=== PATIENT | female | born 1970 | race Caucasian/White ===

== ENCOUNTER 2016-08-01 03:56 | Emergency (ER) | payer MEDICAID ==
[2016-08-01] MEDS ORDERED: HYDROmorphone 2 MG/ML Syringe IM ONE (04:11)
[2016-08-01] MEDS ORDERED: Cyclobenzaprine 10 MG Tab ONE (04:15)
[2016-08-01] MEDS ORDERED: Acetaminophen/Codeine 300-30 MG Tab ONE (04:15)
[2016-08-01] MEDS ORDERED: HYDROmorphone 2 MG/ML Syringe ONE (04:19)
--- NOTE | 2016-08-01 04:24 | EDM.PDOC ---
ED HPI GENERAL MEDICAL PROBLEM - General Chief Complaint: Back Pain or Injury Stated Complaint: back pain Time Seen by Provider: 08/01/16 04:00 Source of Information: Reports: Patient History Limitations: Reports: No Limitations - History of Present Illness INITIAL COMMENTS - FREE TEXT/NARRATIVE: According to patient she does have history for recurrent back spasm and uses flexeril and tylenol # 3 as needed,She has been to Neurologist in [facility] for work up in the past. She claims her back has been spasming since last night and has been getting worse. No radiation of pain. no tingling or numbness in the lower extremities. No other complaints. Onset Date: 07/31/16 Location: Reports: Back Quality: Reports: Ache Severity: Severe Improves with: Reports: None Worsens with: Reports: None Associated Symptoms: Denies: Confusion, Fever/Chills, Headaches, Nausea/Vomiting , Rash, Seizure, Shortness of Breath - Related Data Allergies Allergy/AdvReac Type Severity Reaction Status Date / Time Penicillins Allergy Anaphylactic Verified 09/29/15 12:23 Shock Home Meds: Home Meds Cyclobenzaprine HCl [Cyclobenzaprine HCl] 10 mg PO BEDTIME PRN 09/25/15 [History ] Furosemide [Furosemide] 20 mg PO BID 09/25/15 [History] Metoprolol Tartrate [Metoprolol Tartrate] 50 mg PO BID 09/25/15 [History] Potassium Chloride [Potassium Chloride] 20 meq PO DAILY 09/25/15 [History] Warfarin Sodium [Jantoven] 7.5 mg PO ASDIRECTED 09/25/15 [History] Acetaminophen with Codeine [Tylenol with Codeine #3 Tablet] 1 each PO TID PRN [History] Aspirin [Halfprin] 81 mg PO DAILY 07/07/16 [History] Sildenafil Citrate [Sildenafil] 20 mg PO TID 07/07/16 [History] Past Medical History Cardiovascular History: Reports: Afib, Heart Failure, Heart Murmur, SOB on Exertion, Other (See Below) Other Cardiovascular History: CFH Respiratory History: Reports: SOB, Other (See Below) Other Respiratory History: Fluid in one lung 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: Musculoskeletal History: Reports: Back Pain, Chronic, Other (See Below) Other Musculoskeletal History: Back spasms Psychiatric History: Reports: Anxiety, Depression Other Psychiatric History: depression with son's Social & Family History - Family History Cardiac: Reports: [place], Stent - Tobacco Use Smoking Status *Q: Current Every Day Smoker Years of Tobacco use: 24 Packs/Tins Daily: 1 Used Tobacco, but Quit: No Second Hand Smoke Exposure: Yes - Alcohol Use Days Per Week of Alcohol Use: 2 Number of Drinks Per Day: 6 Total Drinks Per Week: 12 - Recreational Drug Use Recreational Drug Use: No ED ROS GENERAL - Review of Systems Review Of Systems: See Below Constitutional: Denies: Fever, Chills HEENT: Denies: Rhinitis, Sinus Problem, Throat Pain Respiratory: Denies: Cough, Sputum Cardiovascular: Denies: Chest Pain, Lightheadedness Endocrine: Denies: Fatigue GI/Abdominal: Denies: Abdominal Pain, Nausea, Vomiting : Denies: Dysuria, Flank Pain Musculoskeletal: Reports: Back Pain. Denies: Joint Pain, Joint Swelling Skin: Denies: Pruritis, Rash Neurological: Denies: Confusion, Numbness, Seizure, Syncope, Tremors ED EXAM, GENERAL - Physical Exam Exam: See Below Exam Limited By: No Limitations General Appearance: Alert, WD/WN, Moderate Distress Eye Exam: Bilateral Eye: EOMI, PERRL Ears: Normal External Exam, Normal Canal, Hearing Grossly Normal, Normal TMs Ear Exam: Bilateral Ear: Auricle Normal, Canal Normal, TM normal Nose: Normal Inspection, Normal Mucosa, No Blood Throat/Mouth: Normal Inspection, Normal Lips, Normal Teeth, Normal Gums, Normal Oropharynx, Normal Voice, No Airway Compromise Head: Atraumatic, Normocephalic Neck: Normal Inspection, Supple, Non-Tender, Full Range of Motion Respiratory/Chest: No Respiratory Distress, Lungs Clear, Normal Breath Sounds, No Accessory Muscle Use, Chest Non-Tender Cardiovascular: Normal Peripheral Pulses, Regular Rate, Rhythm, No Edema, No Gallop, No JVD, No Rub GI/Abdominal: Normal Bowel Sounds, Soft, Non-Tender, No Organomegaly, No Distention, No Abnormal Bruit, No Mass Back Exam: Normal Inspection, Muscle Spasm (lumbar), Paraspinal Tenderness, Vertebral Tenderness (lumbar) Neurological: Alert, Oriented, Normal Reflexes Course - Vital Signs Text/Narrative:: Pt has had chronic lumbar back spasms. Apparently has run out of her meds. She did receive dilaudid 1mg Im. She was discharged with Flexeril 10mg and tylenol # 3. Pt discharged advised intermittent heat to the back. Avoid excessive massage - Orders/Labs/Meds Orders: Active Orders 24 hr Category Date Time Status HYDROmorphone [Dilaudid] Med 08/01/16 04:11 Once 1 mg IM ONETIME ONE Medication Orders Hydromorphone HCl (Dilaudid) 1 mg IM ONETIME ONE Stop: 08/01/16 04:12 Meds: Medications Generic Name Dose Route Start Last Admin Trade Name Ryan PRN Reason Stop Dose Admin Hydromorphone HCl 1 mg 08/01/16 04:11 Dilaudid IM 08/01/16 04:12 ONETIME ONE Departure - Departure Time of Disposition: 04:40 Disposition: Home, Self-Care 01 Condition: good Clinical Impression: Back muscle spasm - Discharge Information Forms: ED Department Discharge Additional Instructions: She did receive dilaudid 1mg Im. She was discharged with Flexeril 10mg and tylenol #3. Pt discharged advised intermittent heat to the back. Avoid excessive massage - Problem List & Annotations (1) Back muscle spasm SNOMED Code(s): 182592535 Code(s): M62.830 - MUSCLE SPASM OF BACK Status: Acute Current Visit: Yes - Problem List Review Problem List Initiated/Reviewed/Updated: Yes - My Orders Last 24 Hours: My Active Orders 08/01/16 04:11 HYDROmorphone [Dilaudid] 1 mg IM ONETIME ONE - Assessment/Plan Last 24 Hours: My Active Orders 08/01/16 04:11 HYDROmorphone [Dilaudid] 1 mg IM ONETIME ONE Assessment:: Chronic back muscle spasm Plan: She did receive dilaudid 1mg Im. She was discharged with Flexeril 10mg and tylenol #3. Pt discharged advised intermittent heat to the back. Avoid excessive massage
[2016-08-01 08:07] VITALS: BP 141/98
== END 2016-08-01 05:00 | disposition home or self-care (01) ==
LOC: LB.ED 03:56
DX: M62.830 Muscle spasm of back (principal); M54.9 Dorsalgia, unspecified; G89.29 Other chronic pain; Z79.899 Other long term (current) drug therapy; Z79.01 Long term (current) use of anticoagulants; Z79.82 Long term (current) use of aspirin; I48.91 Unspecified atrial fibrillation; R06.02 Shortness of breath; F41.9 Anxiety disorder, unspecified; F32.9 Major depressive disorder, single episode, unspecified; I50.9 Heart failure, unspecified; F17.210 Nicotine dependence, cigarettes, uncomplicated; Z88.0 Allergy status to penicillin
CPT/HCPCS: 96372; 99283; A9270; J1170

== ENCOUNTER 2016-10-22 08:01 | Emergency (ER) | payer MEDICAID ==
[2016-10-22] MEDS ORDERED: Albuterol/Ipratropium 3.0-0.5 MG/3 ML Neb Soln NEB SCH (08:05)
[2016-10-22] MEDS ORDERED: Sodium Chloride 0.9% 10 ML Syringe FLUSH PRN (08:16)
[2016-10-22] MEDS: HYDROmorphone 2 MG/ML Syringe IVPUSH PRN ×2 (08:31→10:13)
[2016-10-22] MEDS ORDERED: HYDROmorphone 2 MG/ML Syringe ONE (08:31)
[2016-10-22] MEDS ORDERED: Furosemide 40 MG/4 ML VIAL ONE (08:47)
[2016-10-22] MEDS ORDERED: Iopamidol 755 Mg/ML 100 ML Bottle IV PRN (09:20)
[2016-10-22] MEDS ORDERED: Sodium Chloride 0.9% 50 ML SDV FLUSH ONE (09:20)
--- NOTE | 2016-10-22 09:48 | CR ---
DATE OF SERVICE: 10/22/16 CLINICAL DATA: resp distress AP PORTABLE CHEST: Comparison is made to a prior exam dated 09/29/15. The patient is status post median sternotomy and heart valve replacement. The heart size is stable. There is a poorly defined infiltrate in the right upper lobe just above the minor fissure that was not present on the prior exam consistent with pneumonia. There is slight blunting of the right costophrenic angle suggesting a small right pleural effusion. The lungs are otherwise clear. No pneumothorax. The pulmonary vasculature appears slightly more prominent than on the prior exam. The exam is otherwise unchanged. [id number] [facility]
[2016-10-22] MEDS ORDERED: HYDROmorphone 2 MG/ML Syringe IVPUSH PRN (09:58)
--- NOTE | 2016-10-22 10:08 | EDM.PDOC ---
ED HPI GENERAL MEDICAL PROBLEM - General Chief Complaint: Respiratory Problem Stated Complaint: respiratory distress Time Seen by Provider: 10/22/16 08:15 - History of Present Illness INITIAL COMMENTS - FREE TEXT/NARRATIVE: woke up suddenly this am with sob; she also has pain between her shoulder blades but this isnt new. Hx of mitral valve replacement; on coumadin Smoker, has COPD likely; has done a neb last night and one [employer]; given one here. Onset: Today, Sudden Onset Time: 04:00 Duration: Hour(s): Location: Reports: Chest, Back Quality: Reports: Sharp Severity: Severe Improves with: Reports: None Worsens with: Reports: None Associated Symptoms: Reports: Cough, Shortness of Breath, Weakness Back Pain Score (Numeric/FACES): 0 - Related Data Allergies Allergy/AdvReac Type Severity Reaction Status Date / Time gabapentin Allergy Hives Verified 08/01/16 04:32 Penicillins Allergy Anaphylactic Verified 09/29/15 12:23 Shock Home Meds: Home Meds Cyclobenzaprine HCl [Cyclobenzaprine HCl] 10 mg PO BEDTIME PRN 09/25/15 [History ] Furosemide [Furosemide] 30 mg PO BID 09/25/15 [History] Metoprolol Tartrate [Metoprolol Tartrate] 50 mg PO BID 09/25/15 [History] Potassium Chloride [Potassium Chloride] 20 meq PO DAILY 09/25/15 [History] Warfarin Sodium [Jantoven] 7.5 mg PO ASDIRECTED 09/25/15 [History] Acetaminophen with Codeine [Tylenol with Codeine #3 Tablet] 1 each PO TID PRN [History] Aspirin [Halfprin] 81 mg PO DAILY 07/07/16 [History] Sildenafil Citrate [Sildenafil] 20 mg PO TID 07/07/16 [History] Past Medical History Cardiovascular History: Reports: Afib, Heart Failure, Heart Murmur, SOB on Exertion, Other (See Below) Other Cardiovascular History: chf Respiratory History: Reports: COPD, SOB, Other (See Below) Other Respiratory History: Fluid in one lung Gastrointestinal History: Reports: Other (See Below) Other Gastrointestinal History: hx C diff several times 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/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 History: Musculoskeletal History: Reports: Back Pain, Chronic, Other (See Below) Other Musculoskeletal History: Back spasms Neurological History: Reports: Other (See Below) Other Neuro History: muscular - AMN Psychiatric History: Reports: Anxiety, Depression Other Psychiatric History: depression with son's - Infectious Disease History Infectious Disease History: Reports: C-Difficile Other Infectious Disease History: hx rheumatic fever Social & Family History - Family History Cardiac: Reports: [place], Stent Respiratory: Reports: COPD Other Respiratory Family Hisory: COPD not actually diagnosed but feels has, long hx of smoking Musculoskeletal: Reports: Other (See Below) Other Musculoskeletal Family History: AMN, ALD, ADDISONS Psychiatric: Reports: None - Tobacco Use Smoking Status *Q: Current Every Day Smoker Years of Tobacco use: 20 Packs/Tins Daily: 1 Used Tobacco, but Quit: No Second Hand Smoke Exposure: No - Caffeine Use Caffeine Use: Reports: Coffee - Alcohol Use Days Per Week of Alcohol Use: 2 Number of Drinks Per Day: 6 Total Drinks Per Week: 12 - Recreational Drug Use Recreational Drug Use: No ED ROS GENERAL - Review of Systems Review Of Systems: See Below Constitutional: Reports: No Symptoms HEENT: Reports: No Symptoms Respiratory: Reports: Shortness of Breath, Cough. Denies: No Symptoms Cardiovascular: Reports: No Symptoms Musculoskeletal: Reports: Back Pain Skin: Reports: No Symptoms Neurological: Reports: Weakness Psychiatric: Reports: No Symptoms Hematologic/Lymphatic: Reports: Easy Bleeding, Easy Bruising ED EXAM, GENERAL - Physical Exam Exam: See Below Exam Limited By: No Limitations General Appearance: Alert, WD/WN, Anxious, Moderate Distress Eye Exam: Bilateral Eye: EOMI, PERRL Nose: Normal Inspection, Normal Mucosa Throat/Mouth: Normal Inspection, Normal Lips, Normal Oropharynx Head: Atraumatic, Normocephalic Neck: Normal Inspection, Supple, Non-Tender Respiratory/Chest: Decreased Breath Sounds, Rales (upper right) Cardiovascular: Normal Peripheral Pulses, No Edema, Tachycardia, Systolic Murmur. No: Regular Rate, Rhythm GI/Abdominal: Normal Bowel Sounds, Soft, Non-Tender Back Exam: Full Range of Motion Extremities: Normal Range of Motion Neurological: Alert, Oriented, CN II-XII Intact, Normal Cognition, Normal Gait Psychiatric: Normal Affect, Normal Mood Skin Exam: Warm, Dry, Intact, Normal Color EKG INTERPRETATION EKG Date: 10/22/16 Rhythm: Other (sinus tachy) ST-T: Normal Comparison: NA - No Prior EKG Course - Vital Signs Last Recorded V/S: Last Vital Signs Temp 98.6 F 10/22/16 08:10 Pulse 111 H 10/22/16 09:19 Resp 18 10/22/16 10:14 BP 96/66 10/22/16 10:15 Pulse Ox 97 10/22/16 10:15 - Orders/Labs/Meds Orders: Active Orders 24 hr Category Date Time Status Cardiac Monitoring [RC] .As Directed Care 10/22/16 08:05 Active EKG Documentation Completion [RC] ASDIRECTED Care 10/22/16 08:18 Active EKG Documentation Completion [RC] ASDIRECTED Care 10/22/16 08:27 Active RT Aerosol Therapy [RC] ASDIRECTED Care 10/22/16 13:41 Active Chest w Cont [CT] Stat Exams 10/22/16 09:17 Taken Albuterol/Ipratropium [DuoNeb 3.0-0.5 MG/3 ML] Med 10/22/16 08:05 Active 3 ml NEB STAT Peripheral IV Insertion Adult [OM.PC] Stat Oth 10/22/16 08:17 Ordered Medication Orders Albuterol/Ipratropium (Duoneb 3.0-0.5 Mg/3 Ml) 3 ml NEB STAT YARELI Last Admin: 10/22/16 08:10 Dose: 3 ml Labs: Laboratory Tests 10/22/16 10/22/16 10/22/16 Range/Units 08:16 08:30 08:30 WBC 12.9 H (4.0-11.0) K/uL RBC 3.80 (3.80-5.80) M/uL Hgb 10.0 L (11.5-16.5) g/dL Hct 33.1 L (37.0-47.0) % MCV 87 (76-96) fL MCH 26.3 L (27.0-32.0) pg MCHC 30.2 L (31.0-35.0) g/dL RDW 16.7 H (11.0-16.0) % Plt Count 575 H D (150-500) K/uL MPV 10.3 H (6.0-10.0) fL Neut % (Auto) 77.6 H (45.0-70.0) % Lymph % (Auto) 15.8 L (20.0-40.0) % Monroe % (Auto) 5.3 (3.0-10.0) % Eos % (Auto) 0.6 L (1.0-5.0) % Baso % (Auto) 0.7 H (0.0-0.5) % Neut # (Auto) 10.00 H (2.00-7.50) K/uL Lymph # (Auto) 2.04 (1.50-4.00) K/uL Monroe # (Auto) 0.68 (0.20-0.80) K/uL Eos # (Auto) 0.08 (0.04-0.40) K/uL Baso # (Auto) 0.09 (0.02-0.10) K/uL PT 17.9 H D (9.0-11.5) sec INR 1.9 D (1.0-3.5) D-Dimer, Quantitative 868 H (0-400) ng/mL Sodium (136-145) mmol/L Potassium (3.5-5.1) mmol/L Chloride (98-107) mmol/L Carbon Dioxide (21.0-32.0) mmol/L Anion Gap (5.0-15.0) mmol/L BUN (8-26) mg/dL Creatinine (0.55-1.02) mg/dL Est Cr Clr Drug Dosing Estimated GFR (MDRD) (>60) MLS/MIN BUN/Creatinine Ratio (6-25) Glucose (74-100) mg/dL Calcium (8.5-10.1) mg/dL Total Bilirubin (0.0-1.0) mg/dL AST (15-37) U/L ALT (12-78) U/L Alkaline Phosphatase (46-116) U/L Troponin I (0.000-0.060) ng/mL B-Natriuretic Peptide (0-125) pg/mL Total Protein (6.4-8.2) g/dL Albumin (3.4-5.0) g/dL Globulin (2.2-4.2) g/dL Albumin/Globulin Ratio (0.8-2.0) 10/22/ Range/Units 08:30 WBC (4.0-11.0) K/uL RBC (3.80-5.80) M/uL Hgb (11.5-16.5) g/dL Hct (37.0-47.0) % MCV (76-96) fL MCH (27.0-32.0) pg MCHC (31.0-35.0) g/dL RDW (11.0-16.0) % Plt Count (150-500) K/uL MPV (6.0-10.0) fL Neut % (Auto) (45.0-70.0) % Lymph % (Auto) (20.0-40.0) % Monroe % (Auto) (3.0-10.0) % Eos % (Auto) (1.0-5.0) % Baso % (Auto) (0.0-0.5) % Neut # (Auto) (2.00-7.50) K/uL Lymph # (Auto) (1.50-4.00) K/uL Monroe # (Auto) (0.20-0.80) K/uL Eos # (Auto) (0.04-0.40) K/uL Baso # (Auto) (0.02-0.10) K/uL PT (9.0-11.5) sec INR (1.0-3.5) D-Dimer, Quantitative (0-400) ng/mL Sodium 136 (136-145) mmol/L Potassium 3.5 (3.5-5.1) mmol/L Chloride 98 (98-107) mmol/L Carbon Dioxide 28.8 (21.0-32.0) mmol/L Anion Gap 12.7 (5.0-15.0) mmol/L BUN 11 D (8-26) mg/dL Creatinine 0.93 D (0.55-1.02) mg/dL Est Cr Clr Drug Dosing TNP Estimated GFR (MDRD) > 60 (>60) MLS/MIN BUN/Creatinine Ratio 11.8 (6-25) Glucose 184 H D (74-100) mg/dL Calcium 8.8 (8.5-10.1) mg/dL Total Bilirubin 1.0 D (0.0-1.0) mg/dL AST 18 (15-37) U/L ALT 24 (12-78) U/L Alkaline Phosphatase 159 H (46-116) U/L Troponin I 0.090 H* D (0.000-0.060) ng/mL B-Natriuretic Peptide 4836 H D (0-125) pg/mL Total Protein 7.4 (6.4-8.2) g/dL Albumin 3.2 L (3.4-5.0) g/dL Globulin 4.2 (2.2-4.2) g/dL Albumin/Globulin Ratio 0.8 (0.8-2.0) Meds: Medications Generic Name Dose Route Start Last Admin Trade Name Ryan PRN Reason Stop Dose Admin Albuterol/Ipratropium 3 ml 10/22/16 08:05 10/22/16 08:10 Duoneb 3.0-0.5 Mg/3 Ml NEB 3 ml STAT YARELI Administration Discontinued Medications Generic Name Dose Route Start Last Admin Trade Name Ryan PRN Reason Stop Dose Admin Furosemide 20 mg 10/23/16 08:50 10/22/16 08:51 Lasix IVPUSH 10/23/16 08:51 20 mg ONETIME ONE Administration Furosemide Confirm 10/22/16 08:47 Lasix Administered 10/22/16 08:48 Dose 40 mg .ROUTE .STK-MED ONE Hydromorphone HCl 1 mg 10/22/16 08:26 10/22/16 10:13 Dilaudid IVPUSH 1 mg Q4H PRN Administration Pain Hydromorphone HCl 1 mg 10/22/16 09:58 Dilaudid IVPUSH Q2H PRN Pain Hydromorphone HCl Confirm 10/22/16 08:31 Dilaudid Administered 10/22/16 08:32 Dose 2 mg .ROUTE .STK-MED ONE Iopamidol 100 ml 10/22/16 09:20 10/22/16 09:42 Isovue-370 (76%) IV 10/23/16 09:21 100 ml . DIRECTED PRN Administration RADIOLOGY EXAM Sodium Chloride 10 ml 10/22/16 08:16 10/22/16 08:33 Saline Flush FLUSH 10 ml ASDIRECTED PRN Administration Keep Vein Open Sodium Chloride 50 ml 10/22/16 09:20 10/22/16 09:42 Normal Saline FLUSH 10/22/16 09:21 50 ml ONETIME ONE Administration - Radiology Interpretation Free Text/Narrative:: Initial v rad shows mild pumonary congestion. Radiology read shows pleural effusion and area consistent with pneumonia ( received report after patient left) CT Results Date: 10/22/16 - Re-Assessments/Exams Free Text/Narrative Re-Assessment/Exam: 10/22/16 10:19 Dr. Cole is accepting [facility] at [facility] Departure - Departure Time of Disposition: 11:45 Disposition: DC/Tfer to Acute Hospital 02 Condition: Fair Clinical Impression: CHF (congestive heart failure) Qualifiers: Congestive heart failure type: systolic Congestive heart failure chronicity: acute on chronic Qualified Code(s): I50.23 - Acute on chronic systolic ( congestive) heart failure - Discharge Information Referrals: Hugo Schuster MD [Primary Care Provider] - Forms: ED Department Discharge - Problem List & Annotations (1) Congestive heart failure SNOMED Code(s): 94363015 Code(s): I50.9 - HEART FAILURE, UNSPECIFIED Status: Acute Priority: High Qualifiers: Congestive heart failure type: systolic Congestive heart failure chronicity : acute on chronic Qualified Code(s): I50.23 - Acute on chronic systolic ( congestive) heart failure - My Orders Last 24 Hours: My Active Orders 10/22/16 08:05 Cardiac Monitoring [RC] .As Directed Albuterol/Ipratropium [DuoNeb 3.0-0.5 MG/3 ML] 3 ml NEB STAT 10/22/16 08:17 Peripheral IV Insertion Adult [OM.PC] Stat 10/22/16 08:18 EKG Documentation Completion [RC] ASDIRECTED 10/22/16 08:27 EKG Documentation Completion [RC] ASDIRECTED 10/22/16 09:17 Chest w Cont [CT] Stat 10/22/16 13:41 RT Aerosol Therapy [RC] ASDIRECTED - Assessment/Plan Last 24 Hours: My Active Orders 10/22/16 08:05 Cardiac Monitoring [RC] .As Directed Albuterol/Ipratropium [DuoNeb 3.0-0.5 MG/3 ML] 3 ml NEB STAT 10/22/16 08:17 Peripheral IV Insertion Adult [OM.PC] Stat 10/22/16 08:18 EKG Documentation Completion [RC] ASDIRECTED 10/22/16 08:27 EKG Documentation Completion [RC] ASDIRECTED 10/22/16 09:17 Chest w Cont [CT] Stat 10/22/16 13:41 RT Aerosol Therapy [RC] ASDIRECTED
[2016-10-22 10:18] VITALS: BP 96/66
--- NOTE | 2016-10-22 17:25 | CT ---
DATE OF SERVICE: 10/22/16 CLINICAL DATA: r/o pe ENHANCED CHEST CT Multislice acquisition through the chest with IV contrast was performed. No priors. The lower lungs are incompletely visualized. The patient is status post median sternotomy and mitral valve replacement. The heart size is normal. No pericardial effusion. There are coronary artery calcifications. No evidence of PE; however, lower lobe PE cannot be excluded. No pneumothorax. There is a moderate size right pleural effusion. There is a small left pleural effusion. The pulmonary vasculature is prominent suggesting pulmonary venous congestion or fluid overload. There are poorly defined ground-glass opacities in both lungs. There is an area of consolidation in the right upper lobe just above the minor fissure. Pneumonia should be considered. There are enlarged lymph nodes adjacent to the aortic arch. The largest measures 13 mm in its short axis. There are also enlarged lymph nodes in the subcarinal middle mediastinum. I do not see any other significant findings. [id number] MTDD
[2016-10-23] MEDS ORDERED: Furosemide 20 MG/2 ML VIAL IVPUSH ONE (08:50)
== END 2016-10-22 10:51 ==
LOC: LB.ED 08:01
DX: I50.23 Acute on chronic systolic (congestive) heart failure (principal); I48.91 Unspecified atrial fibrillation; J44.9 Chronic obstructive pulmonary disease, unspecified; F17.210 Nicotine dependence, cigarettes, uncomplicated; F41.9 Anxiety disorder, unspecified; F32.9 Major depressive disorder, single episode, unspecified; Z88.0 Allergy status to penicillin; Z88.8 Allergy status to other drugs, medicaments and biological substances; Z79.82 Long term (current) use of aspirin; Z79.899 Other long term (current) drug therapy
CPT/HCPCS: 36415; 71010; 71260; 80053; 83880; 84484; 85025; 85379; 85610; 93005; 96374; 96375; 99285; J1170; J1940; J7050; J7620; Q9967; A0425; A0429

== ENCOUNTER 2017-08-02 18:03 | Emergency (ER) | payer MEDICAID ==
[~2017-08-02 18:03] MED LIST: Cephalexin 500 MG Cap ONE
--- NOTE | 2017-08-02 18:29 | EDM.PDOC ---
ED HPI GENERAL MEDICAL PROBLEM - General Chief Complaint: Fever Stated Complaint: FEVER Time Seen by Provider: 08/02/17 18:10 Source of Information: Reports: Patient History Limitations: Reports: No Limitations - History of Present Illness INITIAL COMMENTS - FREE TEXT/NARRATIVE: According to patient she started to have cough with productive green colored sputum yesterday, the cough has got worse over the day. No wheezing or Shortness of breath.She checked her temp now and was at 101F and hence here in the emergency room. Pt is terrified and tearful because she has had AVR done 2 years and is concerned. No chest pain, palpitations. No nausea or vomiting. No skin rash. No other complaints. 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: Tylenol # 3 - Related Data Allergies Allergy/AdvReac Type Severity Reaction Status Date / Time gabapentin Allergy Hives Verified 08/01/16 04:32 Penicillins Allergy Anaphylactic Verified 09/29/15 12:23 Shock Home Meds: Home Meds Cyclobenzaprine HCl 10 mg PO BEDTIME PRN 09/25/15 [History] Furosemide 30 mg PO BID 09/25/15 [History] Metoprolol Tartrate 50 mg PO BID 09/25/15 [History] Potassium Chloride 20 meq PO DAILY 09/25/15 [History] Warfarin Sodium [Jantoven] 7.5 mg PO ASDIRECTED 09/25/15 [History] Acetaminophen with Codeine [Tylenol with Codeine #3 Tablet] 1 each PO TID PRN [History] Aspirin [Halfprin] 81 mg PO DAILY 07/07/16 [History] Sildenafil Citrate [Sildenafil] 20 mg PO TID 07/07/16 [History] Past Medical History Cardiovascular History: Reports: Afib, Heart Failure, Heart Murmur, SOB on Exertion, Other (See Below) Other Cardiovascular History: chf Respiratory History: Reports: COPD, SOB, Other (See Below) Other Respiratory History: Fluid in one lung Gastrointestinal History: Reports: Other (See Below) Other Gastrointestinal History: hx C diff several times 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: Reports: Other (See Below) Other OB/BYN History: Musculoskeletal History: Reports: Back Pain, Chronic, Other (See Below) Other Musculoskeletal History: Back spasms Neurological History: Reports: Other (See Below) Other Neuro History: muscular - AMN Psychiatric History: Reports: Anxiety, Depression Other Psychiatric History: depression with son's - Infectious Disease History Infectious Disease History: Reports: C-Difficile Other Infectious Disease History: hx rheumatic fever Social & Family History - Family History Cardiac: Reports: PA, Stent Respiratory: Reports: COPD Other Respiratory Family Hisory: COPD not actually diagnosed but feels has, long hx of smoking Musculoskeletal: Reports: Other (See Below) Other Musculoskeletal Family History: AMN, ALD, ADDISONS Psychiatric: Reports: None - Caffeine Use Caffeine Use: Reports: Coffee ED ROS GENERAL - Review of Systems Review Of Systems: See Below Constitutional: Reports: Fever, Chills. Denies: Night Sweats, Diaphoresis HEENT: Denies: Rhinitis, Sinus Problem, Throat Pain, Vision Change Respiratory: Reports: Cough, Sputum. Denies: Shortness of Breath, Wheezing, Pleuritic Chest Pain Cardiovascular: Denies: Chest Pain, Lightheadedness Endocrine: Denies: Fatigue GI/Abdominal: Denies: Abdominal Pain, Anorexia, Constipation, Diarrhea, Hematemesis, Hematochezia, Nausea, Vomiting : Denies: Dysuria, Flank Pain, Frequency, Hematuria Musculoskeletal: Denies: Back Pain, Joint Pain, Joint Swelling Skin: Denies: Bruising, Pruritis, Rash, Erythema Neurological: Denies: Confusion, Dizziness, Headache, Syncope ED EXAM, GENERAL - Physical Exam Exam: See Below Exam Limited By: No Limitations General Appearance: Alert, WD/WN, No Apparent Distress, Other (febrile 101.9F) Eye Exam: Bilateral Eye: EOMI, PERRL Ears: Normal External Exam, Normal Canal, Hearing Grossly Normal, Normal TMs Ear Exam: Bilateral Ear: Auricle Normal, Canal Normal, TM normal Nose: Normal Inspection, Normal Mucosa, No Blood Throat/Mouth: Normal Inspection, Normal Lips, Normal Teeth, Normal Gums, Normal Oropharynx, Normal Voice, No Airway Compromise Head: Atraumatic, Normocephalic Neck: Normal Inspection, Supple, Non-Tender, Full Range of Motion Respiratory/Chest: No Respiratory Distress, Lungs Clear, Normal Breath Sounds, No Accessory Muscle Use, Chest Non-Tender Cardiovascular: Normal Peripheral Pulses, Regular Rate, Rhythm, No Edema, No Gallop, No JVD, No Murmur, No Rub, Other (Aortic valve click heard) GI/Abdominal: Normal Bowel Sounds, Soft, Non-Tender, No Organomegaly, No Distention, No Abnormal Bruit, No Mass Back Exam: Normal Inspection, Full Range of Motion, NT Extremities: Normal Inspection, Normal Range of Motion, Non-Tender, Normal Capillary Refill, No Pedal Edema Neurological: Alert, Oriented, CN II-XII Intact, Normal Cognition, Normal Gait, Normal Reflexes, No Motor/Sensory Deficits Skin Exam: Warm, Intact Course - Vital Signs Text/Narrative:: Pt's clinical exam is normal. Her Chest xray is normal. Her CBC shows white count of 11.9 with 82% neutrophils. She does not have any urinary symptoms. i am empirically covering her for bronchitis. She did receive 1 gm rocephin IM in the emergency room. She ws sent home on keflex 500mg 3 times daily. Blood culture drawn, will followup with results. She is going to be down in [facility] at [facility] [place] [place] for her evaluation. I have advised patient to have recheck when she is down there. Return to emergency room, if she has high grade fever with chills, chest pain, SOB or worsening cough. Last Recorded V/S: Last Vital Signs Temp 101.9 F H 08/02/17 18:03 Pulse 65 08/02/17 18:03 Resp 18 08/02/17 18:03 BP 137/67 08/02/17 18:03 Pulse Ox 97 08/02/17 18:03 - Orders/Labs/Meds Orders: Active Orders 24 hr Category Date Time Status Chest 1V Frontal [CR] Stat Exams 08/02/17 18:17 Stop Req Chest 2V [CR] Stat Exams 08/02/17 18:21 Taken CULTURE BLOOD [BC] Stat Lab 08/02/17 18:24 Ordered Labs: Laboratory Tests 08/02/17 Range/Units 18:55 WBC 11.9 H (4.0-11.0) K/uL RBC 4.74 (3.80-5.80) M/uL Hgb 13.2 (11.5-16.5) g/dL Hct 39.8 (37.0-47.0) % MCV 84 (76-96) fL MCH 27.8 (27.0-32.0) pg MCHC 33.2 (31.0-35.0) g/dL RDW 16.7 H (11.0-16.0) % Plt Count 302 D (150-500) K/uL MPV 10.0 (6.0-10.0) fL Neut % (Auto) 82.3 H (45.0-70.0) % Lymph % (Auto) 10.9 L (20.0-40.0) % [place] % (Auto) 5.7 (3.0-10.0) % Eos % (Auto) 0.4 L (1.0-5.0) % Baso % (Auto) 0.7 H (0.0-0.5) % Neut # (Auto) 9.83 H (2.00-7.50) K/uL Lymph # (Auto) 1.30 L (1.50-4.00) K/uL [place] # (Auto) 0.68 (0.20-0.80) K/uL Eos # (Auto) 0.05 (0.04-0.40) K/uL Baso # (Auto) 0.08 (0.02-0.10) K/uL Meds: Medications Discontinued Medications Generic Name Dose Route Start Last Admin Trade Name Ryan PRN Reason Stop Dose Admin Acetaminophen 500 mg 08/02/17 18:39 08/02/17 18:40 Tylenol Extra Strength PO 08/02/17 18:40 500 mg ONETIME ONE Administration Ceftriaxone Sodium Confirm 08/02/17 19:06 Rocephin Administered 08/02/17 19:07 Dose 1 gm .ROUTE .STK-MED ONE Departure - Departure Time of Disposition: 19:00 Disposition: Home, Self-Care 01 Condition: Fair Clinical Impression: Bronchitis - Discharge Information Forms: ED Department Discharge Additional Instructions: Pt's clinical exam is normal. Her Chest xray is normal. Her CBC shows white count of 11.9 with 82% neutrophils. She does not have any urinary symptoms. i am empirically covering her for bronchitis. She did receive 1 gm rocephin IM in the emergency room. She ws sent home on keflex 500mg 3 times daily. Blood culture drawn, will followup with results. She is going to be down in [facility] at [facility] [place] [place] for her evaluation. I have advised patient to have recheck when she is down there. Return to emergency room, if she has high grade fever with chills, chest pain, SOB or worsening cough. - Problem List & Annotations (1) Bronchitis SNOMED Code(s): 49305610 Code(s): J40 - BRONCHITIS, NOT SPECIFIED ACUTE OR CHRONIC Status: Acute Current Visit: Yes - Problem List Review Problem List Initiated/Reviewed/Updated: Yes - My Orders Last 24 Hours: My Active Orders 08/02/17 18:17 Chest 1V Frontal [CR] Stat 08/02/17 18:21 Chest 2V [CR] Stat 08/02/17 18:24 CULTURE BLOOD [BC] Stat - Assessment/Plan Last 24 Hours: My Active Orders 08/02/17 18:17 Chest 1V Frontal [CR] Stat 08/02/17 18:21 Chest 2V [CR] Stat 08/02/17 18:24 CULTURE BLOOD [BC] Stat Assessment:: Bronchitis Plan: Pt's clinical exam is normal. Her Chest xray is normal. Her CBC shows white count of 11.9 with 82% neutrophils. She does not have any urinary symptoms. i am empirically covering her for bronchitis. She did receive 1 gm rocephin IM in the emergency room. She ws sent home on keflex 500mg 3 times daily. Blood culture drawn, will followup with results. She is going to be down in [facility] at [facility] [place] [place] for her evaluation. I have advised patient to have recheck when she is down there. Return to emergency room, if she has high grade fever with chills, chest pain, SOB or worsening cough.
[2017-08-02] MEDS ORDERED: Acetaminophen 500 MG Tab PO ONE (18:39)
[2017-08-02 18:57] VITALS: BP 137/67
[2017-08-02] MEDS ORDERED: cefTRIAXone 1 GM Vial IM ONE (19:04)
[2017-08-02] MEDS ORDERED: cefTRIAXone 1 GM Vial ONE (19:06)
--- NOTE | 2017-08-03 08:20 | CR ---
DATE OF SERVICE: 08/02/17 CLINICAL DATA: prod cough PA AND LATERAL CHEST: The patient is status post median sternotomy and heart valve replacement. The heart size is normal. The lungs are clear. No pneumothorax. No pleural effusions. No evidence of acute intrathoracic disease. [id number] MTDD
== END 2017-08-02 19:10 | disposition home or self-care (01) ==
LOC: LB.ED 18:03
DX: J40 Bronchitis, not specified as acute or chronic (principal); Z88.0 Allergy status to penicillin; Z88.8 Allergy status to other drugs, medicaments and biological substances; Z79.82 Long term (current) use of aspirin; Z79.899 Other long term (current) drug therapy
CPT/HCPCS: 36415; 71046; 85025; 87040; 96372; 99283-25; A9270-GY; J0696

== ENCOUNTER 2018-11-30 07:33 | Emergency (ER) | payer MEDICAID ==
[2018-11-30] MEDS ORDERED: Sodium Chloride 0.9% 10 ML Syringe FLUSH PRN (08:05)
[2018-11-30] MEDS ORDERED: Dextrose 5%-0.9% NaCl 1,000 ML IV SCH (08:30)
[2018-11-30] MEDS ORDERED: Calcium Gluconate 10% 1 GM/10 ML SDV IVPUSH ONE (08:46)
[2018-11-30] MEDS ORDERED: cefTRIAXone 2 GM in Sodium Chloride 0.9% 100 ML IV SCH (09:00)
[2018-11-30] MEDS: Insulin Regular, Human 20 UNIT in Dextrose 10% in Water 500 ML IV SCH ×6 (09:03→11:05)
[2018-11-30] MEDS ORDERED: Dextrose 10% in Water 1,000 ML ONE ×2 (09:04→11:04)
--- NOTE | 2018-11-30 09:04 | CR ---
Date of Service: 11/30/18 Clinical Data: syncope AP PORTABLE CHEST: The patient is status post median sternotomy and aortic and mitral valve replacement. The heart size is normal. The lungs are clear. No pneumothorax. No pleural effusions. [id number] MTDD
[2018-11-30] MEDS ORDERED: SODIUM BICARBONATE IV ONE ×6 (09:12→10:07)
[2018-11-30] MEDS ORDERED: WATER IV ONE ×6 (09:12→10:07)
[2018-11-30] MEDS ORDERED: DEXTROSE 5% IV ONE ×6 (09:12→10:07)
[2018-11-30] MEDS ORDERED: cefTRIAXone 2 GM Vial ONE ×2 (09:23→10:16)
--- NOTE | 2018-11-30 09:55 | CT ---
DATE OF SERVICE: 11/30/2018 CLINICAL DATA: Nausea and Vomiting Unenhanced abdomen and pelvic CT: Multislice acquisition through the abdomen ad pelvis without IV or oral contrast was performed. Comparison is made to a prior enhanced abdomen and pelvic CT dated 02/02/2018. The heart size is normal. There are prosthetic aortic and mitral valves in place. No pericardial effusion. There are linear densities in both lung bases consistent with linear atelectasis or fibrosis. The lung bases are otherwise clear. There is a small amount of fluid and gas noted within the distal esophagus most likely related to GE reflux. The liver is normal size with homogeneous attenuation. No focal hepatic lesions. The gallbladder appears normal. No calcified gallstones. Spleen appears normal. The pancreas appears normal. The right adrenal appears normal. There is astable left adrenal mass. The right and left kidneys appear normal. No nephrocalcinosis or nephrolithiasis. No hydronephrosis or hydroureter. The bladder is partially fluid-filled. There is apparent diffuse bladder wall thickening consistent prior related to non distention. Cystitis should at least be considered. No evidence of appendicitis. There is moderate amount of stool present throughout the ascending, transverse, and descending colon. There is diverticulosis of descending and sigmoid colon. No evidence of diverticulitis. There are fluid density lesions in both ovaries consistent with bilateral ovarian cysts. The largest is on the right and measures 2.7 cm. Followup ultrasound is recommended to confirm resolution. No free air. No free fluid. No dilated loops of bowel. No adenopathy. No aortic aneurysms. There is an umbilical hernia containing fat. There are also 2 ventral hernias in the midline of the anterior abdominal wall containing fat. No other significant findings. MTDD
[2018-11-30] MEDS ORDERED: Ondansetron 4 MG/2 ML SDV ONE (10:23)
[2018-11-30] MEDS ORDERED: Sodium Chloride 0.9% 1,000 ML IV ONE (10:23)
[2018-11-30] MEDS ORDERED: Ondansetron 4 MG/2 ML SDV IVPUSH ONE (10:30)
--- NOTE | 2018-11-30 10:47 | EDM.PDOC ---
ED HPI GENERAL MEDICAL PROBLEM - General Chief Complaint: General Stated Complaint: fall Time Seen by Provider: 11/30/18 08:04 Source of Information: Reports: Patient, Family History Limitations: Reports: No Limitations - History of Present Illness INITIAL COMMENTS - FREE TEXT/NARRATIVE: This is a 48yo F who has been feeling sick since Tuesday. She has not eaten or had much to drink since Tuesday. She did note some bladder pressure since Tuesday and left lower abdominal pain since then as well. She denies any chest pain, no shortness of breath. She feels weak and unable to lift her legs. She denies any loss of consciousness. Onset: Gradual Duration: Day(s):, Getting Worse Location: Reports: Generalized Severity: Severe Improves with: Reports: None Worsens with: Reports: None Associated Symptoms: Reports: Loss of Appetite, Malaise, Nausea/Vomiting, Weakness - Related Data Allergies Allergy/AdvReac Type Severity Reaction Status Date / Time gabapentin Allergy Hives Verified 08/01/16 04:32 lidocaine Allergy Hives Verified 11/30/18 08:30 Penicillins Allergy Anaphylactic Verified 09/29/15 12:23 Shock Home Meds: Home Meds Cyclobenzaprine HCl 10 mg PO TID PRN 09/25/15 [History] Potassium Chloride 20 meq PO BID 09/25/15 [History] Warfarin Sodium [Jantoven] 5 mg PO ASDIRECTED 09/25/15 [History] Acetaminophen with Codeine [Tylenol with Codeine #3 Tablet] 1 each PO DAILY 12/14 [History] Aspirin [Halfprin] 81 mg PO DAILY 07/07/16 [History] Sildenafil Citrate [Sildenafil] 20 mg PO TID 07/07/16 [History] Albuterol [Ventolin HFA] 2 inhalation PO Q4HR PRN 11/30/18 [History] Amiodarone [Cordarone] 1 tab PO DAILY 11/30/18 [History] Furosemide 1 tab PO BID 11/30/18 [History] Spironolactone [Aldactone] 1 tab PO BID 11/30/18 [History] Past Medical History Cardiovascular History: Reports: Afib, Heart Failure, Heart Murmur, SOB on Exertion, Other (See Below) Other Cardiovascular History: chf Respiratory History: Reports: COPD, SOB, Other (See Below) Other Respiratory History: Fluid in one lung Gastrointestinal History: Reports: Diverticulosis, Other (See Below) Other Gastrointestinal History: hx C diff several times Genitourinary History: Reports: Other (See Below) Other Genitourinary History: was treated with sulfa x 3days within last 2 weeks EARLY INTERVENTIONIST History: Reports: Other (See Below) Other EARLY INTERVENTIONIST History: Musculoskeletal History: Reports: Back Pain, Chronic, Other (See Below) Other Musculoskeletal History: Back spasms Neurological History: Reports: Other (See Below) Other Neuro History: muscular - AMN Psychiatric History: Reports: Anxiety, Depression Other Psychiatric History: depression with son's Endocrine/Metabolic History: Reports: Other (See Below) Other Endocrine/Metabolic History: low iron Hematologic History: Reports: Anemia - Infectious Disease History Infectious Disease History: Reports: C-Difficile Other Infectious Disease History: hx rheumatic fever - Past Surgical History Cardiovascular Surgical History: Reports: Valve Replacement Other Cardiovascular Surgeries/Procedures: rhuematic fever as child Social & Family History - Family History Cardiac: Reports: VT, Stent Respiratory: Reports: COPD Other Respiratory Family Hisory: COPD not actually diagnosed but feels has, long hx of smoking Musculoskeletal: Reports: Other (See Below) Other Musculoskeletal Family History: AMN, ALD, ADDISONS Psychiatric: Reports: None - Tobacco Use Smoking Status *Q: Current Every Day Smoker Years of Tobacco use: 28 Packs/Tins Daily: 1 Used Tobacco, but Quit: Yes Month/Year Tobacco Last Used: 11/2018 Second Hand Smoke Exposure: No - Caffeine Use Caffeine Use: Reports: None - Recreational Drug Use Recreational Drug Use: No ED ROS GENERAL - Review of Systems Review Of Systems: ROS reveals no pertinent complaints other than HPI. ED EXAM, GENERAL - Physical Exam Exam: See Below Exam Limited By: No Limitations General Appearance: Alert, WD/WN, Mild Distress Eye Exam: Bilateral Eye: EOMI, PERRL Ears: Normal External Exam Nose: Normal Inspection Throat/Mouth: Normal Inspection Head: Atraumatic, Normocephalic Neck: Normal Inspection Respiratory/Chest: No Respiratory Distress, Lungs Clear, Normal Breath Sounds Cardiovascular: Normal Peripheral Pulses, Regular Rate, Rhythm Peripheral Pulses: 2+: Dorsalis Pedis (L), Dorsalis Pedis (R) GI/Abdominal: Soft, Tender (LLQ), Abnormal Bowel Sounds (decreased) Back Exam: Normal Inspection, Full Range of Motion Extremities: Normal Inspection, Normal Range of Motion, Other (weakness b/l legs 3/5) Neurological: Alert, Oriented, CN II-XII Intact, Normal Cognition, Sensory/ Motor Deficit (3/5 BLE) Psychiatric: Normal Affect, Normal Mood Skin Exam: Warm, Dry, Intact Course - Vital Signs Last Recorded V/S: Last Vital Signs Temp 36.5 C 11/30/18 08:31 Pulse 82 11/30/18 09:04 Resp 20 11/30/18 09:04 BP 104/44 L 11/30/18 09:04 Pulse Ox 98 11/30/18 09:04 - Orders/Labs/Meds Orders: Active Orders 24 hr Category Date Time Status EKG Documentation Completion [RC] ASDIRECTED Care 11/30/18 08:05 Active ACTH, PLASMA Stat Lab 11/30/18 08:10 Received CORTISOL - AM Stat Lab 11/30/18 08:10 Received CULTURE BLOOD [BC] Stat Lab 11/30/18 08:55 Received CULTURE BLOOD [BC] Stat Lab 11/30/18 09:45 Received CULTURE URINE [RM] Stat Lab 11/30/18 08:04 Received Insulin Regular, Human [HumuLIN R] 20 unit Med 11/30/18 09:00 Active Dextrose 10% in Water 500 ml IV ASDIRECTED Norepinephrine [Levophed] 4 mg Med 11/30/18 11:14 Active Dextrose 5% in Water 250 ml IV TITRATE Sodium Chloride 0.9% [Saline Flush] Med 11/30/18 08:05 Active 10 ml FLUSH ASDIRECTED PRN cefTRIAXone [Rocephin] 2 gm Med 11/30/18 09:00 Active Sodium Chloride 0.9% [Normal Saline] 100 ml IV Q24H Peripheral IV Insertion Adult [OM.PC] Routine Oth 11/30/18 08:05 Ordered Medication Orders Ceftriaxone Sodium 2 gm/ (Sodium Chloride) 100 mls @ 100 mls/hr IV Q24H YARELI Insulin Human Regular 20 unit/ (Dextrose/Water) 500.2 mls @ 500 mls/hr IV ASDIRECTED YARELI Norepinephrine Bitartrate 4 mg (/ Dextrose/Water) 254 mls @ 7.62 mls/hr IV TITRATE YARELI; Protocol Sodium Chloride (Saline Flush) 10 ml FLUSH ASDIRECTED PRN PRN Reason: Keep Vein Open Labs: Laboratory Tests 11/30/18 11/30/18 11/30/18 Range/Units 07:11 08:04 08:10 WBC 31.5 H* D (4.0-11.0) K/uL RBC 4.18 (3.80-5.80) M/uL Hgb 11.0 L (11.5-16.5) g/dL Hct 34.0 L (37.0-47.0) % MCV 81 (76-96) fL MCH 26.3 L (27.0-32.0) pg MCHC 32.4 (31.0-35.0) g/dL RDW 20.9 H (11.0-16.0) % Plt Count 677 H* D (150-500) K/uL MPV 9.4 (6.0-10.0) fL Neut % (Auto) 92.0 H (45.0-70.0) % Lymph % (Auto) 2.3 L (20.0-40.0) % [place] % (Auto) 5.6 (3.0-10.0) % Eos % (Auto) 0.0 L (1.0-5.0) % Baso % (Auto) 0.1 (0.0-0.5) % Neut # (Auto) 28.98 H (2.00-7.50) K/uL Lymph # (Auto) 0.72 L (1.50-4.00) K/uL [place] # (Auto) 1.75 H (0.20-0.80) K/uL Eos # (Auto) 0.01 L (0.04-0.40) K/uL Baso # (Auto) 0.02 (0.02-0.10) K/uL PT (9.0-11.5) sec INR (1.0-3.5) VBG pH (7.31-7.41) Sodium (136-145) mmol/L Potassium (3.5-5.1) mmol/L Chloride (98-107) mmol/L Carbon Dioxide (21.0-32.0) mmol/L Anion Gap (5.0-15.0) mmol/L BUN (8-26) mg/dL Creatinine (0.55-1.02) mg/dL Est Cr Clr Drug Dosing mL/min Estimated GFR (MDRD) (>60) MLS/MIN BUN/Creatinine Ratio (6-25) Glucose (74-100) mg/dL POC Glucose 161 H (74-110) mg/dL Lactic Acid (0.90-1.70) mmol/L Calcium (8.5-10.1) mg/dL Total Bilirubin (0.0-1.0) mg/dL AST (15-37) U/L ALT (12-78) U/L Alkaline Phosphatase (46-116) U/L Troponin I (0.000-0.060) ng/mL B-Natriuretic Peptide (0-125) pg/mL Total Protein (6.4-8.2) g/dL Albumin (3.4-5.0) g/dL Globulin (2.2-4.2) g/dL Albumin/Globulin Ratio (0.8-2.0) TSH, Ultra Sensitive (0.358-3.740) uIU/mL Urine Color Yellow Urine Appearance Clear (CLEAR) Urine pH 5.0 (5.0-8.0) Ur Specific [place] 1.020 (1.003-1.030) Urine Protein 30 H (NEGATIVE) mg/dL Urine Glucose (UA) Negative (NEGATIVE) mg/dL Urine Ketones Trace H (NEGATIVE) mg/dL Urine Occult Blood Negative (NEGATIVE) Urine Nitrite Negative (NEGATIVE) Urine Bilirubin Moderate H (NEGATIVE) Urine Urobilinogen 1.0 (0.2-1.0) E.U./dL Ur Leukocyte Esterase Trace H (NEGATIVE) Urine RBC 0-5 H /HPF Urine WBC 20-30 H /HPF Ur Squamous Epith Cells Few /HPF Urine Bacteria Moderate H /HPF 11/30/18 11/30/18 11/30/18 Range/Units 08:10 08:10 08:55 WBC (4.0-11.0) K/uL RBC (3.80-5.80) M/uL Hgb (11.5-16.5) g/dL Hct (37.0-47.0) % MCV (76-96) fL MCH (27.0-32.0) pg MCHC (31.0-35.0) g/dL RDW (11.0-16.0) % Plt Count (150-500) K/uL MPV (6.0-10.0) fL Neut % (Auto) (45.0-70.0) % Lymph % (Auto) (20.0-40.0) % [place] % (Auto) (3.0-10.0) % Eos % (Auto) (1.0-5.0) % Baso % (Auto) (0.0-0.5) % Neut # (Auto) (2.00-7.50) K/uL Lymph # (Auto) (1.50-4.00) K/uL [place] # (Auto) (0.20-0.80) K/uL Eos # (Auto) (0.04-0.40) K/uL Baso # (Auto) (0.02-0.10) K/uL PT 126.7 H D (9.0-11.5) sec INR 14.5 H* D (1.0-3.5) VBG pH (7.31-7.41) Sodium 124 L (136-145) mmol/L Potassium 6.6 H* D (3.5-5.1) mmol/L Chloride 88 L* (98-107) mmol/L Carbon Dioxide 9.3 L* D (21.0-32.0) mmol/L Anion Gap 33.3 H (5.0-15.0) mmol/L BUN 140 H* D (8-26) mg/dL Creatinine 5.39 H* D (0.55-1.02) mg/dL Est Cr Clr Drug Dosing 11.82 mL/min Estimated GFR (MDRD) 8 L (>60) MLS/MIN BUN/Creatinine Ratio 26.0 H (6-25) Glucose 146 H (74-100) mg/dL POC Glucose (74-110) mg/dL Lactic Acid 4.33 H (0.90-1.70) mmol/L Calcium 8.8 (8.5-10.1) mg/dL Total Bilirubin 0.6 D (0.0-1.0) mg/dL AST 42 H (15-37) U/L ALT 55 (12-78) U/L Alkaline Phosphatase 241 H (46-116) U/L Troponin I < 0.017 D (0.000-0.060) ng/mL B-Natriuretic Peptide 4650 H (0-125) pg/mL Total Protein 8.0 (6.4-8.2) g/dL Albumin 3.4 (3.4-5.0) g/dL Globulin 4.6 H (2.2-4.2) g/dL Albumin/Globulin Ratio 0.7 L (0.8-2.0) TSH, Ultra Sensitive 0.828 D (0.358-3.740) uIU/mL Urine Color Urine Appearance (CLEAR) Urine pH (5.0-8.0) Ur Specific [place] (1.003-1.030) Urine Protein (NEGATIVE) mg/dL Urine Glucose (UA) (NEGATIVE) mg/dL Urine Ketones (NEGATIVE) mg/dL Urine Occult Blood (NEGATIVE) Urine Nitrite (NEGATIVE) Urine Bilirubin (NEGATIVE) Urine Urobilinogen (0.2-1.0) E.U./dL Ur Leukocyte Esterase (NEGATIVE) Urine RBC /HPF Urine WBC /HPF Ur Squamous Epith Cells /HPF Urine Bacteria /HPF 11/30/18 11/30/18 11/30/18 Range/Units 08:55 09:57 11:40 WBC (4.0-11.0) K/uL RBC (3.80-5.80) M/uL Hgb (11.5-16.5) g/dL Hct (37.0-47.0) % MCV (76-96) fL MCH (27.0-32.0) pg MCHC (31.0-35.0) g/dL RDW (11.0-16.0) % Plt Count (150-500) K/uL MPV (6.0-10.0) fL Neut % (Auto) (45.0-70.0) % Lymph % (Auto) (20.0-40.0) % [place] % (Auto) (3.0-10.0) % Eos % (Auto) (1.0-5.0) % Baso % (Auto) (0.0-0.5) % Neut # (Auto) (2.00-7.50) K/uL Lymph # (Auto) (1.50-4.00) K/uL [place] # (Auto) (0.20-0.80) K/uL Eos # (Auto) (0.04-0.40) K/uL Baso # (Auto) (0.02-0.10) K/uL PT (9.0-11.5) sec INR (1.0-3.5) VBG pH 7.07 L* (7.31-7.41) Sodium (136-145) mmol/L Potassium 5.1 D (3.5-5.1) mmol/L Chloride (98-107) mmol/L Carbon Dioxide (21.0-32.0) mmol/L Anion Gap (5.0-15.0) mmol/L BUN (8-26) mg/dL Creatinine (0.55-1.02) mg/dL Est Cr Clr Drug Dosing mL/min Estimated GFR (MDRD) (>60) MLS/MIN BUN/Creatinine Ratio (6-25) Glucose (74-100) mg/dL POC Glucose 372 H (74-110) mg/dL Lactic Acid (0.90-1.70) mmol/L Calcium (8.5-10.1) mg/dL Total Bilirubin (0.0-1.0) mg/dL AST (15-37) U/L ALT (12-78) U/L Alkaline Phosphatase (46-116) U/L Troponin I (0.000-0.060) ng/mL B-Natriuretic Peptide (0-125) pg/mL Total Protein (6.4-8.2) g/dL Albumin (3.4-5.0) g/dL Globulin (2.2-4.2) g/dL Albumin/Globulin Ratio (0.8-2.0) TSH, Ultra Sensitive (0.358-3.740) uIU/mL Urine Color Urine Appearance (CLEAR) Urine pH (5.0-8.0) Ur Specific [place] (1.003-1.030) Urine Protein (NEGATIVE) mg/dL Urine Glucose (UA) (NEGATIVE) mg/dL Urine Ketones (NEGATIVE) mg/dL Urine Occult Blood (NEGATIVE) Urine Nitrite (NEGATIVE) Urine Bilirubin (NEGATIVE) Urine Urobilinogen (0.2-1.0) E.U./dL Ur Leukocyte Esterase (NEGATIVE) Urine RBC /HPF Urine WBC /HPF Ur Squamous Epith Cells /HPF Urine Bacteria /HPF 11/30/18 Range/Units 11:40 WBC (4.0-11.0) K/uL RBC (3.80-5.80) M/uL Hgb (11.5-16.5) g/dL Hct (37.0-47.0) % MCV (76-96) fL MCH (27.0-32.0) pg MCHC (31.0-35.0) g/dL RDW (11.0-16.0) % Plt Count (150-500) K/uL MPV (6.0-10.0) fL Neut % (Auto) (45.0-70.0) % Lymph % (Auto) (20.0-40.0) % [place] % (Auto) (3.0-10.0) % Eos % (Auto) (1.0-5.0) % Baso % (Auto) (0.0-0.5) % Neut # (Auto) (2.00-7.50) K/uL Lymph # (Auto) (1.50-4.00) K/uL [place] # (Auto) (0.20-0.80) K/uL Eos # (Auto) (0.04-0.40) K/uL Baso # (Auto) (0.02-0.10) K/uL PT (9.0-11.5) sec INR (1.0-3.5) VBG pH 7.07 L* (7.31-7.41) Sodium (136-145) mmol/L Potassium (3.5-5.1) mmol/L Chloride (98-107) mmol/L Carbon Dioxide (21.0-32.0) mmol/L Anion Gap (5.0-15.0) mmol/L BUN (8-26) mg/dL Creatinine (0.55-1.02) mg/dL Est Cr Clr Drug Dosing mL/min Estimated GFR (MDRD) (>60) MLS/MIN BUN/Creatinine Ratio (6-25) Glucose (74-100) mg/dL POC Glucose (74-110) mg/dL Lactic Acid (0.90-1.70) mmol/L Calcium (8.5-10.1) mg/dL Total Bilirubin (0.0-1.0) mg/dL AST (15-37) U/L ALT (12-78) U/L Alkaline Phosphatase (46-116) U/L Troponin I (0.000-0.060) ng/mL B-Natriuretic Peptide (0-125) pg/mL Total Protein (6.4-8.2) g/dL Albumin (3.4-5.0) g/dL Globulin (2.2-4.2) g/dL Albumin/Globulin Ratio (0.8-2.0) TSH, Ultra Sensitive (0.358-3.740) uIU/mL Urine Color Urine Appearance (CLEAR) Urine pH (5.0-8.0) Ur Specific [place] (1.003-1.030) Urine Protein (NEGATIVE) mg/dL Urine Glucose (UA) (NEGATIVE) mg/dL Urine Ketones (NEGATIVE) mg/dL Urine Occult Blood (NEGATIVE) Urine Nitrite (NEGATIVE) Urine Bilirubin (NEGATIVE) Urine Urobilinogen (0.2-1.0) E.U./dL Ur Leukocyte Esterase (NEGATIVE) Urine RBC /HPF Urine WBC /HPF Ur Squamous Epith Cells /HPF Urine Bacteria /HPF Meds: Medications Generic Name Dose Route Start Last Admin Trade Name Freq PRN Reason Stop Dose Admin Ceftriaxone Sodium 2 gm/ 100 mls @ 100 mls/hr 11/30/18 09:00 Sodium Chloride IV Q24H [facility] Insulin Human Regular 20 unit/ 500.2 mls @ 500 mls/hr 11/30/18 09:00 Dextrose/Water IV ASDIRECTED YARELI Norepinephrine Bitartrate 4 mg 254 mls @ 7.62 mls/hr 11/30/18 11:14 / Dextrose/Water IV TITRATE YARELI Protocol 2 MCG/MIN Sodium Chloride 10 ml 11/30/18 08:05 Saline Flush FLUSH ASDIRECTED PRN Keep Vein Open Discontinued Medications Generic Name Dose Route Start Last Admin Trade Name Freq PRN Reason Stop Dose Admin Calcium Gluconate 1 gm 11/30/18 08:46 Calcium Gluconate IVPUSH 11/30/18 08:47 ONETIME ONE Ceftriaxone Sodium Confirm 11/30/18 09:23 Rocephin Administered 11/30/18 09:24 Dose 2 gm .ROUTE .STK-MED ONE Ceftriaxone Sodium Confirm 11/30/18 10:16 Rocephin Administered 11/30/18 10:17 Dose 2 gm .ROUTE .STK-MED ONE Dextrose/Sodium Chloride 1,000 mls @ 999 mls/hr 11/30/18 08:30 Dextrose 5%-Normal Saline IV 11/30/18 09:31 ASDIRECTED YARELI Dextrose/Water Confirm 11/30/18 09:04 Dextrose 10% In Water Administered 11/30/18 09:05 Dose 1,000 mls @ as directed .ROUTE .STK-MED ONE Sodium Bicarbonate 250 meq/ 500 mls @ 250 mls/hr 11/30/18 09:12 Dextrose/Water IV 11/30/18 11:11 ONETIME ONE Sodium Bicarbonate 125 meq/ 375 mls @ 140 mls/hr 11/30/18 10:06 Dextrose/Water IV 11/30/18 11:52 ONETIME ONE Sodium Bicarbonate 125 meq/ 375 mls @ 140 mls/hr 11/30/18 10:07 Dextrose/Water IV 11/30/18 11:52 ONETIME ONE Norepinephrine Bitartrate 8 mg 258 mls @ 3.87 mls/hr 11/30/18 11:00 / Dextrose/Water IV TITRATE YARELI Protocol 2 MCG/MIN Dextrose/Water Confirm 11/30/18 11:04 Dextrose 10% In Water Administered 11/30/18 11:05 Dose 1,000 mls @ as directed .ROUTE .STK-MED ONE Ondansetron HCl Confirm 11/30/18 10:23 Zofran Administered 11/30/18 10:24 Dose 4 mg .ROUTE .STK-MED ONE Departure - Departure Time of Disposition: 12:20 Disposition: DC/Tfer to [facility] 02 Condition: Critical Clinical Impression: Acute renal failure (ARF) Qualifiers: Acute renal failure type: unspecified Qualified Code(s): N17.9 - Acute kidney failure, unspecified - Discharge Information Referrals: PCP,None [Primary Care Provider] - Forms: ED Department Discharge - Problem List & Annotations (1) Sepsis SNOMED Code(s): 43125375 Code(s): A41.9 - SEPSIS, UNSPECIFIED ORGANISM Status: Acute Priority: High Current Visit: Yes Qualifiers: Sepsis type: sepsis due to unspecified organism Sepsis acute organ dysfunction status: with acute organ dysfunction Severe sepsis acute organ dysfunction type: acute renal failure Acute renal failure type: unspecified Severe sepsis shock status: with septic shock Qualified Code(s): A41.9 - Sepsis, unspecified organism; R65.21 - Severe sepsis with septic shock; N17.9 - Acute kidney failure, unspecified (2) Metabolic acidosis SNOMED Code(s): 25211549 Code(s): E87.2 - ACIDOSIS Status: Acute Priority: High Current Visit: Yes (3) Hyperkalemia SNOMED Code(s): 06323628 Code(s): E87.5 - HYPERKALEMIA Status: Acute Priority: High Current Visit: Yes (4) Acute renal failure (ARF) SNOMED Code(s): 97773790 Code(s): N17.9 - ACUTE KIDNEY FAILURE, UNSPECIFIED Status: Acute Priority : High Current Visit: Yes Qualifiers: Acute renal failure type: unspecified Qualified Code(s): N17.9 - Acute kidney failure, unspecified - Problem List Review Problem List Initiated/Reviewed/Updated: Yes - My Orders Last 24 Hours: My Active Orders 11/30/18 08:04 CULTURE URINE [RM] Stat 11/30/18 08:05 EKG Documentation Completion [RC] ASDIRECTED Sodium Chloride 0.9% [Saline Flush] 10 ml FLUSH ASDIRECTED PRN Peripheral IV Insertion Adult [OM.PC] Routine 11/30/18 08:10 ACTH, PLASMA Stat CORTISOL - AM Stat 11/30/18 08:55 CULTURE BLOOD [BC] Stat 11/30/18 09:00 Insulin Regular, Human [HumuLIN R] 20 unit Dextrose 10% in Water 500 ml IV ASDIRECTED cefTRIAXone [Rocephin] 2 gm Sodium Chloride 0.9% [Normal Saline] 100 ml IV Q24H 11/30/18 09:45 CULTURE BLOOD [BC] Stat 11/30/18 11:14 Norepinephrine [Levophed] 4 mg Dextrose 5% in Water 250 ml IV TITRATE - Assessment/Plan Last 24 Hours: My Active Orders 11/30/18 08:04 CULTURE URINE [RM] Stat 11/30/18 08:05 EKG Documentation Completion [RC] ASDIRECTED Sodium Chloride 0.9% [Saline Flush] 10 ml FLUSH ASDIRECTED PRN Peripheral IV Insertion Adult [OM.PC] Routine 11/30/18 08:10 ACTH, PLASMA Stat CORTISOL - AM Stat 11/30/18 08:55 CULTURE BLOOD [BC] Stat 11/30/18 09:00 Insulin Regular, Human [HumuLIN R] 20 unit Dextrose 10% in Water 500 ml IV ASDIRECTED cefTRIAXone [Rocephin] 2 gm Sodium Chloride 0.9% [Normal Saline] 100 ml IV Q24H 11/30/18 09:45 CULTURE BLOOD [BC] Stat 11/30/18 11:14 Norepinephrine [Levophed] 4 mg Dextrose 5% in Water 250 ml IV TITRATE Plan: Patient to be transferred to [facility] under Dr. Bay. [facility] was unable to accept due to a full ICU. Transfer done by [facility]. Discussed plan of care with and patient and both are agreeable to plan of care.
[2018-11-30] MEDS ORDERED: Norepinephrine 8 MG in Dextrose 5% in Water 250 ML IV SCH ×2 (11:00)
[2018-11-30 14:55] VITALS: BP 106/54; PULSE 54
== END 2018-11-30 11:45 ==
LOC: LB.ED 07:33
DX: N17.9 Acute kidney failure, unspecified (principal); I50.9 Heart failure, unspecified; I48.91 Unspecified atrial fibrillation; J44.9 Chronic obstructive pulmonary disease, unspecified; F17.210 Nicotine dependence, cigarettes, uncomplicated; Z95.5 Presence of coronary angioplasty implant and graft; Z88.0 Allergy status to penicillin; Z88.8 Allergy status to other drugs, medicaments and biological substances; Z79.82 Long term (current) use of aspirin; Z79.899 Other long term (current) drug therapy
CPT/HCPCS: 36415; 71045; 74176; 80053; 81001; 81003; 82024; 82533; 82800; 82962; 83605; 83880; 84132; 84443; 84484; 85025; 85610; 87040; 87086; 87186; 93005; 96361; 96365; 96366; 96368; 96375; 99285; A0425; A0429; J0610; J0696; J2405; J3370; J7030; J7050; J7060; J3490

== ENCOUNTER 2019-01-01 12:18 | Emergency (ER) | payer MEDICAID ==
--- NOTE | 2019-01-01 12:28 | EDM.PDOC ---
ED HPI GENERAL MEDICAL PROBLEM - General Chief Complaint: Abdominal Pain Stated Complaint: SMALL BOWEL OBSTRUCTION Time Seen by Provider: 01/01/19 12:21 Source of Information: Reports: Patient, Family, RN History Limitations: Reports: No Limitations - History of Present Illness INITIAL COMMENTS - FREE TEXT/NARRATIVE: 48 yo female presents to ER with low right abdominal pain and middle abdominal pain since Tuesday. States about 1 month ago was transferred to for sepsis and abdominal pain. Pt is frustrated with continued pain and symptoms not improving. Pt was seen in the clinic this am and hyponatremia noted and elevated platelets. Pt states transfusion of RBC's with previous admission. INR of 3.1 and is on senior living anticoagulant therapy. BUN is 57 today and unable to void. Unable to get any x-ray today as equipment is down. Abdominal Pain Score (Numeric/FACES): 9 - Related Data Allergies Allergy/AdvReac Type Severity Reaction Status Date / Time gabapentin Allergy Hives Verified 01/01/19 13:03 lidocaine Allergy Hives Verified 01/01/19 13:03 Penicillins Allergy Anaphylactic Verified 01/01/19 13:03 Shock Home Meds: Home Meds Cyclobenzaprine HCl 10 mg PO TID PRN 09/25/15 [History] Potassium Chloride 20 meq PO BID 09/25/15 [History] Warfarin Sodium [Jantoven] 5 mg PO ASDIRECTED 09/25/15 [History] Acetaminophen with Codeine [Tylenol with Codeine #3 Tablet] 1 each PO DAILY 12/14 [History] Aspirin [Halfprin] 81 mg PO DAILY 07/07/16 [History] Sildenafil Citrate [Sildenafil] 20 mg PO TID 07/07/16 [History] Albuterol [Ventolin HFA] 2 inhalation PO Q4HR PRN 11/30/18 [History] Amiodarone [Cordarone] 1 tab PO DAILY 11/30/18 [History] Furosemide 1 tab PO BID 11/30/18 [History] Spironolactone [Aldactone] 1 tab PO BID 11/30/18 [History] Past Medical History Cardiovascular History: Reports: Afib, Heart Failure, Heart Murmur, SOB on Exertion, Other (See Below) Other Cardiovascular History: chf Respiratory History: Reports: COPD, SOB, Other (See Below) Other Respiratory History: Fluid in one lung Gastrointestinal History: Reports: Diverticulosis, Other (See Below) Other Gastrointestinal History: hx C diff several times Genitourinary History: Reports: Other (See Below) Other Genitourinary History: was treated with sulfa x 3days within last 2 weeks [employer]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: Reports: Other (See Below) 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: Musculoskeletal History: Reports: Back Pain, Chronic, Other (See Below) Other Musculoskeletal History: Back spasms Neurological History: Reports: Other (See Below) Other Neuro History: muscular - AMN Psychiatric History: Reports: Anxiety, Depression Other Psychiatric History: depression with son's Endocrine/Metabolic History: Reports: Other (See Below) Other Endocrine/Metabolic History: low iron Hematologic History: Reports: Anemia - Infectious Disease History Infectious Disease History: Reports: C-Difficile Other Infectious Disease History: hx rheumatic fever - Past Surgical History Cardiovascular Surgical History: Reports: Valve Replacement Other Cardiovascular Surgeries/Procedures: rhuematic fever as child Social & Family History - Family History Cardiac: Reports: MT, Stent Respiratory: Reports: COPD Other Respiratory Family Hisory: COPD not actually diagnosed but feels has, long hx of smoking Musculoskeletal: Reports: Other (See Below) Other Musculoskeletal Family History: AMN, ALD, ADDISONS Psychiatric: Reports: None - Caffeine Use Caffeine Use: Reports: None ED ROS GENERAL - Review of Systems Review Of Systems: See Below Constitutional: Reports: Weakness HEENT: Reports: No Symptoms Respiratory: Reports: No Symptoms Cardiovascular: Reports: No Symptoms GI/Abdominal: Reports: Abdominal Pain, Constipation, Decreased Appetite, Nausea , Vomiting Musculoskeletal: Reports: Other (chronic pain) Neurological: Reports: Weakness Hematologic/Lymphatic: Reports: Other (anticoagulant) ED EXAM, GI/ABD - Physical Exam Exam: See Below Exam Limited By: No Limitations General Appearance: Alert, No Apparent Distress Ears: Hearing Grossly Normal Nose: Normal Inspection Throat/Mouth: Normal Lips, Normal Voice, No Airway Compromise, Other (dry mucous membranes) Head: Atraumatic, Normocephalic Neck: Supple, Non-Tender Respiratory/Chest: No Respiratory Distress, Lungs Clear, Normal Breath Sounds Cardiovascular: Normal Peripheral Pulses, No Edema, Other (irregular heart rate , hx of atrial fibrillation) GI/Abdominal Exam: Soft, Guarding, Tender, Other (hyperactive bowel sounds noted and limited bowel sounds to left lower quadrant) Extremities: Normal Range of Motion, Non-Tender, No Pedal Edema Neurological: Alert, Oriented, Normal Cognition Psychiatric: Tearful Skin Exam: Warm, Dry Course - Vital Signs Last Recorded V/S: Last Vital Signs Temp 98.1 F 01/01/19 13:32 Pulse 104 H 01/01/19 14:23 Resp 16 01/01/19 13:32 BP 115/67 01/01/19 14:23 Pulse Ox 99 01/01/19 13:32 - Orders/Labs/Meds Orders: Active Orders 24 hr Category Date Time Status Lua Catheter Insertion [Insert Urinary Catheter] [OM. Care 01/01/19 13:15 Ordered PC] Q24H Urinary Catheter Assessment [RC] ASDIRECTED Care 01/01/19 13:05 Active Labs: Laboratory Tests 01/01/19 01/01/19 01/01/19 Range/Units 11:30 12:30 13:19 Lactic Acid 3.09 H (0.90-1.70) mmol/L Troponin I < 0.017 (0.000-0.060) ng/mL Urine Color Yellow Urine Appearance Clear (CLEAR) Urine pH 6.0 (5.0-8.0) Ur Specific [place] 1.015 (1.003-1.030) Urine Protein Negative (NEGATIVE) mg/dL Urine Glucose (UA) Negative (NEGATIVE) mg/dL Urine Ketones Negative (NEGATIVE) mg/dL Urine Occult Blood Negative (NEGATIVE) Urine Nitrite Negative (NEGATIVE) Urine Bilirubin Negative (NEGATIVE) Urine Urobilinogen 0.2 (0.2-1.0) E.U./dL Ur Leukocyte Esterase Negative (NEGATIVE) Urine RBC Not seen /HPF Urine WBC 0-5 H /HPF Ur Squamous Epith Cells Moderate /HPF Urine Bacteria Few /HPF Hyaline Casts Few /HPF Meds: Medications Discontinued Medications Generic Name Dose Route Start Last Admin Trade Name Freq PRN Reason Stop Dose Admin Sodium Chloride 1,000 mls @ 999 mls/hr 01/01/19 12:30 01/01/19 12:51 Normal Saline IV 999 mls/hr ASDIRECTED YARELI Administration Sodium Chloride 1,000 mls @ 999 mls/hr 01/01/19 14:00 01/01/19 13:52 Normal Saline IV 999 mls/hr ASDIRECTED YARELI Administration - Re-Assessments/Exams Free Text/Narrative Re-Assessment/Exam: 01/01/19 13:[address] Soliman at [place], [place]. States he is willing to accept if surgeon is available. this was confirmed and accepted pt. Reviewed lab results with provider. Will push CT results to [facility]. Departure - Departure Time of Disposition: 14:42 Disposition: DC/Tfer to Acute Hospital 02 Condition: Undetermined Clinical Impression: Small bowel obstruction, Abdominal pain - Discharge Information Referrals: PCP,None [Primary Care Provider] - Forms: ED Department Discharge, ED Return to Work/School Form - My Orders Last 24 Hours: My Active Orders 01/01/19 13:05 Urinary Catheter Assessment [RC] ASDIRECTED 01/01/19 13:15 Lua Catheter Insertion [Insert Urinary Catheter] [OM.PC] Q24H - Assessment/Plan Last 24 Hours: My Active Orders 01/01/19 13:05 Urinary Catheter Assessment [RC] ASDIRECTED 01/01/19 13:15 Lua Catheter Insertion [Insert Urinary Catheter] [OM.PC] Q24H Plan: Small bowel obstruction and hyponatremia noted with Creatinine elevated 2.27. History significant for anticoagulant and INR today of 3.1. Hx of heart valve replacement and atrial fibrillation. Lactic acid of 3.09 and Platelets elevated , Hgb 12. Pt is alert and saddened as she had a transfer to about 1 month ago with sepsis and states hx of blood transfusion at that time. is with her today. Will transfer to [place], [place] for small bowel obstruction. Hospitalist accepting pt. 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 Accepting physician Dr Soliman.
[2019-01-01] MEDS: Sodium Chloride 0.9% 1,000 ML IV SCH ×2 (12:51→13:52)
[2019-01-01 14:24] VITALS: BP 115/67; PULSE 104
== END 2019-01-01 14:42 ==
LOC: LB.ED 12:18
DX: K56.609 Unspecified intestinal obstruction, unspecified as to partial versus complete obstruction (principal); I48.91 Unspecified atrial fibrillation; J44.9 Chronic obstructive pulmonary disease, unspecified; Z88.0 Allergy status to penicillin; Z88.8 Allergy status to other drugs, medicaments and biological substances; Z79.82 Long term (current) use of aspirin; Z79.01 Long term (current) use of anticoagulants
CPT/HCPCS: 36415; 51702; 74176; 80053; 81001; 83605; 84484; 85025; 85610; 96360; 96361; 99284-25; J7030

== ENCOUNTER 2019-01-09 16:57 | Inpatient (IN) | payer MEDICAID ==
[2019-01-09] MEDS ORDERED: HYDROmorphone 2 MG/ML Syringe IVPUSH ONE (18:30)
[2019-01-09] MEDS ORDERED: Sodium Chloride 0.9% 250 ML IV SCH (18:30)
[2019-01-09] MEDS ORDERED: HYDROmorphone 2 MG/ML SDV ONE (18:49)
[2019-01-09] MEDS ORDERED: LORazepam 2 MG/ML SDV ONE (19:13)
[2019-01-09] MEDS ORDERED: Ondansetron 4 MG/2 ML SDV IVPUSH PRN (19:15)
[2019-01-09] MEDS: LORazepam 2 MG/ML SDV IVPUSH PRN (19:17)
[2019-01-09] MEDS: Sodium Chloride 0.9% 1,000 ML IV SCH (19:18)
--- NOTE | 2019-01-09 20:01 | ADMIT ---
This 48-year-old lady is being admitted to observation through the emergency room for a recurrent bowel obstruction. She was seen here on 01/01/2019 and diagnosed with a bowel obstruction. She was transferred to [place] where she was monitored. An NG tube was placed, and her symptoms resolved only to reoccur starting yesterday again. She states her last bowel movement was yesterday morning. The patient states her pain is constant with episodes of sharp pains, mostly in the upper abdomen, that is uncomfortable for her. Initial vital signs taken in the emergency room show that she is afebrile, pulse is 95, blood pressure 91/60. She states that she has been running low recently, O2 sats are 96%. The patient will be admitted, and an NG tube will be placed. She will be n.p.o. She will be given Dilaudid 1 mg IV initially for pain medicine, and we will monitor her through the night for pain control. Zofran will be ordered IV every 4 hours p.r.n. Normal saline will be started at 125 mL an hour. The patient's kidney function is not that great tonight. Initial BUN is 46, creatinine 1.8, GFR 29. There was consideration for getting an abdominal CT. This can be looked at again tomorrow if her kidney function improves with hydration. Her WBC tonight was 13.8, sodium level 128. These will be rechecked tomorrow morning. CRS/MODL /[id number]
[2019-01-09] MEDS ORDERED: Albuterol 8 GM Inhaler INH PRN (20:36)
[2019-01-10] MEDS ORDERED: HYDROmorphone 2 MG/ML SDV ONE ×2 (02:15→07:59)
[2019-01-10] MEDS: Sodium Chloride 0.9% 1,000 ML IV SCH ×3 (02:18→15:25)
[2019-01-10] MEDS: HYDROmorphone 2 MG/ML Syringe IVPUSH PRN ×2 (02:19→08:06)
[2019-01-10] MEDS: LORazepam 2 MG/ML SDV IVPUSH PRN (03:55)
--- NOTE | 2019-01-10 08:14 | ER ---
HISTORY OF PRESENT ILLNESS: A 48-year-old female here with her with complaints of abdominal pain. She states this has been ongoing for 2 days. The patient has a history of a recent bowel obstruction that she was seen for on January 01, 8 days ago. She was transferred to [place], and an NG tube was placed there. She was monitored and her condition resolved. She was sent home. Now, she tells me that it feels very similar to the previous symptoms she was having. The patient denies any falls or injuries. She has not been running a fever. Her last bowel movement was yesterday morning. She states it was fairly small. OBJECTIVE: GENERAL APPEARANCE: The patient is awake and alert. She is in no respiratory distress. VITAL SIGNS: Reviewed. She is afebrile. Pulse is 95, blood pressure 91/60. The patient states that she has been running low recently, O2 sats are 96%. LUNGS: Clear. CARDIAC: Heart sounds distinct with no obvious murmur. ABDOMEN: Protuberant, tender in both upper quadrants with light touch. Bowel sounds are present except in the right lower quadrant. SKIN: Warm and dry. LAB AND X-RAY: Flat and upright abdominal films were obtained showing once again a bowel obstruction with air-fluid levels present. DIAGNOSIS: Recurrent bowel obstruction. TREATMENT PLAN: The patient will be admitted for inpatient treatment here in [place]. She will be monitored overnight on IV fluids, pain management, and an NG tube, and we will see how she does by tomorrow. The patient is agreeable with the treatment plan and has no further questions. CRS/MODL /[id number]
--- NOTE | 2019-01-10 11:07 | CR ---
Date of Service: 01/09/19 Clinical Data: investigate abdominal pain PA CHEST: Comparison is made to a prior exam dated 11/30/18. The patient is status post median sternotomy and heart valves replacement. The heart size is normal. The lungs are clear. No pneumothorax. No pleural effusions. No evidence of acute intrathoracic disease. [id number] [facility]
--- NOTE | 2019-01-10 11:10 | CR ---
Date of Service: 01/10/19 Clinical Data: distended abdomen UPRIGHT ABDOMEN: There is an NG tube in place with its distal tip in the region of the antrum of the stomach. There are multiple gas-filled distended loops of small bowel throughout the abdomen and pelvis with air-fluid levels consistent with a small bowel obstruction. No free air. There are surgical clips in the right lower abdomen. There are calcifications within the pelvis that are most likely vascular. [id number] [facility]
--- NOTE | 2019-01-10 11:13 | CR ---
Date of Service: 01/09/19 Clinical Data: investigate abdominal pain SUPINE AND UPRIGHT ABDOMEN: There are gas-filled distended loops of small bowel throughout the abdomen and pelvis that contain air-fluid levels. The findings are consistent with small bowel obstruction or localized ileus. No free air. [id number] [facility]
[2019-01-10] MEDS ORDERED: Amiodarone 200 MG Tab PO ONE (14:08)
[2019-01-10] MEDS: D5 1/2 NS w/ 20 mEq/L KCl 1,000 ML IV SCH (18:31)
--- NOTE | 2019-01-10 20:59 | PN ---
DATE OF VISIT: 01/10/2019 SUBJECTIVE: Hazel showed evidence of improvement throughout the day. Her NG tube output has been quite low and she has started to pass gas. She had late this afternoon 2 bowel movements which were small to medium sized. Her urine output has picked up considerably and her urine output over the last 12 hours is 1350 mL. Her O2 sats are 100%. At this point, she feels better and her mood has improved considerably. OBJECTIVE: ABDOMEN: Nondistended, soft, and nontender. LABORATORY DATA: Her labs show that her sodium is 132. Her potassium has decreased significantly down to 3.1. Her creatinine has decreased significantly now down to 1.34. Her BUN has likewise decreased to the current level of 36. We did check a lactic acid and it is actually low at 0.42, which is a good sign. IMPRESSION: Overall improving. It appears that her bowel obstruction may be resolving. PLAN: We will leave her NG tube in overnight and expect continued evidence that her bowel function is returning and her bowel obstruction is resolving. In the morning if she is still doing well, we can remove the NG tube and try run some sips of clear liquids, but to advance this very gingerly given her history in the past of recurrent bowel obstruction. She agrees with this plan. CBC will be checked in the morning as well as a CMP. I am going to change her IV from 0.9 normal saline to D5 0.45 normal saline with 20 mEq of KCl at 125 mL an hour. Evidently Dr. Sevilla, the surgeon from [place], is going to be here tomorrow and we will ask him to stop in and see her. Long-term, my concern is that this bowel obstruction is likely to recur and eventually I am afraid there is a significant chance she will need to have surgery for this. There are some unanswered questions based on my review of her records and that would be this notion that she has findings consistent of Crohn's disease with thickening of her terminal ileum, etc. Her clinical history is not fit with that, so there could be some other process going on in her ileum and as such that adds to the consideration when contemplating surgical intervention. The patient understands and agrees with this plan. CHRIS/CHET /[id number] ANGELICA
[2019-01-11] MEDS: D5 1/2 NS w/ 20 mEq/L KCl 1,000 ML IV SCH (04:08)
--- NOTE | 2019-01-11 10:12 | CR ---
DATE OF SERVICE: 01/11/19 CLINICAL DATA: follow-up evaluation of abdominal distention SUPINE AND UPRIGHT ABDOMEN: Comparison is made to a prior exam dated 01/10/19. The NG tube has been advanced and its distal tip is now in the region of the antrum of the stomach. There is marked decompression of the distended loops of small bowel noted on the prior exam. No residual distended loops of bowel. No free air. The exam is otherwise unchanged. [id number] [facility]
--- NOTE | 2019-01-11 12:15 | PN ---
DATE OF VISIT: 01/11/2019 SUBJECTIVE: Hazel had a good night. She is continuing to pass gas and had 2 loose stools overnight. She has had no abdominal pain. No nausea. Her NG tube has put out 300 mL over the last shift. Her urine output has been good. OBJECTIVE: VITAL SIGNS: Her blood pressure is running in the 90 to 100 range systolic with a heart rate of 75 and she is afebrile. CHEST: Clear with no wheezes and occasional crackles heard. CARDIAC: Regular rate without murmur. ABDOMEN: Bowel sounds are present and active. Soft, nondistended, and nontender. No palpable masses. LABORATORY DATA: Her labs showed that her creatinine has decreased even further to 1.14. Her GFR is now up to 51. Her electrolytes are normal. Her potassium now has come up to 3.7. Her hemoglobin is 10.3 and this represents a drift of her admission hemoglobin, but I think a lot of this is due to rehydration since she has no evidence of bleeding anywhere. She does have significant hypoalbuminemia, which is probably related to poor nutrition over the past month certainly or even longer. Her flat and upright films of the abdomen showed much improvement and the dilated segments of the small bowel have now resolved. She no longer has any evidence of the previous high-grade small bowel obstruction. She does have scattered bowel gas and a few very tiny air-fluid levels, which I think is just a small residual from her recovering obstruction. IMPRESSION: Much improved return of gastrointestinal function, obstruction appears to be resolving. PLAN: We discontinued her NG tube. I am going to go slow on advancing her diet since she has bounced in and out of the hospital for this problem and I do not want her to recur a third time. We will go with clear liquids today and resume her oral medications including her amiodarone, spironolactone, Lasix, potassium, etc,. I will resume her Coumadin at 2.5 mg per day and recheck a PT/INR in the morning. I would not check any other labs in the morning so long as she remains clinically stable and doing well. I had a long discussion about plans going forward. She has seen physicians here in [place], [place] , and also the [facility]. When things like this happens, sometimes important matters slip through the cracks, and I wanted her and her to understand that there is just lingering concern I have about this area of thickening involving the terminal ileum. We still do not know for certain why she had a small bowel obstruction and it can only be presumed that it is on the basis of adhesions, but with this finding of thickening of her terminal small bowel does raise the question as to whether or not that is what is causing her problem. Even though the radiologist called the appearance of the small bowel consistent with Crohn's, I am not convinced of that, especially since clinically she has not had any features consistent with Crohn's, in particular, the fact that she is not having any diarrhea and it goes against that diagnosis. She is scheduled to be seen by Froy in [place] at the Gastroenterology Department and also at the [facility] at some time in February, so I urged them to make sure they get answers regarding this question of her distal small bowel thickening. Her seems to be on the ball and so does she, so I trust this will get done. All questions were answered. At this point, we will just slowly advance her diet and if she does well, I anticipate she should be able to go home in 24 to 36 hours. GIBRAN /[id number] ANGELICA
--- NOTE | 2019-01-11 13:21 | PN ---
DATE OF VISIT: 01/10/2019 SUBJECTIVE: Mrs. Lopez was admitted last night with a diagnosis of a small-bowel obstruction. She was admitted by Alvino Dorman PA-C and had had a couple of days of progressive nausea and vomiting with no bowel movements and abdominal distention. She had a prior history of previous appendectomy and x2 and in fact had been admitted here on 01/01/19 with a similar picture of small bowel obstruction. This was confirmed radiographically, and she was subsequently transferred to [facility], where she was treated conservatively with nasogastric suction and discharged a couple of days later. She was seen 2 days ago with some increasing abdominal distention that started over the weekend and a similar nausea and vomiting. She was seen by her provider, Silvestre Hurd, who gave her some milk of magnesia and antacids. This did not help her any, and the problem continued. This prompted her to come to the emergency room last evening, whereupon she was admitted. PAST MEDICAL HISTORY: Her immediate past history is significant in that about 6 weeks ago she was hospitalized in [facility] with sepsis and abdominal pain. At that time, she had an upper GI endoscopy and underwent cauterization of a number of lesions in her stomach, although I do not know the exact nature of the pathology, as we are trying to obtain records from that at this time. She also has had a colonoscopy in November. The result of that is unknown to me at this time as well. Last night on admission, a nasogastric tube was placed, although not much has passed. She has had upper abdominal pain that has been managed with Dilaudid. She has also been given Zofran, although this should not be necessary, if she has adequate NG tube decompression. She was placed on IV fluids and kept n.p.o. A CT scan was contemplated but not obtained, presumably because she has impaired renal function. Her past medical history was reviewed, and that is documented in the electronic medical record. It is significant for atrial fibrillation with heart failure and a valve replacement. She has had C difficile in the past, and it is noteworthy that her sepsis was thought to be urinary tract in origin. She also has a history of chronic pain and depression. OBJECTIVE: VITAL SIGNS: Her blood pressure in the right arm is measurably less compared to the left arm for reasons that are unclear to me. Her last blood pressure at 0400 was 112/55 in her left arm. Her heart rate is 103. She is afebrile. Her O2 sats are 96. She has had 500 mL urine output overnight and only 50 mL out the NG tube. GENERAL: She is somewhat tearful and very frustrated and is saying that "I encountered [facility]. I am going to drive to [place]". She is demanding to be allowed to go outside and smoke cigarettes, etc. She is understandably very frustrated and exacerbated with her current situation. HEENT: There is no scleral icterus and NG-tube is in place. There is some slightly yellowish fluid in the NG tube. NECK: There is no JVD. CHEST: Clear to auscultation. CARDIAC: Regular rate without murmur. ABDOMEN: Nondistended. She does have a few high-pitched bowel sounds. Her abdomen is soft and nontender to palpation. No palpable masses are noted. She has an old vertical midline scar in the lower abdomen and beneath this she has a soft, easily reducible ventral hernia. LABORATORY DATA: Her white count has gone from 13.8 on admission to 15.2. Her hemoglobin has gone from 12.5 to 11.2. A PT/INR is pending at this time. Her potassium was 5.1 on admission, it is now 4.6. Her BUN has gone from 46-43 and a creatinine is 1.83, slightly decreased from 1.85 last night. Her GFR last night was 29 and it is the same this morning. IMPRESSION: Small bowel obstruction. PLAN: I have ordered repeat abdominal films on her. I will give her a small bolus of 500 mL normal saline and maintain her IV at 125 mL an hour for the time being. A long discussion was undertaken with the patient and her regarding my impression that she really ought to be in a place where a general surgeon is available and that would be [facility]. Her general surgeon is Dr. Sevilla, who saw her in [facility] last time. My reason for recommending transfer is that I am concerned that, with a prolonged bowel obstruction, there could be complications such as perforation or gangrene, strangulation, etc. Also, the etiology of her bowel obstructions at this point is uncertain, although most likely with her past history of surgery, it is adhesions. The fact that she has recurred with a bowel obstruction within the last 10 days or so is indication that she probably needs to have surgery for this. I discussed the risks, goals, and alternatives for my recommendation. She is very resistant to going anywhere unless she can be transferred directly to [facility], and I informed them that, while transferring to [place] is a possibility, there may be issues with this, because of [place] [facility] not being the nearest appropriate facility in terms of billing, etc. They seemed understand that. At this point, we will await the results of her abdominal films. Continue with NG tube suction. I wonder if the NG tube needs to be readjusted, and I will wait for the films before I do that. I will be back in to visit with them once I have reviewed her x-rays, and we are also awaiting her PT/INR results. GIBRAN /[id number]
[2019-01-11] MEDS: Furosemide 20 MG Tab PO SCH ×2 (16:18→20:08)
[2019-01-11] MEDS: Sildenafil 20 MG Tab PO SCH ×2 (16:18→22:42)
[2019-01-11] MEDS: Warfarin 2.5 MG Tab PO SCH (17:29)
[2019-01-11] MEDS: Spironolactone 25 MG Tab PO SCH (19:50)
[2019-01-11] MEDS ORDERED: Acetaminophen 325 MG Tab PO PRN (20:01)
[2019-01-12] MEDS ORDERED: HYDROmorphone 2 MG/ML SDV ONE (02:03)
[2019-01-12] MEDS: HYDROmorphone 2 MG/ML Syringe IVPUSH PRN (02:08)
[2019-01-12] MEDS: LORazepam 2 MG/ML SDV IVPUSH PRN (02:12)
[2019-01-12] MEDS: Sildenafil 20 MG Tab PO SCH ×4 (06:34→22:00)
[2019-01-12] MEDS ORDERED: Aspirin 81 MG Tab.EC PO SCH (08:00)
[2019-01-12] MEDS ORDERED: Potassium Chloride 20 MEQ Tab.ER PO SCH (08:00)
--- NOTE | 2019-01-12 09:58 | PN ---
DATE OF VISIT: 01/12/2019 SUBJECTIVE: From the standpoint of her bowel function, Hazel has done well. She has tolerated clear liquids and on a full liquid diet. She is continuing to pass gas and having bowel movements. In that respect, she is doing very well. She remains afebrile. She has no abdominal pain. She has had more trouble with back pain now that she has been up and about and this is a chronic problem with her for which she has taken muscle relaxants and even narcotics in the past. She does see somebody for management of her back pain in [place]. She continues to go outside and smoke cigarettes and come back inside the hospital against my strong requests for her to not do this. PHYSICAL EXAMINATION: VITAL SIGNS: Her blood pressures run in the 90s typically. She is not having any tachycardia. She is afebrile. CHEST: Clear to auscultation. CARDIAC: Irregularly irregular. No murmur is heard. ABDOMEN: Soft and nontender. Normal bowel sounds are noted. IMPRESSION: Overall, improvement continued, resolution of small-bowel obstruction. PLAN: We will let her advance her diet as tolerated today and if she does well , she can go home tomorrow. She understands that I have been going slow with advancing her diet because of her history of this bowel obstruction picture recurring. We once again reviewed plans for her to follow up with her doctor in [place] with regard to management of her back pain as well as the plans for her to be followed up in [place] and later on the [facility] with regard to the abdominal concerns. CHRIS/CHET /[id number] ANGELICA
[2019-01-12] MEDS ORDERED: diphenhydrAMINE 50 MG Cap ONE (11:00)
[2019-01-12] MEDS: Furosemide 20 MG Tab PO SCH (11:03)
[2019-01-12] MEDS: Cyclobenzaprine 10 MG Tab PO PRN ×2 (11:03→19:32)
[2019-01-12] MEDS: Acetaminophen/Codeine 300-30 MG Tab PO PRN ×2 (11:03→17:59)
[2019-01-12] MEDS: Spironolactone 25 MG Tab PO SCH ×2 (11:03→20:00)
[2019-01-12] MEDS: diphenhydrAMINE 50 MG Cap PO PRN ×2 (11:10→19:32)
[2019-01-12] MEDS ORDERED: Furosemide 20 MG Tab ONE (14:44)
[2019-01-12] MEDS: Warfarin 2.5 MG Tab PO SCH (18:00)
[2019-01-12 19:59] VITALS: PULSE 100
[2019-01-13] MEDS: Acetaminophen/Codeine 300-30 MG Tab PO PRN (00:33)
[2019-01-13 07:51] VITALS: BP 96/48
[2019-01-13] MEDS ORDERED: Furosemide 20 MG Tab PO SCH (08:00)
--- NOTE | 2019-01-15 10:46 | DISCH ---
ADMISSION DIAGNOSIS: Recurrent small bowel obstruction. DISCHARGE DIAGNOSIS: Recurrent small bowel obstruction, resolved. HOSPITAL COURSE: This patient was admitted on the above-mentioned date with nausea, vomiting, and abdominal distention. She was diagnosed radiographically and clinically with a small bowel obstruction. She had been here 1 week earlier with a similar picture and had been transferred to [place], where she was treated conservatively with nasogastric suction, and it apparently resolved only to recur a few days later. This time, once again, she was admitted with abdominal distention and radiographic evidence of a high-grade small bowel obstruction. She had undergone a CT scan while in [place] and it did show an area of thickening in the region of her terminal ileum. This was thought to be suspicious for regional enteritis, although, she has no prior antecedent history of diarrhea or other symptoms suggestive of Crohn's disease. Prior to that, she was hospitalized 6 weeks ago with abdominal pain and sepsis. She underwent an upper GI endoscopy and had cauterization of some lesions in her stomach. The exact nature of the pathology is not known at this time. She also had a colonoscopy in November. It is not clear that they were able to actually visualize the entire length of the colon. She was placed on nasogastric suction and kept n.p.o. She was hydrated, and her creatinine while initially elevated significantly at 1.85 and GFR was 29, she did improve over the course of the next 3 days to the point where her creatinine came down nicely to 1.1 with a creatinine clearance of 55. So, this was a substantial improvement in that regard. Her electrolytes on 01/11/2019 were normal. She did have an elevated white count that peaked at 15.2 on 01/10/2019, but by 01/11/2019, it had come down again to 6.0. Her hemoglobin at last check was 10.3. She has been on Coumadin and although this was held for a couple of days, we continued to watch her PT and INR and on 01/11/2019, we were able to restart her Coumadin. Her last PT was 19.8 with an INR of 2.1, but this was only after 1 dose of Coumadin and now she has been on her maintenance dose of Coumadin at 2.5 mg per day. Over the last 48 hours, she was able to gradually advance from a clear liquid diet to a regular diet and tolerated a regular diet overnight. Her bowels opened up, and she has had a number of soft bowel movements, but no diarrhea. She has had no blood in her stool. She has been passing flatus and feels normal with no abdominal cramping. IMPRESSION: Small bowel obstruction, recurrent, resolved at this time. PLAN: She will be discharged as documented in previous progress notes. We have discussed her situation at great lengths. My main concern at this time is the etiology of her recurrent obstruction in light of her previous CT findings, and I feel confident that the cause of this may not be a simple matter of adhesive bowel obstruction. The patient and her both understand this. Question about thickening of her terminal ileum needs to be resolved. Certainly, they understand that if she should obstruct yet again, that would probably force our hand into doing something, surgically speaking. For this reason, I recommended that should the problem begin to surface again, it would be in her best interest to go to either [facility] or [place], where surgical treatment is available. She has other significant medical problems as outlined in her admission history and physical, namely chronic atrial fibrillation with congestive heart failure and significant chronic back pain. DISCHARGE MEDICATIONS: She will continue on the same medication she was on when she was admitted. She does have Tylenol No.3 at home to manage her pain, and she should have her PT/INR checked within the next couple of days as an outpatient. They do have an appointment for her to go down to the [facility], to be seen on Tuesday, and they will be traveling down there tomorrow. She has been seen by a entry engineer there as well. All questions were answered. They understand this plan and these instructions and agree with this plan. GIBRAN /[id number]
== END 2019-01-13 08:15 | disposition home or self-care (01) | DRG 389 ==
LOC: LB.ED 16:57 → UNDOADMOB 18:40 → LB.MS 18:40 → OBSVTOIN 01-11 12:18
PROVIDERS: ADMIT Physician Assistant; ATTEND Surgery
DX: K56.609 Unspecified intestinal obstruction, unspecified as to partial versus complete obstruction (principal); I48.20 Chronic atrial fibrillation, unspecified; I50.9 Heart failure, unspecified; G89.29 Other chronic pain; M54.9 Dorsalgia, unspecified; F17.210 Nicotine dependence, cigarettes, uncomplicated; E88.09 Other disorders of plasma-protein metabolism, not elsewhere classified; Z79.01 Long term (current) use of anticoagulants
CPT/HCPCS: 36415; 71045; 74019; 80048; 80053; 83605; 85025; 85610; 96361; 96374; 96375; 96376; 99285-25; A9270-GY; G0378; J1170; J2060; J3480; J7030

== ENCOUNTER 2019-01-28 13:02 | Emergency (ER) | payer MEDICAID ==
[2019-01-28] MEDS ORDERED: fentaNYL 250 MCG/5 ML SDV IVPUSH ONE ×4 (13:43→16:51)
--- NOTE | 2019-01-28 13:57 | EDM.PDOC ---
ED HPI GENERAL MEDICAL PROBLEM - General Chief Complaint: Lower Extremity Injury/Pain Time Seen by Provider: 01/28/19 13:40 Source of Information: Reports: Patient History Limitations: Reports: No Limitations - History of Present Illness INITIAL COMMENTS - FREE TEXT/NARRATIVE: This patient presents via EMS for evaluation of hip pain following a fall at home. She states she was going up the steps to the bathroom when she fell forward and landed on her left knee. This caused her to "rotate around" and land on her right hip. EMS states her foot was noted to be an an unusual ankle when they arrived. The patient denies other injuries, states she did not hit her head or lose consciousness. She isolates pain to her right hip, denies numbness or tingling. Onset: Today, Sudden Location: Reports: Lower Extremity, Right Quality: Reports: Ache, Burning, Stabbing, Throbbing Severity: Severe Improves with: Reports: None Right Hip Pain Score (Numeric/FACES): 7 - Related Data Allergies Allergy/AdvReac Type Severity Reaction Status Date / Time gabapentin Allergy Hives Verified 01/28/19 13:57 lidocaine Allergy Hives Verified 01/28/19 13:57 Penicillins Allergy Anaphylactic Verified 01/28/19 13:57 Shock Home Meds: Home Meds Cyclobenzaprine HCl 10 mg PO TID PRN 09/25/15 [History] Potassium Chloride 20 meq PO BID 09/25/15 [History] Warfarin Sodium [Jantoven] 5 mg PO ASDIRECTED 09/25/15 [History] Acetaminophen with Codeine [Tylenol with Codeine #3 Tablet] 1 each PO DAILY PRN 07/07/16 [History] Aspirin [Halfprin] 81 mg PO DAILY 07/07/16 [History] Sildenafil Citrate [Sildenafil] 20 mg PO TID 07/07/16 [History] Albuterol [Ventolin HFA] 2 inhalation PO Q4HR PRN 11/30/18 [History] RX: Amiodarone [Cordarone] 1 tab PO DAILY 11/30/18 [History] RX: Furosemide 1 tab PO BID 11/30/18 [History] RX: Spironolactone [Aldactone] 1 tab PO BID 11/30/18 [History] Past Medical History Cardiovascular History: Reports: Afib, Heart Failure, Heart Murmur, SOB on Exertion, Other (See Below) Other Cardiovascular History: chf Respiratory History: Reports: COPD, SOB, Other (See Below) Other Respiratory History: Fluid in one lung Gastrointestinal History: Reports: Diverticulosis, Other (See Below) Other Gastrointestinal History: hx C diff several times. 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 Endocrine/Metabolic History: Reports: Other (See Below) Other Endocrine/Metabolic History: low iron Hematologic History: Reports: Anemia - Infectious Disease History Infectious Disease History: Reports: C-Difficile Other Infectious Disease History: hx rheumatic fever - Past Surgical History Cardiovascular Surgical History: Reports: Valve Replacement Other Cardiovascular Surgeries/Procedures: rhuematic fever as child GI Surgical History: Reports: Appendectomy, Other (See Below) Other GI Surgeries/Procedures: C-sections x 2 Social & Family History - Family History Cardiac: Reports: WI, Stent Respiratory: Reports: COPD Other Respiratory Family Hisory: COPD not actually diagnosed but feels has, long hx of smoking Musculoskeletal: Reports: Other (See Below) Other Musculoskeletal Family History: AMN, ALD, ADDISONS Psychiatric: Reports: None Oncologic: Reports: Colon - Caffeine Use Caffeine Use: Reports: None Review of Systems - Review of Systems Review Of Systems: See Below Constitutional: Reports: No Symptoms Eyes: Reports: No Symptoms Ears: Reports: No Symptoms Nose: Reports: No Symptoms Mouth/Throat: Reports: No Symptoms Respiratory: Reports: No Symptoms Cardiovascular: Reports: No Symptoms Genitourinary: Reports: No Symptoms Musculoskeletal: Reports: Joint Pain, Other (right hip pain) Skin: Reports: No Symptoms ED EXAM, GENERAL - Physical Exam Exam: See Below Exam Limited By: No Limitations General Appearance: Alert, WD/WN, No Apparent Distress Eye Exam: Bilateral Eye: PERRL Ears: Normal External Exam Nose: Normal Inspection Throat/Mouth: Normal Inspection Head: Atraumatic, Normocephalic Neck: Normal Inspection, Supple, Non-Tender, Full Range of Motion Respiratory/Chest: No Respiratory Distress, Lungs Clear, Normal Breath Sounds, No Accessory Muscle Use Cardiovascular: Normal Peripheral Pulses, Regular Rate, Rhythm GI/Abdominal: Soft, Non-Tender, No Distention Extremities: Normal Inspection, Other (right hip extremely tender with palpation , no discoloration or deformity. No swelling. Distal CMS intact) Neurological: Alert, Oriented Psychiatric: Normal Affect, Normal Mood Skin Exam: Warm, Dry, Intact Course - Vital Signs Last Recorded V/S: Last Vital Signs Temp 36.7 C 01/28/19 13:36 Pulse 110 H 01/28/19 16:03 Resp 16 01/28/19 13:50 BP 87/60 L 01/28/19 16:03 Pulse Ox 98 01/28/19 13:50 - Orders/Labs/Meds Orders: Active Orders 24 hr Category Date Time Status Hip Min 2V or 3V Rt [CR] Stat Exams 01/28/19 13:44 Stop Req Hip Min 2V or 3V w Pelvis Rt [CR] Stat Exams 01/28/19 15:16 Ordered Pelvis wo Cont [CT] Stat Exams 01/28/19 13:58 Taken INR,PT,PROTHROMBIN TIME [COAG] Stat Lab 01/28/19 15:15 Ordered LORazepam [Ativan] Med 01/28/19 16:08 Ordered 2 mg IVPUSH Q4H PRN Sodium Chloride 0.9% [Saline Flush] Med 01/28/19 14:41 Active 10 ml FLUSH ASDIRECTED PRN fentaNYL [Sublimaze] Med 01/28/19 13:43 Once 50 mcg IVPUSH ONETIME ONE fentaNYL [Sublimaze] Med 01/28/19 14:17 Once 50 mcg IVPUSH ONETIME ONE Saline Lock Insert [OM.PC] Stat Oth 01/28/19 14:41 Ordered Medication Orders Fentanyl (Sublimaze) 50 mcg IVPUSH ONETIME ONE Stop: 01/28/19 13:44 Fentanyl (Sublimaze) 50 mcg IVPUSH ONETIME ONE Stop: 01/28/19 14:18 Lorazepam (Ativan) 2 mg IVPUSH Q4H PRN PRN Reason: Muscle Spasm Sodium Chloride (Saline Flush) 10 ml FLUSH ASDIRECTED PRN PRN Reason: Keep Vein Open Labs: Laboratory Tests 01/28/19 01/28/19 Range/Units 15:30 15:30 WBC 15.5 H D (4.0-11.0) K/uL RBC 4.36 (3.80-5.80) M/uL Hgb 12.2 (11.5-16.5) g/dL Hct 38.0 (37.0-47.0) % MCV 87 (76-96) fL MCH 28.0 (27.0-32.0) pg MCHC 32.1 (31.0-35.0) g/dL RDW 18.7 H (11.0-16.0) % Plt Count 814 H* D (150-500) K/uL MPV 9.8 (6.0-10.0) fL Neut % (Auto) 82.5 H (45.0-70.0) % Lymph % (Auto) 13.1 L (20.0-40.0) % Haskell % (Auto) 4.1 (3.0-10.0) % Eos % (Auto) 0.2 L (1.0-5.0) % Baso % (Auto) 0.1 (0.0-0.5) % Neut # (Auto) 12.80 H (2.00-7.50) K/uL Lymph # (Auto) 2.04 (1.50-4.00) K/uL Haskell # (Auto) 0.64 (0.20-0.80) K/uL Eos # (Auto) 0.03 L (0.04-0.40) K/uL Baso # (Auto) 0.01 L (0.02-0.10) K/uL Sodium 129 L (136-145) mmol/L Potassium 4.3 (3.5-5.1) mmol/L Chloride 95 L (98-107) mmol/L Carbon Dioxide 22.4 (21.0-32.0) mmol/L Anion Gap 15.9 H (5.0-15.0) mmol/L BUN 65 H* D (8-26) mg/dL Creatinine 1.59 H D (0.55-1.02) mg/dL Est Cr Clr Drug Dosing 40.07 mL/min Estimated GFR (MDRD) 35 L (>60) MLS/MIN BUN/Creatinine Ratio 40.9 H (6-25) Glucose 87 (74-100) mg/dL Calcium 7.6 L (8.5-10.1) mg/dL Meds: Medications Generic Name Dose Route Start Last Admin Trade Name Ryan PRN Reason Stop Dose Admin Fentanyl 50 mcg 01/28/19 13:43 Sublimaze IVPUSH 01/28/19 13:44 ONETIME ONE Fentanyl 50 mcg 01/28/19 14:17 Sublimaze IVPUSH 01/28/19 14:18 ONETIME ONE Lorazepam 2 mg 01/28/19 16:08 Ativan IVPUSH Q4H PRN Muscle Spasm Sodium Chloride 10 ml 01/28/19 14:41 Saline Flush FLUSH ASDIRECTED PRN Keep Vein Open - Re-Assessments/Exams Free Text/Narrative Re-Assessment/Exam: 01/28/19 14:42 This patient presents to the ED for evaluation of hip pain following a fall. History and clinical findings are most consistent with a comminuted intertrochanteric fracture of the right femur. Distal CMS is intact. I did contact [facility] and spoke with Dr. Altamirano, orthopedics regarding the transfer of this patient. She is willing to assume care for this patient's injury and did request that I include the hospitalist in the discussion. Dr. Estrella then joined the conversation and did agree to assume care for this patient. 01/28/19 16:37 INR = 5.5, arrangements were made for the transfer of this patient via BLS ambulance to [facility]. The patient was stable at the time of transfer. Departure - Departure Time of Disposition: 17:00 Disposition: Home, Self-Care 01 Condition: Fair Clinical Impression: Femur fracture, right - Discharge Information *PRESCRIPTION DRUG MONITORING PROGRAM REVIEWED*: No Forms: ED Department Discharge, Interfacility Transfer EMTALA - My Orders Last 24 Hours: My Active Orders 01/28/19 13:43 fentaNYL [Sublimaze] 50 mcg IVPUSH ONETIME ONE 01/28/19 13:44 Hip Min 2V or 3V Rt [CR] Stat 01/28/19 13:58 Pelvis wo Cont [CT] Stat 01/28/19 14:17 fentaNYL [Sublimaze] 50 mcg IVPUSH ONETIME ONE 01/28/19 14:41 Sodium Chloride 0.9% [Saline Flush] 10 ml FLUSH ASDIRECTED PRN Saline Lock Insert [OM.PC] Stat 01/28/19 15:15 INR,PT,PROTHROMBIN TIME [COAG] Stat 01/28/19 15:16 Hip Min 2V or 3V w Pelvis Rt [CR] Stat 01/28/19 16:08 LORazepam [Ativan] 2 mg IVPUSH Q4H PRN - Assessment/Plan Last 24 Hours: My Active Orders 01/28/19 13:43 fentaNYL [Sublimaze] 50 mcg IVPUSH ONETIME ONE 01/28/19 13:44 Hip Min 2V or 3V Rt [CR] Stat 01/28/19 13:58 Pelvis wo Cont [CT] Stat 01/28/19 14:17 fentaNYL [Sublimaze] 50 mcg IVPUSH ONETIME ONE 01/28/19 14:41 Sodium Chloride 0.9% [Saline Flush] 10 ml FLUSH ASDIRECTED PRN Saline Lock Insert [OM.PC] Stat 01/28/19 15:15 INR,PT,PROTHROMBIN TIME [COAG] Stat 01/28/19 15:16 Hip Min 2V or 3V w Pelvis Rt [CR] Stat 01/28/19 16:08 LORazepam [Ativan] 2 mg IVPUSH Q4H PRN
[2019-01-28] MEDS ORDERED: Sodium Chloride 0.9% 10 ML Syringe FLUSH PRN (14:41)
[2019-01-28 16:03] VITALS: BP 87/60; PULSE 110
[2019-01-28] MEDS ORDERED: LORazepam 2 MG/ML SDV IVPUSH PRN (16:08)
[2019-01-28] MEDS ORDERED: Ondansetron 4 MG/2 ML SDV IVPUSH ONE (16:50)
[2019-01-28] MEDS ORDERED: Ondansetron 4 MG/2 ML SDV ONE (17:03)
--- NOTE | 2019-01-29 09:08 | CR ---
DATE OF SERVICE: 01/28/19 CLINICAL DATA: Trauma. PELVIS AND RIGHT HIP: There is a comminuted mildly displaced intertrochanteric fracture on the right. No other acute abnormalities. [id number] MTDD
--- NOTE | 2019-01-29 09:10 | CT ---
DATE OF SERVICE: 01/28/19 CLINICAL DATA: Trauma. PELVIC AND RIGHT HIP CT: Multislice axial acquisition was performed. Axial images and sagittal and coronal reformations are reviewed. There is a mildly displaced, comminuted, intertrochanteric fracture of the right proximal femur. No other acute abnormalities. [id number] [facility]
== END 2019-01-28 17:15 ==
LOC: LB.ED 13:02
DX: S72.141A Displaced intertrochanteric fracture of right femur, initial encounter for closed fracture (principal); I48.91 Unspecified atrial fibrillation; I11.0 Hypertensive heart disease with heart failure; I50.9 Heart failure, unspecified; J44.9 Chronic obstructive pulmonary disease, unspecified; Z88.8 Allergy status to other drugs, medicaments and biological substances; Z88.0 Allergy status to penicillin; Z88.6 Allergy status to analgesic agent; Z79.01 Long term (current) use of anticoagulants; Z79.82 Long term (current) use of aspirin; Z79.899 Other long term (current) drug therapy; W10.9XXA Fall (on) (from) unspecified stairs and steps, initial encounter
CPT/HCPCS: 36415; 72192; 73502-RT; 80048; 85025; 85610; 96374; 96375; 96376; 99285-25; A0425; A0429; J2060; J2405; J3010

== ENCOUNTER 2019-05-25 15:12 | Emergency (ER) | payer MEDICAID ==
--- NOTE | 2019-05-25 16:17 | EDM.PDOC ---
ED HPI GENERAL MEDICAL PROBLEM - General Chief Complaint: Skin Complaint Stated Complaint: UNKNOWN Time Seen by Provider: 05/25/19 15:28 Source of Information: Reports: Patient History Limitations: Reports: No Limitations - History of Present Illness INITIAL COMMENTS - FREE TEXT/NARRATIVE: This patient, with a complicated PMH, presents to the ED for evaluation of bleeding. She had a bowel resection with an ileostomy in the middle of April and presents today with bleeding. She thinks it may be from the stoma itself. She states she has been feeling well otherwise and denies fever, nausea, vomiting, or diarrhea since her hospitalization. She denies pain, other concerns or complaints. Onset: Today, Sudden Onset Date: 05/25/19 Onset Time: 15:00 Duration: Constant Location: Reports: Abdomen Front/Back Body Image: 1 - Stoma 2 - Bleeding site Severity: Mild Improves with: Reports: None Worsens with: Reports: None Associated Symptoms: Reports: No Other Symptoms - Related Data Allergies Allergy/AdvReac Type Severity Reaction Status Date / Time gabapentin Allergy Hives Verified 05/25/19 15:56 lidocaine Allergy Hives Verified 05/25/19 15:56 Penicillins Allergy Anaphylactic Verified 05/25/19 15:56 Shock Home Meds: Home Meds Cyclobenzaprine HCl 10 mg PO TID PRN 09/25/15 [History] Potassium Chloride 20 meq PO BID 09/25/15 [History] Warfarin Sodium [Jantoven] 5 mg PO ASDIRECTED 09/25/15 [History] Acetaminophen with Codeine [Tylenol with Codeine #3 Tablet] 1 each PO DAILY PRN 07/07/16 [History] Aspirin [Halfprin] 81 mg PO DAILY 07/07/16 [History] Sildenafil Citrate [Sildenafil] 20 mg PO TID 07/07/16 [History] Albuterol [Ventolin HFA] 2 inhalation PO Q4HR PRN 11/30/18 [History] Amiodarone [Cordarone] 1 tab PO DAILY 11/30/18 [History] Furosemide 1 tab PO BID 11/30/18 [History] Spironolactone [Aldactone] 1 tab PO BID 11/30/18 [History] Past Medical History Cardiovascular History: Reports: Afib, Heart Failure, Heart Murmur, SOB on Exertion, Other (See Below) Other Cardiovascular History: chf Respiratory History: Reports: COPD, SOB, Other (See Below) Other Respiratory History: Fluid in one lung Gastrointestinal History: Reports: Diverticulosis, Other (See Below) Other Gastrointestinal History: hx C diff several times. 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 - Infectious Disease History Infectious Disease History: Reports: C-Difficile Other Infectious Disease History: hx rheumatic fever - Past Surgical History Cardiovascular Surgical History: Reports: Valve Replacement Other Cardiovascular Surgeries/Procedures: rhuematic fever as child GI Surgical History: Reports: Appendectomy, Other (See Below) Other GI Surgeries/Procedures: C-sections x 2 Musculoskeletal Surgical History: Reports: Shoulder Surgery, Other (See Below) Other Musculoskeletal Surgeries/Procedures:: Right hip ORIF Social & Family History - Family History Cardiac: Reports: [place], Stent Respiratory: Reports: COPD Other Respiratory Family Hisory: COPD not actually diagnosed but feels has, long hx of smoking Musculoskeletal: Reports: Other (See Below) Other Musculoskeletal Family History: AMN, ALD, ADDISONS Psychiatric: Reports: None Oncologic: Reports: Colon - Caffeine Use Caffeine Use: Reports: None ED ROS GENERAL - Review of Systems Review Of Systems: Comprehensive ROS is negative, except as noted in HPI. ED EXAM, SKIN/RASH Exam: See Below Exam Limited By: No Limitations General Appearance: Alert, WD/WN, No Apparent Distress Ears: Normal External Exam Nose: Normal Inspection Throat/Mouth: Normal Inspection Head: Atraumatic, Normocephalic Neck: Normal Inspection Respiratory/Chest: No Respiratory Distress GI/Abdominal: Other (stoma intact, draining stool. No bleeding from stomal incision. No bleeding from abdominal incision.) Neurological: Alert, Oriented Psychiatric: Normal Affect, Normal Mood Skin: Warm, Dry, Other (Area approximately 5 mm in diameter at the 10:00 position to the umbilicus bleeding, area appears excoriated) Course - Re-Assessments/Exams Free Text/Narrative Re-Assessment/Exam: 05/25/19 16:29 This patient presents to the ED for evaluation of bleeding. Area of concern actually adjacent to the umbilicus rather than the stoma. Bleeding was cauterized with battery cautery and bleeding ceased. Abdomen and area around her stoma intact, cleaned and new bag applied. Patient tolerated procedure very well. Departure - Departure Time of Disposition: 16:20 Disposition: Admitted As Inpatient 66 Condition: Good Clinical Impression: Post-op bleeding - Discharge Information Referrals: PCP,None [Primary Care Provider] - Forms: ED Department Discharge Care Plan Goals: Return to ER with any further problems. Leave binder on as instructed by Dieter.
== END 2019-05-25 16:00 | disposition critical access hospital (66) ==
LOC: LB.ED 15:12
CPT/HCPCS: 12001; 99283; 99283-25

== ENCOUNTER 2019-07-09 20:52 | Emergency (ER) | payer MEDICAID ==
[2019-07-09] MEDS ORDERED: 50% Dextrose in Water 50 ML Syringe IVPUSH ONE (22:18)
[2019-07-09] MEDS ORDERED: Insulin Regular, Human 100 Units/ML 3 ML Vial IV ONE (22:19)
[2019-07-09] MEDS ORDERED: Sodium Bicarbonate 8.4% 50 MEQ/50 ML Syringe IVPUSH ONE (22:19)
[2019-07-09] MEDS ORDERED: Albuterol/Ipratropium 3.0-0.5 MG/3 ML Neb Soln NEB PRN (22:37)
[2019-07-09] MEDS ORDERED: cefTRIAXone 1 GM in Sodium Chloride 0.9% 50 ML IV ONE (22:57)
[2019-07-09] MEDS ORDERED: Sodium Chloride 0.9% 500 ML IV ONE (23:23)
[2019-07-10 05:07] VITALS: BP 104/35; PULSE 106
--- NOTE | 2019-07-10 07:16 | CR ---
DATE OF SERVICE: 07/09/19 CLINICAL DATA: tanya AP PORTABLE CHEST: Comparison is made to a prior exam dated 01/09/19. The patient has taken a poor inspiration. The patient is status post median sternotomy and heart valve replacement. The heart is enlarged. It has increased in size from the prior exam. The lungs appear clear. No pneumothorax. No pleural effusions. [id number] [facility]
--- NOTE | 2019-07-10 11:10 | ER ---
REASON FOR EMERGENCY ROOM VISIT: Shortness of breath. HISTORY: This 48-year-old woman was brought in by ambulance after progressive shortness of breath that developed throughout the day along with weakness and drowsiness. The patient 2 days ago was eating normally and feeling well. She had been struggling with chronic low back pain from what sounds like a compression fracture and for this she has been managed by her pain physician from the [facility] over the phone. She has been receiving increasing doses of gabapentin, yesterday she felt more under the weather and was having some shortness of breath, but not out of the ordinary considering she has a history of COPD and is a smoker. Today, however, her shortness of breath progressively got worse throughout the day and she became more drowsy according to her who then called the ambulance, she was brought in by ambulance and had no complaints, she was somewhat obtunded, but did answer questions appropriately when asked. Her past medical history is relevant in that she underwent a right colon and ileum resection for Crohn disease in late April of this year. Prior to that for approximately 2 weeks she was treated with TPN because her nutritional status was felt to be somewhat poor. Her postoperative recovery from her bowel resection was uneventful according to the patient and her . Her did state that she developed shingles postoperatively which resolved. She was eventually discharged on 05/19. She has been on Coumadin for mitral valve replacement as well as chronic atrial fibrillation. She has been home since late April and prior to her being transitioned over to gabapentin, she has been on oxycodone for her lower lumbar fracture and pain related to that. Her sleepiness and tiredness were initially thought to be due to the gabapentin, as this is what her physician in [place] was telling them because they have been increasing the doses. She has not had any fever, chills, or increased cough. She does have a mild chronic cough, which they have attributed to smoking. She has not had any abdominal pain or nausea or vomiting. Her ileostomy has been functioning well. Her felt that the contents of the ileostomy were darker than usual, but no actual blood and that was last week. Since then, it has been [place] to brownish in color and with no evidence of blood. She has a history of pulmonary hypertension and congestive heart failure as well. PAST MEDICAL HISTORY: 1. Crohn disease, see above. 2. Mitral valve replacement in 2016. 3. COPD. 4. Longstanding smoking history. 5. Chronic atrial fibrillation. 6. Anticoagulation. 7. Pulmonary hypertension. 8. Congestive heart failure. MEDICATIONS: Please see electronic medical record, they include the following: Albuterol rescue inhaler p.r.n., gabapentin, amiodarone, sildenafil (for pulmonary hypertension), Lasix b.i.d., oral potassium, oxycodone p.r.n. up until 5 mg every 6 hours p.r.n., Flexeril p.r.n. ALLERGIES: TO LIDOCAINE AND PENICILLINS (POSSIBLE RASH AN OR YOUNG CHILD, NO HISTORY OF ANAPHYLAXIS). REVIEW OF SYSTEMS: Pertinent positives and negatives as listed in the HPI. PHYSICAL EXAMINATION: VITAL SIGNS: She is afebrile; heart rate is 92; blood pressure initially was 72/44, this later on responded to the low 90s systolic; respiratory rate is 18 to 22. GENERAL: She was initially more lethargic when she came in, but later on became much more alert and talkative. HEENT: Head is normocephalic. No scleral icterus is noted. No conjunctivitis. Oropharynx is unremarkable. NECK: No adenopathy. There is no JVD. CHEST: Clear to auscultation, but there is diminished air exchange bilaterally, but her breath sounds are equal. CARDIAC: Regular rate without murmur. ABDOMEN: Nondistended and soft. There are few bowel sounds present. Her ileostomy is in the upper abdomen to the left of the midline and it is healthy appearing. There is some latham liquid normal-appearing stool in the ileostomy bag. There are no palpable masses. EXTREMITIES: No cyanosis. [place] and cool with normal capillary refill. NEUROLOGIC: She moves all 4 extremities equally well. LABORATORY DATA: Reveals a number of metabolic abnormalities. Her CBC shows a mild leukocytosis of 13.0. Her hemoglobin is 6.0 with a hematocrit of 21.5. Her differential shows 74% neutrophils and 19% lymphocytes. Her platelet count is 463. Her PT is 38.9 with an INR of 4.3. Her sodium is 124. Her potassium is 7.4, chloride is 89, CO2 content is 13.9, anion gap is 28.5. Her BUN is 88, creatinine is 3.74, estimated GFR is 13. Her glucose is 89. Her lactic acid is 9.2. Her calcium is 9.0, total bilirubin is 2.3. Her AST is 768 with an ALT of 995 and an alkaline phosphatase of 197. Her albumin is 2.7. Chest x-ray suggests some pulmonary vascular congestion and cardiomegaly. I do not see any distinct infiltrates. This was a portable upright film. IMPRESSION: 1. Respiratory failure with multi-system organ failure including renal failure and hepatic enzyme elevation. 2. Rule out sepsis. PLAN: 1. I initially spoke to the hospitalist in [place], who felt her problem was too complex to manage there because of the lack of support, therefore I spoke to the cds sales advisor on- call at [facility] in [place], Dr. Najera and we discussed the patient's situation. At this point in time, her O2 sats are in the high 90s to 100%. She is on O2 by non-rebreather at this time, but she had adequate oxygenation in terms of O2 sats with nasal cannula O2. Her respiratory rate is 18 at this point in time. ABGs pending. Her blood pressure now is in the low 90s. We are going to treat her with a bolus of saline, but we have to be careful of that in light of her cardiopulmonary status. 2. We are going to give her 1 unit of O-negative blood to improve her oxygenation. 3. In addition to this, we are going to go ahead and treat her hyperkalemia with 10 units of regular insulin, 1 amp of D50, and 1 amp of sodium bicarb. If need be, we will start her on norepinephrine drip at 1 mcg/minute and transfer. She is more awake now and more alert and seems to be oxygenating better. I do not think she necessarily needs to be intubated here at this point in time. Dr. Najera agreed this, accept her in transfer. I explained everything to the patient and her . They know that she has multiorgan system failure and her condition is quite critical. They know the risks of transfer including accidents etc., and agree with this recommendation and plan. All questions were answered. CHRIS/CHET /[id number]
== END 2019-07-09 23:50 ==
LOC: LB.ED 20:52
DX: J96.90 Respiratory failure, unspecified, unspecified whether with hypoxia or hypercapnia (principal); N19 Unspecified kidney failure; R74.8 Abnormal levels of other serum enzymes; J44.9 Chronic obstructive pulmonary disease, unspecified; Z79.01 Long term (current) use of anticoagulants; I50.9 Heart failure, unspecified; I48.91 Unspecified atrial fibrillation; Z88.6 Allergy status to analgesic agent; Z88.0 Allergy status to penicillin
CPT/HCPCS: 36415; 36430; 36600; 71045; 80053; 82803; 83605; 85025; 85610; 86850; 86900; 86901; 86920; 86922; 93005; 96365; 96375; 99285; A0425; A0429; J0696; J3370; J7040; J7050; P9016; J7620-GY

== ENCOUNTER 2019-07-17 09:25 | Emergency (ER) | payer MEDICAID ==
[2019-07-17 10:40] VITALS: BP 105/57; PULSE 67
[2019-07-17] MEDS: Acetaminophen/HYDROcodone 325-10 MG Tab PO ONE (12:23)
--- NOTE | 2019-07-18 09:39 | EDM.PDOC ---
ED HPI GENERAL MEDICAL PROBLEM - General Chief Complaint: Back Pain or Injury Stated Complaint: PAIN Time Seen by Provider: 07/17/19 10:45 Source of Information: Reports: Patient, Family History Limitations: Reports: No Limitations - History of Present Illness INITIAL COMMENTS - FREE TEXT/NARRATIVE: This patient presents to the ED for evaluation of pain and weakness. She was recently hospitalized for a week at [facility] for urosepsis. She was discharged to home yesterday but has not been doing well and her family is concerned about adequately meeting her needs. She has a long and complex medical history with significant needs. She is quite weak, cachetic, and is complaining of pain today. Back Pain Score (Numeric/FACES): 8 - Related Data Allergies Allergy/AdvReac Type Severity Reaction Status Date / Time Penicillins Allergy Severe Anaphylactic Verified 07/17/19 16:23 Shock latex Allergy Intermediate Itching Verified 07/17/19 16:24 dofetilide Allergy Other Verified 07/17/19 17:31 lidocaine Allergy Hives Verified 07/17/19 10:34 Home Meds: Home Meds Cyclobenzaprine HCl 10 mg PO TID PRN 09/25/15 [History] Potassium Chloride 20 meq PO BID 09/25/15 [History] Warfarin Sodium [Jantoven] 3 mg PO DAILY 09/25/15 [History] Acetaminophen with Codeine [Tylenol with Codeine #3 Tablet] 1 each PO DAILY PRN 07/07/16 [History] Aspirin [Halfprin] 81 mg PO DAILY 07/07/16 [History] Sildenafil Citrate [Sildenafil] 20 mg PO TID 07/07/16 [History] Albuterol [Ventolin HFA] 2 inhalation PO Q6HR PRN 11/30/18 [History] Furosemide 1 tab PO BID 11/30/18 [History] Spironolactone [Aldactone] 1 tab PO BID 11/30/18 [History] Ferrous Sulfate [Feosol] 325 mg PO BID 07/17/19 [History] Past Medical History Cardiovascular History: Reports: Afib, Heart Failure, Heart Murmur, SOB on Exertion, Other (See Below) Other Cardiovascular History: chf Respiratory History: Reports: COPD, SOB, Other (See Below) Other Respiratory History: Fluid in one lung Gastrointestinal History: Reports: Diverticulosis, Other (See Below) Other Gastrointestinal History: hx C diff several times. bowel obstruction Genitourinary History: Reports: Other (See Below) Other Genitourinary History: was treated with sulfa x 3days within last 2 weeks FEATHER WASHER History: Reports: Other (See Below) Other FEATHER WASHER History: Musculoskeletal History: Reports: Back Pain, Chronic, Other (See Below) Other Musculoskeletal History: Back spasms Neurological History: Reports: Other (See Below) Other Neuro History: muscular - AMN Psychiatric History: Reports: Anxiety, Depression Other Psychiatric History: depression with son's Endocrine/Metabolic History: Reports: Other (See Below) Other Endocrine/Metabolic History: low iron Hematologic History: Reports: Anemia Dermatologic History: Reports: Other (See Below) Other Dermatologic History: dryness due to amlodipine adverse reaction. - Infectious Disease History Infectious Disease History: Reports: C-Difficile Other Infectious Disease History: hx rheumatic fever - Past Surgical History Cardiovascular Surgical History: Reports: Valve Replacement Other Cardiovascular Surgeries/Procedures: rhuematic fever as child GI Surgical History: Reports: Appendectomy, Other (See Below) Other GI Surgeries/Procedures: C-sections x 2 Musculoskeletal Surgical History: Reports: Shoulder Surgery, Other (See Below) Other Musculoskeletal Surgeries/Procedures:: Right hip ORIF Social & Family History - Family History Family Medical History: Noncontributory Cardiac: Reports: [place], Stent Respiratory: Reports: COPD Other Respiratory Family Hisory: COPD not actually diagnosed but feels has, long hx of smoking Musculoskeletal: Reports: Other (See Below) Other Musculoskeletal Family History: AMN, ALD, ADDISONS Psychiatric: Reports: None Endocrine/Metabolic: Reports: Diabetes, type II Oncologic: Reports: Colon - Tobacco Use Smoking Status *Q: Current Some Day Smoker Years of Tobacco use: 20 Packs/Tins Daily: 0.5 Used Tobacco, but Quit: No - Caffeine Use Caffeine Use: Reports: None - Recreational Drug Use Recreational Drug Use: No ED ROS GENERAL - Review of Systems Review Of Systems: See Below Constitutional: Reports: Weakness, Fatigue, Decreased Appetite, Weight Loss. Denies: Fever, Diaphoresis HEENT: Reports: No Symptoms Respiratory: Denies: Shortness of Breath, Wheezing, Pleuritic Chest Pain, Cough Cardiovascular: Reports: Dyspnea on Exertion, Edema, Orthopnea. Denies: Chest Pain, Palpitations GI/Abdominal: Reports: Anorexia, Decreased Appetite. Denies: Abdominal Pain, Constipation, Diarrhea, Difficulty Swallowing, Distension, Nausea, Vomiting Musculoskeletal: Reports: Neck Pain, Back Pain, Muscle Pain, Muscle Stiffness Skin: Reports: Dryness, Bruising, Pruritis, Lesions (blister to dorsum of left foot) Neurological: Reports: No Symptoms ED EXAM, UPPER BACK/NECK PAIN - Physical Exam Exam: See Below Exam Limited By: No Limitations General Appearance: Alert, Anxious, Moderate Distress, Cachetic Eye Exam: Bilateral Eye: PERRL Ears Exam: Normal External Exam, Hearing Grossly Normal Nose Exam: Normal Inspection Throat/Mouth Exam: Normal Inspection Head Exam: Atraumatic, Normocephalic Neck Exam: Non-Tender, Full Range of Motion, Normal Inspection, Painful Range of Motion Cardiovascular/Respiratory: Regular Rate, Rhythm, Normal Breath Sounds, No Respiratory Distress GI/Abdominal: Normal Bowel Sounds, Soft, Non-Tender, No Distention Back Exam: Normal Inspection, Other (generalized tenderness with palpation) Neurologic: Alert, Oriented x 3 Psychiatric: Normal Affect, Normal Mood Skin Exam: Warm/Dry, Other (multiple bruises, some petechiae to right jaw/ cheek. 4 cm blister to dorsum of left foot.) Course - Vital Signs Last Recorded V/S: Last Vital Signs Temp 36.6 C 07/17/19 11:40 Pulse 67 07/17/19 11:40 Resp 18 07/17/19 11:40 BP 105/57 L 07/17/19 10:36 Pulse Ox 95 07/17/19 11:40 - Orders/Labs/Meds Orders: Active Orders 24 hr Category Date Time Status Patient Status [ADT] Routine ADT 07/17/19 11:40 Active Oxygen Therapy [RC] PRN Care 07/17/19 11:40 Active VTE/DVT Education [RC] Per Unit Routine Care 07/17/19 11:40 Active Vital Signs [RC] PER UNIT ROUTINE Care 07/17/19 11:40 Active Resuscitation Status Routine Resus Stat 07/17/19 11:40 Ordered Meds: Medications Discontinued Medications Generic Name Dose Route Start Last Admin Trade Name Freq PRN Reason Stop Dose Admin Hydrocodone Bitart/Acetaminophen 1 tab 07/17/19 11:38 07/17/19 12:23 [place] 325-10 Mg PO 07/17/19 11:39 1 tab ONETIME ONE Administration Departure - Departure Time of Disposition: 11:00 Disposition: DC/Tfer W/I Hosp To Swing 61 Condition: Poor Clinical Impression: Weakness - Discharge Information Referrals: PCP,None [Primary Care Provider] - Forms: ED Department Discharge Sepsis Event Note - Evaluation Sepsis Screening Result: No Definite Risk - My Orders Last 24 Hours: My Active Orders 07/17/19 11:40 Patient Status [ADT] Routine Oxygen Therapy [RC] PRN VTE/DVT Education [RC] Per Unit Routine Vital Signs [RC] PER UNIT ROUTINE Resuscitation Status Routine - Assessment/Plan Last 24 Hours: My Active Orders 07/17/19 11:40 Patient Status [ADT] Routine Oxygen Therapy [RC] PRN VTE/DVT Education [RC] Per Unit Routine Vital Signs [RC] PER UNIT ROUTINE Resuscitation Status Routine
== END 2019-07-17 12:10 | disposition swing bed (61) ==
LOC: LB.ED 09:25
DX: R53.1 Weakness (principal); I48.91 Unspecified atrial fibrillation; I50.9 Heart failure, unspecified; J44.9 Chronic obstructive pulmonary disease, unspecified; D64.9 Anemia, unspecified; F17.210 Nicotine dependence, cigarettes, uncomplicated; Z88.0 Allergy status to penicillin; Z91.040 Latex allergy status; Z88.8 Allergy status to other drugs, medicaments and biological substances; Z79.899 Other long term (current) drug therapy; Z79.82 Long term (current) use of aspirin; Z79.01 Long term (current) use of anticoagulants
CPT/HCPCS: 99283; 99284; A9270-GY

== ENCOUNTER 2019-07-17 11:50 | Inpatient (IN) | payer MEDICAID ==
[2019-07-17] MEDS ORDERED: Acetaminophen/Codeine 300-30 MG Tab PO PRN (12:52)
[2019-07-17] MEDS ORDERED: Albuterol 8 GM Inhaler INH PRN (12:52)
[2019-07-17] MEDS ORDERED: Ondansetron 4 MG Tab.DIS PO PRN (12:56)
[2019-07-17] MEDS ORDERED: fentaNYL 12 MCG/HR Transdermal Patch TRDERM SCH (13:00)
[2019-07-17] MEDS: Cyclobenzaprine 10 MG Tab PO PRN (15:16)
[2019-07-17] MEDS: Acetaminophen/HYDROcodone 325-10 MG Tab PO PRN (16:53)
[2019-07-17] MEDS: Sildenafil 20 MG Tab PO SCH ×2 (17:24→21:57)
[2019-07-17] MEDS ORDERED: Non-Formulary Medication 1 Each (Potassium Chloride [Potassium Chloride] 20 MEQ) PO SCH (20:00)
[2019-07-17] MEDS: Potassium Chloride 20 MEQ Tab.ER PO SCH (20:00)
[2019-07-17] MEDS: Spironolactone 25 MG Tab PO SCH (20:00)
[2019-07-17] MEDS: Furosemide 80 MG Tab PO SCH (21:57)
[2019-07-18] MEDS: Spironolactone 25 MG Tab PO SCH ×2 (08:05→19:21)
[2019-07-18] MEDS: Amiodarone 200 MG Tab PO SCH (08:05)
[2019-07-18] MEDS: Furosemide 80 MG Tab PO SCH ×2 (08:05→19:22)
[2019-07-18] MEDS: Aspirin 81 MG Tab.EC PO SCH (08:05)
[2019-07-18] MEDS: Potassium Chloride 20 MEQ Tab.ER PO SCH ×2 (08:05→19:22)
--- NOTE | 2019-07-18 09:49 | PCM.HP.2 ---
H&P History of Present Illness - General Date of Service: 07/17/19 Admit Problem/Dx: Admission Diagnosis/Problem Admission Diagnosis/Problem Weakness Weakness, pain Source of Information: Patient, Family History Limitations: Reports: No Limitations - History of Present Illness Initial Comments - Free Text/Narative: This patient presents from the ED for admission related to weakness and pain. She has a long, complex medical history and was discharged yesterday from [facility] where she was admitted for treatment of urosepsis. She was set up for a swing bed admission here but decided to go home. She and her family present as they are not able to adequately care for her at home. Her pain has increased today and she is quite uncomfortable. Right Lower Back Pain Score (Numeric/FACES): 7 - Related Data Allergies/Adverse Reactions: Allergies Allergy/AdvReac Type Severity Reaction Status Date / Time Penicillins Allergy Severe Anaphylactic Verified 07/17/19 16:23 Shock latex Allergy Intermediate Itching Verified 07/17/19 16:24 dofetilide Allergy Other Verified 07/17/19 17:31 lidocaine Allergy Hives Verified 07/17/19 10:34 Home Medications: Home Meds Cyclobenzaprine HCl 10 mg PO TID PRN 09/25/15 [History] Potassium Chloride 20 meq PO BID 09/25/15 [History] Warfarin Sodium [Jantoven] 3 mg PO DAILY 09/25/15 [History] Acetaminophen with Codeine [Tylenol with Codeine #3 Tablet] 1 each PO DAILY PRN 07/07/16 [History] Aspirin [Halfprin] 81 mg PO DAILY 07/07/16 [History] Sildenafil Citrate [Sildenafil] 20 mg PO TID 07/07/16 [History] Albuterol [Ventolin HFA] 2 inhalation PO Q6HR PRN 11/30/18 [History] Furosemide 1 tab PO BID 11/30/18 [History] Spironolactone [Aldactone] 1 tab PO BID 11/30/18 [History] Ferrous Sulfate [Feosol] 325 mg PO BID 07/17/19 [History] Past Medical History Cardiovascular History: Reports: Afib, Heart Failure, Heart Murmur, SOB on Exertion, Other (See Below) Other Cardiovascular History: chf Respiratory History: Reports: COPD, SOB, Other (See Below) Other Respiratory History: Fluid in one lung Gastrointestinal History: Reports: Diverticulosis, Other (See Below) Other Gastrointestinal History: hx C diff several times. bowel obstruction Genitourinary History: Reports: Other (See Below) Other Genitourinary History: was treated with sulfa x 3days within last 2 weeks [employer] History: Reports: Other (See Below) Other OB/BYN History: Musculoskeletal History: Reports: Back Pain, Chronic, Other (See Below) Other Musculoskeletal History: Back spasms Neurological History: Reports: Other (See Below) Other Neuro History: muscular - AMN Psychiatric History: Reports: Anxiety, Depression Other Psychiatric History: depression with son's Endocrine/Metabolic History: Reports: Other (See Below) Other Endocrine/Metabolic History: low iron Hematologic History: Reports: Anemia Dermatologic History: Reports: Other (See Below) Other Dermatologic History: dryness due to amlodipine adverse reaction. - Infectious Disease History Infectious Disease History: Reports: C-Difficile Other Infectious Disease History: hx rheumatic fever - Past Surgical History Cardiovascular Surgical History: Reports: Valve Replacement Other Cardiovascular Surgeries/Procedures: rhuematic fever as child GI Surgical History: Reports: Appendectomy, Other (See Below) Other GI Surgeries/Procedures: C-sections x 2 Other Endocrine Surgeries/Procedures: denies history of diabetes as mentioned in medical record Musculoskeletal Surgical History: Reports: Shoulder Surgery, Other (See Below) Other Musculoskeletal Surgeries/Procedures:: Right hip ORIF Social & Family History - Family History Family Medical History: Noncontributory Cardiac: Reports: [place], Stent Respiratory: Reports: COPD Other Respiratory Family Hisory: COPD not actually diagnosed but feels has, long hx of smoking Musculoskeletal: Reports: Other (See Below) Other Musculoskeletal Family History: AMN, ALD, ADDISONS Psychiatric: Reports: None Oncologic: Reports: Colon - Tobacco Use Smoking Status *Q: Current Every Day Smoker Years of Tobacco use: 20 Packs/Tins Daily: 0.5 Used Tobacco, but Quit: No Second Hand Smoke Exposure: No - Caffeine Use Caffeine Use: Reports: None - Recreational Drug Use Recreational Drug Use: No H&P Review of Systems - Review of Systems: Review Of Systems: See Below General: Reports: Malaise, Weakness, Fatigue, Decreased Appetite, Weight Loss. Denies: Fever, Diaphoresis HEENT: Reports: No Symptoms Pulmonary: Denies: Shortness of Breath, Pleuritic Chest Pain, Cough Cardiovascular: Reports: Dyspnea on Exertion, Orthopnea. Denies: Chest Pain, Palpitations Gastrointestinal: Reports: Decreased Appetite. Denies: Abdominal Pain, Constipation, Diarrhea, Difficulty Swallowing, Distension, Nausea, Vomiting Musculoskeletal: Reports: Neck Pain, Shoulder Pain, Back Pain, Leg Pain Skin: Reports: Pallor, Dryness, Bruising, Pruritis, Lesions Psychiatric: Reports: No Symptoms Neurological: Reports: No Symptoms Exam - Exam Exam: See Below - Vital Signs Vital Signs: Last Vital Signs Temp 37.3 C 07/18/19 08:00 Pulse 77 07/18/19 08:00 Resp 16 07/18/19 08:00 BP 119/65 07/18/19 08:00 Pulse Ox 98 07/18/19 08:00 Weight: 67.132 kg - Exam Quality Assessment: No: Supplemental Oxygen, Central Line/PICC, Skin Breakdown General: Alert, Oriented, Cooperative HEENT: PERRLA, Conjunctiva Clear, EACs Clear, EOMI, Hearing Intact, Mucosa Moist & [place], Nares Patent, Posterior Pharynx Clear, Pupils Equal, Pupils Reactive, TMs Clear Neck: Supple Lungs: Clear to Auscultation, Normal Respiratory Effort Cardiovascular: Regular Rate, Regular Rhythm GI/Abdominal Exam: Soft, Non-Tender, No Distention Back Exam: Normal Inspection, Other (generalized tenderness with palpation) Extremities: Slow Capillary Refill, Arm Pain, Leg Pain, Limited Range of Motion , Mottled Skin: Warm, Dry, Other (3 cm blister dorsum right foot) Neuro Extensive - Mental Status: Alert, Oriented x3 Psychiatric: Alert, Depressed - Patient Data Lab Results Last 24 hrs: Laboratory Results - last 24 hr 07/17/19 07/18/19 Range/Units 16:47 07:07 POC Glucose 88 86 (74-110) mg/dL Sepsis Event Note - Evaluation Sepsis Screening Result: No Definite Risk - Focused Exam Vital Signs: Vital Signs Temp Pulse Resp BP Pulse Ox 07/18/19 08:00 37.3 C 77 16 119/65 98 Date Exam was Performed: 07/18/19 Time Exam was Performed: 09:44 - Problem List (1) Weakness SNOMED Code(s): 54520797 ICD Code: R53.1 - WEAKNESS Status: Acute Priority: High Current Visit: Yes (2) Thoracic back pain SNOMED Code(s): 251413721 ICD Code: M54.6 - PAIN IN THORACIC SPINE Status: Acute Priority: High Current Visit: Yes Onset Date: 03/02/14 Problem Details: 03/02/14 - Left midback pain Problem List Initiated/Reviewed/Updated: Yes Orders Last 24hrs: Active Orders 24 hr Category Date Time Status Patient Status [ADT] Routine ADT 07/17/19 12:49 Active Blood Glucose Check, Bedside [RC] BIDMEALS Care 07/17/19 12:49 Active Height and Weight [RC] DAILY Care 07/17/19 12:50 Active Oxygen Therapy [RC] PRN Care 07/17/19 12:49 Active Vital Signs [RC] ,20 Care 07/17/19 12:49 Active Regular Diet [DIET] Diet 07/17/19 Dinner Ordered CULTURE MRSA SURVEY [] Routine Lab 07/17/19 16:25 Received Acetaminophen/Codeine [Tylenol with Codeine No.3 300MG/ Med 07/17/19 12:52 Active 30MG] 1 tab PO DAILY PRN Acetaminophen/HYDROcodone [[place] 325-10 MG] Med 07/17/19 12:57 Active 1 tab PO Q4H PRN Albuterol [Ventolin HFA] Med 07/17/19 12:52 Active 8 gm INH Q4H PRN Amiodarone [Cordarone] Med 07/18/19 08:00 Active 200 mg PO DAILY Aspirin [Halfprin] Med 07/18/19 08:00 Active 81 mg PO DAILY Cyclobenzaprine [Flexeril] Med 07/17/19 12:52 Active 10 mg PO TID PRN Furosemide [Lasix] Med 07/17/19 20:00 Active 80 mg PO BID Ondansetron [Zofran ODT] Med 07/17/19 12:56 Active 4 mg PO Q6H PRN Potassium Chloride [Klor-Con M20] Med 07/17/19 20:00 Active 20 meq PO BID Sildenafil [Revatio] Med 07/17/19 14:00 Active 20 mg PO TID Spironolactone [Aldactone] Med 07/17/19 20:00 Active 25 mg PO BID Warfarin [Coumadin] Med 07/18/19 18:00 Active 5 mg PO DAILY@1800 fentaNYL [Duragesic] Med 07/17/19 13:00 Active 12 mcg TRDERM Q72H Resuscitation Status Routine Resus Stat 07/17/19 12:49 Ordered Medication Orders Acetaminophen/Codeine Phosphate (Tylenol With Codeine No.3 300mg/30mg) 1 tab PO DAILY PRN PRN Reason: Pain Last Admin: 07/17/19 15:16 Dose: 1 tab Hydrocodone Bitart/Acetaminophen ([place] 325-10 Mg) 1 tab PO Q4H PRN PRN Reason: Pain Last Admin: 07/17/19 16:53 Dose: 1 tab Albuterol (Ventolin Hfa) 8 gm INH Q4H PRN PRN Reason: Dyspnea Amiodarone HCl (Cordarone) 200 mg PO DAILY [facility] Last Admin: 07/18/19 08:05 Dose: 200 mg Aspirin (Halfprin) 81 mg PO DAILY [facility] Last Admin: 07/18/19 08:05 Dose: 81 mg Cyclobenzaprine HCl (Flexeril) 10 mg PO TID PRN PRN Reason: Muscle Spasm Last Admin: 07/17/19 15:16 Dose: 10 mg Fentanyl (Duragesic) 12 mcg TRDERM Q72H [facility] Last Admin: 07/17/19 15:16 Dose: 12 mcg Furosemide (Lasix) 80 mg PO BID [facility] Last Admin: 07/18/19 08:05 Dose: 80 mg Admin: 07/17/19 21:57 Dose: Not Given Ondansetron HCl (Zofran Odt) 4 mg PO Q6H PRN PRN Reason: Nausea/Vomiting Potassium Chloride (Klor-Con M20) 20 meq PO BID [facility] Last Admin: 07/18/19 08:05 Dose: 20 meq Admin: 07/17/19 20:00 Dose: Not Given Sildenafil Citrate (Revatio) 20 mg PO TID [facility] Last Admin: 07/17/19 21:57 Dose: Admin: 07/17/19 17:24 Dose: Spironolactone (Aldactone) 25 mg PO BID [facility] Last Admin: 07/18/19 08:05 Dose: 25 mg Admin: 07/17/19 20:00 Dose: Not Given Warfarin Sodium (Coumadin) 5 mg PO DAILY@1800 [facility] - Mortality Measure Prognosis:: Poor
[2019-07-18] MEDS: Sildenafil 20 MG Tab PO SCH ×3 (12:52→23:30)
[2019-07-18] MEDS: Cyclobenzaprine 10 MG Tab PO PRN ×2 (12:52→23:30)
[2019-07-18] MEDS: Acetaminophen/HYDROcodone 325-10 MG Tab PO PRN ×3 (14:34→23:31)
[2019-07-18] MEDS: Warfarin 5 MG Tab PO SCH (18:14)
[2019-07-19] MEDS: Amiodarone 200 MG Tab PO SCH (08:04)
[2019-07-19] MEDS: Potassium Chloride 20 MEQ Tab.ER PO SCH ×2 (08:04→20:43)
[2019-07-19] MEDS: Aspirin 81 MG Tab.EC PO SCH (08:04)
[2019-07-19] MEDS: Spironolactone 25 MG Tab PO SCH ×2 (08:04→20:43)
[2019-07-19] MEDS: Furosemide 80 MG Tab PO SCH ×2 (08:04→16:52)
[2019-07-19] MEDS: Sildenafil 20 MG Tab PO SCH ×3 (08:15→20:44)
[2019-07-19] MEDS: Acetaminophen/HYDROcodone 325-10 MG Tab PO PRN ×2 (12:10→20:41)
[2019-07-19] MEDS: Warfarin 5 MG Tab PO SCH (17:23)
[2019-07-19] MEDS: Cyclobenzaprine 10 MG Tab PO PRN (20:43)
[2019-07-20] MEDS: Aspirin 81 MG Tab.EC PO SCH (08:08)
[2019-07-20] MEDS: Potassium Chloride 20 MEQ Tab.ER PO SCH ×2 (08:08→20:50)
[2019-07-20] MEDS: Amiodarone 200 MG Tab PO SCH (08:08)
[2019-07-20] MEDS: Acetaminophen/HYDROcodone 325-10 MG Tab PO PRN ×3 (08:08→20:50)
[2019-07-20] MEDS: Spironolactone 25 MG Tab PO SCH ×2 (08:08→20:49)
[2019-07-20] MEDS: Furosemide 80 MG Tab PO SCH (08:08)
[2019-07-20] MEDS: Sildenafil 20 MG Tab PO SCH ×3 (08:09→20:49)
--- NOTE | 2019-07-20 09:59 | PCM.PN ---
- General Info Date of Service: 07/20/19 Admission Dx/Problem (Free Text): Admission Diagnosis/Problem Admission Diagnosis/Problem Weakness Weakness, pain Functional Status: Reports: Other (Continues to have back pain that has not changed much since admission ) - Review of Systems General: Reports: Fatigue. Denies: Fever, Appetite HEENT: Reports: No Symptoms Pulmonary: Reports: No Symptoms Cardiovascular: Reports: No Symptoms Gastrointestinal: Denies: Abdominal Pain, Diarrhea, Nausea, Vomiting Genitourinary: Denies: Dysuria Skin: Reports: Pallor, Dryness, Bruising Neurological: Reports: No Symptoms - Patient Data Vitals - Most Recent: Last Vital Signs Temp 37.4 C 07/20/19 08:00 Pulse 78 07/20/19 08:00 Resp 20 07/20/19 08:00 BP 103/53 L 07/20/19 08:00 Pulse Ox 91 L 07/20/19 08:00 Weight - Most Recent: 61.405 kg I&O - Last 24 Hours: Intake & Output 07/19/19 07/20/19 07/20/19 22:59 06:59 14:59 Intake Total 600 210 Output Total 700 Balance -100 210 Lab Results Last 24 Hours: Laboratory Results - last 24 hr 07/20/19 Range/Units 06:56 POC Glucose 85 (74-110) mg/dL Med Orders - Current: Current Medications Hydrocodone Bitart/Acetaminophen ([place] 325-10 Mg) 1 tab PO Q4H PRN PRN Reason: Pain Last Admin: 07/20/19 08:08 Dose: 1 tab Albuterol (Ventolin Hfa) 8 gm INH Q4H PRN PRN Reason: Dyspnea Amiodarone HCl (Cordarone) 200 mg PO DAILY [facility] Last Admin: 07/20/19 08:08 Dose: 200 mg Aspirin (Halfprin) 81 mg PO DAILY [facility] Last Admin: 07/20/19 08:08 Dose: 81 mg Cyclobenzaprine HCl (Flexeril) 10 mg PO TID PRN PRN Reason: Muscle Spasm Last Admin: 07/19/19 20:43 Dose: 10 mg Fentanyl (Duragesic) 25 mcg TRDERM Q72H [facility] Furosemide (Lasix) 40 mg PO BIDDIURETIC [facility] Ondansetron HCl (Zofran Odt) 4 mg PO Q6H PRN PRN Reason: Nausea/Vomiting Potassium Chloride (Klor-Con M20) 20 meq PO BID [facility] Last Admin: 07/20/19 08:08 Dose: 20 meq Sildenafil Citrate (Revatio) 20 mg PO TID [facility] Last Admin: 07/20/19 08:09 Dose: 20 mg Spironolactone (Aldactone) 25 mg PO BID [facility] Last Admin: 07/20/19 08:08 Dose: 25 mg Warfarin Sodium (Coumadin) 5 mg PO DAILY@1800 [facility] Last Admin: 07/19/19 17:23 Dose: 5 mg Discontinued Medications Acetaminophen/Codeine Phosphate (Tylenol With Codeine No.3 300mg/30mg) 1 tab PO DAILY PRN PRN Reason: Pain Last Admin: 07/17/19 15:16 Dose: 1 tab Fentanyl (Duragesic) 12 mcg TRDERM Q72H [facility] Last Admin: 07/17/19 15:16 Dose: 12 mcg Furosemide (Lasix) 80 mg PO BID [facility] Last Admin: 07/19/19 08:04 Dose: 80 mg Furosemide (Lasix) 80 mg PO BIDDIURETIC [facility] Last Admin: 07/20/19 08:08 Dose: 80 mg - Exam General: Alert, Oriented, No Acute Distress HEENT: Pupils Equal, Pupils Reactive, EOMI, Mucous Membr. Moist/[place] Neck: Supple Lungs: Clear to Auscultation, Normal Respiratory Effort Cardiovascular: Regular Rhythm Back Exam: Normal Inspection Extremities: Normal Capillary Refill Skin: Warm, Dry Wound/Incisions: Healing Well Neurological: No New Focal Deficit Psy/Mental Status: Alert, Normal Affect Sepsis Event Note - Evaluation Sepsis Screening Result: No Definite Risk - Focused Exam Vital Signs: Vital Signs Temp Pulse Resp BP Pulse Ox 07/20/19 08:00 37.4 C 78 20 103/53 L 91 L Date Exam was Performed: 07/20/19 Time Exam was Performed: 09:52 - Problem List & Annotations (1) Weakness SNOMED Code(s): 67575110 Code(s): R53.1 - WEAKNESS Status: Acute Priority: High Current Visit: Yes (2) Thoracic back pain SNOMED Code(s): 943911571 Code(s): M54.6 - PAIN IN THORACIC SPINE Status: Acute Priority: High Current Visit: Yes Onset Date: 03/02/14 Annotation/Comment:: 03/02/14 - Left midback pain - Problem List Review Problem List Initiated/Reviewed/Updated: Yes - My Orders Last 24 Hours: My Active Orders 07/20/19 10:00 fentaNYL [Duragesic] 25 mcg TRDERM Q72H 07/20/19 16:00 Furosemide [Lasix] 40 mg PO BIDDIURETIC - Assessment Assessment:: 07/20/2019 Assessment: 1) Weakness 2) Chronic Back Pain Plan: 1) increase fentanyl to 25 mg; discontinue Tylenol with codeine 2) decrease Lasix to 40 mg bid; continue to wean down 3) Will continue to work with PT/OT to improve functional status
[2019-07-20] MEDS: fentaNYL 25 MCG/HR Transdermal Patch TRDERM SCH (11:24)
[2019-07-20] MEDS: Furosemide 40 MG Tab PO SCH (15:13)
[2019-07-20] MEDS: Warfarin 5 MG Tab PO SCH (18:22)
[2019-07-20] MEDS: Cyclobenzaprine 10 MG Tab PO PRN (20:50)
[2019-07-21] MEDS: Furosemide 40 MG Tab PO SCH ×3 (08:09→15:00)
[2019-07-21] MEDS: Amiodarone 200 MG Tab PO SCH ×2 (08:09→09:45)
[2019-07-21] MEDS: Aspirin 81 MG Tab.EC PO SCH (08:09)
[2019-07-21] MEDS: Spironolactone 25 MG Tab PO SCH ×2 (08:09→20:51)
[2019-07-21] MEDS: Acetaminophen/HYDROcodone 325-10 MG Tab PO PRN ×2 (08:09→20:52)
[2019-07-21] MEDS: Sildenafil 20 MG Tab PO SCH ×3 (08:09→20:51)
[2019-07-21] MEDS: Potassium Chloride 20 MEQ Tab.ER PO SCH ×2 (08:09→20:51)
[2019-07-21] MEDS: Warfarin 5 MG Tab PO SCH (18:12)
[2019-07-21] MEDS: Cyclobenzaprine 10 MG Tab PO PRN (20:51)
[2019-07-22] MEDS: Acetaminophen/HYDROcodone 325-10 MG Tab PO PRN ×3 (08:26→19:40)
[2019-07-22] MEDS: Aspirin 81 MG Tab.EC PO SCH (08:27)
[2019-07-22] MEDS: Potassium Chloride 20 MEQ Tab.ER PO SCH ×2 (08:27→20:10)
[2019-07-22] MEDS: Spironolactone 25 MG Tab PO SCH ×2 (08:29→20:10)
[2019-07-22] MEDS: Sildenafil 20 MG Tab PO SCH ×3 (08:30→20:10)
[2019-07-22] MEDS: Furosemide 40 MG Tab PO SCH ×2 (08:30→16:21)
[2019-07-22] MEDS: Amiodarone 200 MG Tab PO SCH (08:30)
[2019-07-22] MEDS: Cyclobenzaprine 10 MG Tab PO PRN (16:23)
[2019-07-22] MEDS: Warfarin 5 MG Tab PO SCH (20:10)
[2019-07-23] MEDS: Acetaminophen/HYDROcodone 325-10 MG Tab PO PRN ×2 (01:24→19:24)
[2019-07-23] MEDS: Cyclobenzaprine 10 MG Tab PO PRN ×3 (01:24→19:24)
[2019-07-23] MEDS: Amiodarone 200 MG Tab PO SCH (08:09)
[2019-07-23] MEDS: Sildenafil 20 MG Tab PO SCH ×3 (08:09→19:24)
[2019-07-23] MEDS: Furosemide 40 MG Tab PO SCH ×2 (08:09→16:08)
[2019-07-23] MEDS: Spironolactone 25 MG Tab PO SCH ×2 (08:09→19:24)
[2019-07-23] MEDS: Aspirin 81 MG Tab.EC PO SCH (08:09)
[2019-07-23] MEDS: Potassium Chloride 20 MEQ Tab.ER PO SCH ×2 (08:09→19:24)
[2019-07-23] MEDS: fentaNYL 25 MCG/HR Transdermal Patch TRDERM SCH (13:28)
[2019-07-23] MEDS: Warfarin 5 MG Tab PO SCH (18:17)
[2019-07-24] MEDS: Acetaminophen/HYDROcodone 325-10 MG Tab PO PRN ×2 (03:31→13:33)
[2019-07-24] MEDS: Cyclobenzaprine 10 MG Tab PO PRN (03:34)
[2019-07-24] MEDS: Spironolactone 25 MG Tab PO SCH ×2 (08:11→20:06)
[2019-07-24] MEDS: Amiodarone 200 MG Tab PO SCH (08:11)
[2019-07-24] MEDS: Furosemide 40 MG Tab PO SCH ×2 (08:11→17:28)
[2019-07-24] MEDS: Aspirin 81 MG Tab.EC PO SCH (08:11)
[2019-07-24] MEDS: Potassium Chloride 20 MEQ Tab.ER PO SCH ×2 (08:11→20:07)
[2019-07-24] MEDS: Sildenafil 20 MG Tab PO SCH ×3 (08:11→20:07)
[2019-07-24] MEDS: Warfarin 5 MG Tab PO SCH (17:29)
[2019-07-24] MEDS: KETAMINE TOP SCH (20:08)
[2019-07-24] MEDS: [UNRECOGNIZED DRUG - OTHER] TOP SCH (20:08)
[2019-07-25] MEDS: Acetaminophen/HYDROcodone 325-10 MG Tab PO PRN ×5 (00:46→20:04)
[2019-07-25] MEDS: Cyclobenzaprine 10 MG Tab PO PRN ×3 (00:47→13:24)
[2019-07-25] MEDS: fentaNYL 25 MCG/HR Transdermal Patch ONE ×2 (08:00→11:49)
[2019-07-25] MEDS: [UNRECOGNIZED DRUG - OTHER] TOP SCH ×2 (08:00→20:05)
[2019-07-25] MEDS: KETAMINE TOP SCH ×2 (08:00→20:05)
[2019-07-25] MEDS: fentaNYL 25 MCG/HR Transdermal Patch TRDERM SCH (08:03)
[2019-07-25] MEDS: Amiodarone 200 MG Tab PO SCH (08:10)
[2019-07-25] MEDS: Spironolactone 25 MG Tab PO SCH ×2 (08:10→20:00)
[2019-07-25] MEDS: Furosemide 40 MG Tab PO SCH ×2 (08:10→16:09)
[2019-07-25] MEDS: Sildenafil 20 MG Tab PO SCH ×3 (08:11→20:05)
[2019-07-25] MEDS: Aspirin 81 MG Tab.EC PO SCH (08:13)
[2019-07-25] MEDS ORDERED: fentaNYL 25 MCG/HR Transdermal Patch TRDERM SCH (08:15)
[2019-07-25] MEDS: Potassium Chloride 20 MEQ Tab.ER PO SCH ×2 (08:26→20:05)
[2019-07-25] MEDS: Warfarin 5 MG Tab PO SCH (18:04)
[2019-07-26] MEDS: Cyclobenzaprine 10 MG Tab PO PRN ×3 (02:13→14:18)
[2019-07-26] MEDS: Acetaminophen/HYDROcodone 325-10 MG Tab PO PRN ×3 (03:49→11:41)
[2019-07-26] MEDS: Aspirin 81 MG Tab.EC PO SCH (07:40)
[2019-07-26] MEDS: Potassium Chloride 20 MEQ Tab.ER PO SCH ×2 (07:40→20:07)
[2019-07-26] MEDS: Furosemide 40 MG Tab PO SCH ×2 (07:40→16:35)
[2019-07-26] MEDS: Sildenafil 20 MG Tab PO SCH ×3 (07:40→20:07)
[2019-07-26] MEDS: Amiodarone 200 MG Tab PO SCH (07:41)
[2019-07-26] MEDS: Spironolactone 25 MG Tab PO SCH ×2 (07:41→20:07)
[2019-07-26] MEDS: [UNRECOGNIZED DRUG - OTHER] TOP SCH ×2 (08:00→20:14)
[2019-07-26] MEDS: KETAMINE TOP SCH ×2 (08:00→20:14)
[2019-07-26] MEDS ORDERED: Sildenafil 20 MG Tab ONE (16:31)
[2019-07-26] MEDS: Warfarin 5 MG Tab PO SCH (20:13)
[2019-07-27] MEDS: Acetaminophen/HYDROcodone 325-10 MG Tab PO PRN ×2 (03:46→09:23)
[2019-07-27] MEDS: Potassium Chloride 20 MEQ Tab.ER PO SCH (07:50)
[2019-07-27] MEDS: Amiodarone 200 MG Tab PO SCH (07:51)
[2019-07-27] MEDS: Spironolactone 25 MG Tab PO SCH (07:51)
[2019-07-27] MEDS: Aspirin 81 MG Tab.EC PO SCH (07:51)
[2019-07-27] MEDS: Furosemide 40 MG Tab PO SCH (07:51)
--- NOTE | 2019-07-27 08:53 | PCM.DCSUM1 ---
Discharge Summary - Discharge Data Discharge Date: 07/27/19 Discharge Disposition: Home, Self-Care 01 Condition: Good - Referral to Home Health Primary Care Physician: PCP None - Patient Summary/Data Consults: Consultations 07/18/19 10:31 OT Evaluation and Treatment [CONS] Routine Please Evaluate and Treat. OT Reason for Consult: Strengthening This query below is only for informational purposes and is not editable. Admission Diagnosis/Problem: Weakness PT Evaluation and Treatment [CONS] Routine Please Evaluate and Treat. PT Reason for Consult: Strengthening This query below is only for informational purposes and is not editable. Admission Diagnosis/Problem: Weakness - Patient Instructions Diet: Usual Diet as Tolerated Activity: As Tolerated - Discharge Plan Home Medications: Home Meds Cyclobenzaprine HCl 10 mg PO TID PRN 09/25/15 [History] Potassium Chloride 20 meq PO BID 09/25/15 [History] Warfarin Sodium [Jantoven] 3 mg PO DAILY 09/25/15 [History] Acetaminophen with Codeine [Tylenol with Codeine #3 Tablet] 1 each PO DAILY PRN 07/07/16 [History] Aspirin [Halfprin] 81 mg PO DAILY 07/07/16 [History] Sildenafil Citrate [Sildenafil] 20 mg PO TID 07/07/16 [History] Albuterol [Ventolin HFA] 2 inhalation PO Q6HR PRN 11/30/18 [History] Furosemide 1 tab PO BID 11/30/18 [History] Spironolactone [Aldactone] 1 tab PO BID 11/30/18 [History] Ferrous Sulfate [Feosol] 325 mg PO BID 07/17/19 [History] - Discharge Summary/Plan Comment DC Time >30 min.: No Discharge Summary/Plan Comment: Counseled on f/u in clinic next week for repeat labs and evaluation. F/u as needed. - General Info Date of Service: 07/27/19 Functional Status: Reports: Pain Controlled, Tolerating Diet, Ambulating - Review of Systems General: Reports: Weakness HEENT: Reports: No Symptoms Pulmonary: Reports: No Symptoms Cardiovascular: Reports: No Symptoms Gastrointestinal: Reports: No Symptoms Musculoskeletal: Reports: No Symptoms Skin: Reports: Cyanosis (of lower extremities when sitting) Neurological: Reports: No Symptoms Psychiatric: Reports: No Symptoms - Patient Data Vitals - Most Recent: Last Vital Signs Temp 36.6 C 07/26/19 20:00 Pulse 95 07/26/19 20:00 Resp 18 07/26/19 20:00 BP 127/65 07/26/19 20:00 Pulse Ox 99 07/26/19 20:00 Weight - Most Recent: 57.788 kg I&O - Last 24 hours: Intake & Output 07/26/19 07/27/19 07/27/19 22:59 06:59 14:59 Intake Total 240 Output Total 550 950 Balance -550 -710 Med Orders - Current: Current Medications Hydrocodone Bitart/Acetaminophen ([place] 325-10 Mg) 1 tab PO Q4H PRN PRN Reason: Pain Last Admin: 07/27/19 03:46 Dose: 1 tab Albuterol (Ventolin Hfa) 8 gm INH Q4H PRN PRN Reason: Dyspnea Amiodarone HCl (Cordarone) 200 mg PO DAILY [facility] Last Admin: 07/27/19 07:51 Dose: 200 mg Aspirin (Halfprin) 81 mg PO DAILY [facility] Last Admin: 07/27/19 07:51 Dose: 81 mg Cyclobenzaprine HCl (Flexeril) 10 mg PO TID PRN PRN Reason: Muscle Spasm Last Admin: 07/26/19 14:18 Dose: 10 mg Fentanyl (Duragesic) 25 mcg TRDERM Q72H [facility] Last Admin: 07/26/19 22:06 Dose: Not Given Furosemide (Lasix) 40 mg PO BIDDIURETIC [facility] Last Admin: 07/27/19 07:51 Dose: 40 mg Miscellaneous Information (Remove Patch) 1 ea TRDERM Q72H [facility] Last Admin: 07/26/19 22:06 Dose: Not Given Ondansetron HCl (Zofran Odt) 4 mg PO Q6H PRN PRN Reason: Nausea/Vomiting Vanicream With Ketamine 5% *Pt Own Med* 0 each TOP BID [facility] Last Admin: 07/26/19 20:14 Dose: 1 each Potassium Chloride (Klor-Con M20) 20 meq PO BID [facility] Last Admin: 07/27/19 07:50 Dose: 20 meq Sildenafil Citrate (Revatio) 20 mg PO TID [facility] Last Admin: 07/26/19 20:07 Dose: 20 mg Spironolactone (Aldactone) 25 mg PO BID [facility] Last Admin: 05/29/20 07:51 Dose: 25 mg Warfarin Sodium (Coumadin) 5 mg PO DAILY@1800 [facility] Last Admin: 07/26/19 20:13 Dose: 5 mg Discontinued Medications Acetaminophen/Codeine Phosphate (Tylenol With Codeine No.3 300mg/30mg) 1 tab PO DAILY PRN PRN Reason: Pain Last Admin: 07/17/19 15:16 Dose: 1 tab Fentanyl (Duragesic) 12 mcg TRDERM Q72H [facility] Last Admin: 07/17/19 15:16 Dose: 12 mcg Fentanyl (Duragesic) 25 mcg TRDERM Q72H [facility] Last Admin: 07/25/19 08:03 Dose: 25 mcg Fentanyl (Duragesic) Confirm Administered Dose 25 mcg .ROUTE .[employer] ONE Stop: 07/25/19 07:59 Last Admin: 07/25/19 11:49 Dose: Not Given Furosemide (Lasix) 80 mg PO BID [facility] Last Admin: 07/19/19 08:04 Dose: 80 mg Furosemide (Lasix) 80 mg PO BIDDIURETIC [facility] Last Admin: 07/20/19 08:08 Dose: 80 mg Miscellaneous Information (Remove Patch) 1 ea TRDERM Q72H [facility] Last Admin: 07/23/19 13:33 Dose: 1 ea Sildenafil Citrate (Revatio) Confirm Administered Dose 20 mg .ROUTE .[employer] ONE Stop: 07/26/19 16:32 Last Admin: 07/26/19 19:20 Dose: Not Given - Exam General: Reports: Alert, Oriented, Cooperative HEENT: Reports: Pupils Equal, Pupils Reactive, EOMI, Mucous Membr. Moist/[place] Neck: Reports: Supple Lungs: Reports: Clear to Auscultation, Normal Respiratory Effort Cardiovascular: Reports: Regular Rate, Regular Rhythm GI/Abdominal Exam: Normal Bowel Sounds Back Exam: Reports: Normal Inspection Extremities: Normal Inspection Skin: Reports: Warm, Dry, Intact, Other (cyanosis of lower extremities with sitting) Neurological: Reports: No New Focal Deficit Psy/Mental Status: Reports: Alert, Normal Affect, Normal Mood
[2019-07-27 09:17] VITALS: BP 112/61; PULSE 83
[2019-07-27] MEDS: Cyclobenzaprine 10 MG Tab PO PRN (09:26)
== END 2019-07-27 11:05 | disposition home or self-care (01) | DRG 948 ==
LOC: LB.MS 12:49 → UNDOADMIN 12:49 → UNDODISIN 07-27 11:05
PROVIDERS: ADMIT Nurse Practitioner; ATTEND Nurse Practitioner
DX: R53.1 Weakness (principal); M54.6 Pain in thoracic spine; G89.29 Other chronic pain; I48.91 Unspecified atrial fibrillation; F41.9 Anxiety disorder, unspecified; F32.9 Major depressive disorder, single episode, unspecified; D64.9 Anemia, unspecified; I50.9 Heart failure, unspecified; F17.200 Nicotine dependence, unspecified, uncomplicated; Z88.0 Allergy status to penicillin; Z91.040 Latex allergy status; Z88.8 Allergy status to other drugs, medicaments and biological substances; Z79.01 Long term (current) use of anticoagulants; Z79.82 Long term (current) use of aspirin; Z79.899 Other long term (current) drug therapy; Z95.2 Presence of prosthetic heart valve
CPT/HCPCS: 36415; 80048; 82962; 85025; 85610; 97110-GO; 97110-GP; 97116-GP; 97163-GP; 97165-GO; 97530-GO; 97530-GP; 97535-GO; A9270-GY

== ENCOUNTER 2019-07-29 04:07 | Emergency (ER) | payer MEDICAID ==
[2019-07-29] MEDS ORDERED: 50% Dextrose in Water 50 ML Syringe IVPUSH ONE (05:14)
[2019-07-29] MEDS ORDERED: Insulin Regular, Human 100 Units/ML 3 ML Vial IV ONE ×2 (05:19→05:54)
[2019-07-29] MEDS: Sodium Bicarbonate 8.4% 50 MEQ/50 ML Syringe IVPUSH ONE ×2 (05:24→07:22)
[2019-07-29] MEDS ORDERED: Sodium Chloride 0.9% 10 ML Syringe FLUSH PRN (06:14)
[2019-07-29] MEDS ORDERED: Sodium Polystyrene Sulfonate 15 GM/60 ML Susp 60 ML Bot PO ONE (07:02)
[2019-07-29] MEDS ORDERED: Sodium Polystyrene Sulfonate 15 GM/60 ML Susp 60 ML Bot RECTAL ONE (07:02)
[2019-07-29] MEDS ORDERED: Ertapenem 1 GM in Sodium Chloride 0.9% 50 ML IV ONE (07:08)
[2019-07-29] MEDS ORDERED: Ondansetron 4 MG/2 ML SDV IVPUSH PRN (07:28)
[2019-07-29] MEDS ORDERED: Sodium Bicarbonate 8.4% 50 MEQ/50 ML Syringe IVPUSH ONE (07:38)
[2019-07-29] MEDS ORDERED: Sodium Bicarbonate 100 MEQ in Dextrose 5% in Water 1,000 ML IV ONE ×2 (07:38)
[2019-07-29] MEDS: Albuterol 0.083% 2.5 MG/3 ML Neb Soln NEB ONE ×3 (07:45→08:12)
[2019-07-29 08:17] VITALS: BP 90/71; PULSE 60
[2019-07-29] MEDS ORDERED: HYDROmorphone 2 MG/ML SDV ONE (08:28)
[2019-07-29] MEDS ORDERED: HYDROmorphone 2 MG/ML SDV IVPUSH ONE (09:53)
--- NOTE | 2019-07-29 13:11 | ER ---
Date of emergency room visit and transfer is 07/29/2019. REASON FOR EMERGENCY ROOM VISIT: Shortness of breath. HISTORY: This 49-year-old woman is a patient with multiple complex medical problems, who was last seen in the emergency department on 07/09/2019 with multiorgan system failure including respiratory failure, elevated liver enzymes, acute renal failure and presumed sepsis. She has an underlying history of having undergone a right colon and terminal ileum resection for Crohn's disease in April of 2019. This was done following a couple of episodes of small-bowel obstruction over a few months prior to that operation. That operation was performed at the [facility] in [place], [place]. She has a history of severe chronic pain requiring narcotics, including fentanyl patch and oral opiates for chronic back pain primarily. She also has a history of COPD and is an active smoker. She has a history of atrial fibrillation requiring long-term anticoagulation with Coumadin. She has pulmonary hypertension, congestive heart failure, and a history of a mitral valve replacement in 2015. Her last hospitalization was in [place] for which she was treated for urosepsis and discharged on Ciprofloxacin some 8 days following her admission there on 2019. Subsequent to her discharge, she came here and was in the swing bed until her discharge on 07/27/2019, At that time, she was doing very well. At the time of her discharge from [place], she had a normal renal function, whereas she was in acute renal failure when she was transferred to [facility]. She did well yesterday and ate normally according to her , then late in the evening and throughout the morning hours, she developed progressive shortness of breath and increased weakness. Finally, her at around 4 o'clock this morning called an ambulance and she was transferred here. On arrival, she had a heart rate of 20, but she had a blood pressure of 148/120, respiratory rate was 33, and O2 sats of 95% on O2 by nasal cannula. She was afebrile. She was complaining of severe back pain, which is a chronic problem for her and some shortness of breath. Because of her bradycardia, she was paced transcutaneously and achieved good capture with maintenance of a normal blood pressure hemodynamically. She did have some nausea but no vomiting earlier this morning before she came by ambulance. She did not have any fever or chills or increased respiratory symptoms. She denied any chest pain. She is still an active smoker. PAST MEDICAL HISTORY: Significant for: 1. Urosepsis as described again. 2. History of acute renal failure as described above. 3. Right colon resection with ileostomy for Crohn's disease in April. 4. Mitral valve replacement, 2016. 5. COPD. 6. Pulmonary hypertension. 7. Smoker. 8. History of atrial fibrillation. 9. Congestive heart failure. 10.Severe chronic back pain. MEDICATIONS: Reviewed. Please see electronic medical record. They include among other things, Lasix and oral potassium. ALLERGIES: TO PENICILLINS (UNCERTAIN, BUT PERHAPS MANIFESTED BY A RASH DURING CHILDHOOD). ALSO ALLERGY TO LASIX, DOFETILIDE, AND LIDOCAINE. REVIEW OF SYSTEMS: Pertinent positives and negatives as listed in the HPI. PHYSICAL EXAM: GENERAL: She is moaning in a lot of pain. She does respond appropriately to voice and command. HEENT - No scleral icterus or conjunctivitis. Oral mucosa dry. No exudates. NECK- Supple, with no JVD or adenopathy. CHEST - Clear to auscultation, but decreased air exchange bilaterally. No wheezes, rales, or rhonchi. HEART - Regular rate without murmur or rub. ABDOMEN - Non-distended. Normal bowel sounds. Ileostomy looks pink and healthy. Obese, soft, and nontender without masses or organomegally. EXTREMITIES - Feet pink, warm, and with good capillary refill. No cyanosis or edema. NEUROLOGIC - Answers questions and verbalizes appropriately. Follows commands. Moves all 4 extremities to command. SKIN - No rashes. LABORATORY DATA: Included a CBC that showed a white count of 13,500. Her hemoglobin is 11.5. Her platelet count is 473,000. She does not have any lymphocytopenia. Her PT is 97 with an INR of 11.0. Her sodium was 125. Her initial potassium was 8.3; after receiving bicarb 1 amp as well as 1 amp of D50 and 10 units of regular insulin, her potassium only came down to 7.8. Her chloride is 90, CO2 was 19, and most recently 23.2. Her creatinine was 3.42 with a BUN of 47, anion gap was 19.6. Her glucose was 350 (following D50 and insulin). Her lactic acid was 6.2, calcium 11.0, total bilirubin is 1.5. Her transaminases were normal. Her alkaline phosphatase is 271. Her LDH was 362. Her troponin 1 was normal at 0.018. We did perform a nasopharyngeal swab for COVID-19 by rapid test and that was negative. Her urinalysis is negative at this time, although micro analysis is pending. She has negative esterases and she is negative for urinary nitrite. Her urine pH is 6.0, the specific gravity was 1.015. The chest x-ray shows pulmonary vascular congestion and some cardiomegaly, but this was a portable film. No distinct infiltrates were identified. A 12- lead EKG was obtained after she converted to a sinus rhythm that was nonbradycardic. It did show some widening in the QRS complexes, but no definite acute changes. FURTHER EMERGENCY ROOM COURSE: As mentioned above, she was immediately paced transcutaneously and that was done successfully. Eventually upon initial treatment of her hyperkalemia, she did convert to a sinus rhythm with rates ranging in the 60s to high 80s. With this, she was perfusing and hemodynamically stable blood pressure glass. Her most recent blood pressure was 148/120. Her O2 sats on 100% O2 by non-rebreather were maintained in the upper 90s (99%). A repeat of her electrolytes was as mentioned above. Her potassium had not fallen a great deal. She was therefore given another amp of bicarb and a bicarb drip of 2 amps of bicarb in 1 L of D5W was started at 100 mL an hour. Intermittent albuterol nebulizers were administered with hopes that this would help with her hyperkalemia as well. She was given vancomycin 1 g IV as well as ertapenem 1 g. The patient and her are aware that there is a small chance of cross reactivity and allergic reaction from this, but that the benefits outweigh the risks in this regard in my opinion , and they understand and agree. She was given Kayexalate orally 15 g and 30 g of Kayexalate rectally as well. Because of her elevated PT/INR, we went ahead and gave her vitamin K 10 mg subcutaneously but the fresh frozen plasma was not started because it would take an hour to thaw and we did not want to delay her transfer. IMPRESSION: Recurrent acute renal failure with hyperkalemia and bradycardia, most likely due to sepsis, etiology or source uncertain at this time. PLAN: Her clinical course and history were reviewed with the certified pharmacy technician at [facility] in [place], Dr. Kirk. He agreed to accept her in transfer and agreed with our treatment to this point. It was at his suggestion that we went ahead with the albuterol. We could not administer continuous high dose and therefore elected to give her intermittent albuterol nebulizers every 15 to 20 minutes in the course of her transfer with the hopes that this might also help with her hyperkalemia. The patient and her are aware of the need for transfer and the inherent risks involved during transfer including accidents and deteriorations of underlying condition. They accept this and agree with this plan. All questions were answered. GIBRAN /[id number] MTDD
--- NOTE | 2019-07-29 15:01 | CR ---
DATE OF SERVICE: 07/29/19 CLINICAL DATA: shortness of breath AP SUPINE CHEST: Comparison is made to a prior exam dated 07/09/19. The patient is rotated to the left. The patient is status post median sternotomy and heart valve replacement. The heart size is stable. The lungs remain clear. No pneumothorax. No pleural effusions. [id number] [facility]
== END 2019-07-29 09:00 ==
LOC: LB.ED 04:07
DX: N17.9 Acute kidney failure, unspecified (principal); E87.5 Hyperkalemia; R00.1 Bradycardia, unspecified; I50.9 Heart failure, unspecified; F17.200 Nicotine dependence, unspecified, uncomplicated; Z88.0 Allergy status to penicillin; Z88.8 Allergy status to other drugs, medicaments and biological substances
CPT/HCPCS: 36415; 51702; 71045; 80048; 80053; 81001; 83605; 83615; 84484; 85025; 85610; 93005; 96365; 96368; 96372; 96375; 96376; 99285; 99285-25; A0425; A0429; A9270-GY; J1170; J1335; J2405; J3370; J3430; J3490; J7050; J7060; U0002

== ENCOUNTER 2019-11-21 12:53 | Emergency (ER) | payer MEDICAID ==
[2019-11-21] MEDS: HYDROmorphone 4 MG/ML Syringe SUBCUT PRN ×2 (13:41→14:47)
[2019-11-21] MEDS ORDERED: Ketorolac 60 MG/2 ML SDV IM ONE (14:03)
[2019-11-21] MEDS ORDERED: Ketorolac 60 MG/2 ML SDV ONE (14:13)
[2019-11-21] MEDS ORDERED: Sodium Chloride 0.9% with KCl 1,000 ML IV SCH (14:45)
[2019-11-21] MEDS ORDERED: Gabapentin 100 MG Cap PO ONE (16:25)
[2019-11-21] MEDS ORDERED: Lidocaine 5% 700 MG Patch ONE (16:32)
[2019-11-21] MEDS: Lidocaine 5% 700 MG Patch TOP SCH ×2 (16:36→17:54)
[2019-11-21] MEDS ORDERED: fentaNYL 100 MCG/2 ML SDV IVPUSH ONE (17:20)
[2019-11-21] MEDS ORDERED: diazePAM 5 MG/ML MDV ONE (17:30)
[2019-11-21] MEDS ORDERED: fentaNYL 100 MCG/2 ML SDV ONE (17:38)
[2019-11-21] MEDS ORDERED: Sodium Chloride 0.9% 500 ML IV SCH (18:00)
[2019-11-21] MEDS ORDERED: Diazepam 5 MG Tab ONE ×3 (18:10→19:04)
[2019-11-21] MEDS ORDERED: diazePAM 5 MG/ML MDV IV ONE (18:20)
[2019-11-21] MEDS ORDERED: Diazepam 5 MG Tab PO ONE (18:32)
[2019-11-21] MEDS ORDERED: fentaNYL 100 MCG/2 ML SDV IVPUSH PRN (18:46)
[2019-11-21 18:54] VITALS: BP 96/61; PULSE 93
[2019-11-21] MEDS ORDERED: Gabapentin 100 MG Cap ONE (19:00)
--- NOTE | 2019-11-21 23:57 | PN ---
DATE OF VISIT: 11/21/2019 HISTORY OF PRESENT ILLNESS: 49-year-old lady who comes in with her with complaints of sharp spasmodic back pain in the mid back area. This has been going on for approximately 2 weeks. The patient states that she quit taking some of her medications. She was taking Tylenol No.3 for breakthrough pain for this type of pain, but decided to quit taking it. She is also already taking fentanyl 75 mcg patches that she has been on for 2 or 3 weeks, she started out about a month ago on the 25 mcg patch. She has Flexeril at home that she has been using for this and yesterday was the last time she used it. The patient tells me that the pain is terrible at times and then other times it feels okay. She has extensive medical history that involves Crohn disease. She is status post partial colectomy with a right lower quadrant ostomy. She is concerned that this could have been irritated or damaged somehow. The patient and her are concerned that she may need to be transferred back to [place] for further evaluation and possibly another surgery. She tells me that this was how her pain was before she had the initial surgery for Crohn disease. OBJECTIVE: GENERAL APPEARANCE: The patient is awake and alert. She will be resting fairly quietly, rubbing her back and then all of the sudden she will start jumping and moving around quickly, rolling on the table and this was last for anywhere from 20 to 30 seconds up to almost a minute before it seems to settle down again. VITAL SIGNS: Reviewed. She is afebrile, pulse 113, blood pressure 136/64, respirations 18, O2 sats 95%. BACK: Examining the patient's back reveals the skin is intact. She has some irritation from rubbing in the mid back area. ABDOMEN: Examining the abdomen reveals the stoma seems like is protruding slightly more than they usually do, but there is no sign of bleeding or damage to the tissue. The abdomen is a little bit distended around the stoma and the patient is aware of this. Abdomen is otherwise soft with mild tenderness noted around the stoma area with light palpation. LUNGS: Clear. INITIAL TREATMENT PLAN: The patient was given Dilaudid 1 mg subcu and this did help her pains for a while. She was able to lay still longer and her episodes were not as severe, but within about 20 minutes it seemed like it was wearing off. I then consulted with Dr. Santamaria, who is her primary care provider, and he suggested trying Toradol which we did, giving her 60 mg of Toradol IM. This also seemed to help a little bit but not significantly. I then repeated the Dilaudid 1 more time for a total of 2 mg. This seemed to quiet the patient down for a while. LABORATORY DATA: Labs done today include a CBC showing a normal white count. Neutrophils are just slightly elevated at 75.3. INR is 6.4. The patient states that she has been off her Coumadin for 2 days, her INR was over 9 then, she has a recheck INR on Tuesday. Comprehensive metabolic panel shows a potassium level of 2.8. CRP is 18.7. Kidney function is good. Magnesium level is also normal at 2.0. IMAGING: Studies include a CT of the abdomen and pelvis with contrast showing the ostomy and an infraumbilical ventral hernia which contains bowel with some associated inflammatory changes. No bowel obstruction or bowel wall thickening. I relayed this information to the patient and her . They are aware of the ventral hernia. She is in fact planning on having this surgically fixed fairly soon once she gets cardiac clearance. The CT was concerned about a moderate right pleural effusion and possible consolidation, I did get a chest x-ray which shows just mild atelectasis in the right lower lobe and a very small amount of fluid in the right lower lobe. DIAGNOSES: 1. Midback pain, spasmodic and lancinating in nature, thought to be due to possibly neuritis. 2. Hypokalemia. TREATMENT PLAN: We did a lidocaine test on the patient's right forearm, saturating a Band- Aid with 1% lidocaine and putting in on her for about 10 minutes to see if she would react and she did not. We did apply a lidocaine 5% patch to the area that the patient is having her pain. She is to keep this on for 12 hours and then take it off. I also prescribed some of these for her. She was given normal saline with K-Dur. She received about 20 mEq of K- Dur this way, and I advised the patient to take 20 mEq p.o. when she gets home. She and her tell me they have this at home. They have been on gabapentin before, but at one point she thought she reacted to it, but it was high dose. After discussing this with the patient, her and I agree that she could safely start on a very low dose of gabapentin 100 mg t.i.d. and just stop taking it if she has any issues at all. She is to continue with her fentanyl patch and resume using her Flexeril 2 or 3 times a day. I do want the patient to be rechecked within a couple of days, sooner of course as needed. I did try to contact Dr. Whitehead, her [facility] doctor, her surgeon, but he was unavailable. If he calls back, I will discuss the patient's case with him and mainly to inform him of what is happening with her right now and to get his opinion on any further changes that may be needed. The patient was discharged with her in stable condition. CRS/MODL /[id number]
--- NOTE | 2019-11-22 09:35 | CR ---
Date of Service: 11/21/19 Clinical Data: Abnormal findings NOTED on Abd CT. AP CHEST: Comparison is made to a prior exam dated 07/29/19. Patient is status post median sternotomy and heart valve replacement. There is a pacer in place with its distal pacer wires in the region of the right atrium and right ventricle. There is poorly defined infiltrate and consolidation at the right lung base. Pneumonia should be considered. There are linear densities in the right midlung and left lung base consistent with linear atelectasis. The lungs are otherwise clear. No pneumothorax. No definite pleural effusion. No other interval changes from the prior study. [id number] MTDD
--- NOTE | 2019-11-22 09:50 | CT ---
Date of Service: 11/21/19 Clinical Data: back and abd pain UNENHANCED ABDOMEN AND PELVIC CT: Multislice acquisition through the abdomen and pelvis without IV, but with oral contrast was performed. Comparison is made to a prior abdomen and pelvic CT dated 01/11/19. There is moderate size right pleural effusion. There is infiltrate and consolidation in the right lung base. Pneumonia should be considered. There are linear densities in the left lung base consistent with linear atelectasis or fibrosis. Patient is status post median sternotomy and mitral valve replacement. There are cardiac pacer leads in place. There is mural thickening within the distal esophagus. Esophagitis should be considered. The unenhanced liver appears normal. No focal hepatic lesions. The gallbladder is contracted. The gallbladder wall does appear to be thickened. There is also a small amount of pericholecystic fluid. No calcified gallstones. The spleen appears normal. The pancreas appears normal. There is a low-density lesion within the left adrenal, it is unchanged from the prior study. The right adrenal appears normal. The right and left kidneys appear normal. No nephrocalcinosis or nephrolithiasis. No hydronephrosis or hydroureter. The bladder is fluid filled. It appears normal. There is a 2.6 cm low-density lesion in the right ovary. It is probably an ovarian cyst. Cystic ovarian neoplasm should be considered. Ultrasound followup is recommended. There is an ostomy in the right lower abdomen. Patient is status post right colectomy. No evidence of obstruction. No dilated loops of bowel. There is a ventral hernia in the midline of the anterior abdominal wall located inferior to the ostomy. It does contain a loop of small bowel. No evidence of obstruction associated with it. No free air. No free fluid. No adenopathy. No aortic aneurysm. There is degenerative disk disease throughout the lower thoracic and lumbar spine. There is a partial compression fracture of the L1 vertebrae. It was not present on the prior CT. Its age is indeterminate. No other significant findings. [id number] [facility]
--- NOTE | 2019-11-22 11:24 | PN ---
DATE OF VISIT: 11/21/2019 ADDENDUM: Previous dictation stated that we were discharging the patient. While she was in the process of being discharged, she had another episode of lancinating back pain and was very uncomfortable. We put the patient back in the bed. At this point, I consulted with the [facility] physician who suggested that we try Valium 5 mg repeating it every 15 minutes until we achieve effect and also continue with fentanyl 50 mcg IV every 15 to 30 minutes again until we achieve effect. We did this and the first 5 mg of Valium made the patient drowsy and she was quite relaxed. She was no longer writhing around and rubbing and itching her back. We gave 50 mcg of fentanyl shortly afterwards after hooking her up to the monitor, and she rested quietly for about an hour, after which the Valium must have been wearing off because she started to have some pain and was fidgety again. We gave another 5 mg of Valium and this calmed her down nicely. She states that her pain rates anywhere from 0 to 4/10. We gave the patient a fluid bolus of 500 mL because her blood pressure is a little low in the 70s and 80s over 40s and 50s. She states that she normally runs around 90/60. I had a discussion with the patient about keeping her in for observation tonight for pain control versus sending her home. She wants to go home and her agrees. We will send them home with Valium 5 mg tablets. She will be given 1 here approximately 30 minutes after the last IV dose of Valium, and if she is having any pain right before she leaves, we will give her another fentanyl 50 mcg IV. We will give her a couple of Valium tablets to take tonight every 4 hours as needed, and I will give her a script for 12 more to be filled tomorrow. She is to go home and rest, and followup should be over the next day or 2 as needed. She does have an appointment coming up on Tuesday for lab work and hopefully a recheck with her primary care provider. OMAR/CHET /[id number]
== END 2019-11-21 19:22 | disposition home or self-care (01) ==
LOC: LB.ED 12:53
DX: M54.6 Pain in thoracic spine (principal); E87.6 Hypokalemia
CPT/HCPCS: 36415; 71045; 74176; 80053; 83735; 85025; 85610; 85651; 86140; 96365; 96366; 96372; 96375; 96376; 99284; A9270; J1170; J1885; J3010; J3360; J3480; J7040

== ENCOUNTER 2020-03-25 13:22 | Emergency (ER) | payer MEDICAID ==
[2020-03-25] MEDS: Morphine 10 MG/ML SDV ONE (13:39)
[2020-03-25] MEDS: Morphine 10 MG/ML Syringe IM ONE (13:39)
--- NOTE | 2020-03-25 13:43 | EDM.PDOC ---
ED HPI GENERAL MEDICAL PROBLEM - General Chief Complaint: Back Pain or Injury Stated Complaint: BACK PAIN Time Seen by Provider: 03/25/20 13:25 Source of Information: Reports: Patient History Limitations: Reports: No Limitations - History of Present Illness INITIAL COMMENTS - FREE TEXT/NARRATIVE: patient with a h/o chronic back pain. who presented to the ER with a c/o severe low back pain and muscle spams. Started this morning and progressively got worse. She is already on Oxycodone q3 hrs for pain. This didn't help. No weakness or numbness. But reports she is unable to move around and has been rubbing her back. Pain 10 out of 10. baseline is 4. h/o afib, on Coumadin. Has a pacemaker for Dec 2019. No recent back injury. Lower Back Pain Score (Numeric/FACES): 10 - Related Data Allergies Allergy/AdvReac Type Severity Reaction Status Date / Time Penicillins Allergy Severe Anaphylactic Verified 11/21/19 13:34 Shock latex Allergy Intermediate Itching Verified 11/21/19 13:34 dofetilide Allergy Other Verified 11/21/19 13:34 lidocaine Allergy Hives Verified 11/21/19 13:34 Home Meds: Home Meds Cyclobenzaprine HCl 10 mg PO TID PRN 09/25/15 [History] Warfarin Sodium [Jantoven] 5 mg PO DAILY 09/25/15 [History] Aspirin [Halfprin] 81 mg PO DAILY 07/07/16 [History] Sildenafil Citrate [Sildenafil] 20 mg PO TID 07/07/16 [History] Albuterol [Ventolin HFA] 2 inhalation PO Q4HR PRN 11/30/18 [History] Furosemide 40 tab PO DAILY 11/30/18 [History] fentaNYL [Duragesic] 1 patch TD Q2D 07/29/19 [History] Acetaminophen/Codeine [Tylenol with Codeine No.3 300MG/30MG] 300 mg PO Q6HR PRN 11/21/19 [History] Metoprolol Succinate [Kapspargo Sprinkle] 12.5 mg PO DAILY 11/21/19 [History] Past Medical History HEENT History: Reports: Impaired Vision Cardiovascular History: Reports: Afib, Heart Failure, Heart Murmur, SOB on Exertion, Other (See Below) Other Cardiovascular History: chf Respiratory History: Reports: COPD, SOB, Other (See Below) Other Respiratory History: Fluid in one lung Gastrointestinal History: Reports: Diverticulosis, GERD, Other (See Below) Other Gastrointestinal History: hx C diff several times. 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 Ileostomy Other Endocrine Surgeries/Procedures: denies history of diabetes as mentioned in medical record Musculoskeletal Surgical History: Reports: Shoulder Surgery, Other (See Below) Other Musculoskeletal Surgeries/Procedures:: Right hip ORIF Social & Family History - Family History Family Medical History: No Pertinent Family History Cardiac: Reports: [place], Stent Respiratory: Reports: COPD Other Respiratory Family Hisory: COPD not actually diagnosed but feels has, long hx of smoking Musculoskeletal: Reports: Other (See Below) Other Musculoskeletal Family History: AMN, ALD, ADDISONS Psychiatric: Reports: None Oncologic: Reports: Colon - Caffeine Use Caffeine Use: Reports: Coffee ED ROS GENERAL - Review of Systems Review Of Systems: See Below Respiratory: Reports: No Symptoms Cardiovascular: Reports: No Symptoms : Reports: No Symptoms Musculoskeletal: Reports: No Symptoms Skin: Reports: No Symptoms Neurological: Reports: No Symptoms ED EXAM,LOWER BACK PAIN/INJURY - Physical Exam Exam: See Below Exam Limited By: No Limitations General Appearance: Alert, WD/WN, No Apparent Distress Head: Atraumatic Respiratory/Chest: No Respiratory Distress Cardiovascular: Tachycardia GI/Abdominal: Normal Bowel Sounds Back Exam: Decreased Range of Motion, Muscle Spasm, Paraspinal Tenderness Extremities: Normal Inspection Neurological: Alert Course - Vital Signs Last Recorded V/S: Last Vital Signs Temp 36.1 C 03/25/20 14:17 Pulse 97 03/25/20 14:17 Resp 14 03/25/20 14:17 BP 94/57 L 03/25/20 14:17 Pulse Ox 97 03/25/20 14:17 - Orders/Labs/Meds Orders: Active Orders 24 hr Category Date Time Status EKG Documentation Completion [RC] ASDIRECTED Care 03/25/20 13:33 Active cephALEXin [Keflex] Med 03/25/20 14:53 Stat 250 mg PO NOW STA Labs: Laboratory Tests 03/25/20 03/25/20 03/25/20 Range/Units 13:32 13:32 13:45 WBC 8.0 D (4.0-11.0) K/uL RBC 4.89 (3.80-5.80) M/uL Hgb 13.7 D (11.5-16.5) g/dL Hct 42.7 (37.0-47.0) % MCV 87 (76-96) fL MCH 28.0 (27.0-32.0) pg MCHC 32.1 (31.0-35.0) g/dL RDW 16.3 H (11.0-16.0) % Plt Count 377 (150-500) K/uL MPV 10.1 H (6.0-10.0) fL PT 36.3 H D (9.0-11.5) sec INR 3.6 H D (1.0-3.5) Sodium 138 (136-145) mmol/L Potassium 4.1 (3.5-5.1) mmol/L Chloride 101 (98-107) mmol/L Carbon Dioxide 25.0 (21.0-32.0) mmol/L Anion Gap 16.1 H (5.0-15.0) mmol/L BUN 27 H D (8-26) mg/dL Creatinine 1.32 H D (0.55-1.02) mg/dL Est Cr Clr Drug Dosing 45.88 mL/min Estimated GFR (MDRD) 43 L (>60) MLS/MIN BUN/Creatinine Ratio 20.5 (6-25) Glucose 117 H (74-100) mg/dL Calcium 10.0 D (8.5-10.1) mg/dL Total Bilirubin 0.6 (0.0-1.0) mg/dL AST 28 (15-37) U/L ALT 39 (12-78) U/L Alkaline Phosphatase 256 H (46-116) U/L Troponin I < 0.017 (0.000-0.060) ng/mL Total Protein 8.5 H (6.4-8.2) g/dL Albumin 4.1 (3.4-5.0) g/dL Globulin 4.4 H (2.2-4.2) g/dL Albumin/Globulin Ratio 0.9 (0.8-2.0) Meds: Medications Discontinued Medications Generic Name Dose Route Start Last Admin Trade Name Freq PRN Reason Stop Dose Admin Diazepam Confirm 03/25/20 14:31 03/25/20 14:42 Valium Administered 03/25/20 14:32 Not Given Dose 5 mg .ROUTE .STK-MED ONE Diazepam 5 mg 03/25/20 14:33 03/25/20 14:42 Valium IM 03/25/20 14:34 5 mg ONETIME ONE Administration Morphine Sulfate 6 mg 03/25/20 13:32 03/25/20 13:39 Morphine IM 03/25/20 13:33 6 mg ONETIME ONE Administration Morphine Sulfate Confirm 03/25/20 13:45 03/25/20 13:39 Morphine Administered 03/25/20 13:46 Not Given Dose 10 mg .ROUTE .STK-MED ONE Orphenadrine Citrate 60 mg 03/25/20 13:47 03/25/20 13:51 Norflex IM 03/25/20 13:48 60 mg ONETIME ONE Administration Oxycodone HCl 10 mg 03/25/20 14:53 03/25/20 14:53 Oxycodone PO 03/25/20 14:54 10 mg ONETIME ONE Administration Oxycodone HCl Confirm 03/25/20 15:02 03/25/20 14:54 Oxycodone Administered 03/25/20 15:03 Not Given Dose 10 mg .ROUTE .STK-MED ONE - Re-Assessments/Exams Free Text/Narrative Re-Assessment/Exam: upon arrival, EKG was obtained - showed demand pacemaker. HR 106. BP running 90s/60's - which is her baseline labs were ordered including CBC, BMP INR Was given IM morphine for pain but no response. IM norflex and Valium 5mg were given - pain decreased, able to move around easily UA ++ WBC, LEs and nitrites. Patient has +UTI symptoms. already on clindamycin for a wound infection for 2 weeks. INR 3.6 - but patient is following up with INR today and her normal 2.5-3.5. she has an established guideline to follow regarding dosing. Departure - Departure Time of Disposition: 14:59 Disposition: Home, Self-Care 01 Condition: Good Clinical Impression: Acute exacerbation of chronic low back pain, Chronic, continuous use of opioids UTI (urinary tract infection) Qualifiers: Urinary tract infection type: acute cystitis Hematuria presence: without hematuria Qualified Code(s): N30.00 - Acute cystitis without hematuria Chronic kidney disease Qualifiers: Chronic kidney disease stage: unspecified stage Qualified Code(s): N18.9 - Chronic kidney disease, unspecified - Discharge Information *PRESCRIPTION DRUG MONITORING PROGRAM REVIEWED*: Not Applicable *COPY OF PRESCRIPTION DRUG MONITORING REPORT IN PATIENT ROJELIO: Not Applicable Referrals: Felix Santamaria MD [Primary Care Provider] - Forms: ED Department Discharge Sepsis Event Note (ED) - Focused Exam Vital Signs: Vital Signs Temp Pulse Resp BP Pulse Ox 03/25/20 14:17 36.1 C 97 14 94/57 L 97 03/25/20 13:41 36.1 C 106 H 20 108/62 100 - Problem List & Annotations (1) Acute exacerbation of chronic low back pain SNOMED Code(s): 504130063 Code(s): M54.5 - LOW BACK PAIN; G89.29 - OTHER CHRONIC PAIN Status: Acute Priority: Medium Current Visit: Yes (2) Chronic kidney disease SNOMED Code(s): 596062094 Code(s): N18.9 - CHRONIC KIDNEY DISEASE, UNSPECIFIED Status: Acute Prio rity: Medium Current Visit: Yes Qualifiers: Chronic kidney disease stage: unspecified stage Qualified Code(s): N18.9 - Chronic kidney disease, unspecified (3) Chronic, continuous use of opioids SNOMED Code(s): 677992443 Code(s): F11.90 - OPIOID USE, UNSPECIFIED, UNCOMPLICATED Status: Acute Priority: Medium Current Visit: Yes (4) UTI (urinary tract infection) SNOMED Code(s): 10955388 Code(s): N39.0 - URINARY TRACT INFECTION, SITE NOT SPECIFIED Status: Acute Priority: Medium Current Visit: Yes Qualifiers: Urinary tract infection type: acute cystitis Hematuria presence: without hematuria Qualified Code(s): N30.00 - Acute cystitis without hematuria - Problem List Review Problem List Initiated/Reviewed/Updated: Yes - My Orders Last 24 Hours: My Active Orders 03/25/20 13:33 EKG Documentation Completion [RC] ASDIRECTED 03/25/20 14:53 cephALEXin [Keflex] 250 mg PO NOW STA - Assessment/Plan Last 24 Hours: My Active Orders 03/25/20 13:33 EKG Documentation Completion [RC] ASDIRECTED 03/25/20 14:53 cephALEXin [Keflex] 250 mg PO NOW STA Plan: - acute on chronic back pain: pain was controlled in the ER with opioids IM shots and Valium. already on oxycodone, and fentanyl patch. No new prescription given - UTI: discussed her case with her PCP. decided to go keflex as abx of choice given her CKD, and Coumadin use.
[2020-03-25] MEDS: Orphenadrine 60 MG/2 ML Inj IM ONE (13:51)
[2020-03-25 14:20] VITALS: PULSE 97
[2020-03-25] MEDS: diazePAM 5 MG/ML MDV ONE (14:42)
[2020-03-25] MEDS: diazePAM 5 MG/ML MDV IM ONE (14:42)
[2020-03-25] MEDS: oxyCODONE 5 MG Tab PO ONE (14:53)
[2020-03-25] MEDS: oxyCODONE 5 MG Tab ONE (14:54)
[2020-03-25 14:56] VITALS: BP 88/57
[2020-03-25] MEDS: Cephalexin 250 MG Cap PO STA (15:00)
== END 2020-03-25 15:30 | disposition home or self-care (01) ==
LOC: LB.ED 13:22
DX: N30.00 Acute cystitis without hematuria (principal); M54.5 Low back pain; G89.29 Other chronic pain; F11.90 Opioid use, unspecified, uncomplicated; N18.9 Chronic kidney disease, unspecified; I48.91 Unspecified atrial fibrillation; I50.9 Heart failure, unspecified; J44.9 Chronic obstructive pulmonary disease, unspecified; Z88.0 Allergy status to penicillin; Z91.040 Latex allergy status; Z88.8 Allergy status to other drugs, medicaments and biological substances; Z88.4 Allergy status to anesthetic agent; Z79.82 Long term (current) use of aspirin; Z79.01 Long term (current) use of anticoagulants; Z79.899 Other long term (current) drug therapy
CPT/HCPCS: 36415; 80053; 84484; 85027; 85610; 93005; 96372; 99283; 99285-25; A9270-GY; J2270; J2360; J3360

== ENCOUNTER 2020-07-12 14:08 | Emergency (ER) | payer MEDICAID ==
[2020-07-12 14:18] VITALS: BP 123/62; PULSE 75
--- NOTE | 2020-07-12 14:49 | EDM.PDOC ---
ED HPI GENERAL MEDICAL PROBLEM - General Chief Complaint: Genitourinary Problem Stated Complaint: POSSIBLE BLADDER INFECTION Time Seen by Provider: 07/12/20 14:30 Source of Information: Reports: Patient History Limitations: Reports: No Limitations - History of Present Illness INITIAL COMMENTS - FREE TEXT/NARRATIVE: 50 year old female with PMH of chronic back pain, crohns, valve replacement, afib presents to ED with burning on urination 2 days ago. She also has had an exerbaction of her chronic back pain. Supra pubic pain with palpation. - Related Data Allergies Allergy/AdvReac Type Severity Reaction Status Date / Time Penicillins Allergy Severe Anaphylactic Verified 11/21/19 13:34 Shock latex Allergy Intermediate Itching Verified 11/21/19 13:34 dofetilide Allergy Other Verified 11/21/19 13:34 lidocaine Allergy Hives Verified 11/21/19 13:34 Home Meds: Home Meds Warfarin Sodium [Jantoven] 5 mg PO DAILY 09/25/15 [History] Aspirin [Halfprin] 81 mg PO DAILY 07/07/16 [History] Albuterol [Ventolin HFA] 2 inhalation PO Q4HR PRN 11/30/18 [History] Metoprolol Succinate [Kapspargo Sprinkle] 12.5 mg PO DAILY 11/21/19 [History] Past Medical History HEENT History: Reports: Impaired Vision Cardiovascular History: Reports: Afib, Heart Failure, Heart Murmur, SOB on Exertion, Other (See Below) Other Cardiovascular History: chf Respiratory History: Reports: COPD, SOB, Other (See Below) Other Respiratory History: Fluid in one lung Gastrointestinal History: Reports: Diverticulosis, GERD, Other (See Below) Other Gastrointestinal History: hx C diff several times. bowel obstruction Genitourinary History: Reports: Other (See Below) Other Genitourinary History: was treated with sulfa x 3days within last 2 weeks SEAT JOINER CHAINSTITCH History: Reports: Other (See Below) Other SEAT JOINER CHAINSTITCH History: Musculoskeletal History: Reports: Back Pain, Chronic, Other (See Below) Other Musculoskeletal History: Back spasms Neurological History: Reports: Other (See Below) Other Neuro History: muscular - AMN Psychiatric History: Reports: Anxiety, Depression Other Psychiatric History: depression with son's Endocrine/Metabolic History: Reports: Other (See Below) Other Endocrine/Metabolic History: low iron Hematologic History: Reports: Anemia Dermatologic History: Reports: Other (See Below) Other Dermatologic History: dryness due to amlodipine adverse reaction. 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 Ileostomy ileostomy reversal february 2020 Other Endocrine Surgeries/Procedures: denies history of diabetes as mentioned in medical record Musculoskeletal Surgical History: Reports: Shoulder Surgery, Other (See Below) Other Musculoskeletal Surgeries/Procedures:: Right hip ORIF Social & Family History - Family History Family Medical History: No Pertinent Family History Cardiac: Reports: [place], Stent Respiratory: Reports: COPD Other Respiratory Family Hisory: COPD not actually diagnosed but feels has, long hx of smoking Musculoskeletal: Reports: Other (See Below) Other Musculoskeletal Family History: AMN, ALD, ADDISONS Psychiatric: Reports: None Oncologic: Reports: Colon - Caffeine Use Caffeine Use: Reports: Coffee ED ROS GENERAL - Review of Systems Review Of Systems: See Below Constitutional: Reports: No Symptoms HEENT: Reports: No Symptoms Respiratory: Reports: No Symptoms Cardiovascular: Reports: No Symptoms Endocrine: Reports: No Symptoms : Reports: Flank Pain, Frequency, Pain Musculoskeletal: Reports: Back Pain Skin: Reports: No Symptoms Neurological: Reports: No Symptoms Psychiatric: Reports: No Symptoms Hematologic/Lymphatic: Reports: No Symptoms Immunologic: Reports: No Symptoms ED EXAM, RENAL/ - Physical Exam Exam: See Below Exam Limited By: No Limitations General Appearance: Alert, No Apparent Distress Ears: Hearing Grossly Normal Nose: Normal Inspection Throat/Mouth: Normal Inspection, Normal Lips, Normal Voice Head: Atraumatic Neck: Normal Inspection, Non-Tender, Full Range of Motion Respiratory/Chest: No Respiratory Distress, Decreased Breath Sounds Cardiovascular: Normal Peripheral Pulses, Regular Rate, Rhythm, No Edema, No JVD GI/Abdominal: Normal Bowel Sounds, Soft, Non-Tender Course - Vital Signs Last Recorded V/S: Last Vital Signs Temp 98.0 F 07/12/20 14:17 Pulse 75 07/12/20 14:17 Resp 16 07/12/20 14:17 BP 123/62 07/12/20 14:17 Pulse Ox 99 07/12/20 14:17 - Orders/Labs/Meds Labs: Laboratory Tests 07/12/20 Range/Units 14:51 Urine Color Yellow Urine Appearance Clear (CLEAR) Urine pH 7.0 (5.0-8.0) Ur Specific [place]yer 1.020 (1.003-1.030) Urine Protein 30 H (NEGATIVE) mg/dL Urine Glucose (UA) 500 H (NEGATIVE) mg/dL Urine Ketones Negative (NEGATIVE) mg/dL Urine Occult Blood Trace-intact H (NEGATIVE) Urine Nitrite Negative (NEGATIVE) Urine Bilirubin Negative (NEGATIVE) Urine Urobilinogen 1.0 (0.2-1.0) E.U./dL Ur Leukocyte Esterase Negative (NEGATIVE) Urine RBC 5-10 H /HPF Urine WBC 5-10 H /HPF Ur Squamous Epith Cells Few /HPF Urine Bacteria Moderate H /HPF Meds: Medications Discontinued Medications Generic Name Dose Route Start Last Admin Trade Name Freq PRN Reason Stop Dose Admin Diazepam 5 mg 07/12/20 15:06 Diazepam 5 Mg Tab PO 07/12/20 15:07 ONETIME ONE Departure - Departure Time of Disposition: 15:17 Disposition: Home, Self-Care 01 Clinical Impression: UTI, Urinary tract infectious disease - Discharge Information *PRESCRIPTION DRUG MONITORING PROGRAM REVIEWED*: Not Applicable *COPY OF PRESCRIPTION DRUG MONITORING REPORT IN PATIENT ROJELIO: Not Applicable Referrals: Justine Yu ENVIRONMENTAL ATTORNEY [Primary Care Provider] - Forms: ED Department Discharge Additional Instructions: Return to ED for any increased symptoms. Start the Keflex for the UTI, follow up in clinic this week. You may take the pyridium for the bladder spasms, this will turn your urine orange. Drink plenty of fluids, rest. Sepsis Event Note (ED) - Evaluation Sepsis Screening Result: No Definite Risk - Focused Exam Vital Signs: Vital Signs Temp Pulse Resp BP Pulse Ox 07/12/20 14:17 98.0 F 75 16 123/62 99
[2020-07-12] MEDS ORDERED: Cephalexin 500 MG Cap ONE (15:15)
[2020-07-12] MEDS ORDERED: Phenazopyridine 100 MG Tab ONE (15:15)
[2020-07-12] MEDS: Diazepam 5 MG Tab PO ONE (15:21)
[2020-07-12] MEDS: Diazepam 5 MG Tab ONE (15:26)
== END 2020-07-12 15:27 | disposition home or self-care (01) ==
LOC: LB.ED 14:08
DX: N39.0 Urinary tract infection, site not specified (principal); I48.91 Unspecified atrial fibrillation; I50.9 Heart failure, unspecified; J44.9 Chronic obstructive pulmonary disease, unspecified; Z88.0 Allergy status to penicillin; Z91.040 Latex allergy status; Z88.6 Allergy status to analgesic agent; Z88.8 Allergy status to other drugs, medicaments and biological substances; Z79.82 Long term (current) use of aspirin; Z79.01 Long term (current) use of anticoagulants; Z79.899 Other long term (current) drug therapy
CPT/HCPCS: 81001; 87086; 87088; 87186; 99283; 99284; A9270-GY

== ENCOUNTER 2020-07-14 12:13 | Emergency (ER) | payer MEDICAID ==
[2020-07-14] MEDS ORDERED: diazePAM 5 MG/ML MDV IM ONE (12:24)
[2020-07-14 12:31] VITALS: PULSE 95
[2020-07-14] MEDS ORDERED: fentaNYL 50 MCG/HR Transdermal Patch TRDERM SCH (12:45)
[2020-07-14 13:29] VITALS: BP 92/50
--- NOTE | 2020-07-14 13:58 | EDM.PDOC ---
ED HPI GENERAL MEDICAL PROBLEM - General Chief Complaint: Back Pain or Injury Stated Complaint: BACK PAIN UTI Time Seen by Provider: 07/14/20 12:31 Source of Information: Reports: Patient History Limitations: Reports: No Limitations - History of Present Illness INITIAL COMMENTS - FREE TEXT/NARRATIVE: 50 year old female with PMH chronic back pain presents to ED with back pain. She has taken her home pain meds without relief, and her fentanyl patch fell off and she was unable to get another one to adhere. Denies any injury, states this is her typical back pain. Currently being treated for UTI. Onset: Today Duration: Constant, Getting Worse Location: Reports: Back Quality: Reports: Sharp Improves with: Reports: None Worsens with: Reports: None - Related Data Allergies Allergy/AdvReac Type Severity Reaction Status Date / Time Penicillins Allergy Severe Anaphylactic Verified 11/21/19 13:34 Shock latex Allergy Intermediate Itching Verified 11/21/19 13:34 dofetilide Allergy Other Verified 11/21/19 13:34 lidocaine Allergy Hives Verified 11/21/19 13:34 Home Meds: Home Meds Warfarin Sodium [Jantoven] 5 mg PO DAILY 09/25/15 [History] Aspirin [Halfprin] 81 mg PO DAILY 07/07/16 [History] Albuterol [Ventolin HFA] 2 inhalation PO Q4HR PRN 11/30/18 [History] Metoprolol Succinate [Kapspargo Sprinkle] 12.5 mg PO DAILY 11/21/19 [History] fentaNYL [Fentanyl] 50 mcg TOP ASDIRECTED 07/12/20 [History] cephALEXin [Keflex] 500 mg PO Q6H #8 cap 07/14/20 [Rx] diazePAM [Valium] 5 mg PO TID PRN #5 tab 07/14/20 [Rx] Past Medical History HEENT History: Reports: Impaired Vision Cardiovascular History: Reports: Afib, Heart Failure, Heart Murmur, SOB on Exertion, Other (See Below) Other Cardiovascular History: chf Respiratory History: Reports: COPD, SOB, Other (See Below) Other Respiratory History: Fluid in one lung Gastrointestinal History: Reports: Diverticulosis, GERD, Other (See Below) Other Gastrointestinal History: hx C diff several times. 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 Ileostomy ileostomy reversal february 2020 Other Endocrine Surgeries/Procedures: denies history of diabetes as mentioned in medical record Musculoskeletal Surgical History: Reports: Shoulder Surgery, Other (See Below) Other Musculoskeletal Surgeries/Procedures:: Right hip ORIF Social & Family History - Family History Family Medical History: No Pertinent Family History Cardiac: Reports: [place], Stent Respiratory: Reports: COPD Other Respiratory Family Hisory: COPD not actually diagnosed but feels has, long hx of smoking Musculoskeletal: Reports: Other (See Below) Other Musculoskeletal Family History: AMN, ALD, ADDISONS Psychiatric: Reports: None Oncologic: Reports: Colon - Caffeine Use Caffeine Use: Reports: Coffee - Recreational Drug Use Recreational Drug Use: No ED ROS GENERAL - Review of Systems Review Of Systems: See Below Constitutional: Reports: No Symptoms HEENT: Reports: No Symptoms Respiratory: Reports: No Symptoms Cardiovascular: Reports: No Symptoms Endocrine: Reports: No Symptoms GI/Abdominal: Reports: No Symptoms : Reports: No Symptoms Musculoskeletal: Reports: Back Pain Skin: Reports: Diaphoresis Neurological: Reports: No Symptoms Psychiatric: Reports: Anxiety ED EXAM,LOWER BACK PAIN/INJURY - Physical Exam Exam: See Below Exam Limited By: No Limitations General Appearance: Alert, Moderate Distress Eye Exam: Bilateral Eye: Normal Inspection Ears: Normal External Exam, Hearing Grossly Normal Nose: Normal Inspection, No Blood Throat/Mouth: Normal Inspection, Normal Lips, Normal Teeth, Normal Gums, Normal Oropharynx, Normal Voice, No Airway Compromise Head: Atraumatic Neck: Normal Inspection, Non-Tender, Full Range of Motion Respiratory/Chest: No Respiratory Distress, Lungs Clear, Normal Breath Sounds, No Accessory Muscle Use Cardiovascular: Normal Peripheral Pulses, Regular Rate, Rhythm, No Edema, No JVD GI/Abdominal: Non-Tender Back Exam: Normal Inspection, Full Range of Motion, Paraspinal Tenderness, Vertebral Tenderness Extremities: Normal Inspection, Normal Range of Motion, Non-Tender, No Pedal Edema Neurological: Alert, CN II-XII Intact, Normal Gait, No Motor/Sensory Deficits, Oriented x 3 Psychiatric: Normal Affect, Anxious, Tearful Skin Exam: Warm, Dry, Intact, Normal Color, No Rash Course - Vital Signs Last Recorded V/S: Last Vital Signs Temp 98 F 07/14/20 12:30 Pulse 95 07/14/20 13:23 Resp 18 07/14/20 13:23 BP 92/50 L 07/14/20 13:28 Pulse Ox 98 07/14/20 13:23 - Orders/Labs/Meds Meds: Medications Discontinued Medications Generic Name Dose Route Start Last Admin Trade Name Freq PRN Reason Stop Dose Admin Diazepam 5 mg 07/14/20 12:24 07/14/20 12:27 Diazepam 5 Mg/Ml Mdv IM 07/14/20 12:25 5 mg ONETIME ONE Administration Fentanyl 50 mcg 07/14/20 12:45 07/14/20 12:42 Fentanyl 50 Mcg/Hr Transdermal Patch TRDERM 50 mcg Q72H YARELI Administration Departure - Departure Time of Disposition: 13:50 Disposition: Home, Self-Care 01 Condition: Good Clinical Impression: Thoracic back pain Chronic back pain Qualifiers: Back pain location: thoracic back pain Back pain laterality: midline Qualified Code(s): M54.6 - Pain in thoracic spine - Discharge Information *PRESCRIPTION DRUG MONITORING PROGRAM REVIEWED*: Not Applicable *COPY OF PRESCRIPTION DRUG MONITORING REPORT IN PATIENT ROJELIO: Not Applicable Prescriptions: cephALEXin [Keflex] 500 mg PO Q6H #8 cap diazePAM [Valium] 5 mg PO TID PRN #5 tab PRN Reason: Breakthrough Pain Referrals: PCP,None [Primary Care Provider] - Forms: ED Department Discharge Additional Instructions: Follow up with PMD in 1 week for recheck. Continue on ABX as directed. You may take 1 valium every 8 hours as needed, be mindful and do not take too many of your pain pills with the valium, reserve it for SEVERE pain. Increase your fluids. Return to ED for any increased or new concerning symptom. Sepsis Event Note (ED) - Evaluation Sepsis Screening Result: No Definite Risk - Focused Exam Vital Signs: Vital Signs Temp Pulse Resp BP Pulse Ox 07/14/20 13:28 92/50 L 07/14/20 13:23 95 18 129/45 L 98 07/14/20 13:21 71/32 L 07/14/20 12:30 98 F 95 18 126/48 L 98 - Assessment/Plan Plan: Discussed with patient about current narcotic pain meds and valium administration should be carefully monitored as they could reduce respiratory drive., patient requesting valium to take home, RX for 5 5mg valium given. Patient and verbalize understanding of DC instructions, all questions were answered prior to DC.
== END 2020-07-14 14:13 | disposition home or self-care (01) ==
LOC: LB.ED 12:13
DX: G89.29 Other chronic pain (principal); M54.6 Pain in thoracic spine; I48.91 Unspecified atrial fibrillation; I50.9 Heart failure, unspecified; J44.9 Chronic obstructive pulmonary disease, unspecified; Z79.82 Long term (current) use of aspirin; Z79.01 Long term (current) use of anticoagulants; Z79.899 Other long term (current) drug therapy; Z88.0 Allergy status to penicillin; Z91.040 Latex allergy status; Z88.4 Allergy status to anesthetic agent; Z88.8 Allergy status to other drugs, medicaments and biological substances
CPT/HCPCS: 96372; 99283; A9270-GY; J3360

== ENCOUNTER 2020-07-19 21:39 | Emergency (ER) | payer MEDICAID ==
[2020-07-19 22:16] VITALS: BP 146/79; PULSE 99
[2020-07-19] MEDS: Sulfamethoxazole/Trimethoprim 800-160 MG Tab PO ONE (22:39)
[2020-07-19] MEDS: Potassium Chloride 20 MEQ Tab.ER PO ONE (22:39)
[2020-07-19] MEDS: Ketorolac 60 MG/2 ML SDV IM ONE (22:40)
--- NOTE | 2020-07-19 22:43 | EDM.PDOC ---
ED HPI GENERAL MEDICAL PROBLEM - General Chief Complaint: Back Pain or Injury Stated Complaint: BACK PAIN Time Seen by Provider: 07/19/20 22:15 Source of Information: Reports: Patient History Limitations: Reports: No Limitations - History of Present Illness INITIAL COMMENTS - FREE TEXT/NARRATIVE: patient presented to the ER with a c/o persistent urinary symptoms and low back pain. She reports that she was seen for the same reason twice within the last week. was started on keflex for UTI - completed a week course of Abx - last dose was today. But later this evening her symptoms recurred - frequency, dysuria and low back spasm. No fever or chills. No nausea or emesis. No changes in bowel habits. Patient has a chronic back pain issues for which is on fentanyl patch 50 mcg for a year so far and frequent prescriptions of narcotics. Her last urine cx showed sensitivity to most abx including Keflex. Onset: Gradual Duration: Week(s): (7) Treatments MANAGER TRANSPORT: Reports: Acetaminophen, Cold Therapy, Heat Therapy, Other Medication(s) Middle Back Pain Score (Numeric/FACES): 10 - Related Data Allergies Allergy/AdvReac Type Severity Reaction Status Date / Time Penicillins Allergy Severe Anaphylactic Verified 07/19/20 22:17 Shock latex Allergy Intermediate Itching Verified 07/19/20 22:17 dofetilide Allergy Other Verified 07/19/20 22:17 lidocaine Allergy Hives Verified 07/19/20 22:17 Home Meds: Home Meds Warfarin Sodium [Jantoven] 5 mg PO DAILY 09/25/15 [History] Aspirin [Halfprin] 81 mg PO DAILY 07/07/16 [History] Albuterol [Ventolin HFA] 2 inhalation PO Q4HR PRN 11/30/18 [History] Metoprolol Succinate [Kapspargo Sprinkle] 12.5 mg PO DAILY 11/21/19 [History] fentaNYL [Fentanyl] 50 mcg TOP ASDIRECTED 07/12/20 [History] cephALEXin [Keflex] 500 mg PO Q6H #8 cap 07/14/20 [Rx] diazePAM [Valium] 5 mg PO TID PRN #5 tab 07/14/20 [Rx] Dapagliflozin Propanediol [Farxiga] 5 mg PO DAILY 07/19/20 [History] Sacubitril/Valsartan [Entresto 24 mg-26 mg Tablet] 1 each PO DAILY 07/19/20 [History] Past Medical History HEENT History: Reports: Impaired Vision Cardiovascular History: Reports: Afib, Heart Failure, Heart Murmur, SOB on Exertion, Other (See Below) Other Cardiovascular History: chf Respiratory History: Reports: COPD, SOB, Other (See Below) Other Respiratory History: Fluid in one lung Gastrointestinal History: Reports: Diverticulosis, GERD, Other (See Below) Other Gastrointestinal History: hx C diff several times. 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 Ileostomy ileostomy reversal february 2020 Other Endocrine Surgeries/Procedures: denies history of diabetes as mentioned in medical record Musculoskeletal Surgical History: Reports: Shoulder Surgery, Other (See Below) Other Musculoskeletal Surgeries/Procedures:: Right hip ORIF Social & Family History - Family History Family Medical History: No Pertinent Family History Cardiac: Reports: [place], Stent Respiratory: Reports: COPD Other Respiratory Family Hisory: COPD not actually diagnosed but feels has, long hx of smoking Musculoskeletal: Reports: Other (See Below) Other Musculoskeletal Family History: AMN, ALD, ADDISONS Psychiatric: Reports: None Oncologic: Reports: Colon - Caffeine Use Caffeine Use: Reports: Coffee ED ROS GENERAL - Review of Systems Review Of Systems: See Below Constitutional: Reports: No Symptoms. Denies: Fever, Chills HEENT: Reports: No Symptoms Respiratory: Reports: No Symptoms Cardiovascular: Reports: No Symptoms GI/Abdominal: Denies: Abdominal Pain, Nausea : Reports: Dysuria, Urgency. Denies: Hematuria Musculoskeletal: Reports: Back Pain Skin: Reports: No Symptoms Neurological: Reports: No Symptoms ED EXAM, RENAL/ - Physical Exam Exam: See Below Exam Limited By: No Limitations General Appearance: Alert, WD/WN, No Apparent Distress Eye Exam: Bilateral Eye: EOMI Respiratory/Chest: No Respiratory Distress Cardiovascular: Normal Peripheral Pulses GI/Abdominal: Normal Bowel Sounds, Soft, Non-Tender Back Exam: Normal Inspection, CVA Tenderness (R) Extremities: Normal Inspection Neurological: Alert, Oriented, No Motor/Sensory Deficits Psychiatric: Normal Affect Course - Vital Signs Last Recorded V/S: Last Vital Signs Temp 36.1 C 07/19/20 22:00 Pulse 99 07/19/20 22:00 Resp 20 07/19/20 22:00 BP 146/79 H 07/19/20 22:00 Pulse Ox 99 07/19/20 22:00 - Orders/Labs/Meds Orders: Active Orders 24 hr Category Date Time Status BASIC METABOLIC PANEL,BMP [CHEM] Stat Lab 07/19/20 22:00 Received Labs: Laboratory Tests 07/19/20 07/19/20 Range/Units 21:57 22:00 WBC 9.9 D (4.0-11.0) K/uL RBC 4.45 (3.80-5.80) M/uL Hgb 12.3 (11.5-16.5) g/dL Hct 38.8 (37.0-47.0) % MCV 87 (76-96) fL MCH 27.6 (27.0-32.0) pg MCHC 31.7 (31.0-35.0) g/dL RDW 15.2 (11.0-16.0) % Plt Count 355 (150-500) K/uL MPV 10.3 H (6.0-10.0) fL Neut % (Auto) 60.1 (45.0-70.0) % Lymph % (Auto) 26.6 (20.0-40.0) % [place] % (Auto) 9.4 (3.0-10.0) % Eos % (Auto) 3.2 (1.0-5.0) % Baso % (Auto) 0.7 H (0.0-0.5) % Neut # (Auto) 5.98 (2.00-7.50) K/uL Lymph # (Auto) 2.64 (1.50-4.00) K/uL [place] # (Auto) 0.93 H (0.20-0.80) K/uL Eos # (Auto) 0.32 (0.04-0.40) K/uL Baso # (Auto) 0.07 (0.02-0.10) K/uL Urine Color Yellow Urine Appearance Clear (CLEAR) Urine pH 7.0 (5.0-8.0) Ur Specific [place] 1.025 (1.003-1.030) Urine Protein 100 H (NEGATIVE) mg/dL Urine Glucose (UA) 500 H (NEGATIVE) mg/dL Urine Ketones Negative (NEGATIVE) mg/dL Urine Occult Blood Trace-intact H (NEGATIVE) Urine Nitrite Negative (NEGATIVE) Urine Bilirubin Negative (NEGATIVE) Urine Urobilinogen 0.2 (0.2-1.0) E.U./dL Ur Leukocyte Esterase Negative (NEGATIVE) Urine RBC 0-5 H /HPF Urine WBC 0-5 H /HPF Urine WBC Clumps Rare /HPF Ur Squamous Epith Cells Moderate /HPF Urine Bacteria Moderate H /HPF Fine Granular Casts Few H /HPF Meds: Medications Discontinued Medications Generic Name Dose Route Start Last Admin Trade Name Freq PRN Reason Stop Dose Admin Ketorolac Tromethamine 60 mg 07/19/20 22:28 Ketorolac 60 Mg/2 Ml Sdv IM 07/19/20 22:29 ONETIME ONE Trimethoprim/Sulfamethoxazole 1 tab 07/19/20 22:30 Sulfamethoxazole/Trimethoprim 800-160 Mg Tab PO 07/19/20 22:31 ONETIME ONE - Re-Assessments/Exams Free Text/Narrative Re-Assessment/Exam: 07/19/20 22:44 vitals -- no fever or tachycardia, or hypotension labs - no leukocytosis but UA ++ bacteria and WBC BMP - normal Cr but mild hypokalemia -- for pain control - a 60 mg IM toradol was given K replacement by PO will d/c on Bactrim DS PO -- patient had this medicine in the past - without problems Departure - Departure Time of Disposition: 22:46 Disposition: Home, Self-Care 01 Condition: Good Clinical Impression: Acute hypokalemia UTI (urinary tract infection) Qualifiers: Urinary tract infection type: acute cystitis Hematuria presence: without hematuria Qualified Code(s): N30.00 - Acute cystitis without hematuria - Discharge Information *PRESCRIPTION DRUG MONITORING PROGRAM REVIEWED*: Not Applicable *COPY OF PRESCRIPTION DRUG MONITORING REPORT IN PATIENT ROJELIO: Not Applicable Instructions: Hypokalemia, Urinary Tract Infection, Adult Sepsis Event Note (ED) - Evaluation Sepsis Screening Result: No Definite Risk - Focused Exam Vital Signs: Vital Signs Temp Pulse Resp BP Pulse Ox 07/19/20 22:00 36.1 C 99 20 146/79 H 99 - Problem List & Annotations (1) UTI, Urinary tract infectious disease SNOMED Code(s): 10502451 Code(s): N39.0 - URINARY TRACT INFECTION, SITE NOT SPECIFIED Status: Acute Priority: Low (2) Acute hypokalemia SNOMED Code(s): 72851228 Code(s): E87.6 - HYPOKALEMIA Status: Acute Priority: Low - Problem List Review Problem List Initiated/Reviewed/Updated: Yes - My Orders Last 24 Hours: My Active Orders 07/19/20 22:00 BASIC METABOLIC PANEL,BMP [CHEM] Stat - Assessment/Plan Last 24 Hours: My Active Orders 07/19/20 22:00 BASIC METABOLIC PANEL,BMP [CHEM] Stat Plan: - start taking the new antibiotics as prescribed - increase fluids intake - recommend to consume potassium-rich food - like banana and spinach at least once daily - follow up with your PCP in 3-7 days - return to the ER if symptoms got worse or any concerns
[2020-07-19] MEDS ORDERED: Phenazopyridine 100 MG Tab ONE (23:00)
[2020-07-19] MEDS ORDERED: Sulfamethoxazole/Trimethoprim 800-160 MG Tab ONE (23:00)
== END 2020-07-19 23:30 | disposition home or self-care (01) ==
LOC: LB.ED 21:39
DX: N30.00 Acute cystitis without hematuria (principal); E87.6 Hypokalemia; J44.9 Chronic obstructive pulmonary disease, unspecified; I48.91 Unspecified atrial fibrillation; I50.9 Heart failure, unspecified; Z88.4 Allergy status to anesthetic agent; Z91.040 Latex allergy status; Z79.82 Long term (current) use of aspirin; Z79.01 Long term (current) use of anticoagulants; Z79.899 Other long term (current) drug therapy; Z88.0 Allergy status to penicillin
CPT/HCPCS: 36415; 80048; 81001; 85025; 96372; 99283; A9270-GY; J1885

== ENCOUNTER 2020-12-12 14:00 | Emergency (ER) | payer MEDICAID ==
[2020-12-12 15:28] VITALS: BP 94/56; PULSE 92
--- NOTE | 2020-12-12 16:50 | EDM.PDOC ---
ED HPI GENERAL MEDICAL PROBLEM - General Chief Complaint: Genitourinary Problem Stated Complaint: BACK PAIN Time Seen by Provider: 12/12/20 15:10 - History of Present Illness INITIAL COMMENTS - FREE TEXT/NARRATIVE: Pt comes to the ER with C/O Dysuria and mid back pain. Symptoms started a couple days ago. She has extensive hx of UTI. No fever, cough, SOB. - Related Data Allergies Allergy/AdvReac Type Severity Reaction Status Date / Time Penicillins Allergy Severe Anaphylactic Verified 12/12/20 15:08 Shock latex Allergy Intermediate Itching Verified 12/12/20 15:08 dofetilide Allergy Other Verified 12/12/20 15:08 lidocaine Allergy Hives Verified 12/12/20 15:08 Home Meds: Home Meds Warfarin Sodium [Jantoven] 5 mg PO DAILY 09/25/15 [History] Aspirin [Halfprin] 81 mg PO DAILY 07/07/16 [History] Albuterol [Ventolin HFA] 2 inhalation PO Q4HR PRN 11/30/18 [History] Metoprolol Succinate [Kapspargo Sprinkle] 175 mg PO DAILY 11/21/19 [History] fentaNYL [Fentanyl] 25 mcg TOP ASDIRECTED 07/12/20 [History] Dapagliflozin Propanediol [Farxiga] 5 mg PO DAILY 07/19/20 [History] Sacubitril/Valsartan [Entresto 24 mg-26 mg Tablet] 1 each PO BID 07/19/20 [History] Past Medical History HEENT History: Reports: Impaired Vision Cardiovascular History: Reports: Afib, Heart Failure, Heart Murmur, SOB on Exertion, Other (See Below) Other Cardiovascular History: chf Respiratory History: Reports: COPD, SOB, Other (See Below) Other Respiratory History: Fluid in one lung Gastrointestinal History: Reports: Diverticulosis, GERD, Other (See Below) Other Gastrointestinal History: hx C diff several times. 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 Ileostomy ileostomy reversal february 2020 Other Endocrine Surgeries/Procedures: denies history of diabetes as mentioned in medical record Musculoskeletal Surgical History: Reports: Shoulder Surgery, Other (See Below) Other Musculoskeletal Surgeries/Procedures:: Right hip ORIF Social & Family History - Family History Family Medical History: No Pertinent Family History Cardiac: Reports: [place], Stent Respiratory: Reports: COPD Other Respiratory Family Hisory: COPD not actually diagnosed but feels has, long hx of smoking Musculoskeletal: Reports: Other (See Below) Other Musculoskeletal Family History: AMN, ALD, ADDISONS Psychiatric: Reports: None Oncologic: Reports: Colon - Tobacco Use Tobacco Use Status *Q: Current Every Day Tobacco User Years of Tobacco use: 30 Packs/Tins Daily: 1 - Caffeine Use Caffeine Use: Reports: None - Recreational Drug Use Recreational Drug Use: No ED ROS GENERAL - Review of Systems Review Of Systems: Comprehensive ROS is negative, except as noted in HPI. : Reports: Dysuria, Other (mid back pain.) ED EXAM, RENAL/ - Physical Exam Exam: See Below Text/Narrative:: Pt is holding her mid back with her left hand bacause of pain. Skin is warm and dry. Abd is soft, non tender. Course - Vital Signs Last Recorded V/S: Last Vital Signs Temp 97.8 F 12/12/20 15:31 Pulse 92 12/12/20 15:31 Resp 20 12/12/20 15:31 BP 94/56 L 12/12/20 15:31 Pulse Ox 98 12/12/20 15:31 - Orders/Labs/Meds Labs: Laboratory Tests 12/12/20 Range/Units 13:05 Urine Color [place] Urine Appearance Clear (CLEAR) Urine RBC Not seen /HPF Urine WBC 0-5 H /HPF Ur Epithelial Cells Moderate /HPF Urine Bacteria Rare /HPF Urinalysis Comment - Re-Assessments/Exams Free Text/Narrative Re-Assessment/Exam: 12/12/20 16:48 UA shows subtle abnormal results. Pt states if she doesn't start Abx she will be back soon in worse condition. I will give her a script for Cipro for 10 days. Increase fluids. Follow up as needed. Departure - Departure Time of Disposition: 15:20 Disposition: Home, Self-Care 01 Condition: Good Clinical Impression: Dysuria - Discharge Information *PRESCRIPTION DRUG MONITORING PROGRAM REVIEWED*: No *COPY OF PRESCRIPTION DRUG MONITORING REPORT IN PATIENT ROJELIO: Yes Instructions: Urinary Tract Infection, Adult, Ciprofloxacin tablets Referrals: Felix Santamaria MD [Primary Care Provider] - Forms: ED Department Discharge Sepsis Event Note (ED) - Evaluation Sepsis Screening Result: No Definite Risk - Focused Exam Vital Signs: Vital Signs Temp Pulse Resp BP Pulse Ox 12/12/20 15:31 97.8 F 92 20 94/56 L 98 12/12/20 15:00 97.8 F 92 20 94/56 L 98
== END 2020-12-12 16:13 | disposition home or self-care (01) ==
LOC: LB.ED 14:00
DX: R30.0 Dysuria (principal); I48.91 Unspecified atrial fibrillation; I50.9 Heart failure, unspecified; J44.9 Chronic obstructive pulmonary disease, unspecified; K21.9 Gastro-esophageal reflux disease without esophagitis; Z72.0 Tobacco use; Z88.0 Allergy status to penicillin; Z91.041 Radiographic dye allergy status; Z88.8 Allergy status to other drugs, medicaments and biological substances; Z79.01 Long term (current) use of anticoagulants; Z79.82 Long term (current) use of aspirin
CPT/HCPCS: 81001; 99283

== ENCOUNTER 2021-01-01 18:19 | Observation (INO) | payer MEDICAID ==
[2021-01-01] MEDS: Sodium Chloride 0.9% 1,000 ML IV SCH ×2 (18:29→20:02)
[2021-01-01] MEDS ORDERED: Naloxone 2 MG/2 ML Syringe IVPUSH PRN ×2 (18:29→18:44)
[2021-01-01] MEDS ORDERED: Sodium Chloride 0.9% 10 ML Syringe FLUSH PRN (18:44)
[2021-01-01] MEDS ORDERED: Ondansetron 4 MG/2 ML SDV IVPUSH ONE (18:45)
[2021-01-01] MEDS ORDERED: LORazepam 2 MG/ML SDV IVPUSH ONE (19:07)
[2021-01-01] MEDS ORDERED: fentaNYL 25 MCG/HR Transdermal Patch ONE (20:47)
--- NOTE | 2021-01-01 21:01 | EDM.PDOC ---
ED HPI GENERAL MEDICAL PROBLEM - General Chief Complaint: Drug or Alcohol Abuse Stated Complaint: possible medition overdose Time Seen by Provider: 01/01/21 18:20 - Related Data Allergies Allergy/AdvReac Type Severity Reaction Status Date / Time Penicillins Allergy Severe Anaphylactic Verified 01/01/21 18:33 Shock latex Allergy Intermediate Itching Verified 01/01/21 18:33 dofetilide Allergy Other Verified 01/01/21 18:33 lidocaine Allergy Hives Verified 01/01/21 18:33 Home Meds: Home Meds Warfarin Sodium [Jantoven] 5 mg PO DAILY 09/25/15 [History] Aspirin [Halfprin] 81 mg PO DAILY 07/07/16 [History] Albuterol [Ventolin HFA] 2 inhalation PO Q4HR PRN 11/30/18 [History] Metoprolol Succinate [Kapspargo Sprinkle] 175 mg PO DAILY 11/21/19 [History] fentaNYL [Fentanyl] 25 mcg TOP ASDIRECTED 07/12/20 [History] Dapagliflozin Propanediol [Farxiga] 5 mg PO DAILY 07/19/20 [History] Sacubitril/Valsartan [Entresto 24 mg-26 mg Tablet] 1 each PO BID 07/19/20 [History] DULoxetine [Cymbalta] 120 mg PO DAILY 01/01/21 [History] Sulfamethoxazole/Trimethoprim [Bactrim Ds Tablet] 1 tab PO BID 01/01/21 [History] oxyCODONE 5 mg PO Q6HR PRN 01/01/21 [History] tiZANidine HCl [Tizanidine HCl] 4 mg PO Q6HR PRN 01/01/21 [History] traMADol [Ultram] 50 mg PO Q6HR PRN 01/01/21 [History] Past Medical History HEENT History: Reports: Impaired Vision Cardiovascular History: Reports: Afib, Heart Failure, Heart Murmur, SOB on Exertion, Other (See Below) Other Cardiovascular History: chf Respiratory History: Reports: COPD, SOB, Other (See Below) Other Respiratory History: Fluid in one lung Gastrointestinal History: Reports: Diverticulosis, GERD, Other (See Below) Other Gastrointestinal History: hx C diff several times. bowel obstruction Genitourinary History: Reports: Other (See Below) Other Genitourinary History: was treated with sulfa x 3days within last 2 weeks [employer] History: Reports: Other (See Below) Other [employer] History: Musculoskeletal History: Reports: Back Pain, Chronic, Other (See Below) Other Musculoskeletal History: Back spasms Neurological History: Reports: Other (See Below) Other Neuro History: muscular - AMN Psychiatric History: Reports: Anxiety, Depression Other Psychiatric History: depression with son's Endocrine/Metabolic History: Reports: Other (See Below) Other Endocrine/Metabolic History: low iron Hematologic History: Reports: Anemia Dermatologic History: Reports: Other (See Below) Other Dermatologic History: dryness due to amlodipine adverse reaction. 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 Ileostomy ileostomy reversal february 2020 Other Endocrine Surgeries/Procedures: denies history of diabetes as mentioned in medical record Musculoskeletal Surgical History: Reports: Shoulder Surgery, Other (See Below) Other Musculoskeletal Surgeries/Procedures:: Right hip ORIF Social & Family History - Family History Family Medical History: No Pertinent Family History Cardiac: Reports: [place], Stent Respiratory: Reports: COPD Other Respiratory Family Hisory: COPD not actually diagnosed but feels has, long hx of smoking Musculoskeletal: Reports: Other (See Below) Other Musculoskeletal Family History: AMN, ALD, ADDISONS Psychiatric: Reports: None Oncologic: Reports: Colon - Caffeine Use Caffeine Use: Reports: None - Recreational Drug Use Recreational Drug Use: No ED ROS GENERAL - Review of Systems Review Of Systems: Unable To Obtain Reason Not Obtained: altered mental status - Physical Exam Exam: See Below Exam Limited By: Other (Color pale, hypotensive, bradycardic) General Appearance: Alert, No Apparent Distress, Lethargic, Other (Slurred speech) Eye Exam: Bilateral Eye: PERRL Ears: Normal External Exam, Hearing Grossly Normal, Normal TMs Nose: Normal Inspection Head Exam: Atraumatic, Normocephalic Neck: Normal Inspection, Non-Tender, Full Range of Motion Respiratory/Chest: No Respiratory Distress, Normal Breath Sounds, No Accessory Muscle Use, Other (Bradypnea) Cardiovascular: Bradycardia GI/Abdominal: Soft, Non-Tender, No Distention, Abnormal Bowel Sounds (Hypoactive) Neuro Exam (Abbreviated): Slow to Respond Back Exam: Normal Inspection, Other ([address] on back) Extremities: Normal Inspection Psychiatric: Flat Affect Skin Exam: Warm, Dry, Intact, Pallor Course - Vital Signs Last Recorded V/S: Last Vital Signs Temp 36.5 C 01/01/21 18:48 Pulse 60 01/01/21 19:52 Resp 25 H 01/01/21 19:52 BP 55/27 L 01/01/21 19:52 Pulse Ox 92 L 01/01/21 19:44 - Orders/Labs/Meds Orders: Active Orders 24 hr Category Date Time Status Sodium Chloride 0.9% [Normal Saline] 1,000 ml Med 01/01/21 18:45 Active IV ASDIRECTED Sodium Chloride 0.9% [Saline Flush] Med 01/01/21 18:44 Active 10 ml FLUSH ASDIRECTED PRN Saline Lock Insert [OM.PC] Stat Oth 01/01/21 18:44 Ordered Medication Orders Sodium Chloride (Normal Saline) 1,000 mls @ 999 mls/hr IV ASDIRECTED YARELI Last Admin: 01/01/21 20:02 Dose: 999 mls/hr Documented by: Infusion: 01/01/21 19:30 Dose: 999 mls/hr Documented by: Admin: 01/01/21 18:29 Dose: 999 mls/hr Documented by: RAFFY Sodium Chloride (Sodium Chloride 0.9% 10 Ml Syringe) 10 ml FLUSH ASDIRECTED PRN PRN Reason: Keep Vein Open Labs: Laboratory Tests 01/01/21 Range/Units 19:55 SARS-CoV-2 RNA (YUE) Negative (NEGATIVE) Meds: Medications Generic Name Dose Route Start Last Admin Trade Name Freq PRN Reason Stop Dose Admin Sodium Chloride 1,000 mls @ 999 mls/hr 01/01/21 18:45 01/01/21 20:02 Normal Saline IV 999 mls/hr ASDIRECTED YARELI Administration Sodium Chloride 10 ml 01/01/21 18:44 Sodium Chloride 0.9% 10 Ml Syringe FLUSH ASDIRECTED PRN Keep Vein Open Discontinued Medications Generic Name Dose Route Start Last Admin Trade Name Freq PRN Reason Stop Dose Admin Fentanyl Confirm 01/01/21 20:47 Fentanyl 25 Mcg/Hr Transdermal Patch Administered 01/01/21 20:48 Dose 25 mcg .ROUTE .STK-MED ONE Lorazepam 2 mg 01/01/21 19:07 01/01/21 19:10 Lorazepam 2 Mg/Ml Sdv IVPUSH 01/01/21 19:08 2 mg ONETIME ONE Administration Naloxone HCl 2 mg 01/01/21 18:29 Naloxone 2 Mg/2 Ml Syringe IVPUSH 01/01/21 18:29 ONETIME PRN Other Naloxone HCl 0.1 mg 01/01/21 18:44 01/01/21 18:29 Naloxone 2 Mg/2 Ml Syringe IVPUSH 2 mg ONETIME PRN Administration Nausea Ondansetron HCl 4 mg 01/01/21 18:45 01/01/21 18:45 Ondansetron 4 Mg/2 Ml Sdv IVPUSH 01/01/21 18:46 4 mg ONETIME ONE Administration - Re-Assessments/Exams Free Text/Narrative Re-Assessment/Exam: This patient presents to the emergency department for evaluation of drug overdose. On arrival she was bradycardic and hypotensive. Her estimates that she took double her typical medications today and that was because she has had more pain with her Crohn's in the last week. Because of her altered status with slurred speech, bradycardia and hypotension, she was given Narcan. Her vital signs did improve however she became quite combative and was hallucinating. This behavior continued for approximately 30 minutes when she was given 2 mg of Ativan. She then did sleep fairly well and was arousable. We will begin to restart her typical pain medications and she just had a 25 mcg fentanyl patch placed. She will be admitted to the inpatient unit on observation status for continued medication monitoring. 01/01/21 20:58 Departure - Departure Time of Disposition: 21:30 Disposition: Refer to Observation Condition: Fair Clinical Impression: Drug overdose - Discharge Information Referrals: PCP,Unknown [Primary Care Provider] - Forms: ED Department Discharge Sepsis Event Note (ED) - Evaluation Sepsis Screening Result: No Definite Risk - Focused Exam Vital Signs: Vital Signs Temp Pulse Resp BP Pulse Ox 01/01/21 19:52 60 25 H 55/27 L 01/01/21 19:44 60 26 H 87/48 L 92 L 01/01/21 19:41 60 21 H 66/28 L 90 L 01/01/21 19:36 60 27 H 78/39 L 01/01/21 19:26 60 22 H 126/68 01/01/21 19:02 96 26 H 01/01/21 18:56 94 24 H 75/40 L 90 L 01/01/21 18:48 36.5 C 115 H 22 H 103/80 92 L 01/01/21 18:45 86 17 92 L 01/01/21 18:20 36.6 C 73 14 62/27 L - My Orders Last 24 Hours: My Active Orders 01/01/21 18:44 Sodium Chloride 0.9% [Saline Flush] 10 ml FLUSH ASDIRECTED PRN Saline Lock Insert [OM.PC] Stat 01/01/21 18:45 Sodium Chloride 0.9% [Normal Saline] 1,000 ml IV ASDIRECTED - Assessment/Plan Last 24 Hours: My Active Orders 01/01/21 18:44 Sodium Chloride 0.9% [Saline Flush] 10 ml FLUSH ASDIRECTED PRN Saline Lock Insert [OM.PC] Stat 01/01/21 18:45 Sodium Chloride 0.9% [Normal Saline] 1,000 ml IV ASDIRECTED
[2021-01-01] MEDS ORDERED: tiZANidine 4 MG Tab PO PRN (21:39)
[2021-01-01] MEDS ORDERED: traMADol 50 MG Tab PO PRN (21:39)
[2021-01-01] MEDS ORDERED: Albuterol 8 GM Inhaler INH PRN (21:39)
[2021-01-01] MEDS ORDERED: Non-Formulary Medication 1 Each (Fentanyl [Fentanyl] 1 EACH Patch.Td72) TOP SCH (21:45)
[2021-01-01] MEDS: Sulfamethoxazole/Trimethoprim 800-160 MG Tab PO SCH (22:36)
[2021-01-01] MEDS: oxyCODONE 5 MG Tab PO PRN (22:36)
[2021-01-02] MEDS: Sodium Chloride 0.9% 1,000 ML IV SCH ×3 (01:05→03:25)
[2021-01-02] MEDS: oxyCODONE 5 MG Tab PO PRN (04:00)
[2021-01-02 05:07] VITALS: PULSE 72
--- NOTE | 2021-01-02 06:55 | PCM.HP.2 ---
H&P History of Present Illness - General Date of Service: 01/01/21 Admit Problem/Dx: Admission Diagnosis/Problem Admission Diagnosis/Problem Drug overdose Source of Information: EMS Notes Reviewed, Family, RN Notes Reviewed History Limitations: Reports: No Limitations - History of Present Illness Initial Comments - Free Text/Narative: This patient was admitted from the ER following a drug overdose. She was given Narcan in the emergency department and now requires restarting her pain medications. She has been opioid dependent for quite some time and this is required for prevention of withdrawal while controlling her pain. Prior to discharge in the emergency department she had her fentanyl patch repair placed. Back Pain Score (Numeric/FACES): 5 - Related Data Allergies/Adverse Reactions: Allergies Allergy/AdvReac Type Severity Reaction Status Date / Time Penicillins Allergy Severe Anaphylactic Verified 01/01/21 18:33 Shock latex Allergy Intermediate Itching Verified 01/01/21 18:33 dofetilide Allergy Other Verified 01/01/21 18:33 lidocaine Allergy Hives Verified 01/01/21 18:33 Home Medications: Home Meds Warfarin Sodium [Jantoven] 5 mg PO DAILY 09/25/15 [History] Aspirin [Halfprin] 81 mg PO DAILY 07/07/16 [History] Albuterol [Ventolin HFA] 2 inhalation PO Q4HR PRN 11/30/18 [History] Metoprolol Succinate [Kapspargo Sprinkle] 175 mg PO DAILY 11/21/19 [History] fentaNYL [Fentanyl] 25 mcg TOP ASDIRECTED 07/12/20 [History] Dapagliflozin Propanediol [Farxiga] 5 mg PO DAILY 07/19/20 [History] Sacubitril/Valsartan [Entresto 24 mg-26 mg Tablet] 1 each PO BID 07/19/20 [History] DULoxetine [Cymbalta] 120 mg PO DAILY 01/01/21 [History] Sulfamethoxazole/Trimethoprim [Bactrim Ds Tablet] 1 tab PO BID 01/01/21 [History] oxyCODONE 5 mg PO Q6HR PRN 01/01/21 [History] tiZANidine HCl [Tizanidine HCl] 4 mg PO Q6HR PRN 01/01/21 [History] traMADol [Ultram] 50 mg PO Q6HR PRN 01/01/21 [History] Past Medical History HEENT History: Reports: Impaired Vision Cardiovascular History: Reports: Afib, Heart Failure, Heart Murmur, SOB on Exertion, Other (See Below) Other Cardiovascular History: chf Respiratory History: Reports: COPD, SOB, Other (See Below) Other Respiratory History: Fluid in one lung Gastrointestinal History: Reports: Diverticulosis, GERD, Other (See Below) Other Gastrointestinal History: hx C diff several times. bowel obstruction Genitourinary History: Reports: Other (See Below) Other Genitourinary History: was treated with sulfa x 3days within last 2 weeks [employer] History: Reports: Other (See Below) Other OB/BYN History: Musculoskeletal History: Reports: Back Pain, Chronic, Other (See Below) Other Musculoskeletal History: Back spasms Neurological History: Reports: Other (See Below) Other Neuro History: muscular - AMN Psychiatric History: Reports: Anxiety, Depression Other Psychiatric History: depression with son's Endocrine/Metabolic History: Reports: Other (See Below) Other Endocrine/Metabolic History: low iron Hematologic History: Reports: Anemia Dermatologic History: Reports: Other (See Below) Other Dermatologic History: dryness due to amlodipine adverse reaction. 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 Ileostomy ileostomy reversal february 2020 Other Endocrine Surgeries/Procedures: denies history of diabetes as mentioned in medical record Musculoskeletal Surgical History: Reports: Shoulder Surgery, Other (See Below) Other Musculoskeletal Surgeries/Procedures:: Right hip ORIF Social & Family History - Family History Family Medical History: No Pertinent Family History Cardiac: Reports: [place], Stent Respiratory: Reports: COPD Other Respiratory Family Hisory: COPD not actually diagnosed but feels has, long hx of smoking Musculoskeletal: Reports: Other (See Below) Other Musculoskeletal Family History: AMN, ALD, ADDISONS Psychiatric: Reports: None Oncologic: Reports: Colon - Caffeine Use Caffeine Use: Reports: None - Recreational Drug Use Recreational Drug Use: No H&P Review of Systems - Review of Systems: Review Of Systems: Comprehensive ROS is negative, except as noted in HPI. Exam - Exam Exam: See Below - Vital Signs Vital Signs: Last Vital Signs Temp 36.7 C 01/02/21 05:02 Pulse 72 01/02/21 05:02 Resp 18 01/02/21 05:02 BP 88/41 L 01/02/21 05:02 Pulse Ox 93 L 01/01/21 21:36 Weight: 58.967 kg - Exam General: Alert, Oriented HEENT: PERRLA, Conjunctiva Clear, EACs Clear, EOMI, Hearing Intact, Mucosa Moist & [place], Nares Patent, Normal Nasal Septum, Posterior Pharynx Clear, Pupils Equal, Pupils Reactive Neck: Supple, Full Range of Motion Lungs: Clear to Auscultation, Normal Respiratory Effort Cardiovascular: Regular Rate, Regular Rhythm GI/Abdominal Exam: Soft, Non-Tender, No Distention, Abnormal Bowel Sounds (Diminished in all quadrants) Back Exam: Normal Inspection Extremities: Normal Inspection Skin: Warm, Dry, Intact Neuro Extensive - Mental Status: Alert, Oriented x3 Psychiatric: Alert - Patient Data Lab Results Last 24 hrs: Laboratory Results - last 24 hr 01/01/21 Range/Units 19:55 SARS-CoV-2 RNA (YUE) Negative (NEGATIVE) Sepsis Event Note - Evaluation Sepsis Screening Result: No Definite Risk - Focused Exam Vital Signs: Vital Signs Temp Pulse Resp BP Pulse Ox 01/02/21 05:02 36.7 C 72 18 88/41 L 01/02/21 04:32 64 20 66/47 L 01/02/21 04:10 58 L 57/43 L 01/02/21 03:51 85 20 69/37 L 01/02/21 03:28 75 71/41 L 01/02/21 00:20 36.9 C 86 18 68/33 L 01/01/21 21:36 93 L 01/01/21 21:35 36.8 C 60 19 87/48 L 91 L 01/01/21 19:52 60 25 H 55/27 L 01/01/21 19:44 60 26 H 87/48 L 92 L 01/01/21 19:41 60 21 H 66/28 L 90 L 01/01/21 19:36 60 27 H 78/39 L 01/01/21 19:26 60 22 H 126/68 01/01/21 19:02 96 26 H 01/01/21 18:56 94 24 H 75/40 L 90 L - Problem List (1) Drug overdose SNOMED Code(s): 6477435254 ICD Code: T50.901A - POISONING BY UNSP DRUG/MEDS/BIOL SUBST, ACCIDENTAL, INIT Status: Acute Current Visit: Yes Problem List Initiated/Reviewed/Updated: Yes Orders Last 24hrs: Active Orders 24 hr Category Date Time Status Admission Status [Patient Status] [ADT] Routine ADT 01/01/21 21:22 Active Patient Status [ADT] Routine ADT 01/01/21 21:35 Active Oxygen Therapy [RC] PRN Care 01/01/21 21:35 Active Pulse Oximetry [RC] PRN Care 01/01/21 21:36 Active RT Aerosol Therapy [RC] ASDIRECTED Care 01/01/21 21:41 Active RT Post Treatment Assessment [RC] Click to Edit Care 01/01/21 21:41 Active VTE/DVT Education [RC] Per Unit Routine Care 01/01/21 21:35 Active Vital Signs [RC] Q4H Care 01/01/21 21:35 Active Regular Diet [DIET] Diet 01/01/21 Breakfast Ordered CULTURE MRSA SURVEY [RM] Routine Lab 01/02/21 Received INR,PT,PROTHROMBIN TIME [COAG] AM Lab 01/03/21 05:11 Ordered Albuterol [Ventolin HFA] Med 01/01/21 21:39 Active 0 gm INH Q4H PRN Aspirin [Halfprin] Med 01/02/21 08:00 Active 81 mg PO DAILY DULoxetine [Cymbalta] Med 01/02/21 08:00 Active 120 mg PO DAILY Dapagliflozin Propanediol [Farxiga] Med 01/02/21 08:00 Active 5 mg PO DAILY Metoprolol Succinate [Kapspargo Sprinkle] Med 01/02/21 08:00 Active 175 mg PO DAILY Sacubitril/Valsartan [Entresto 24 mg-26 mg Tablet] Med 01/02/21 08:00 Active 1 each PO BID Sodium Chloride 0.9% [Normal Saline] 1,000 ml Med 01/01/21 18:45 Active IV ASDIRECTED Sodium Chloride 0.9% [Saline Flush] Med 01/01/21 18:44 Active 10 ml FLUSH ASDIRECTED PRN Sulfamethoxazole/Trimethoprim [Septra DS] Med 01/01/21 22:30 Active 1 tab PO BID Warfarin [Coumadin] Med 01/02/21 08:00 Active 5 mg PO DAILY fentaNYL [Fentanyl] Med 01/01/21 21:45 Active 25 mcg TOP ASDIRECTED oxyCODONE Med 01/01/21 21:39 Active 5 mg PO Q6HR PRN tiZANidine [Zanaflex] Med 01/01/21 21:39 Active 4 mg PO Q6HR PRN traMADol [Ultram] Med 01/01/21 21:39 Active 50 mg PO Q6HR PRN Saline Lock Insert [OM.PC] Stat Oth 01/01/21 18:44 Ordered Resuscitation Status Routine Resus Stat 01/01/21 21:35 Ordered Medication Orders Albuterol (Albuterol 8 Gm Inhaler) 0 gm INH Q4H PRN PRN Reason: Wheezing Aspirin (Aspirin 81 Mg Tab.Ec) 81 mg PO DAILY YARELI Duloxetine HCl (Duloxetine 60 Mg Cap) 120 mg PO DAILY YARELI Sodium Chloride (Normal Saline) 1,000 mls @ 999 mls/hr IV ASDIRECTED YARELI Stop: 01/05/21 19:46 Last Admin: 01/02/21 03:25 Dose: 999 mls/hr Documented by: Infusion: 01/02/21 03:19 Dose: 999 mls/hr Documented by: Admin: 01/02/21 02:18 Dose: 999 mls/hr Documented by: Infusion: 01/02/21 02:06 Dose: 999 mls/hr Documented by: Admin: 01/02/21 01:05 Dose: 999 mls/hr Documented by: Infusion: 01/01/21 21:03 Dose: 999 mls/hr Documented by: Admin: 01/01/21 20:02 Dose: 999 mls/hr Documented by: Infusion: 01/01/21 19:30 Dose: 999 mls/hr Documented by: Admin: 01/01/21 18:29 Dose: 999 mls/hr Documented by: RAFFY Non-Formulary Medication (Dapagliflozin Propanediol [Farxiga]) 5 mg PO DAILY YARELI Non-Formulary Medication (Fentanyl [Fentanyl]) 25 mcg TOP ASDIRECTED YARELI Last Admin: 01/01/21 20:47 Dose: 25 mcg Documented by: KAITLYN Non-Formulary Medication (Metoprolol Succinate [Kapspargo Sprinkle]) 175 mg PO DAILY [facility] Non-Formulary Medication (Sacubitril/Valsartan [Entresto 24 Mg-26 Mg Tablet]) 1 each PO BID [facility] Oxycodone HCl (Oxycodone 5 Mg Tab) 5 mg PO Q6HR PRN PRN Reason: back pain Last Admin: 01/02/21 04:00 Dose: 5 mg Documented by: Admin: 01/01/21 22:36 Dose: 5 mg Documented by: KAITLYN Sodium Chloride (Sodium Chloride 0.9% 10 Ml Syringe) 10 ml FLUSH ASDIRECTED PRN PRN Reason: Keep Vein Open Tizanidine HCl (Tizanidine 4 Mg Tab) 4 mg PO Q6HR PRN PRN Reason: back pain Tramadol HCl (Tramadol 50 Mg Tab) 50 mg PO Q6HR PRN PRN Reason: back pain Last Admin: 01/02/21 01:15 Dose: 50 mg Documented by: KAITLYN Trimethoprim/Sulfamethoxazole (Sulfamethoxazole/Trimethoprim 800-160 Mg Tab) 1 tab PO BID [facility] Last Admin: 01/01/21 22:36 Dose: 1 tab Documented by: KAITLYN Warfarin Sodium (Warfarin 5 Mg Tab) 5 mg PO DAILY [facility] Assessment/Plan Comment:: Medications . Opioid coverage was stopped in the ED with Narcan. She has been restarted on her and we will gradually add her usual medications back. We will continue to give her IV fluids and oral fluids through the night with the plan of discharge in the morning if she continues to tolerate her medications as previous.
[2021-01-02] MEDS: Sulfamethoxazole/Trimethoprim 800-160 MG Tab PO SCH (07:52)
[2021-01-02] MEDS ORDERED: Furosemide 20 MG Tab PO ONE (08:00)
[2021-01-02] MEDS ORDERED: Warfarin 5 MG Tab PO SCH (08:00)
[2021-01-02] MEDS ORDERED: DULoxetine 60 MG Cap PO SCH ×2 (08:00)
[2021-01-02] MEDS ORDERED: Aspirin 81 MG Tab.EC PO SCH (08:00)
[2021-01-02] MEDS ORDERED: Non-Formulary Medication 1 Each (Dapagliflozin Propanediol [Farxiga] 5 MG Tablet) PO SCH (08:00)
[2021-01-02] MEDS ORDERED: Non-Formulary Medication 1 Each (Sacubitril/Valsartan [Entresto 24 Mg-26 Mg Tablet] 1 EACH PO SCH (08:00)
[2021-01-02 09:07] VITALS: BP 81/44
--- NOTE | 2021-01-02 09:16 | PCM.DCSUM1 ---
Discharge Summary - Hospital Course Free Text/Narrative:: This patient was admitted from the emergency department following a drug overdose at home. HPI Initial Comments: See ED see emergency department record Diagnosis: Stroke: No - Discharge Data Discharge Date: 01/02/21 Discharge Disposition: Home, Self-Care 01 Condition: Good - Referral to Home Health Primary Care Physician: PCP Unknown - Discharge Diagnosis/Problem(s) (1) Drug overdose SNOMED Code(s): 8112846598 ICD Code: T50.901A - POISONING BY UNSP DRUG/MEDS/BIOL SUBST, ACCIDENTAL, INIT Status: Acute Priority: High Current Visit: Yes Qualifiers: Encounter type: initial encounter Injury intent: accidental or unintentional Qualified Code(s): T50.901A - Poisoning by unspecified drugs, medicaments and biological substances, accidental (unintentional), initial encounter - Discharge Plan *PRESCRIPTION DRUG MONITORING PROGRAM REVIEWED*: No *COPY OF PRESCRIPTION DRUG MONITORING REPORT IN PATIENT ROJELIO: No Home Medications: Home Meds Warfarin Sodium [Jantoven] 5 mg PO DAILY 09/25/15 [History] Aspirin [Halfprin] 81 mg PO DAILY 07/07/16 [History] Albuterol [Ventolin HFA] 2 inhalation PO Q4HR PRN 11/30/18 [History] Metoprolol Succinate [[place] Sprinkle] 175 mg PO DAILY 11/21/19 [History] fentaNYL [Fentanyl] 25 mcg TOP ASDIRECTED 07/12/20 [History] Dapagliflozin Propanediol [Farxiga] 10 mg PO DAILY 07/19/20 [History] Sacubitril/Valsartan [Entresto 24 mg-26 mg Tablet] 1 each PO BID 07/19/20 [History] DULoxetine [Cymbalta] 60 mg PO DAILY 01/01/21 [History] Sulfamethoxazole/Trimethoprim [Bactrim Ds Tablet] 1 tab PO BID 01/01/21 [History] oxyCODONE 5 mg PO Q6HR PRN 01/01/21 [History] tiZANidine HCl [Tizanidine HCl] 4 mg PO Q6HR PRN 01/01/21 [History] traMADol [Ultram] 50 mg PO Q6HR PRN 01/01/21 [History] Oxygen Therapy Mode: Room Air Forms: ED Department Discharge Referrals: PCP,Unknown [Primary Care Provider] - - Discharge Summary/Plan Comment DC Time >30 min.: No Total # of Minutes for Discharge Time: 20 - General Info Date of Service: 01/02/21 Admission Dx/Problem (Free Text: Admission Diagnosis/Problem Admission Diagnosis/Problem Drug overdose Functional Status: Reports: Pain Controlled, Tolerating Diet, Ambulating, Urinating (Patient has some urinary retention this morning; she was given 20 mg of Lasix for this. She currently has a UTI and use of a catheter would not be a prudent choice. ) - Review of Systems General: Reports: No Symptoms HEENT: Reports: No Symptoms (Note to something) Pulmonary: Reports: No Symptoms Cardiovascular: Reports: No Symptoms Gastrointestinal: Reports: No Symptoms Musculoskeletal: Reports: No Symptoms Skin: Reports: No Symptoms Neurological: Reports: No Symptoms Psychiatric: Denies: Confusion, Anxiety, Agitation, Cravings, Hallucinations - Patient Data Vitals - Most Recent: Last Vital Signs Temp 36.7 C 01/02/21 05:02 Pulse 72 01/02/21 05:02 Resp 18 01/02/21 08:24 BP 81/44 L 01/02/21 08:54 Pulse Ox 93 L 01/01/21 21:36 Weight - Most Recent: 58.967 kg Lab Results - Last 24 hrs: Laboratory Results - last 24 hr 01/01/21 Range/Units 19:55 SARS-CoV-2 RNA (YUE) Negative (NEGATIVE) Med Orders - Current: Current Medications Albuterol (Albuterol 8 Gm Inhaler) 0 gm INH Q4H PRN PRN Reason: Wheezing Aspirin (Aspirin 81 Mg Tab.Ec) 81 mg PO DAILY [facility] Last Admin: 01/02/21 07:51 Dose: 81 mg Documented by: Duloxetine HCl (Duloxetine 60 Mg Cap) 60 mg PO DAILY [facility] Last Admin: 01/02/21 08:40 Dose: Not Given Documented by: Sodium Chloride (Normal Saline) 1,000 mls @ 999 mls/hr IV ASDIRECTED [facility] Stop: 01/05/21 19:46 Last Admin: 01/02/21 03:25 Dose: 999 mls/hr Documented by: Non-Formulary Medication (Fentanyl [Fentanyl]) 25 mcg TOP ASDIRECTED [facility] Last Admin: 01/01/21 20:47 Dose: 25 mcg Documented by: Non-Formulary Medication (Metoprolol Succinate [[place]sp[place] Sprinkle]) 175 mg PO DAILY [facility] Last Admin: 01/02/21 07:51 Dose: 175 mg Documented by: Non-Formulary Medication (Sacubitril/Valsartan [Entresto 24 Mg-26 Mg Tablet]) 1 each PO BID [facility] Last Admin: 01/02/21 07:52 Dose: 1 each Documented by: Non-Formulary Medication (Dapagliflozin Propanediol [Farxiga]) 10 mg PO DAILY [facility] Oxycodone HCl (Oxycodone 5 Mg Tab) 5 mg PO Q6HR PRN PRN Reason: back pain Last Admin: 01/02/21 04:00 Dose: 5 mg Documented by: Sodium Chloride (Sodium Chloride 0.9% 10 Ml Syringe) 10 ml FLUSH ASDIRECTED PRN PRN Reason: Keep Vein Open Tizanidine HCl (Tizanidine 4 Mg Tab) 4 mg PO Q6HR PRN PRN Reason: back pain Tramadol HCl (Tramadol 50 Mg Tab) 50 mg PO Q6HR PRN PRN Reason: back pain Last Admin: 01/02/21 01:15 Dose: 50 mg Documented by: Trimethoprim/Sulfamethoxazole (Sulfamethoxazole/Trimethoprim 800-160 Mg Tab) 1 tab PO BID [facility] Last Admin: 01/02/21 07:52 Dose: 1 tab Documented by: Warfarin Sodium (Warfarin 5 Mg Tab) 5 mg PO DAILY [facility] Last Admin: 01/02/21 07:45 Dose: Not Given Documented by: Discontinued Medications Duloxetine HCl (Duloxetine 60 Mg Cap) 120 mg PO DAILY [facility] Last Admin: 01/02/21 07:49 Dose: 60 mg Documented by: Fentanyl (Fentanyl 25 Mcg/Hr Transdermal Patch) Confirm Administered Dose 25 mcg .ROUTE .STK-MED ONE Stop: 01/01/21 20:48 Last Admin: 01/01/21 22:23 Dose: Not Given Documented by: Furosemide (Furosemide 20 Mg Tab) 20 mg PO ONETIME ONE Stop: 01/02/21 08:01 Last Admin: 01/02/21 08:42 Dose: 20 mg Documented by: Lorazepam (Lorazepam 2 Mg/Ml Sdv) 2 mg IVPUSH ONETIME ONE Stop: 01/01/21 19:08 Last Admin: 01/01/21 19:10 Dose: 2 mg Documented by: Naloxone HCl (Naloxone 2 Mg/2 Ml Syringe) 2 mg IVPUSH ONETIME PRN PRN Reason: Other Stop: 01/01/21 18:29 Naloxone HCl (Naloxone 2 Mg/2 Ml Syringe) 0.1 mg IVPUSH ONETIME PRN PRN Reason: Nausea Last Admin: 01/01/21 18:29 Dose: 2 mg Documented by: Non-Formulary Medication (Dapagliflozin Propanediol [Farxiga]) 5 mg PO DAILY [facility] Last Admin: 01/02/21 07:56 Dose: 10 mg Documented by: Ondansetron HCl (Ondansetron 4 Mg/2 Ml Sdv) 4 mg IVPUSH ONETIME ONE Stop: 01/01/21 18:46 Last Admin: 01/01/21 18:45 Dose: 4 mg Documented by: - Exam General: Reports: Alert, Oriented, Cooperative, No Acute Distress HEENT: Reports: Pupils Equal, Pupils Reactive, EOMI, Mucous Membr. Moist/[place] Neck: Reports: Supple Lungs: Reports: Clear to Auscultation, Normal Respiratory Effort Cardiovascular: Reports: Regular Rate, Regular Rhythm Extremities: Normal Inspection, No Pedal Edema Skin: Reports: Warm, Dry, Intact Neurological: Reports: No New Focal Deficit Psy/Mental Status: Reports: Alert
[2021-01-03] MEDS ORDERED: DAPAGLIFLOZIN PROPANEDIOL 10 MG PO SCH (08:00)
== END 2021-01-02 09:48 | disposition home or self-care (01) ==
LOC: LB.ED 18:19 → LB.MS 21:22 → UNDOADMOB 21:30
PROVIDERS: ADMIT Nurse Practitioner; ATTEND Nurse Practitioner
DX: T50.901A Poisoning by unspecified drugs, medicaments and biological substances, accidental (unintentional), initial encounter (principal); I48.91 Unspecified atrial fibrillation; I50.9 Heart failure, unspecified; K21.9 Gastro-esophageal reflux disease without esophagitis; Z88.0 Allergy status to penicillin; Z20.822 Contact with and (suspected) exposure to COVID-19; Z88.8 Allergy status to other drugs, medicaments and biological substances; Z91.040 Latex allergy status; Z79.01 Long term (current) use of anticoagulants; Z79.82 Long term (current) use of aspirin; Z79.899 Other long term (current) drug therapy; Z98.890 Other specified postprocedural states
CPT/HCPCS: 87635; A9270; J2060; J2310; J2405; J7030; A0425; A0429; U0002

== ENCOUNTER 2021-01-06 05:24 | Inpatient (IN) | payer MEDICAID ==
[2021-01-06] MEDS ORDERED: Pantoprazole 40 MG Vial IVPUSH ONE (05:52)
[2021-01-06] MEDS ORDERED: Sodium Chloride 0.9% 1,000 ML IV SCH (06:00)
--- NOTE | 2021-01-06 07:07 | EDM.PDOC ---
ED HPI GENERAL MEDICAL PROBLEM - General Chief Complaint: General Stated Complaint: BLEEDING Time Seen by Provider: 01/06/21 05:24 Source of Information: Reports: Patient, EMS Notes Reviewed, Family, RN Notes Reviewed History Limitations: Reports: No Limitations - History of Present Illness INITIAL COMMENTS - FREE TEXT/NARRATIVE: This patient presents to the emergency department for evaluation of bloody stools. Patient has a complicated and complex medical history that does include Crohn's. She was evaluated here on January 01 for a drug overdose. At that time she stated that she had been upping her medications because of the pain she was having from her Crohn's. On admission to the hospital her hemoglobin was 12 at that visit. She states she has had increased pain and bloody stools for the past 2 days. On arrival she is noted to have black stools, some increased abdominal pain, nausea, but no vomiting. She is also complaining of a headache. She has not had a fever, cough, sore throat. She denies chest pain. On her previous admission she was also noted to be dehydrated and was given 5 L of fluid before producing urine. She was discharged to home at her request on January 02 and her states that she did not have any further urine output that day but did have urine output on January 03. Back Pain Score (Numeric/FACES): 3 - Related Data Allergies Allergy/AdvReac Type Severity Reaction Status Date / Time Penicillins Allergy Severe Anaphylactic Verified 01/06/21 07:30 Shock latex Allergy Intermediate Itching Verified 01/06/21 07:30 dofetilide Allergy Other Verified 01/06/21 07:30 lidocaine Allergy Hives Verified 01/06/21 07:30 Home Meds: Home Meds Warfarin Sodium [Jantoven] 5 mg PO DAILY 09/25/15 [History] Aspirin [Halfprin] 81 mg PO DAILY 07/07/16 [History] Albuterol [Ventolin HFA] 2 inhalation PO Q4HR PRN 11/30/18 [History] Metoprolol Succinate [[place]sp[place] Sprinkle] 175 mg PO DAILY 11/21/19 [History] fentaNYL [Fentanyl] 25 mcg TOP ASDIRECTED 07/12/20 [History] Dapagliflozin Propanediol [Farxiga] 10 mg PO DAILY 07/19/20 [History] Sacubitril/Valsartan [Entresto 24 mg-26 mg Tablet] 1 each PO BID 07/19/20 [History] DULoxetine [Cymbalta] 60 mg PO DAILY 01/01/21 [History] Sulfamethoxazole/Trimethoprim [Bactrim Ds Tablet] 1 tab PO BID 01/01/21 [History] oxyCODONE 5 mg PO Q6HR PRN 01/01/21 [History] tiZANidine HCl [Tizanidine HCl] 4 mg PO Q6HR PRN 01/01/21 [History] traMADol [Ultram] 50 mg PO Q6HR PRN 01/01/21 [History] Past Medical History HEENT History: Reports: Impaired Vision Cardiovascular History: Reports: Afib, Heart Failure, Heart Murmur, SOB on Exertion, Other (See Below) Other Cardiovascular History: chf Respiratory History: Reports: COPD, SOB, Other (See Below) Other Respiratory History: Fluid in one lung Gastrointestinal History: Reports: Diverticulosis, GERD, Other (See Below) Other Gastrointestinal History: hx C diff several times. 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: Reports: Other (See Below) Other ELEVATOR PILOT History: Musculoskeletal History: Reports: Back Pain, Chronic, Other (See Below) Other Musculoskeletal History: Back spasms Neurological History: Reports: Other (See Below) Other Neuro History: muscular - AMN Psychiatric History: Reports: Anxiety, Depression Other Psychiatric History: depression with son's Endocrine/Metabolic History: Reports: Other (See Below) Other Endocrine/Metabolic History: low iron Hematologic History: Reports: Anemia Dermatologic History: Reports: Other (See Below) Other Dermatologic History: dryness due to amlodipine adverse reaction. 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 Ileostomy ileostomy reversal february 2020 Other Endocrine Surgeries/Procedures: denies history of diabetes as mentioned in medical record Musculoskeletal Surgical History: Reports: Shoulder Surgery, Other (See Below) Other Musculoskeletal Surgeries/Procedures:: Right hip ORIF Social & Family History - Family History Family Medical History: No Pertinent Family History Cardiac: Reports: ND, Stent Respiratory: Reports: COPD Other Respiratory Family Hisory: COPD not actually diagnosed but feels has, long hx of smoking Musculoskeletal: Reports: Other (See Below) Other Musculoskeletal Family History: AMN, ALD, ADDISONS Psychiatric: Reports: None Oncologic: Reports: Colon - Caffeine Use Caffeine Use: Reports: None ED ROS GENERAL - Review of Systems Review Of Systems: See Below Constitutional: Reports: Weakness, Weight Loss. Denies: Fever, Chills HEENT: Reports: Nosebleed (2 episodes of epistaxis in the past 2 days.). Denies: Ear Pain, Eye Pain Respiratory: Denies: Shortness of Breath, Cough Cardiovascular: Reports: Lightheadedness. Denies: Chest Pain, Palpitations Endocrine: Reports: No Symptoms GI/Abdominal: Reports: Abdominal Pain, Black Stool, Decreased Appetite. Denies: Diarrhea, Distension, Nausea, Vomiting Musculoskeletal: Reports: No Symptoms Skin: Reports: No Symptoms Neurological: Reports: Headache. Denies: Confusion, Dizziness ED EXAM, GENERAL - Physical Exam Exam: See Below Exam Limited By: No Limitations General Appearance: Alert, No Apparent Distress, Mild Distress Eye Exam: Bilateral Eye: PERRL Ears: Normal External Exam, Normal Canal, Normal TMs Nose: Normal Inspection, No Blood Throat/Mouth: Normal Inspection, No Airway Compromise. No: Dysphagia Head: Atraumatic, Normocephalic Neck: Normal Inspection, Supple, Non-Tender, Full Range of Motion Respiratory/Chest: No Respiratory Distress, Lungs Clear, Normal Breath Sounds, No Accessory Muscle Use Cardiovascular: Regular Rate, Rhythm GI/Abdominal: Soft, Other Back Exam: Normal Inspection Extremities: Normal Inspection, Other Neurological: Alert, Oriented Psychiatric: Normal Affect Skin Exam: Warm, Dry, Intact, Cool, Pallor. No: Petechiae, Rash #1 Interpretation EKG Date: 01/06/21 Time: 12:00 Rhythm: Other (paced sinus tach) [place]: RAD-Right [place] Deviation P-Wave: Present ST-T: Normal Comparison: No Change Course - Vital Signs Last Recorded V/S: Last Vital Signs Temp 37.4 C 01/07/21 16:42 Pulse 170 H 01/07/21 23:30 Resp 11 L 01/07/21 18:39 BP 86/67 L 01/07/21 23:30 Pulse Ox 98 01/07/21 18:39 - Orders/Labs/Meds Orders: Active Orders 24 hr Category Date Time Status Admission Status [Patient Status] [ADT] Routine ADT 01/08/21 06:41 Ordered Cardiac Monitoring [RC] .As Directed Care 01/08/21 06:40 Ordered BASIC METABOLIC PANEL,BMP [CHEM] AM Lab 01/08/21 05:11 Ordered CBC WITH AUTO DIFF [HEME] AM Lab 01/08/21 05:11 Ordered INR,PT,PROTHROMBIN TIME [COAG] AM Lab 01/08/21 05:11 Ordered Morphine Med 01/07/21 08:27 Active 8 mg SUBCUT Q4H PRN Norepinephrine [Levophed] 4 mg Med 01/07/21 15:54 Active Dextrose 5% in Water 246 ml IV TITRATE fentaNYL [Duragesic] Med 01/07/21 08:30 Active 50 mcg TRDERM Q72H Medication Orders Dextrose/Water (50% Dextrose In Water 50 Ml Syringe) 50 ml IVPUSH ASDIRECTED PRN PRN Reason: Hypoglycemia Last Admin: 01/06/21 09:13 Dose: 50 ml Documented by: VENUS Fentanyl (Fentanyl 50 Mcg/Hr Transdermal Patch) 50 mcg TRDERM Q72H [facility] Last Admin: 01/07/21 08:33 Dose: 50 mcg Documented by: RAFFY Sodium Chloride (Normal Saline) 1,000 mls @ 999 mls/hr IV ASDIRECTED [facility] Last Infusion: 01/06/21 08:33 Dose: 0 mls/hr Documented by: Admin: 01/06/21 07:10 Dose: 999 mls/hr Documented by: RORY Sodium Chloride (Normal Saline) 500 mls @ 500 mls/hr IV ASDIRECTED [facility] Last Admin: 01/06/21 19:00 Dose: 500 mls/hr Documented by: Infusion: 01/06/21 16:15 Dose: 500 mls/hr Documented by: Admin: 01/06/21 15:15 Dose: 500 mls/hr Documented by: VENUS Dextrose/Sodium Chloride (Dextrose 5%-1/2 Ns) 1,000 mls @ 75 mls/hr IV ASDIRECTED [facility] Last Admin: 01/07/21 21:00 Dose: 75 mls/hr Documented by: Infusion: 01/07/21 20:56 Dose: 0 mls/hr Documented by: Admin: 01/07/21 07:36 Dose: 75 mls/hr Documented by: Infusion: 01/07/21 07:36 Dose: 75 mls/hr Documented by: Admin: 01/07/21 00:10 Dose: 75 mls/hr Documented by: RORY Sodium Chloride (Normal Saline) 1,000 mls @ 500 mls/hr IV ASDIRECTED YARELI Last Infusion: 01/07/21 04:50 Dose: 0 mls/hr Documented by: Admin: 01/07/21 02:45 Dose: 500 mls/hr Documented by: RORY Norepinephrine Bitartrate 4 mg (/ Dextrose/Water) 250 mls @ 18.75 mls/hr IV TITRATE YARELI; Protocol Last Titration: 01/07/21 19:50 Dose: 0 mcg/min, 0 mls/hr Documented by: Admin: 01/07/21 17:20 Dose: 5 mcg/min, 18.75 mls/hr Documented by: RAFFY Lorazepam (Lorazepam 2 Mg/Ml Sdv) 2 mg IVPUSH Q4H PRN PRN Reason: Anxiety Last Admin: 01/07/21 20:20 Dose: 2 mg Documented by: Admin: 01/07/21 19:20 Dose: 2 mg Documented by: Admin: 01/07/21 07:48 Dose: 2 mg Documented by: Admin: 01/07/21 01:36 Dose: 2 mg Documented by: RORY Morphine Sulfate (Morphine 10 Mg/Ml Syringe) 8 mg SUBCUT Q4H PRN PRN Reason: Pain (severe 7-10) Last Admin: 01/07/21 20:40 Dose: 8 mg Documented by: Admin: 01/07/21 19:50 Dose: 4 mg Documented by: RORY Sodium Chloride (Sodium Chloride 0.9% 10 Ml Syringe) 10 ml FLUSH ASDIRECTED PRN PRN Reason: Keep Vein Open Last Admin: 01/06/21 18:35 Dose: 10 ml Documented by: Admin: 01/06/21 15:17 Dose: 10 ml Documented by: Admin: 01/06/21 09:02 Dose: 10 ml Documented by: VENUS Sodium Chloride (Sodium Chloride 0.9% 10 Ml Syringe) 10 ml FLUSH ASDIRECTED PRN PRN Reason: Keep Vein Open Labs: Laboratory Tests 01/06/21 01/06/21 01/06/21 Range/Units 06:20 06:20 06:20 WBC 16.3 H D (4.0-11.0) K/uL RBC 1.83 L (3.80-5.80) M/uL Hgb 4.9 L* D (11.5-16.5) g/dL Hct 16.0 L* D (37.0-47.0) % MCV 87 (76-96) fL MCH 26.8 L (27.0-32.0) pg MCHC 30.6 L (31.0-35.0) g/dL RDW 18.6 H (11.0-16.0) % Plt Count 408 (150-500) K/uL MPV 10.4 H (6.0-10.0) fL Neut % (Auto) 82.9 H (45.0-70.0) % Lymph % (Auto) 11.3 L (20.0-40.0) % [place] % (Auto) 5.6 (3.0-10.0) % Eos % (Auto) 0.1 L (1.0-5.0) % Baso % (Auto) 0.1 (0.0-0.5) % Neut # (Auto) 13.56 H (2.00-7.50) K/uL Lymph # (Auto) 1.84 (1.50-4.00) K/uL [place] # (Auto) 0.92 H (0.20-0.80) K/uL Eos # (Auto) 0.01 L (0.04-0.40) K/uL Baso # (Auto) 0.01 L (0.02-0.10) K/uL PT > 93.9 H D (9.0-11.5) sec INR > 10.0 H* D (1.0-3.5) Sodium 134 L (136-145) mmol/L Potassium 6.4 H* D (3.5-5.1) mmol/L Chloride 104 (98-107) mmol/L Carbon Dioxide 19.8 L D (21.0-32.0) mmol/L Anion Gap 16.6 H (5.0-15.0) mmol/L BUN 90 H* D (8-26) mg/dL Creatinine 2.82 H D (0.55-1.02) mg/dL Est Cr Clr Drug Dosing 21.63 mL/min Estimated GFR (MDRD) 18 L (>60) MLS/MIN BUN/Creatinine Ratio 31.9 H (6-25) Glucose 118 H (74-100) mg/dL Lactic Acid (0.4-2.0) mmol/L Calcium 8.8 (8.5-10.1) mg/dL SARS-CoV-2 RNA (YUE) (NEGATIVE) Blood Type Gel Antibody Screen Crossmatch 01/06/21 01/06/21 01/06/21 Range/Units 07:00 09:19 11:55 WBC (4.0-11.0) K/uL RBC (3.80-5.80) M/uL Hgb (11.5-16.5) g/dL Hct (37.0-47.0) % MCV (76-96) fL MCH (27.0-32.0) pg MCHC (31.0-35.0) g/dL RDW (11.0-16.0) % Plt Count (150-500) K/uL MPV (6.0-10.0) fL Neut % (Auto) (45.0-70.0) % Lymph % (Auto) (20.0-40.0) % [place] % (Auto) (3.0-10.0) % Eos % (Auto) (1.0-5.0) % Baso % (Auto) (0.0-0.5) % Neut # (Auto) (2.00-7.50) K/uL Lymph # (Auto) (1.50-4.00) K/uL [place] # (Auto) (0.20-0.80) K/uL Eos # (Auto) (0.04-0.40) K/uL Baso # (Auto) (0.02-0.10) K/uL PT (9.0-11.5) sec INR (1.0-3.5) Sodium 136 (136-145) mmol/L Potassium 5.7 H 5.4 H (3.5-5.1) mmol/L Chloride 108 H (98-107) mmol/L Carbon Dioxide 19.0 L (21.0-32.0) mmol/L Anion Gap 14.4 (5.0-15.0) mmol/L BUN 86 H* (8-26) mg/dL Creatinine 2.72 H (0.55-1.02) mg/dL Est Cr Clr Drug Dosing 22.43 mL/min Estimated GFR (MDRD) 18 L (>60) MLS/MIN BUN/Creatinine Ratio 31.6 H (6-25) Glucose 64 L D (74-100) mg/dL Lactic Acid (0.4-2.0) mmol/L Calcium 8.2 L (8.5-10.1) mg/dL SARS-CoV-2 RNA (YUE) (NEGATIVE) Blood Type O NEGATIVE Gel Antibody Screen Negative Crossmatch See Detail 01/06/21 01/06/21 01/06/21 Range/Units 11:55 12:30 12:50 WBC 19.9 H D (4.0-11.0) K/uL RBC 2.10 L (3.80-5.80) M/uL Hgb 6.0 L* D (11.5-16.5) g/dL Hct 19.3 L* D (37.0-47.0) % MCV 92 (76-96) fL MCH 28.6 (27.0-32.0) pg MCHC 31.1 (31.0-35.0) g/dL RDW 18.8 H (11.0-16.0) % Plt Count 379 (150-500) K/uL MPV 10.3 H (6.0-10.0) fL Neut % (Auto) 84.2 H (45.0-70.0) % Lymph % (Auto) 10.0 L (20.0-40.0) % [place] % (Auto) 5.6 (3.0-10.0) % Eos % (Auto) 0.1 L (1.0-5.0) % Baso % (Auto) 0.1 (0.0-0.5) % Neut # (Auto) 16.76 H (2.00-7.50) K/uL Lymph # (Auto) 1.99 (1.50-4.00) K/uL [place] # (Auto) 1.12 H (0.20-0.80) K/uL Eos # (Auto) 0.02 L (0.04-0.40) K/uL Baso # (Auto) 0.02 (0.02-0.10) K/uL PT 94.7 H (9.0-11.5) sec INR 9.6 H* (1.0-3.5) Sodium (136-145) mmol/L Potassium (3.5-5.1) mmol/L Chloride (98-107) mmol/L Carbon Dioxide (21.0-32.0) mmol/L Anion Gap (5.0-15.0) mmol/L BUN (8-26) mg/dL Creatinine (0.55-1.02) mg/dL Est Cr Clr Drug Dosing mL/min Estimated GFR (MDRD) (>60) MLS/MIN BUN/Creatinine Ratio (6-25) Glucose (74-100) mg/dL Lactic Acid 2.4 H (0.4-2.0) mmol/L Calcium (8.5-10.1) mg/dL SARS-CoV-2 RNA (YUE) (NEGATIVE) Blood Type Gel Antibody Screen Crossmatch 01/06/21 01/06/21 01/06/21 Range/Units 13:53 16:00 16:00 WBC 16.7 H (4.0-11.0) K/uL RBC 2.51 L (3.80-5.80) M/uL Hgb 7.2 L (11.5-16.5) g/dL Hct 22.4 L (37.0-47.0) % MCV 89 (76-96) fL MCH 28.7 (27.0-32.0) pg MCHC 32.1 (31.0-35.0) g/dL RDW 16.7 H (11.0-16.0) % Plt Count 322 (150-500) K/uL MPV 10.3 H (6.0-10.0) fL Neut % (Auto) 81.1 H (45.0-70.0) % Lymph % (Auto) 13.5 L (20.0-40.0) % [place] % (Auto) 5.2 (3.0-10.0) % Eos % (Auto) 0.1 L (1.0-5.0) % Baso % (Auto) 0.1 (0.0-0.5) % Neut # (Auto) 13.57 H (2.00-7.50) K/uL Lymph # (Auto) 2.26 (1.50-4.00) K/uL [place] # (Auto) 0.87 H (0.20-0.80) K/uL Eos # (Auto) 0.02 L (0.04-0.40) K/uL Baso # (Auto) 0.01 L (0.02-0.10) K/uL PT 66.7 H D (9.0-11.5) sec INR 7.3 H* D (1.0-3.5) Sodium (136-145) mmol/L Potassium (3.5-5.1) mmol/L Chloride (98-107) mmol/L Carbon Dioxide (21.0-32.0) mmol/L Anion Gap (5.0-15.0) mmol/L BUN (8-26) mg/dL Creatinine (0.55-1.02) mg/dL Est Cr Clr Drug Dosing mL/min Estimated GFR (MDRD) (>60) MLS/MIN BUN/Creatinine Ratio (6-25) Glucose (74-100) mg/dL Lactic Acid (0.4-2.0) mmol/L Calcium (8.5-10.1) mg/dL SARS-CoV-2 RNA (YUE) Negative (NEGATIVE) Blood Type Gel Antibody Screen Crossmatch 01/06/21 01/06/21 01/06/21 Range/Units 16:00 21:00 21:00 WBC 18.3 H (4.0-11.0) K/uL RBC 3.04 L (3.80-5.80) M/uL Hgb 8.9 L D (11.5-16.5) g/dL Hct 27.1 L D (37.0-47.0) % MCV 89 (76-96) fL MCH 29.3 (27.0-32.0) pg MCHC 32.8 (31.0-35.0) g/dL RDW 16.5 H (11.0-16.0) % Plt Count 280 (150-500) K/uL MPV 10.3 H (6.0-10.0) fL Neut % (Auto) 76.7 H (45.0-70.0) % Lymph % (Auto) 15.6 L (20.0-40.0) % [place] % (Auto) 7.4 (3.0-10.0) % Eos % (Auto) 0.2 L (1.0-5.0) % Baso % (Auto) 0.1 (0.0-0.5) % Neut # (Auto) 14.00 H (2.00-7.50) K/uL Lymph # (Auto) 2.85 (1.50-4.00) K/uL [place] # (Auto) 1.36 H (0.20-0.80) K/uL Eos # (Auto) 0.03 L (0.04-0.40) K/uL Baso # (Auto) 0.02 (0.02-0.10) K/uL PT (9.0-11.5) sec INR (1.0-3.5) Sodium 137 137 (136-145) mmol/L Potassium 5.2 H 5.4 H (3.5-5.1) mmol/L Chloride 111 H 112 H (98-107) mmol/L Carbon Dioxide 17.8 L 15.6 L (21.0-32.0) mmol/L Anion Gap 13.4 14.8 (5.0-15.0) mmol/L BUN 83 H* 76 H* (8-26) mg/dL Creatinine 2.52 H 2.33 H (0.55-1.02) mg/dL Est Cr Clr Drug Dosing 24.21 26.18 mL/min Estimated GFR (MDRD) 20 L 22 L (>60) MLS/MIN BUN/Creatinine Ratio 32.9 H 32.6 H (6-25) Glucose 91 D 92 (74-100) mg/dL Lactic Acid (0.4-2.0) mmol/L Calcium 8.0 L 8.4 L (8.5-10.1) mg/dL SARS-CoV-2 RNA (YUE) (NEGATIVE) Blood Type Gel Antibody Screen Crossmatch 01/07/21 01/07/21 01/07/21 Range/Units 02:45 08:22 08:22 WBC 12.4 H D (4.0-11.0) K/uL RBC 3.15 L (3.80-5.80) M/uL Hgb 8.6 L 9.2 L (11.5-16.5) g/dL Hct 26.3 L 27.8 L (37.0-47.0) % MCV 88 (76-96) fL MCH 29.2 (27.0-32.0) pg MCHC 33.1 (31.0-35.0) g/dL RDW 16.7 H (11.0-16.0) % Plt Count 237 (150-500) K/uL MPV 9.7 (6.0-10.0) fL Neut % (Auto) 74.9 H (45.0-70.0) % Lymph % (Auto) 17.7 L (20.0-40.0) % [place] % (Auto) 6.5 (3.0-10.0) % Eos % (Auto) 0.7 L (1.0-5.0) % Baso % (Auto) 0.2 (0.0-0.5) % Neut # (Auto) 9.29 H (2.00-7.50) K/uL Lymph # (Auto) 2.20 (1.50-4.00) K/uL [place] # (Auto) 0.81 H (0.20-0.80) K/uL Eos # (Auto) 0.09 (0.04-0.40) K/uL Baso # (Auto) 0.02 (0.02-0.10) K/uL PT 45.5 H D (9.0-11.5) sec INR 4.9 H* D (1.0-3.5) Sodium (136-145) mmol/L Potassium (3.5-5.1) mmol/L Chloride (98-107) mmol/L Carbon Dioxide (21.0-32.0) mmol/L Anion Gap (5.0-15.0) mmol/L BUN (8-26) mg/dL Creatinine (0.55-1.02) mg/dL Est Cr Clr Drug Dosing mL/min Estimated GFR (MDRD) (>60) MLS/MIN BUN/Creatinine Ratio (6-25) Glucose (74-100) mg/dL Lactic Acid (0.4-2.0) mmol/L Calcium (8.5-10.1) mg/dL SARS-CoV-2 RNA (YUE) (NEGATIVE) Blood Type Gel Antibody Screen Crossmatch 01/07/21 Range/Units 08:22 WBC (4.0-11.0) K/uL RBC (3.80-5.80) M/uL Hgb (11.5-16.5) g/dL Hct (37.0-47.0) % MCV (76-96) fL MCH (27.0-32.0) pg MCHC (31.0-35.0) g/dL RDW (11.0-16.0) % Plt Count (150-500) K/uL MPV (6.0-10.0) fL Neut % (Auto) (45.0-70.0) % Lymph % (Auto) (20.0-40.0) % [place] % (Auto) (3.0-10.0) % Eos % (Auto) (1.0-5.0) % Baso % (Auto) (0.0-0.5) % Neut # (Auto) (2.00-7.50) K/uL Lymph # (Auto) (1.50-4.00) K/uL [place] # (Auto) (0.20-0.80) K/uL Eos # (Auto) (0.04-0.40) K/uL Baso # (Auto) (0.02-0.10) K/uL PT (9.0-11.5) sec INR (1.0-3.5) Sodium 141 (136-145) mmol/L Potassium 4.2 D (3.5-5.1) mmol/L Chloride 113 H (98-107) mmol/L Carbon Dioxide 19.8 L D (21.0-32.0) mmol/L Anion Gap 12.4 (5.0-15.0) mmol/L BUN 59 H* D (8-26) mg/dL Creatinine 1.83 H D (0.55-1.02) mg/dL Est Cr Clr Drug Dosing 33.33 mL/min Estimated GFR (MDRD) 29 L (>60) MLS/MIN BUN/Creatinine Ratio 32.2 H (6-25) Glucose 108 H (74-100) mg/dL Lactic Acid (0.4-2.0) mmol/L Calcium 8.1 L (8.5-10.1) mg/dL SARS-CoV-2 RNA (YUE) (NEGATIVE) Blood Type Gel Antibody Screen Crossmatch Meds: Medications Generic Name Dose Route Start Last Admin Trade Name Freq PRN Reason Stop Dose Admin Dextrose/Water 50 ml 01/06/21 08:59 01/06/21 09:13 50% Dextrose In Water 50 Ml Syringe IVPUSH 50 ml ASDIRECTED PRN Administration Hypoglycemia Fentanyl 50 mcg 01/07/21 08:30 01/07/21 08:33 Fentanyl 50 Mcg/Hr Transdermal Patch TRDERM 50 mcg Q72H YARELI Administration Sodium Chloride 1,000 mls @ 999 mls/hr 01/06/21 06:00 01/06/21 08:33 Normal Saline IV Infused ASDIRECTED YARELI Infusion Sodium Chloride 500 mls @ 500 mls/hr 01/06/21 14:45 01/06/21 19:00 Normal Saline IV 500 mls/hr ASDIRECTED YARELI Administration Dextrose/Sodium Chloride 1,000 mls @ 75 mls/hr 01/06/21 21:30 01/07/21 21:00 Dextrose 5%-1/2 Ns IV 75 mls/hr ASDIRECTED YARELI Administration Sodium Chloride 1,000 mls @ 500 mls/hr 01/07/21 02:45 01/07/21 04:50 Normal Saline IV Infused ASDIRECTED YARELI Infusion Norepinephrine Bitartrate 4 mg 250 mls @ 18.75 mls/hr 01/07/21 15:54 01/07/21 19:50 / Dextrose/Water IV Infused TITRATE YARELI Titration Protocol 5 MCG/MIN Lorazepam 2 mg 01/06/21 19:55 01/07/21 20:20 Lorazepam 2 Mg/Ml Sdv IVPUSH 2 mg Q4H PRN Administration Anxiety Morphine Sulfate 8 mg 01/07/21 08:27 01/07/21 20:40 Morphine 10 Mg/Ml Syringe SUBCUT 8 mg Q4H PRN Administration Pain (severe 7-10) Sodium Chloride 10 ml 01/06/21 05:51 01/06/21 18:35 Sodium Chloride 0.9% 10 Ml Syringe FLUSH 10 ml ASDIRECTED PRN Administration Keep Vein Open Sodium Chloride 10 ml 01/06/21 14:41 Sodium Chloride 0.9% 10 Ml Syringe FLUSH ASDIRECTED PRN Keep Vein Open Discontinued Medications Generic Name Dose Route Start Last Admin Trade Name Freq PRN Reason Stop Dose Admin Famotidine 20 mg 01/06/21 07:42 01/06/21 08:52 Famotidine 20 Mg/2 Ml Sdv IVPUSH 01/06/21 07:43 20 mg ONETIME ONE Administration Fentanyl Confirm 01/07/21 08:33 01/07/21 08:38 Fentanyl 50 Mcg/Hr Transdermal Patch Administered 01/07/21 08:34 Not Given Dose 50 mcg .ROUTE .STK-MED ONE Glucagon 1 mg 01/06/21 08:59 Glucagon,Human Recombinant 1 Mg Vial IM ASDIRECTED PRN Hypoglycemia Haloperidol Lactate 2 mg 01/07/21 02:32 01/07/21 02:36 Haloperidol Lactate 5 Mg/Ml Sdv IVPUSH 01/07/21 02:33 2 mg ONETIME ONE Administration Haloperidol Lactate Confirm 01/07/21 02:34 01/07/21 05:54 Haloperidol Lactate 5 Mg/Ml Sdv Administered 01/07/21 02:35 Not Given Dose 5 mg .ROUTE .STK-MED ONE Phytonadione 10 mg/ Sodium 51 mls @ 100 mls/hr 01/06/21 07:45 01/06/21 08:30 Chloride IV 01/06/21 08:15 100 mls/hr NOW ONE Administration Lactated Ringer's 1,000 mls @ 100 mls/hr 01/06/21 08:30 01/06/21 09:02 Ringers, Lactated IV 100 mls/hr ASDIRECTED YARELI Administration Norepinephrine Bitartrate 4 mg 250 mls @ 7.5 mls/hr 01/07/21 04:15 01/07/21 04:25 / Dextrose/Water IV 5 mcg/min TITRATE YARELI 18.75 mls/hr Titration Protocol 2 MCG/MIN Metoprolol Tartrate 20 mg/ 70 mls @ 100 mls/hr 01/07/21 18:57 01/07/21 19:08 Sodium Chloride IV 01/07/21 19:29 100 mls/hr ONETIME ONE Administration Insulin Human Regular 10 unit 01/06/21 08:59 01/06/21 09:10 Insulin Regular, Human 100 Units/Ml 3 Ml Vial IV 01/06/21 09:00 10 units ONETIME ONE Administration Lorazepam 2 mg 01/06/21 18:27 01/06/21 18:34 Lorazepam 2 Mg/Ml Sdv IVPUSH 01/06/21 18:28 2 mg ONETIME ONE Administration Lorazepam Confirm 01/06/21 18:30 01/06/21 18:33 Lorazepam 2 Mg/Ml Sdv Administered 01/06/21 18:31 Not Given Dose 2 mg .ROUTE .STK-MED ONE Lorazepam Confirm 01/07/21 07:52 01/07/21 07:53 Lorazepam 2 Mg/Ml Sdv Administered 01/07/21 07:53 Not Given Dose 2 mg .ROUTE .STK-MED ONE Metoprolol Tartrate Confirm 01/06/21 13:04 01/06/21 13:48 Metoprolol Tartrate 5 Mg/5 Ml Sdv Administered 01/06/21 13:05 Not Given Dose 10 mg .ROUTE .STK-MED ONE Metoprolol Tartrate 10 mg 01/06/21 13:48 01/06/21 13:51 Metoprolol Tartrate 5 Mg/5 Ml Sdv IVPUSH 01/06/21 13:49 10 mg ONETIME ONE Administration Metoprolol Tartrate 10 mg 01/06/21 15:46 01/06/21 16:56 Metoprolol Tartrate 5 Mg/5 Ml Sdv IVPUSH 01/06/21 15:47 10 mg ONETIME ONE Administration Metoprolol Tartrate 10 mg 01/06/21 21:27 01/07/21 02:00 Metoprolol Tartrate 5 Mg/5 Ml Sdv IVPUSH 01/06/21 21:28 10 mg ONETIME ONE Administration Metoprolol Tartrate Confirm 01/06/21 21:52 01/07/21 02:02 Metoprolol Tartrate 5 Mg/5 Ml Sdv Administered 01/06/21 21:53 Not Given Dose 5 mg .ROUTE .STK-MED ONE Metoprolol Tartrate Confirm 01/07/21 00:12 01/07/21 02:02 Metoprolol Tartrate 5 Mg/5 Ml Sdv Administered 01/07/21 00:13 Not Given Dose 5 mg .ROUTE .STK-MED ONE Metoprolol Tartrate 20 mg 01/07/21 08:25 01/07/21 08:44 Metoprolol Tartrate 5 Mg/5 Ml Sdv IVPUSH 01/07/21 08:26 20 mg ONETIME ONE Administration Metoprolol Tartrate Confirm 01/07/21 23:20 01/07/21 23:30 Metoprolol Tartrate 5 Mg/5 Ml Sdv Administered 01/07/21 23:21 2.5 mg Dose Administration 10 mg .ROUTE .STK-MED ONE Morphine Sulfate 4 mg 01/06/21 15:49 01/07/21 07:45 Morphine 4 Mg/Ml Vial IVPUSH 4 mg Q2H PRN Administration Pain (moderate 4-6) Morphine Sulfate Confirm 01/07/21 07:52 01/07/21 07:53 Morphine 4 Mg/Ml Vial Administered 01/07/21 07:53 Not Given Dose 4 mg .ROUTE .STK-MED ONE Morphine Sulfate Confirm 01/07/21 19:31 01/07/21 19:30 Morphine 4 Mg/Ml Vial Administered 01/07/21 19:32 4 mg Dose Administration 8 mg .ROUTE .STK-MED ONE Morphine Sulfate Confirm 01/07/21 20:08 Morphine 4 Mg/Ml Vial Administered 01/07/21 20:09 Dose 4 mg .ROUTE .STK-MED ONE Pantoprazole Sodium 40 mg 01/06/21 05:52 01/06/21 07:22 Pantoprazole 40 Mg Vial IVPUSH 01/06/21 05:53 40 mg ONETIME ONE Administration Phytonadione Confirm 01/06/21 08:17 01/06/21 08:32 Phytonadione 10 Mg/1 Ml Amp Administered 01/06/21 08:18 Not Given Dose 10 mg .ROUTE .STK-MED ONE Phytonadione Confirm 01/06/21 08:23 01/06/21 08:32 Phytonadione 10 Mg/1 Ml Amp Administered 01/06/21 08:24 Not Given Dose 10 mg .ROUTE .STK-MED ONE - Re-Assessments/Exams Free Text/Narrative Re-Assessment/Exam: 01/06/21 08:10 his patient presents to the emergency department for dark stools. History and clinical findings are significant for anemia, hyperkalemia, and an INR greater than 10. I did contact Dr. Gutierres at [place] for assistance with patient management She recommended that we give this patient insulin, 10 units regular IV along with dextrose, 1 amp of D50. And EKG obtained did not identify any acute changes and there was no ST elevation noted. Patient is currently getting packed cells and has a potassium pending at this time. The [place] [facility] has been contacted regarded bed placement for this patient and there are no Available critical care beds in the [facility], [facility], or [facility]. Given local bed status we will hold her here and continue critical care. 1) Anemia: Hgb = 4.9 Transfuse with 2 units PRBC DC IVF except as needed for transfusion. 2) Hyperkalemia: K = 6.4 Regular Insulin, 10 units IVP D50W, 1 amp IVP Recheck K at 0900 EKG: no acute changes over last 3) INR > 10 Vitamin K 10 mg IV 01/06/21 09:47 Patient remains largely unchanged, complaining of some back pain which is a chronic problem for her. She denies abdominal pain. She has had one additional bloody stool in the emergency department. Most recent vital signs include pulse 148, blood pressure 83/20 over 34 and a saturation of 98% in room air. She is cognitively appropriate and able to answer questions. Labs are pending at this time. She has been listed with the [facility] for bed placement. I just spoke with [facility] again and they did again deny admission for her. 01/06/21 15:34 I spoke again with Dr. Gutierres at [place] for additional information. We have made some improvements in her labs with a hemoglobin now of 6, potassium down to 5.4. She has continued to have blood pressures in the 60s to 80s over 40s to 60s and a lactic acid was slightly elevated at 2.4. She has been tachycardic this afternoon which I think is related to her missing her oral meds this morning. In between units of packed cells she was given 10 mg of metoprolol which did bring her pulse down some. She does not have any evidence of T wave alterations on her EKG; however, is having coupled and tripled PACs with normal beats surrounding. She remains alert, oriented and perfusing her brain. She has had some urine output and one additional stool that included blood clots. 1) Anemia: Hgb = 4.9, now 6 Transfuse with additional unit PRBCs, recheck hgb at 1600 2) Hyperkalemia: K = 6.4, now 5.4 Recheck at 1600 3) INR > 10, now 9.6 Vitamin K 10 mg IV given; she will get 1 unit of fresh frozen plasma this afternoon with recheck at 1600. 4) Lactic Acid = 2.4 Patient remains tachycardic with frequent PACs by monitor. She will be given 500 mils of crystalloid fluid, normal saline over about an hour. I have continued efforts to find bed placement for this patient. She does require critical care admission with a GI surgical consult. She has again been denied by the [facility], [facility], [facility], [facility] and [facility] in [place]. 01/06/21 18:28 Patient awake, alert, & oriented. Walked to bathroom and voided on toilet, few drops of blood from rectum. 01/06/21 21:32 Patient slowly improving; awake, alert & oriented. Voiding, no stools or other bleeding noted. Last unit of PRBCs running and FFP completed. More restless, given MS and ativan. 1) Anemia: Hgb = 4.9, now 8.9 recheck CBC in the AM 2) Hyperkalemia: K = 6.4, now 5.4 Recheck in the AM 3) INR > 10, now 7.3 Recheck in the AM Efforts to find higher level of care continue unsuccessfully. I spoke with school admissions representative from [facility] for an update; however, they still do not have beds available. AT this time, the patient would likely be adequately cared for in a medical unit. 01/07/21 02:11 Called by nursing to evaluate patient. She has become increasing agitated and somewhat combative, thrashing with full body movements. Responds verbally with groans and unintelligible sounds. Patient has been given ativan and morphine; last ativan at 0135, last morphine at ~0030. Delfina ospitalist contacted for consult. In continent of urine, no stools/bleeding. New orders: NS 500 mL over 1 hour Haldol 2 mg Hemoglobin/hematocrit=8.6/26.3 01/07/21 08:12 Patient is extremely restless and tachycardic with pulse greater than 200. She becomes very agitated with movement or touch. I am concerned she is withdrawing from narcotics and she has not been getting enough here. I am going to increase her fentanyl and her morphine this morning. It is likely she will be transferred today; however, I am still awaiting a bed. New orders: Metoprolol 20 mg IV push Remove fentanyl patch replace with fentanyl transdermal 50 mcg Increase morphine doses to 8 mg every 4 hours 01/07/21 15:45 Labs improved, patient comfortable and sleeping. Awaiting bed placement in more suitable facility. 01/07/21 21:03 This patient remains in the emergency department awaiting bed placement. She has had a very good day with stable vital signs, no fever. It seems of though her restlessness and combative behavior may have been related to drug withdrawal. She is gotten more narcotic today and has been normotensive with a mild tachycardia. She is voiding very well and has had no further stools; there has been no passage of rectal blood for the past 24 hours. Her electrolytes have normalized, her hemoglobin is within normal limits, and her INR is nearing a therapeutic level. She was started on Levophed during the night by the hospitalist. This was discontinued this evening. She was given a fluid bolus at the time the Levophed was discontinued. She has remained normotensive. Current problems: 1) Anemia, resolved. Hgb = 9.1 this morning recheck CBC in the AM 2) Hyperkalemia, resolved. Recheck in the AM 3) INR 4.5 Recheck in the AM 4) General Fluids: patient getting maintenance fluids at 75 mL/hour with fluid bolus as needed for pressure maintenance. Pressors: Levophed stopped at 1900, 500 mL fluid bolus given at 1900; BP stable. Pain: Patient restarted on Fentanyl 50 mcg patch this morning. Given IV Morphine for breakthrough pain as needed. Also has IV Ativan for anxiety as needed. Urine output excellent; no stool in 24 hours. Patient alert and oriented when awake. Will take sips of clear liquids. I have continued efforts to find bed placement for this patient. She does require critical care admission with a GI surgical consult. She has again been denied by the [facility], [facility], [facility], [facility] and [facility] in [place]. Additionally hospital administration has contacted other [facility] facilities in the region and has been unable to locate a bed. If patient continues to do well, she could potentially be discharged to home and follow up with her regular GI surgeon, Krystle, in [place]. 01/08/21 06:46 Vital signs of been stable through the night and she has been off Levophed since approximately 1900 last night. She has not had a fever. She is voiding well and has had no further stools in approximately 36 hours. Her pain appears to be well controlled and she is sleeping well. She will wake, ask a coherent question and then go back to sleep. General: Alert to voice, arousable. HEENT: Normocephalic, pupils equal round reactive to light. Neck: Supple Chest: Symmetric with easy respirations bilaterally. Pulmonary breath sounds clear and equal Cardiac normal S1-S2, no murmur. Abdomen, soft, nondistended, nontender. Bowel sounds absent in all 4 quadrants. Peripheral pulses intact, distal CMS normal. 1) Anemia, resolved. 2) Hyperkalemia, resolved. 3) INR, approaching therapeutic levels. 4) General General condition stabilized. Patient will continue to get maintenance fluids. Begin clear liquids today. Resume p.o. meds as tolerated. Admit to inpatient status. Departure - Departure Time of Disposition: 07:00 Disposition: Left Without Being Seen 07 Condition: Fair Clinical Impression: GI bleed, Anemia, Hyperkalemia, Opioid withdrawal - Discharge Information *PRESCRIPTION DRUG MONITORING PROGRAM REVIEWED*: No *COPY OF PRESCRIPTION DRUG MONITORING REPORT IN PATIENT ROJELIO: No Referrals: PCP,None [Primary Care Provider] - Forms: ED Department Discharge Sepsis Event Note (ED) - Focused Exam Vital Signs: Vital Signs Pulse BP 01/07/21 23:30 170 H 86/67 L 01/07/21 19:08 197 H 101/60 - My Orders Last 24 Hours: My Active Orders 01/07/21 08:27 Morphine 8 mg SUBCUT Q4H PRN 01/07/21 08:30 fentaNYL [Duragesic] 50 mcg TRDERM Q72H 01/08/21 05:11 BASIC METABOLIC PANEL,BMP [CHEM] AM CBC WITH AUTO DIFF [HEME] AM INR,PT,PROTHROMBIN TIME [COAG] AM 01/08/21 06:40 Cardiac Monitoring [RC] .As Directed 01/08/21 06:41 Admission Status [Patient Status] [ADT] Routine - Assessment/Plan Last 24 Hours: My Active Orders 01/07/21 08:27 Morphine 8 mg SUBCUT Q4H PRN 01/07/21 08:30 fentaNYL [Duragesic] 50 mcg TRDERM Q72H 01/08/21 05:11 BASIC METABOLIC PANEL,BMP [CHEM] AM CBC WITH AUTO DIFF [HEME] AM INR,PT,PROTHROMBIN TIME [COAG] AM 01/08/21 06:40 Cardiac Monitoring [RC] .As Directed 01/08/21 06:41 Admission Status [Patient Status] [ADT] Routine
[2021-01-06] MEDS ORDERED: Famotidine 20 MG/2 ML SDV IVPUSH ONE (07:42)
[2021-01-06] MEDS ORDERED: Phytonadione 10 MG in Sodium Chloride 0.9% 50 ML IV ONE (07:45)
[2021-01-06] MEDS ORDERED: Lactated Ringers 1,000 ML IV SCH (08:30)
[2021-01-06] MEDS ORDERED: Glucagon,Human Recombinant 1 MG Vial IM PRN (08:59)
[2021-01-06] MEDS ORDERED: Insulin Regular, Human 100 Units/ML 3 ML Vial IV ONE (08:59)
[2021-01-06] MEDS ORDERED: 50% Dextrose in Water 50 ML Syringe IVPUSH PRN (08:59)
[2021-01-06] MEDS: Sodium Chloride 0.9% 10 ML Syringe FLUSH PRN ×3 (09:02→18:35)
--- NOTE | 2021-01-06 09:23 | CT ---
Date of Service: 01/06/21 Clinical Data: bleeding stools UNENHANCED ABDOMEN AND PELVIC CT: Multislice acquisition through the abdomen and pelvis without IV or oral contrast was performed. Comparison is made to a prior exam dated 11/21/19. There are linear densities in both lung bases consistent with linear atelectasis or fibrosis. There is a small calcified nodule in the right lower lobe consistent with prior granulomatous disease. The right pleural effusion on the prior exam has resolved. The heart size is normal. There are cardiac pacer wires in place. There is a small hiatal hernia. There is fluid noted within the distal esophagus. This is probably secondary to GE reflux. The unenhanced liver appears normal. No focal hepatic lesions. The spleen appears normal. The pancreas is mildly atrophic, otherwise unremarkable. There is a stable left adrenal nodule. The right adrenal appears normal. The right and left kidneys appear normal. No nephrocalcinosis or nephrolithiasis. No hydronephrosis or hydroureter. The bladder is fluid filled. It appears normal. Patient is status post right colectomy with an ileocolic anastomosis. There is adjacent fat stranding. There is a small oval-shaped fluid collection noted within the pelvis anteriorly and on the right. It lies inferior to the anastomosis. It also contains gas. A post-op fluid and gas collection or abscess should be considered. No free intraperitoneal gas. No dilated loops of bowel. There is a 2.5 cm oval-shaped fluid collection in the right ovary consistent with a right ovarian cyst. No adenopathy. No aortic aneurysm. There is a fat-containing umbilical hernia. There are surgical changes involving the anterior abdominal wall. There is a mixed density collection adjacent to the right gluteus augustus muscle most likely representing a hematoma. No other significant findings. IMPRESSION: Abnormal exam. See above. The patient's physician was notified of the findings by telephone and by [facility] preliminary radiology report. [id number] [facility]
--- NOTE | 2021-01-06 10:31 | PCM.CONSN ---
- General Info Date of Service: 01/06/21 - Patient Data Vitals - Most Recent: Last Vital Signs Temp 2.5 C L 01/06/21 10:18 Pulse 121 H 01/06/21 10:18 Resp 18 01/06/21 10:18 BP 81/36 L 01/06/21 10:18 Pulse Ox 100 01/06/21 10:18 Weight - Most Recent: 58.06 kg I&O - Last 24 Hours: Intake & Output 01/05/21 01/06/21 01/06/21 22:59 06:59 14:59 Intake Total 0 Balance 0 Lab Results Last 24 Hours: Laboratory Results - last 24 hr 01/06/21 01/06/21 01/06/21 Range/Units 06:20 06:20 06:20 WBC 16.3 H D (4.0-11.0) K/uL RBC 1.83 L (3.80-5.80) M/uL Hgb 4.9 L* D (11.5-16.5) g/dL Hct 16.0 L* D (37.0-47.0) % MCV 87 (76-96) fL MCH 26.8 L (27.0-32.0) pg MCHC 30.6 L (31.0-35.0) g/dL RDW 18.6 H (11.0-16.0) % Plt Count 408 (150-500) K/uL MPV 10.4 H (6.0-10.0) fL Neut % (Auto) 82.9 H (45.0-70.0) % Lymph % (Auto) 11.3 L (20.0-40.0) % [place] % (Auto) 5.6 (3.0-10.0) % Eos % (Auto) 0.1 L (1.0-5.0) % Baso % (Auto) 0.1 (0.0-0.5) % Neut # (Auto) 13.56 H (2.00-7.50) K/uL Lymph # (Auto) 1.84 (1.50-4.00) K/uL [place] # (Auto) 0.92 H (0.20-0.80) K/uL Eos # (Auto) 0.01 L (0.04-0.40) K/uL Baso # (Auto) 0.01 L (0.02-0.10) K/uL PT > 93.9 H D (9.0-11.5) sec INR > 10.0 H* D (1.0-3.5) Sodium 134 L (136-145) mmol/L Potassium 6.4 H* D (3.5-5.1) mmol/L Chloride 104 (98-107) mmol/L Carbon Dioxide 19.8 L D (21.0-32.0) mmol/L Anion Gap 16.6 H (5.0-15.0) mmol/L BUN 90 H* D (8-26) mg/dL Creatinine 2.82 H D (0.55-1.02) mg/dL Est Cr Clr Drug Dosing 21.63 mL/min Estimated GFR (MDRD) 18 L (>60) MLS/MIN BUN/Creatinine Ratio 31.9 H (6-25) Glucose 118 H (74-100) mg/dL Calcium 8.8 (8.5-10.1) mg/dL Blood Type Gel Antibody Screen Crossmatch 01/06/21 01/06/21 Range/Units 07:00 09:19 WBC (4.0-11.0) K/uL RBC (3.80-5.80) M/uL Hgb (11.5-16.5) g/dL Hct (37.0-47.0) % MCV (76-96) fL MCH (27.0-32.0) pg MCHC (31.0-35.0) g/dL RDW (11.0-16.0) % Plt Count (150-500) K/uL MPV (6.0-10.0) fL Neut % (Auto) (45.0-70.0) % Lymph % (Auto) (20.0-40.0) % [place] % (Auto) (3.0-10.0) % Eos % (Auto) (1.0-5.0) % Baso % (Auto) (0.0-0.5) % Neut # (Auto) (2.00-7.50) K/uL Lymph # (Auto) (1.50-4.00) K/uL [place] # (Auto) (0.20-0.80) K/uL Eos # (Auto) (0.04-0.40) K/uL Baso # (Auto) (0.02-0.10) K/uL PT (9.0-11.5) sec INR (1.0-3.5) Sodium (136-145) mmol/L Potassium 5.7 H (3.5-5.1) mmol/L Chloride (98-107) mmol/L Carbon Dioxide (21.0-32.0) mmol/L Anion Gap (5.0-15.0) mmol/L BUN (8-26) mg/dL Creatinine (0.55-1.02) mg/dL Est Cr Clr Drug Dosing mL/min Estimated GFR (MDRD) (>60) MLS/MIN BUN/Creatinine Ratio (6-25) Glucose (74-100) mg/dL Calcium (8.5-10.1) mg/dL Blood Type O NEGATIVE Gel Antibody Screen Negative Crossmatch See Detail Med Orders - Current: Current Medications Dextrose/Water (50% Dextrose In Water 50 Ml Syringe) 50 ml IVPUSH ASDIRECTED PRN PRN Reason: Hypoglycemia Last Admin: 01/06/21 09:13 Dose: 50 ml Documented by: Sodium Chloride (Normal Saline) 1,000 mls @ 999 mls/hr IV ASDIRECTED YARELI Last Infusion: 01/06/21 08:33 Dose: Infused Documented by: Sodium Chloride (Sodium Chloride 0.9% 10 Ml Syringe) 10 ml FLUSH ASDIRECTED PRN PRN Reason: Keep Vein Open Last Admin: 01/06/21 09:02 Dose: 10 ml Documented by: Discontinued Medications Famotidine (Famotidine 20 Mg/2 Ml Sdv) 20 mg IVPUSH ONETIME ONE Stop: 01/06/21 07:43 Last Admin: 01/06/21 08:52 Dose: 20 mg Documented by: Glucagon (Glucagon,Human Recombinant 1 Mg Vial) 1 mg IM ASDIRECTED PRN PRN Reason: Hypoglycemia Phytonadione 10 mg/ Sodium (Chloride) 51 mls @ 100 mls/hr IV NOW ONE Stop: 01/06/21 08:15 Last Admin: 01/06/21 08:30 Dose: 100 mls/hr Documented by: Lactated Ringer's (Ringers, Lactated) 1,000 mls @ 100 mls/hr IV ASDIRECTED [facility] Last Admin: 01/06/21 09:02 Dose: 100 mls/hr Documented by: Insulin Human Regular (Insulin Regular, Human 100 Units/Ml 3 Ml Vial) 10 unit IV ONETIME ONE Stop: 01/06/21 09:00 Last Admin: 01/06/21 09:10 Dose: 10 units Documented by: Pantoprazole Sodium (Pantoprazole 40 Mg Vial) 40 mg IVPUSH ONETIME ONE Stop: 01/06/21 05:53 Last Admin: 01/06/21 07:22 Dose: 40 mg Documented by: Phytonadione (Phytonadione 10 Mg/1 Ml Amp) Confirm Administered Dose 10 mg . ROUTE .STK-MED ONE Stop: 01/06/21 08:18 Last Admin: 01/06/21 08:32 Dose: Not Given Documented by: Phytonadione (Phytonadione 10 Mg/1 Ml Amp) Confirm Administered Dose 10 mg .ROUTE .STK-MED ONE Stop: 01/06/21 08:24 Last Admin: 01/06/21 08:32 Dose: Not Given Documented by: Sepsis Event Note - Evaluation Sepsis Screening Result: No Definite Risk - Focused Exam Vital Signs: Vital Signs Temp Temp Temp Pulse Resp BP BP 01/06/21 10:18 2.5 C L 121 H 18 81/36 L 01/06/21 09:52 71/43 L 01/06/21 09:48 2.5 C L 59 L 16 62/41 L 01/06/21 09:46 2.5 C L 60 16 62/41 L 01/06/21 05:35 36.5 C 88 16 79/59 L Pulse Ox 01/06/21 10:18 100 01/06/21 09:52 01/06/21 09:48 100 01/06/21 09:46 01/06/21 05:35 94 L Consult PN Assessment/Plan Procedures: Procedures ASSAY OF ACTH (11/30/18) ASSAY OF ALDOSTERONE (07/07/16) ASSAY OF C-PEPTIDE (12/16/16) ASSAY OF CREATININE (05/19/20) ASSAY OF LACTIC ACID (07/29/19) ASSAY OF MAGNESIUM (11/21/19) ASSAY OF METANEPHRINES (04/17/18) ASSAY OF NATRIURETIC PEPTIDE (11/30/18) ASSAY OF SERUM POTASSIUM (05/19/20) ASSAY OF SERUM SODIUM (05/19/20) ASSAY OF TROPONIN QUANT (03/25/20) ASSAY OF UREA NITROGEN (05/19/20) ASSAY OF URINE CREATININE (04/17/18) ASSAY THREE CATECHOLAMINES (04/17/18) ASSAY THYROID STIM HORMONE (11/30/18) BLOOD CULTURE FOR BACTERIA (11/30/18) BLOOD GASES ANY COMBINATION (07/09/19) BLOOD PH (11/30/18) BLOOD TRANSFUSION SERVICE (07/09/19) BLOOD TYPING SEROLOGIC ABO (07/09/19) BLOOD TYPING SEROLOGIC RH(D) (07/09/19) C DIFF AMPLIFIED PROBE (04/13/16) C-REACTIVE PROTEIN (11/21/19) C-REACTIVE PROTEIN HS (09/10/15) CARDIAC REHAB/MONITOR (12/02/15) CHEST X-RAY 1 VIEW FRONTAL (10/22/16) CHEST X-RAY 2VW FRONTAL&LATL (09/10/15) COMPATIBILITY TEST ANTIGLOB (07/09/19) COMPATIBILITY TEST SPIN (07/09/19) COMPLETE CBC AUTOMATED (03/25/20) COMPLETE CBC W/AUTO DIFF WBC (12/29/20) COMPREHEN METABOLIC PANEL (03/25/20) CT ABD & PELV W/CONTRAST (02/02/18) CT ABD & PELVIS W/O CONTRAST (11/21/19) CT PELVIS W/O DYE (01/28/19) CT SCAN FOR NEEDLE BIOPSY (08/06/15) CT THORAX DX C+ (10/22/16) CT THORAX DX C- (09/25/15) CYTOPATH FL NONGYN SMEARS (04/13/18) ELECTROCARDIOGRAM TRACING (03/25/20) EMERGENCY DEPT VISIT (12/12/20) EMERGENCY DEPT VISIT (07/12/20) EMERGENCY DEPT VISIT (03/25/20) EMERGENCY DEPT VISIT (03/25/20) EMERGENCY DEPT VISIT (11/21/19) EMERGENCY DEPT VISIT (07/29/19) EMERGENCY DEPT VISIT (07/17/19) EMERGENCY DEPT VISIT (07/17/19) EMERGENCY DEPT VISIT (07/09/19) EMERGENCY DEPT VISIT (05/25/19) EMERGENCY DEPT VISIT (01/28/19) EMERGENCY DEPT VISIT (01/28/19) EMERGENCY DEPT VISIT (01/01/19) EMERGENCY DEPT VISIT (11/30/18) EMERGENCY DEPT VISIT (08/02/17) EMERGENCY DEPT VISIT (10/22/16) EMERGENCY DEPT VISIT (08/01/16) EMERGENCY DEPT VISIT (09/29/15) FIBRIN DEGRADATION QUANT (10/22/16) GAIT TRAINING THERAPY (10/01/19) GLUCOSE BLOOD TEST (07/17/19) GLYCOSYLATED HEMOGLOBIN TEST (10/08/19) HEMATOCRIT (04/27/19) HEMOGLOBIN (04/27/19) HYDRATE IV INFUSION ADD-ON (01/01/19) HYDRATION IV INFUSION INIT (01/01/19) INSERT TEMP BLADDER CATH (07/29/19) LACTATE (LD) (LDH) ENZYME (07/29/19) METABOLIC PANEL TOTAL CA (12/29/20) MICROBE SUSCEPTIBLE RAMÓN (07/12/20) MRI CHEST SPINE W/O & W/DYE (01/04/17) MRI CHEST SPINE W/O DYE (01/10/18) MRI LUMBAR SPINE W/O DYE (06/24/16) NJX INTERLAMINAR LMBR/SAC (02/23/18) OT EVAL LOW COMPLEX 30 MIN (07/17/19) OT RE-EVAL EST PLAN CARE (03/26/19) PROTHROMBIN TIME (05/19/20) PT EVAL HIGH COMPLEX 45 MIN (07/17/19) PT EVAL LOW COMPLEX 20 MIN (08/28/19) PT EVALUATION (12/25/14) PT RE-EVAL EST PLAN CARE (04/27/19) RBC ANTIBODY SCREEN (07/09/19) RBC SED RATE NONAUTOMATED (11/21/19) ROUTINE VENIPUNCTURE (12/29/20) RPR S/N/AX/GEN/TRNK 2.5CM/< (05/25/19) SARS-COV-2 COVID-19 AMP PRB (07/29/19) SELF CARE MNGMENT TRAINING (07/17/19) THER/DIAG CONCURRENT INF (07/29/19) THER/PROPH/DIAG INJ IV PUSH (01/28/19) THER/PROPH/DIAG INJ SC/IM (08/04/20) THER/PROPH/DIAG IV INF ADDON (11/21/19) THER/PROPH/DIAG IV INF INIT (11/21/19) THERAPEUTIC ACTIVITIES (07/17/19) THERAPEUTIC EXERCISES (10/01/19) TOTAL CORTISOL (11/30/18) TX/PRO/DX INJ NEW DRUG ADDON (11/21/19) TX/PRO/DX INJ SAME DRUG SPRAY BOOTH OPERATOR (11/21/19) URINALYSIS AUTO W/O SCOPE (11/30/18) URINALYSIS AUTO W/SCOPE (12/29/20) URINE BACTERIA CULTURE (07/12/20) URINE CULTURE/COLONY COUNT (12/29/20) VITAMIN D 25 HYDROXY (01/08/19) WITHDRAWAL OF ARTERIAL BLOOD (07/09/19) X-RAY EXAM CHEST 1 VIEW (11/21/19) X-RAY EXAM CHEST 2 VIEWS (08/02/17) X-RAY EXAM HIP UNI 2-3 VIEWS (01/28/19) X-RAY EXAM L-S SPINE 2/3 VWS (07/03/19) X-RAY EXAM OF ABDOMEN (09/29/15) X-RAY EXAM THORAC SPINE 3VWS (07/03/19) (1) Acute renal failure (ARF) SNOMED Code(s): 46150446 Code(s): N17.9 - ACUTE KIDNEY FAILURE, UNSPECIFIED Priority: High Current Visit: No Qualifiers: Acute renal failure type: unspecified Qualified Code(s): N17.9 - Acute kidney failure, unspecified Assessment:: [facility]evon [facility] Hospitalist CONSULTATION NOTE: [facility] was contacted by Juana Coppola NP with request of consultation for medical management. Chief complaint: Dark stool Reason for admission: GI bleed HPI and Hospital course: Patient is a 50-year-old female with pmh of CKD, chronic back pain, A. fib on Coumadin, Crohn's status post ostomy and takedown, recent medication overdose who presented to the ED with complaints of maroon stools at home. Patient not evaluated via camera: Vitals reviewed: Last blood pressure 84/60, HR 88, satting well on room air, a febrile Labs reviewed: WBC 16.3, hemoglobin 4.9, hematocrit 16, platelets 408, INR greater than 10, sodium 134, potassium 5.7, chloride 104, bicarb 19, BUN 90, creatinine 2.8 (baseline around 1.8) Recommendations: Based on chart review, information gathered from discussion with local provider, review of labs and imaging as noted above, I recommend the following: #GI bleed #Elevated INR Patient was given 10 mg IV vitamin K, Protonix IV so far. Blood pressures 80s over 60s which appear to be baseline for patient. Heart rate is in the 80s. She is not symptomatic per local provider. -Agree with Protonix 40 mg IV twice daily -Stat transfusion of 2 units of PRBCs. Follow-up repeat hemoglobin after transfusion -Obtain repeat hemoglobin, INR, BMP at noon -Consider giving FFP's if patient continues to have bleeding, becomes hemodynamically unstable -Hold Entresto, metoprolol, warfarin -Hold aspirin or other antiplatelets or anticoagulation. No pharmacologic DVT prophylaxis -Needs urgent GI consult/transfer to higher level of care - efforts currently underway #Hyperkalemia #RUPAL on CKD Was given IV fluid bolus and gentle IV fluids. -Give stat 10 IU regular Insulin IV + 1 amp of dextrose -Holding off on kayexelate at this time given her GI issues -Recheck K at noon, if above 6, would recommend one dose of kayexelate and using lasix/albuterol -Obtain EKG, rule out changes from hyperkalemia -Continue to monitor on Telemetry -Would reassess volume status and hold off versus continue gentle IV fluids if RUPAL start to be prerenal. -Obtain repeat BMP at noon #On anticoagulation: Hold metoprolol in light of soft blood pressures, hold Coumadin GI bleed #Diabetes: Hold Farxiga, use sliding scale insulin for now. #Chronic back pain, recent medication overdose: Judicious use of pain medications Discussed above plan with local provider. Thank you for including Kevon [facility]ox Hospitalist in the patients care. This service is available for further assistance as requested by your care team by calling [phone]. Problem List Initiated/Reviewed/Updated: Yes
[2021-01-06] MEDS ORDERED: Metoprolol Tartrate 5 MG/5 ML SDV ONE ×2 (13:04→21:52)
[2021-01-06] MEDS ORDERED: Metoprolol Tartrate 5 MG/5 ML SDV IVPUSH ONE ×3 (13:48→21:27)
[2021-01-06] MEDS ORDERED: Sodium Chloride 0.9% 10 ML Syringe FLUSH PRN (14:41)
[2021-01-06] MEDS: Sodium Chloride 0.9% 500 ML IV SCH ×2 (15:15→19:00)
[2021-01-06] MEDS: Morphine 4 MG/ML VIAL IVPUSH PRN ×3 (16:00→21:09)
[2021-01-06] MEDS ORDERED: LORazepam 2 MG/ML SDV IVPUSH ONE (18:27)
[2021-01-06] MEDS ORDERED: LORazepam 2 MG/ML SDV ONE (18:30)
[2021-01-07] MEDS: Dextrose 5%-0.45% NaCl 1,000 ML IV SCH ×3 (00:10→21:00)
[2021-01-07] MEDS ORDERED: Metoprolol Tartrate 5 MG/5 ML SDV ONE ×2 (00:12→23:20)
[2021-01-07] MEDS: Morphine 4 MG/ML VIAL IVPUSH PRN ×4 (00:23→07:45)
[2021-01-07] MEDS: LORazepam 2 MG/ML SDV IVPUSH PRN ×4 (01:36→20:20)
[2021-01-07] MEDS ORDERED: Haloperidol Lactate 5 MG/ML SDV IVPUSH ONE (02:32)
[2021-01-07] MEDS ORDERED: Haloperidol Lactate 5 MG/ML SDV ONE (02:34)
[2021-01-07] MEDS ORDERED: Sodium Chloride 0.9% 1,000 ML IV SCH (02:45)
[2021-01-07] MEDS ORDERED: Norepinephrine 4 MG in Dextrose 5% in Water 246 ML IV SCH ×2 (04:15)
--- NOTE | 2021-01-07 04:15 | PCM.PN ---
- General Info Date of Service: 01/07/21 Subjective Update: Kevon Majano Hospitalist Cross Cover Note eHospitalist was contacted by Juana Coppola with concern of patient being combative with hypotension systolics in the 80s and tachycardia normal sinus of 160s. I recommended to the provider to bolus of 500 cc of normal saline x1, recheck H&H, administered 2 mg of Haldol. I then evaluated the patient via video and at the time of my encounter the patient systolic blood pressure was in the 50s and saturation was 88% on room air. I therefore instructed the nurses to place the patient on 4 L nasal cannula and to begin pressors. I was unable to complete an examination because the [facility] battery was low. - Patient Data Vitals - Most Recent: Last Vital Signs Temp 36.8 C 01/06/21 13:19 Pulse 190 H 01/07/21 02:00 Resp 16 01/06/21 13:19 BP 72/32 L 01/07/21 02:00 Pulse Ox 100 01/06/21 13:19 Weight - Most Recent: 58.06 kg I&O - Last 24 Hours: Intake & Output 01/06/21 01/06/21 01/07/21 14:59 22:59 06:59 Intake Total 390 390 Balance 390 390 Lab Results Last 24 Hours: Laboratory Results - last 24 hr 01/06/21 01/06/21 01/06/21 Range/Units 06:20 06:20 06:20 WBC 16.3 H D (4.0-11.0) K/uL RBC 1.83 L (3.80-5.80) M/uL Hgb 4.9 L* D (11.5-16.5) g/dL Hct 16.0 L* D (37.0-47.0) % MCV 87 (76-96) fL MCH 26.8 L (27.0-32.0) pg MCHC 30.6 L (31.0-35.0) g/dL RDW 18.6 H (11.0-16.0) % Plt Count 408 (150-500) K/uL MPV 10.4 H (6.0-10.0) fL Neut % (Auto) 82.9 H (45.0-70.0) % Lymph % (Auto) 11.3 L (20.0-40.0) % Norman % (Auto) 5.6 (3.0-10.0) % Eos % (Auto) 0.1 L (1.0-5.0) % Baso % (Auto) 0.1 (0.0-0.5) % Neut # (Auto) 13.56 H (2.00-7.50) K/uL Lymph # (Auto) 1.84 (1.50-4.00) K/uL Norman # (Auto) 0.92 H (0.20-0.80) K/uL Eos # (Auto) 0.01 L (0.04-0.40) K/uL Baso # (Auto) 0.01 L (0.02-0.10) K/uL PT > 93.9 H D (9.0-11.5) sec INR > 10.0 H* D (1.0-3.5) Sodium 134 L (136-145) mmol/L Potassium 6.4 H* D (3.5-5.1) mmol/L Chloride 104 (98-107) mmol/L Carbon Dioxide 19.8 L D (21.0-32.0) mmol/L Anion Gap 16.6 H (5.0-15.0) mmol/L BUN 90 H* D (8-26) mg/dL Creatinine 2.82 H D (0.55-1.02) mg/dL Est Cr Clr Drug Dosing 21.63 mL/min Estimated GFR (MDRD) 18 L (>60) MLS/MIN BUN/Creatinine Ratio 31.9 H (6-25) Glucose 118 H (74-100) mg/dL Lactic Acid (0.4-2.0) mmol/L Calcium 8.8 (8.5-10.1) mg/dL SARS-CoV-2 RNA (YUE) (NEGATIVE) Blood Type Gel Antibody Screen Crossmatch 01/06/21 01/06/21 01/06/21 Range/Units 07:00 09:19 11:55 WBC (4.0-11.0) K/uL RBC (3.80-5.80) M/uL Hgb (11.5-16.5) g/dL Hct (37.0-47.0) % MCV (76-96) fL MCH (27.0-32.0) pg MCHC (31.0-35.0) g/dL RDW (11.0-16.0) % Plt Count (150-500) K/uL MPV (6.0-10.0) fL Neut % (Auto) (45.0-70.0) % Lymph % (Auto) (20.0-40.0) % Norman % (Auto) (3.0-10.0) % Eos % (Auto) (1.0-5.0) % Baso % (Auto) (0.0-0.5) % Neut # (Auto) (2.00-7.50) K/uL Lymph # (Auto) (1.50-4.00) K/uL Norman # (Auto) (0.20-0.80) K/uL Eos # (Auto) (0.04-0.40) K/uL Baso # (Auto) (0.02-0.10) K/uL PT (9.0-11.5) sec INR (1.0-3.5) Sodium 136 (136-145) mmol/L Potassium 5.7 H 5.4 H (3.5-5.1) mmol/L Chloride 108 H (98-107) mmol/L Carbon Dioxide 19.0 L (21.0-32.0) mmol/L Anion Gap 14.4 (5.0-15.0) mmol/L BUN 86 H* (8-26) mg/dL Creatinine 2.72 H (0.55-1.02) mg/dL Est Cr Clr Drug Dosing 22.43 mL/min Estimated GFR (MDRD) 18 L (>60) MLS/MIN BUN/Creatinine Ratio 31.6 H (6-25) Glucose 64 L D (74-100) mg/dL Lactic Acid (0.4-2.0) mmol/L Calcium 8.2 L (8.5-10.1) mg/dL SARS-CoV-2 RNA (YUE) (NEGATIVE) Blood Type O NEGATIVE Gel Antibody Screen Negative Crossmatch See Detail 01/06/21 01/06/21 01/06/21 Range/Units 11:55 12:30 12:50 WBC 19.9 H D (4.0-11.0) K/uL RBC 2.10 L (3.80-5.80) M/uL Hgb 6.0 L* D (11.5-16.5) g/dL Hct 19.3 L* D (37.0-47.0) % MCV 92 (76-96) fL MCH 28.6 (27.0-32.0) pg MCHC 31.1 (31.0-35.0) g/dL RDW 18.8 H (11.0-16.0) % Plt Count 379 (150-500) K/uL MPV 10.3 H (6.0-10.0) fL Neut % (Auto) 84.2 H (45.0-70.0) % Lymph % (Auto) 10.0 L (20.0-40.0) % Norman % (Auto) 5.6 (3.0-10.0) % Eos % (Auto) 0.1 L (1.0-5.0) % Baso % (Auto) 0.1 (0.0-0.5) % Neut # (Auto) 16.76 H (2.00-7.50) K/uL Lymph # (Auto) 1.99 (1.50-4.00) K/uL Norman # (Auto) 1.12 H (0.20-0.80) K/uL Eos # (Auto) 0.02 L (0.04-0.40) K/uL Baso # (Auto) 0.02 (0.02-0.10) K/uL PT 94.7 H (9.0-11.5) sec INR 9.6 H* (1.0-3.5) Sodium (136-145) mmol/L Potassium (3.5-5.1) mmol/L Chloride (98-107) mmol/L Carbon Dioxide (21.0-32.0) mmol/L Anion Gap (5.0-15.0) mmol/L BUN (8-26) mg/dL Creatinine (0.55-1.02) mg/dL Est Cr Clr Drug Dosing mL/min Estimated GFR (MDRD) (>60) MLS/MIN BUN/Creatinine Ratio (6-25) Glucose (74-100) mg/dL Lactic Acid 2.4 H (0.4-2.0) mmol/L Calcium (8.5-10.1) mg/dL SARS-CoV-2 RNA (YUE) (NEGATIVE) Blood Type Gel Antibody Screen Crossmatch 01/06/21 01/06/21 01/06/21 Range/Units 13:53 16:00 16:00 WBC 16.7 H (4.0-11.0) K/uL RBC 2.51 L (3.80-5.80) M/uL Hgb 7.2 L (11.5-16.5) g/dL Hct 22.4 L (37.0-47.0) % MCV 89 (76-96) fL MCH 28.7 (27.0-32.0) pg MCHC 32.1 (31.0-35.0) g/dL RDW 16.7 H (11.0-16.0) % Plt Count 322 (150-500) K/uL MPV 10.3 H (6.0-10.0) fL Neut % (Auto) 81.1 H (45.0-70.0) % Lymph % (Auto) 13.5 L (20.0-40.0) % Norman % (Auto) 5.2 (3.0-10.0) % Eos % (Auto) 0.1 L (1.0-5.0) % Baso % (Auto) 0.1 (0.0-0.5) % Neut # (Auto) 13.57 H (2.00-7.50) K/uL Lymph # (Auto) 2.26 (1.50-4.00) K/uL Norman # (Auto) 0.87 H (0.20-0.80) K/uL Eos # (Auto) 0.02 L (0.04-0.40) K/uL Baso # (Auto) 0.01 L (0.02-0.10) K/uL PT 66.7 H D (9.0-11.5) sec INR 7.3 H* D (1.0-3.5) Sodium (136-145) mmol/L Potassium (3.5-5.1) mmol/L Chloride (98-107) mmol/L Carbon Dioxide (21.0-32.0) mmol/L Anion Gap (5.0-15.0) mmol/L BUN (8-26) mg/dL Creatinine (0.55-1.02) mg/dL Est Cr Clr Drug Dosing mL/min Estimated GFR (MDRD) (>60) MLS/MIN BUN/Creatinine Ratio (6-25) Glucose (74-100) mg/dL Lactic Acid (0.4-2.0) mmol/L Calcium (8.5-10.1) mg/dL SARS-CoV-2 RNA (YUE) Negative (NEGATIVE) Blood Type Gel Antibody Screen Crossmatch 01/06/21 01/06/21 01/06/21 Range/Units 16:00 21:00 21:00 WBC 18.3 H (4.0-11.0) K/uL RBC 3.04 L (3.80-5.80) M/uL Hgb 8.9 L D (11.5-16.5) g/dL Hct 27.1 L D (37.0-47.0) % MCV 89 (76-96) fL MCH 29.3 (27.0-32.0) pg MCHC 32.8 (31.0-35.0) g/dL RDW 16.5 H (11.0-16.0) % Plt Count 280 (150-500) K/uL MPV 10.3 H (6.0-10.0) fL Neut % (Auto) 76.7 H (45.0-70.0) % Lymph % (Auto) 15.6 L (20.0-40.0) % Norman % (Auto) 7.4 (3.0-10.0) % Eos % (Auto) 0.2 L (1.0-5.0) % Baso % (Auto) 0.1 (0.0-0.5) % Neut # (Auto) 14.00 H (2.00-7.50) K/uL Lymph # (Auto) 2.85 (1.50-4.00) K/uL Norman # (Auto) 1.36 H (0.20-0.80) K/uL Eos # (Auto) 0.03 L (0.04-0.40) K/uL Baso # (Auto) 0.02 (0.02-0.10) K/uL PT (9.0-11.5) sec INR (1.0-3.5) Sodium 137 137 (136-145) mmol/L Potassium 5.2 H 5.4 H (3.5-5.1) mmol/L Chloride 111 H 112 H (98-107) mmol/L Carbon Dioxide 17.8 L 15.6 L (21.0-32.0) mmol/L Anion Gap 13.4 14.8 (5.0-15.0) mmol/L BUN 83 H* 76 H* (8-26) mg/dL Creatinine 2.52 H 2.33 H (0.55-1.02) mg/dL Est Cr Clr Drug Dosing 24.21 26.18 mL/min Estimated GFR (MDRD) 20 L 22 L (>60) MLS/MIN BUN/Creatinine Ratio 32.9 H 32.6 H (6-25) Glucose 91 D 92 (74-100) mg/dL Lactic Acid (0.4-2.0) mmol/L Calcium 8.0 L 8.4 L (8.5-10.1) mg/dL SARS-CoV-2 RNA (YUE) (NEGATIVE) Blood Type Gel Antibody Screen Crossmatch 01/07/21 Range/Units 02:45 WBC (4.0-11.0) K/uL RBC (3.80-5.80) M/uL Hgb 8.6 L (11.5-16.5) g/dL Hct 26.3 L (37.0-47.0) % MCV (76-96) fL MCH (27.0-32.0) pg MCHC (31.0-35.0) g/dL RDW (11.0-16.0) % Plt Count (150-500) K/uL MPV (6.0-10.0) fL Neut % (Auto) (45.0-70.0) % Lymph % (Auto) (20.0-40.0) % Norman % (Auto) (3.0-10.0) % Eos % (Auto) (1.0-5.0) % Baso % (Auto) (0.0-0.5) % Neut # (Auto) (2.00-7.50) K/uL Lymph # (Auto) (1.50-4.00) K/uL Norman # (Auto) (0.20-0.80) K/uL Eos # (Auto) (0.04-0.40) K/uL Baso # (Auto) (0.02-0.10) K/uL PT (9.0-11.5) sec INR (1.0-3.5) Sodium (136-145) mmol/L Potassium (3.5-5.1) mmol/L Chloride (98-107) mmol/L Carbon Dioxide (21.0-32.0) mmol/L Anion Gap (5.0-15.0) mmol/L BUN (8-26) mg/dL Creatinine (0.55-1.02) mg/dL Est Cr Clr Drug Dosing mL/min Estimated GFR (MDRD) (>60) MLS/MIN BUN/Creatinine Ratio (6-25) Glucose (74-100) mg/dL Lactic Acid (0.4-2.0) mmol/L Calcium (8.5-10.1) mg/dL SARS-CoV-2 RNA (YUE) (NEGATIVE) Blood Type Gel Antibody Screen Crossmatch Med Orders - Current: Current Medications Dextrose/Water (50% Dextrose In Water 50 Ml Syringe) 50 ml IVPUSH ASDIRECTED PRN PRN Reason: Hypoglycemia Last Admin: 01/06/21 09:13 Dose: 50 ml Documented by: Sodium Chloride (Normal Saline) 1,000 mls @ 999 mls/hr IV ASDIRECTED YARELI Last Infusion: 01/06/21 08:33 Dose: Infused Documented by: Sodium Chloride (Normal Saline) 500 mls @ 500 mls/hr IV ASDIRECTED YARELI Last Admin: 01/06/21 19:00 Dose: 500 mls/hr Documented by: Dextrose/Sodium Chloride (Dextrose 5%-1/2 Ns) 1,000 mls @ 75 mls/hr IV ASDIRECTED YARELI Sodium Chloride (Normal Saline) 1,000 mls @ 500 mls/hr IV ASDIRECTED YARELI Norepinephrine Bitartrate 4 mg (/ Dextrose/Water) 250 mls @ 7.5 mls/hr IV TITRATE YARELI; Protocol Lorazepam (Lorazepam 2 Mg/Ml Sdv) 2 mg IVPUSH Q4H PRN PRN Reason: Anxiety Last Admin: 01/07/21 01:36 Dose: 2 mg Documented by: Morphine Sulfate (Morphine 4 Mg/Ml Vial) 4 mg IVPUSH Q2H PRN PRN Reason: Pain (moderate 4-6) Last Admin: 01/07/21 00:23 Dose: 4 mg Documented by: Sodium Chloride (Sodium Chloride 0.9% 10 Ml Syringe) 10 ml FLUSH ASDIRECTED PRN PRN Reason: Keep Vein Open Last Admin: 01/06/21 18:35 Dose: 10 ml Documented by: Sodium Chloride (Sodium Chloride 0.9% 10 Ml Syringe) 10 ml FLUSH ASDIRECTED PRN PRN Reason: Keep Vein Open Discontinued Medications Famotidine (Famotidine 20 Mg/2 Ml Sdv) 20 mg IVPUSH ONETIME ONE Stop: 01/06/21 07:43 Last Admin: 01/06/21 08:52 Dose: 20 mg Documented by: Glucagon (Glucagon,Human Recombinant 1 Mg Vial) 1 mg IM ASDIRECTED PRN PRN Reason: Hypoglycemia Haloperidol Lactate (Haloperidol Lactate 5 Mg/Ml Sdv) 2 mg IVPUSH ONETIME ONE Stop: 01/07/21 02:33 Haloperidol Lactate (Haloperidol Lactate 5 Mg/Ml Sdv) Confirm Administered Dose 5 mg .ROUTE .STK-MED ONE Stop: 01/07/21 02:35 Phytonadione 10 mg/ Sodium (Chloride) 51 mls @ 100 mls/hr IV NOW ONE Stop: 01/06/21 08:15 Last Admin: 01/06/21 08:30 Dose: 100 mls/hr Documented by: Lactated Ringer's (Ringers, Lactated) 1,000 mls @ 100 mls/hr IV ASDIRECTED YARELI Last Admin: 01/06/21 09:02 Dose: 100 mls/hr Documented by: Insulin Human Regular (Insulin Regular, Human 100 Units/Ml 3 Ml Vial) 10 unit IV ONETIME ONE Stop: 01/06/21 09:00 Last Admin: 01/06/21 09:10 Dose: 10 units Documented by: Lorazepam (Lorazepam 2 Mg/Ml Sdv) 2 mg IVPUSH ONETIME ONE Stop: 01/06/21 18:28 Last Admin: 01/06/21 18:34 Dose: 2 mg Documented by: Lorazepam (Lorazepam 2 Mg/Ml Sdv) Confirm Administered Dose 2 mg .ROUTE .STK-MED ONE Stop: 01/06/21 18:31 Last Admin: 01/06/21 18:33 Dose: Not Given Documented by: Metoprolol Tartrate (Metoprolol Tartrate 5 Mg/5 Ml Sdv) Confirm Administered Dose 10 mg .ROUTE .STK-MED ONE Stop: 01/06/21 13:05 Last Admin: 01/06/21 13:48 Dose: Not Given Documented by: Metoprolol Tartrate (Metoprolol Tartrate 5 Mg/5 Ml Sdv) 10 mg IVPUSH ONETIME ONE Stop: 01/06/21 13:49 Last Admin: 01/06/21 13:51 Dose: 10 mg Documented by: Metoprolol Tartrate (Metoprolol Tartrate 5 Mg/5 Ml Sdv) 10 mg IVPUSH ONETIME ONE Stop: 01/06/21 15:47 Last Admin: 01/06/21 16:56 Dose: 10 mg Documented by: Metoprolol Tartrate (Metoprolol Tartrate 5 Mg/5 Ml Sdv) 10 mg IVPUSH ONETIME ONE Stop: 01/06/21 21:28 Last Admin: 01/07/21 02:00 Dose: 10 mg Documented by: Metoprolol Tartrate (Metoprolol Tartrate 5 Mg/5 Ml Sdv) Confirm Administered Dose 5 mg .ROUTE .STK-MED ONE Stop: 01/06/21 21:53 Last Admin: 01/07/21 02:02 Dose: Not Given Documented by: Metoprolol Tartrate (Metoprolol Tartrate 5 Mg/5 Ml Sdv) Confirm Administered Dose 5 mg .ROUTE .STK-MED ONE Stop: 01/07/21 00:13 Last Admin: 01/07/21 02:02 Dose: Not Given Documented by: Pantoprazole Sodium (Pantoprazole 40 Mg Vial) 40 mg IVPUSH ONETIME ONE Stop: 01/06/21 05:53 Last Admin: 01/06/21 07:22 Dose: 40 mg Documented by: Phytonadione (Phytonadione 10 Mg/1 Ml Amp) Confirm Administered Dose 10 mg .ROUTE .STK-MED ONE Stop: 01/06/21 08:18 Last Admin: 01/06/21 08:32 Dose: Not Given Documented by: Phytonadione (Phytonadione 10 Mg/1 Ml Amp) Confirm Administered Dose 10 mg .ROUTE .STK-MED ONE Stop: 01/06/21 08:24 Last Admin: 01/06/21 08:32 Dose: Not Given Documented by: Comments:: [Exam (performed via interactive video with assistance of bedside nurse): Ex amination was limited because the [facility] care battery was low General: Somnolent the patient just received Haldol HEENT: Pupils reported ERRL per bedside nursing report Lungs: Clear to auscultation bilaterally without crackle or wheeze per bedside nursing report CV: Regular rate and rhythm without loud murmur rub or gallop per bedside nursing report - Patient Data Lab Results Last 24 hrs: Laboratory Results - last 24 hr 01/06/21 01/06/21 01/06/21 Range/Units 06:20 06:20 06:20 WBC 16.3 H D (4.0-11.0) K/uL RBC 1.83 L (3.80-5.80) M/uL Hgb 4.9 L* D (11.5-16.5) g/dL Hct 16.0 L* D (37.0-47.0) % MCV 87 (76-96) fL MCH 26.8 L (27.0-32.0) pg MCHC 30.6 L (31.0-35.0) g/dL RDW 18.6 H (11.0-16.0) % Plt Count 408 (150-500) K/uL MPV 10.4 H (6.0-10.0) fL Neut % (Auto) 82.9 H (45.0-70.0) % Lymph % (Auto) 11.3 L (20.0-40.0) % Norman % (Auto) 5.6 (3.0-10.0) % Eos % (Auto) 0.1 L (1.0-5.0) % Baso % (Auto) 0.1 (0.0-0.5) % Neut # (Auto) 13.56 H (2.00-7.50) K/uL Lymph # (Auto) 1.84 (1.50-4.00) K/uL Norman # (Auto) 0.92 H (0.20-0.80) K/uL Eos # (Auto) 0.01 L (0.04-0.40) K/uL Baso # (Auto) 0.01 L (0.02-0.10) K/uL PT > 93.9 H D (9.0-11.5) sec INR > 10.0 H* D (1.0-3.5) Sodium 134 L (136-145) mmol/L Potassium 6.4 H* D (3.5-5.1) mmol/L Chloride 104 (98-107) mmol/L Carbon Dioxide 19.8 L D (21.0-32.0) mmol/L Anion Gap 16.6 H (5.0-15.0) mmol/L BUN 90 H* D (8-26) mg/dL Creatinine 2.82 H D (0.55-1.02) mg/dL Est Cr Clr Drug Dosing 21.63 mL/min Estimated GFR (MDRD) 18 L (>60) MLS/MIN BUN/Creatinine Ratio 31.9 H (6-25) Glucose 118 H (74-100) mg/dL Lactic Acid (0.4-2.0) mmol/L Calcium 8.8 (8.5-10.1) mg/dL SARS-CoV-2 RNA (YUE) (NEGATIVE) Blood Type Gel Antibody Screen Crossmatch 01/06/21 01/06/21 01/06/21 Range/Units 07:00 09:19 11:55 WBC (4.0-11.0) K/uL RBC (3.80-5.80) M/uL Hgb (11.5-16.5) g/dL Hct (37.0-47.0) % MCV (76-96) fL MCH (27.0-32.0) pg MCHC (31.0-35.0) g/dL RDW (11.0-16.0) % Plt Count (150-500) K/uL MPV (6.0-10.0) fL Neut % (Auto) (45.0-70.0) % Lymph % (Auto) (20.0-40.0) % Norman % (Auto) (3.0-10.0) % Eos % (Auto) (1.0-5.0) % Baso % (Auto) (0.0-0.5) % Neut # (Auto) (2.00-7.50) K/uL Lymph # (Auto) (1.50-4.00) K/uL Norman # (Auto) (0.20-0.80) K/uL Eos # (Auto) (0.04-0.40) K/uL Baso # (Auto) (0.02-0.10) K/uL PT (9.0-11.5) sec INR (1.0-3.5) Sodium 136 (136-145) mmol/L Potassium 5.7 H 5.4 H (3.5-5.1) mmol/L Chloride 108 H (98-107) mmol/L Carbon Dioxide 19.0 L (21.0-32.0) mmol/L Anion Gap 14.4 (5.0-15.0) mmol/L BUN 86 H* (8-26) mg/dL Creatinine 2.72 H (0.55-1.02) mg/dL Est Cr Clr Drug Dosing 22.43 mL/min Estimated GFR (MDRD) 18 L (>60) MLS/MIN BUN/Creatinine Ratio 31.6 H (6-25) Glucose 64 L D (74-100) mg/dL Lactic Acid (0.4-2.0) mmol/L Calcium 8.2 L (8.5-10.1) mg/dL SARS-CoV-2 RNA (YUE) (NEGATIVE) Blood Type O NEGATIVE Gel Antibody Screen Negative Crossmatch See Detail 01/06/21 01/06/21 01/06/21 Range/Units 11:55 12:30 12:50 WBC 19.9 H D (4.0-11.0) K/uL RBC 2.10 L (3.80-5.80) M/uL Hgb 6.0 L* D (11.5-16.5) g/dL Hct 19.3 L* D (37.0-47.0) % MCV 92 (76-96) fL MCH 28.6 (27.0-32.0) pg MCHC 31.1 (31.0-35.0) g/dL RDW 18.8 H (11.0-16.0) % Plt Count 379 (150-500) K/uL MPV 10.3 H (6.0-10.0) fL Neut % (Auto) 84.2 H (45.0-70.0) % Lymph % (Auto) 10.0 L (20.0-40.0) % Norman % (Auto) 5.6 (3.0-10.0) % Eos % (Auto) 0.1 L (1.0-5.0) % Baso % (Auto) 0.1 (0.0-0.5) % Neut # (Auto) 16.76 H (2.00-7.50) K/uL Lymph # (Auto) 1.99 (1.50-4.00) K/uL Norman # (Auto) 1.12 H (0.20-0.80) K/uL Eos # (Auto) 0.02 L (0.04-0.40) K/uL Baso # (Auto) 0.02 (0.02-0.10) K/uL PT 94.7 H (9.0-11.5) sec INR 9.6 H* (1.0-3.5) Sodium (136-145) mmol/L Potassium (3.5-5.1) mmol/L Chloride (98-107) mmol/L Carbon Dioxide (21.0-32.0) mmol/L Anion Gap (5.0-15.0) mmol/L BUN (8-26) mg/dL Creatinine (0.55-1.02) mg/dL Est Cr Clr Drug Dosing mL/min Estimated GFR (MDRD) (>60) MLS/MIN BUN/Creatinine Ratio (6-25) Glucose (74-100) mg/dL Lactic Acid 2.4 H (0.4-2.0) mmol/L Calcium (8.5-10.1) mg/dL SARS-CoV-2 RNA (YUE) (NEGATIVE) Blood Type Gel Antibody Screen Crossmatch 01/06/21 01/06/21 01/06/21 Range/Units 13:53 16:00 16:00 WBC 16.7 H (4.0-11.0) K/uL RBC 2.51 L (3.80-5.80) M/uL Hgb 7.2 L (11.5-16.5) g/dL Hct 22.4 L (37.0-47.0) % MCV 89 (76-96) fL MCH 28.7 (27.0-32.0) pg MCHC 32.1 (31.0-35.0) g/dL RDW 16.7 H (11.0-16.0) % Plt Count 322 (150-500) K/uL MPV 10.3 H (6.0-10.0) fL Neut % (Auto) 81.1 H (45.0-70.0) % Lymph % (Auto) 13.5 L (20.0-40.0) % Norman % (Auto) 5.2 (3.0-10.0) % Eos % (Auto) 0.1 L (1.0-5.0) % Baso % (Auto) 0.1 (0.0-0.5) % Neut # (Auto) 13.57 H (2.00-7.50) K/uL Lymph # (Auto) 2.26 (1.50-4.00) K/uL Norman # (Auto) 0.87 H (0.20-0.80) K/uL Eos # (Auto) 0.02 L (0.04-0.40) K/uL Baso # (Auto) 0.01 L (0.02-0.10) K/uL PT 66.7 H D (9.0-11.5) sec INR 7.3 H* D (1.0-3.5) Sodium (136-145) mmol/L Potassium (3.5-5.1) mmol/L Chloride (98-107) mmol/L Carbon Dioxide (21.0-32.0) mmol/L Anion Gap (5.0-15.0) mmol/L BUN (8-26) mg/dL Creatinine (0.55-1.02) mg/dL Est Cr Clr Drug Dosing mL/min Estimated GFR (MDRD) (>60) MLS/MIN BUN/Creatinine Ratio (6-25) Glucose (74-100) mg/dL Lactic Acid (0.4-2.0) mmol/L Calcium (8.5-10.1) mg/dL SARS-CoV-2 RNA ([facility]) Negative (NEGATIVE) Blood Type Gel Antibody Screen Crossmatch 01/06/21 01/06/21 01/06/21 Range/Units 16:00 21:00 21:00 WBC 18.3 H (4.0-11.0) K/uL RBC 3.04 L (3.80-5.80) M/uL Hgb 8.9 L D (11.5-16.5) g/dL Hct 27.1 L D (37.0-47.0) % MCV 89 (76-96) fL MCH 29.3 (27.0-32.0) pg MCHC 32.8 (31.0-35.0) g/dL RDW 16.5 H (11.0-16.0) % Plt Count 280 (150-500) K/uL MPV 10.3 H (6.0-10.0) fL Neut % (Auto) 76.7 H (45.0-70.0) % Lymph % (Auto) 15.6 L (20.0-40.0) % Norman % (Auto) 7.4 (3.0-10.0) % Eos % (Auto) 0.2 L (1.0-5.0) % Baso % (Auto) 0.1 (0.0-0.5) % Neut # (Auto) 14.00 H (2.00-7.50) K/uL Lymph # (Auto) 2.85 (1.50-4.00) K/uL Norman # (Auto) 1.36 H (0.20-0.80) K/uL Eos # (Auto) 0.03 L (0.04-0.40) K/uL Baso # (Auto) 0.02 (0.02-0.10) K/uL PT (9.0-11.5) sec INR (1.0-3.5) Sodium 137 137 (136-145) mmol/L Potassium 5.2 H 5.4 H (3.5-5.1) mmol/L Chloride 111 H 112 H (98-107) mmol/L Carbon Dioxide 17.8 L 15.6 L (21.0-32.0) mmol/L Anion Gap 13.4 14.8 (5.0-15.0) mmol/L BUN 83 H* 76 H* (8-26) mg/dL Creatinine 2.52 H 2.33 H (0.55-1.02) mg/dL Est Cr Clr Drug Dosing 24.21 26.18 mL/min Estimated GFR (MDRD) 20 L 22 L (>60) MLS/MIN BUN/Creatinine Ratio 32.9 H 32.6 H (6-25) Glucose 91 D 92 (74-100) mg/dL Lactic Acid (0.4-2.0) mmol/L Calcium 8.0 L 8.4 L (8.5-10.1) mg/dL SARS-CoV-2 RNA ([facility]UE) (NEGATIVE) Blood Type Gel Antibody Screen Crossmatch 01/07/21 Range/Units 02:45 WBC (4.0-11.0) K/uL RBC (3.80-5.80) M/uL Hgb 8.6 L (11.5-16.5) g/dL Hct 26.3 L (37.0-47.0) % MCV (76-96) fL MCH (27.0-32.0) pg MCHC (31.0-35.0) g/dL RDW (11.0-16.0) % Plt Count (150-500) K/uL MPV (6.0-10.0) fL Neut % (Auto) (45.0-70.0) % Lymph % (Auto) (20.0-40.0) % Norman % (Auto) (3.0-10.0) % Eos % (Auto) (1.0-5.0) % Baso % (Auto) (0.0-0.5) % Neut # (Auto) (2.00-7.50) K/uL Lymph # (Auto) (1.50-4.00) K/uL Norman # (Auto) (0.20-0.80) K/uL Eos # (Auto) (0.04-0.40) K/uL Baso # (Auto) (0.02-0.10) K/uL PT (9.0-11.5) sec INR (1.0-3.5) Sodium (136-145) mmol/L Potassium (3.5-5.1) mmol/L Chloride (98-107) mmol/L Carbon Dioxide (21.0-32.0) mmol/L Anion Gap (5.0-15.0) mmol/L BUN (8-26) mg/dL Creatinine (0.55-1.02) mg/dL Est Cr Clr Drug Dosing mL/min Estimated GFR (MDRD) (>60) MLS/MIN BUN/Creatinine Ratio (6-25) Glucose (74-100) mg/dL Lactic Acid (0.4-2.0) mmol/L Calcium (8.5-10.1) mg/dL SARS-CoV-2 RNA ([facility]) (NEGATIVE) Blood Type Gel Antibody Screen Crossmatch Result Diagrams: 01/07/21 02:45 01/06/21 21:00 Sepsis Event Note - Evaluation Sepsis Screening Result: No Definite Risk - Focused Exam Vital Signs: Vital Signs Pulse BP 01/07/21 02:00 190 H 72/32 L 01/06/21 16:56 126 H 78/31 L - Problem List Review Problem List Initiated/Reviewed/Updated: Yes - My Orders Last 24 Hours: My Active Orders 01/07/21 04:15 Norepinephrine [Levophed] 4 mg Dextrose 5% in Water 246 ml IV TITRATE - Assessment Assessment:: Assessment 1. Hypotension-begin norepinephrine. I evaluated the patient on camera for about 30 minutes her systolics at the time of my departure was 68 and I signed out to her primary provider Juana Coppola who assumed care. Thank you for including Kevon Hurst in the patients care. This service is available for further assistance as requested by your care team by calling [phone].
[2021-01-07] MEDS ORDERED: Morphine 4 MG/ML VIAL ONE ×3 (07:52→20:08)
[2021-01-07] MEDS ORDERED: LORazepam 2 MG/ML SDV ONE (07:52)
[2021-01-07] MEDS ORDERED: Metoprolol Tartrate 5 MG/5 ML SDV IVPUSH ONE (08:25)
[2021-01-07] MEDS ORDERED: fentaNYL 50 MCG/HR Transdermal Patch TRDERM SCH (08:30)
[2021-01-07] MEDS ORDERED: fentaNYL 50 MCG/HR Transdermal Patch ONE (08:33)
[2021-01-07] MEDS: Norepinephrine 4 MG in Dextrose 5% in Water 246 ML IV SCH ×2 (17:20)
[2021-01-07] MEDS ORDERED: SODIUM CHLORIDE 0.9% IV ONE (18:57)
[2021-01-07] MEDS ORDERED: METOPROLOL TARTRATE IV ONE (18:57)
[2021-01-07] MEDS: Morphine 10 MG/ML Syringe SUBCUT PRN ×2 (19:50→20:40)
[2021-01-08] MEDS ORDERED: Metoprolol Tartrate 5 MG/5 ML SDV ONE (08:27)
[2021-01-08] MEDS: Metoprolol Tartrate 5 MG/5 ML SDV IVPUSH SCH ×3 (08:30→22:55)
[2021-01-08] MEDS: Dextrose 5%-0.45% NaCl 1,000 ML IV SCH (08:59)
[2021-01-08] MEDS: Morphine 10 MG/ML Syringe SUBCUT PRN (09:00)
[2021-01-08] MEDS: LORazepam 2 MG/ML SDV IVPUSH PRN (09:00)
[2021-01-08] MEDS ORDERED: Morphine 4 MG/ML VIAL ONE (09:06)
[2021-01-08] MEDS ORDERED: Haloperidol Lactate 5 MG/ML SDV ONE ×3 (09:53→10:05)
[2021-01-08] MEDS ORDERED: Morphine 10 MG/ML SDV IV PRN (10:00)
[2021-01-08] MEDS ORDERED: Ketamine 200 MG/20 ML MDV ONE ×2 (10:34→22:54)
[2021-01-08] MEDS ORDERED: Ketamine 200 MG/20 ML MDV IVPUSH ONE ×2 (10:57→22:50)
[2021-01-08] MEDS ORDERED: Sodium Chloride 0.9% 1,000 ML IV SCH (11:00)
[2021-01-08] MEDS: Piperacillin/Tazobactam 3.375 GM in Sodium Chloride 0.9% 100 ML IV SCH ×3 (11:00→23:40)
[2021-01-08] MEDS: Levothyroxine 25 MCG Tab PO SCH (11:36)
[2021-01-08] MEDS: Sodium Chloride 0.9% 10 ML Syringe FLUSH PRN ×3 (12:04→17:20)
[2021-01-08] MEDS: Norepinephrine 4 MG in Dextrose 5% in Water 246 ML IV SCH ×4 (12:06→23:30)
--- NOTE | 2021-01-08 12:37 | PCM.PN ---
- General Info Date of Service: 01/08/21 Admission Dx/Problem (Free Text): GI bleed Subjective Update: Patient continues to have abdominal pain, low blood pressure, weakness. Functional Status: Denies: Pain Controlled - Review of Systems General: Reports: Weakness HEENT: Reports: No Symptoms Pulmonary: Reports: No Symptoms Cardiovascular: Reports: No Symptoms Gastrointestinal: Reports: Abdominal Pain Genitourinary: Reports: Dysuria, Urgency, Incontinence Skin: Reports: No Symptoms Psychiatric: Reports: Confusion - Patient Data Vitals - Most Recent: Last Vital Signs Temp 99.4 F 01/07/21 16:42 Pulse 174 H 01/08/21 09:00 Resp 11 L 01/07/21 18:39 BP 84/40 L 01/08/21 09:00 Pulse Ox 98 01/07/21 18:39 Weight - Most Recent: 128 lb I&O - Last 24 Hours: Intake & Output 01/07/21 01/08/21 01/08/21 22:59 06:59 14:59 Intake Total 1053 Balance 1053 Lab Results Last 24 Hours: Laboratory Results - last 24 hr 01/08/21 01/08/21 01/08/21 Range/Units 08:15 08:15 08:15 WBC 11.2 H (4.0-11.0) K/uL RBC 3.14 L (3.80-5.80) M/uL Hgb 9.0 L (11.5-16.5) g/dL Hct 28.6 L (37.0-47.0) % MCV 91 (76-96) fL MCH 28.7 (27.0-32.0) pg MCHC 31.5 (31.0-35.0) g/dL RDW 18.2 H (11.0-16.0) % Plt Count 233 (150-500) K/uL MPV 9.4 (6.0-10.0) fL Neut % (Auto) 68.4 (45.0-70.0) % Lymph % (Auto) 22.6 (20.0-40.0) % [place] % (Auto) 7.7 (3.0-10.0) % Eos % (Auto) 1.1 (1.0-5.0) % Baso % (Auto) 0.2 (0.0-0.5) % Neut # (Auto) 7.68 H (2.00-7.50) K/uL Lymph # (Auto) 2.54 (1.50-4.00) K/uL [place] # (Auto) 0.87 H (0.20-0.80) K/uL Eos # (Auto) 0.12 (0.04-0.40) K/uL Baso # (Auto) 0.02 (0.02-0.10) K/uL PT 44.1 H (9.0-11.5) sec INR 4.8 H* (1.0-3.5) ABG pH (7.35-7.45) ABG pCO2 (35-45) mmHg ABG pO2 (80-105) mmHg ABG HCO3 (22-26) mmol/L ABG O2 Saturation (95-98) % ABG Base Excess (-2-2) O2 Delivery Device Sodium 141 (136-145) mmol/L Potassium 4.4 (3.5-5.1) mmol/L Chloride 113 H (98-107) mmol/L Carbon Dioxide 19.6 L (21.0-32.0) mmol/L Anion Gap 12.8 (5.0-15.0) mmol/L BUN 36 H D (8-26) mg/dL Creatinine 1.38 H D (0.55-1.02) mg/dL Est Cr Clr Drug Dosing 44.21 mL/min Estimated GFR (MDRD) 40 L (>60) MLS/MIN BUN/Creatinine Ratio 26.1 H (6-25) Glucose 102 H (74-100) mg/dL Lactic Acid (0.4-2.0) mmol/L Calcium 8.3 L (8.5-10.1) mg/dL Total Bilirubin (0.0-1.0) mg/dL Direct Bilirubin (0.0-0.3) mg/dL Indirect Bilirubin (<= 0.7) mg/dL AST (15-37) U/L ALT (12-78) U/L Alkaline Phosphatase (46-116) U/L Troponin I (0.000-0.060) ng/mL Total Protein (6.4-8.2) g/dL Albumin (3.4-5.0) g/dL Globulin (2.2-4.2) g/dL Albumin/Globulin Ratio (0.8-2.0) Lipase (73-393) U/L TSH, Ultra Sensitive (0.358-3.740) uIU/mL 01/08/21 01/08/21 01/08/21 Range/Units 09:36 09:45 11:18 WBC (4.0-11.0) K/uL RBC (3.80-5.80) M/uL Hgb (11.5-16.5) g/dL Hct (37.0-47.0) % MCV (76-96) fL MCH (27.0-32.0) pg MCHC (31.0-35.0) g/dL RDW (11.0-16.0) % Plt Count (150-500) K/uL MPV (6.0-10.0) fL Neut % (Auto) (45.0-70.0) % Lymph % (Auto) (20.0-40.0) % [place] % (Auto) (3.0-10.0) % Eos % (Auto) (1.0-5.0) % Baso % (Auto) (0.0-0.5) % Neut # (Auto) (2.00-7.50) K/uL Lymph # (Auto) (1.50-4.00) K/uL [place] # (Auto) (0.20-0.80) K/uL Eos # (Auto) (0.04-0.40) K/uL Baso # (Auto) (0.02-0.10) K/uL PT (9.0-11.5) sec INR (1.0-3.5) ABG pH 7.31 L (7.35-7.45) ABG pCO2 35.9 (35-45) mmHg ABG pO2 98.8 (80-105) mmHg ABG HCO3 18.0 L (22-26) mmol/L ABG O2 Saturation 97.1 (95-98) % ABG Base Excess -8.3 L (-2-2) O2 Delivery Device Room air Sodium (136-145) mmol/L Potassium (3.5-5.1) mmol/L Chloride (98-107) mmol/L Carbon Dioxide (21.0-32.0) mmol/L Anion Gap (5.0-15.0) mmol/L BUN (8-26) mg/dL Creatinine (0.55-1.02) mg/dL Est Cr Clr Drug Dosing mL/min Estimated GFR (MDRD) (>60) MLS/MIN BUN/Creatinine Ratio (6-25) Glucose (74-100) mg/dL Lactic Acid 1.8 (0.4-2.0) mmol/L Calcium (8.5-10.1) mg/dL Total Bilirubin 0.5 (0.0-1.0) mg/dL Direct Bilirubin 0.1 (0.0-0.3) mg/dL Indirect Bilirubin 0.4 (<= 0.7) mg/dL AST 39 H (15-37) U/L ALT 34 (12-78) U/L Alkaline Phosphatase 89 (46-116) U/L Troponin I < 0.017 (0.000-0.060) ng/mL Total Protein 5.9 L (6.4-8.2) g/dL Albumin 2.1 L (3.4-5.0) g/dL Globulin 3.8 (2.2-4.2) g/dL Albumin/Globulin Ratio 0.6 L (0.8-2.0) Lipase 168 (73-393) U/L TSH, Ultra Sensitive 9.772 H D (0.358-3.740) uIU/mL Med Orders - Current: Current Medications Dextrose/Water (50% Dextrose In Water 50 Ml Syringe) 50 ml IVPUSH ASDIRECTED PRN PRN Reason: Hypoglycemia Last Admin: 01/06/21 09:13 Dose: 50 ml Documented by: Fentanyl (Fentanyl 50 Mcg/Hr Transdermal Patch) 50 mcg TRDERM Q72H [facility] Last Admin: 01/07/21 08:33 Dose: 50 mcg Documented by: Sodium Chloride (Normal Saline) 1,000 mls @ 999 mls/hr IV ASDIRECTED YARELI Last Infusion: 01/06/21 08:33 Dose: Infused Documented by: Sodium Chloride (Normal Saline) 500 mls @ 500 mls/hr IV ASDIRECTED YARELI Last Admin: 01/06/21 19:00 Dose: 500 mls/hr Documented by: Dextrose/Sodium Chloride (Dextrose 5%-1/2 Ns) 1,000 mls @ 75 mls/hr IV ASDIRECTED YARELI Last Admin: 01/08/21 08:59 Dose: 75 mls/hr Documented by: Sodium Chloride (Normal Saline) 1,000 mls @ 500 mls/hr IV ASDIRECTED YARELI Last Infusion: 01/07/21 04:50 Dose: Infused Documented by: Norepinephrine Bitartrate 4 mg (/ Dextrose/Water) 250 mls @ 18.75 mls/hr IV TITRATE YARELI; Protocol Last Admin: 01/08/21 12:06 Dose: 5 mcg/min, 18.75 mls/hr Documented by: Piperacillin Sod/Tazobactam (Sod 3.375 gm/ Sodium Chloride) 100 mls @ 100 mls/hr IV Q6H YARELI Last Admin: 01/08/21 11:00 Dose: 100 mls/hr Documented by: Sodium Chloride (Normal Saline) 1,000 mls @ 999 mls/hr IV ASDIRECTED YARELI Last Admin: 01/08/21 11:00 Dose: 999 mls/hr Documented by: Levothyroxine Sodium (Levothyroxine 25 Mcg Tab) 50 mcg PO ACBREAKFAST [facility] Last Admin: 01/08/21 11:36 Dose: Not Given Documented by: Lorazepam (Lorazepam 2 Mg/Ml Sdv) 2 mg IVPUSH Q4H PRN PRN Reason: Anxiety Last Admin: 01/08/21 09:00 Dose: 2 mg Documented by: Metoprolol Tartrate (Metoprolol Tartrate 5 Mg/5 Ml Sdv) 10 mg IVPUSH ASDIRECTED [facility] Stop: 01/08/21 23:59 Last Admin: 01/08/21 09:00 Dose: 10 mg Documented by: Morphine Sulfate (Morphine 10 Mg/Ml Sdv) 8 mg SUBCUT Q4H PRN PRN Reason: PAIN Sodium Chloride (Sodium Chloride 0.9% 10 Ml Syringe) 10 ml FLUSH ASDIRECTED PRN PRN Reason: Keep Vein Open Last Admin: 01/08/21 12:04 Dose: 10 ml Documented by: Sodium Chloride (Sodium Chloride 0.9% 10 Ml Syringe) 10 ml FLUSH ASDIRECTED PRN PRN Reason: Keep Vein Open Discontinued Medications Famotidine (Famotidine 20 Mg/2 Ml Sdv) 20 mg IVPUSH ONETIME ONE Stop: 01/06/21 07:43 Last Admin: 01/06/21 08:52 Dose: 20 mg Documented by: Fentanyl (Fentanyl 50 Mcg/Hr Transdermal Patch) Confirm Administered Dose 50 mcg .ROUTE .STK-MED ONE Stop: 01/07/21 08:34 Last Admin: 01/07/21 08:38 Dose: Not Given Documented by: Glucagon (Glucagon,Human Recombinant 1 Mg Vial) 1 mg IM ASDIRECTED PRN PRN Reason: Hypoglycemia Haloperidol Lactate (Haloperidol Lactate 5 Mg/Ml Sdv) 2 mg IVPUSH ONETIME ONE Stop: 01/07/21 02:33 Last Admin: 01/07/21 02:36 Dose: 2 mg Documented by: Haloperidol Lactate (Haloperidol Lactate 5 Mg/Ml Sdv) Confirm Administered Dose 5 mg .ROUTE .STK-MED ONE Stop: 01/07/21 02:35 Last Admin: 01/07/21 05:54 Dose: Not Given Documented by: Haloperidol Lactate (Haloperidol Lactate 5 Mg/Ml Sdv) Confirm Administered Dose 5 mg .ROUTE .STK-MED ONE Stop: 01/08/21 09:54 Last Admin: 01/08/21 11:36 Dose: Not Given Documented by: Haloperidol Lactate (Haloperidol Lactate 5 Mg/Ml Sdv) Confirm Administered Dose 5 mg .ROUTE .STK-MED ONE Stop: 01/08/21 10:05 Last Admin: 01/08/21 12:03 Dose: Not Given Documented by: Haloperidol Lactate (Haloperidol Lactate 5 Mg/Ml Sdv) Confirm Administered Dose 5 mg .ROUTE .STK-MED ONE Stop: 01/08/21 10:06 Last Admin: 01/08/21 12:03 Dose: Not Given Documented by: Phytonadione 10 mg/ Sodium (Chloride) 51 mls @ 100 mls/hr IV NOW ONE Stop: 01/06/21 08:15 Last Admin: 01/06/21 08:30 Dose: 100 mls/hr Documented by: Lactated Ringer's (Ringers, Lactated) 1,000 mls @ 100 mls/hr IV ASDIRECTED YARELI Last Admin: 01/06/21 09:02 Dose: 100 mls/hr Documented by: Norepinephrine Bitartrate 4 mg (/ Dextrose/Water) 250 mls @ 7.5 mls/hr IV TITRATE YARELI; Protocol Last Titration: 01/07/21 04:25 Dose: 5 mcg/min, 18.75 mls/hr Documented by: Metoprolol Tartrate 20 mg/ (Sodium Chloride) 70 mls @ 100 mls/hr IV ONETIME ONE Stop: 01/07/21 19:29 Last Admin: 01/07/21 19:08 Dose: 100 mls/hr Documented by: Insulin Human Regular (Insulin Regular, Human 100 Units/Ml 3 Ml Vial) 10 unit IV ONETIME ONE Stop: 01/06/21 09:00 Last Admin: 01/06/21 09:10 Dose: 10 units Documented by: Ketamine HCl (Ketamine 200 Mg/20 Ml Mdv) Confirm Administered Dose 200 mg .ROUTE .STK-MED ONE Stop: 01/08/21 10:35 Last Admin: 01/08/21 12:03 Dose: Not Given Documented by: Ketamine HCl (Ketamine 200 Mg/20 Ml Mdv) 60 mg IVPUSH ONETIME ONE Stop: 01/08/21 10:58 Last Admin: 01/08/21 10:15 Dose: 60 mg Documented by: Lorazepam (Lorazepam 2 Mg/Ml Sdv) 2 mg IVPUSH ONETIME ONE Stop: 01/06/21 18:28 Last Admin: 01/06/21 18:34 Dose: 2 mg Documented by: Lorazepam (Lorazepam 2 Mg/Ml Sdv) Confirm Administered Dose 2 mg .ROUTE .STK-MED ONE Stop: 01/06/21 18:31 Last Admin: 01/06/21 18:33 Dose: Not Given Documented by: Lorazepam (Lorazepam 2 Mg/Ml Sdv) Confirm Administered Dose 2 mg .ROUTE .STK-MED ONE Stop: 01/07/21 07:53 Last Admin: 01/07/21 07:53 Dose: Not Given Documented by: Metoprolol Tartrate (Metoprolol Tartrate 5 Mg/5 Ml Sdv) Confirm Administered Dose 10 mg .ROUTE .STK-MED ONE Stop: 01/06/21 13:05 Last Admin: 01/06/21 13:48 Dose: Not Given Documented by: Metoprolol Tartrate (Metoprolol Tartrate 5 Mg/5 Ml Sdv) 10 mg IVPUSH ONETIME ONE Stop: 01/06/21 13:49 Last Admin: 01/06/21 13:51 Dose: 10 mg Documented by: Metoprolol Tartrate (Metoprolol Tartrate 5 Mg/5 Ml Sdv) 10 mg IVPUSH ONETIME ONE Stop: 01/06/21 15:47 Last Admin: 01/06/21 16:56 Dose: 10 mg Documented by: Metoprolol Tartrate (Metoprolol Tartrate 5 Mg/5 Ml Sdv) 10 mg IVPUSH ONETIME ONE Stop: 01/06/21 21:28 Last Admin: 01/07/21 02:00 Dose: 10 mg Documented by: Metoprolol Tartrate (Metoprolol Tartrate 5 Mg/5 Ml Sdv) Confirm Administered Dose 5 mg .ROUTE .STK-MED ONE Stop: 01/06/21 21:53 Last Admin: 01/07/21 02:02 Dose: Not Given Documented by: Metoprolol Tartrate (Metoprolol Tartrate 5 Mg/5 Ml Sdv) Confirm Administered Dose 5 mg .ROUTE .STK-MED ONE Stop: 01/07/21 00:13 Last Admin: 01/07/21 02:02 Dose: Not Given Documented by: Metoprolol Tartrate (Metoprolol Tartrate 5 Mg/5 Ml Sdv) 20 mg IVPUSH ONETIME ONE Stop: 01/07/21 08:26 Last Admin: 01/07/21 08:44 Dose: 20 mg Documented by: Metoprolol Tartrate (Metoprolol Tartrate 5 Mg/5 Ml Sdv) Confirm Administered D ose 10 mg .ROUTE .STK-MED ONE Stop: 01/07/21 23:21 Last Admin: 01/07/21 23:30 Dose: 2.5 mg Documented by: Metoprolol Tartrate (Metoprolol Tartrate 5 Mg/5 Ml Sdv) Confirm Administered Dose 10 mg .ROUTE .STK-MED ONE Stop: 01/08/21 08:28 Last Admin: 01/08/21 08:46 Dose: Not Given Documented by: Morphine Sulfate (Morphine 4 Mg/Ml Vial) 4 mg IVPUSH Q2H PRN PRN Reason: Pain (moderate 4-6) Last Admin: 01/07/21 07:45 Dose: 4 mg Documented by: Morphine Sulfate (Morphine 4 Mg/Ml Vial) Confirm Administered Dose 4 mg .ROUTE .STK-MED ONE Stop: 01/07/21 07:53 Last Admin: 01/07/21 07:53 Dose: Not Given Documented by: Morphine Sulfate (Morphine 10 Mg/Ml Syringe) 8 mg SUBCUT Q4H PRN PRN Reason: Pain (severe 7-10) Last Admin: 01/08/21 09:00 Dose: 4 mg Documented by: Morphine Sulfate (Morphine 4 Mg/Ml Vial) Confirm Administered Dose 8 mg .ROUTE .STK-MED ONE Stop: 01/07/21 19:32 Last Admin: 01/07/21 19:30 Dose: 4 mg Documented by: Morphine Sulfate (Morphine 4 Mg/Ml Vial) Confirm Administered Dose 4 mg .ROUTE .STK-MED ONE Stop: 01/07/21 20:09 Last Admin: 01/08/21 09:42 Dose: Not Given Documented by: Morphine Sulfate (Morphine 4 Mg/Ml Vial) Confirm Administered Dose 4 mg .ROUTE .STK-MED ONE Stop: 01/08/21 09:07 Last Admin: 01/08/21 11:21 Dose: Not Given Documented by: Morphine Sulfate (Morphine 10 Mg/Ml Sdv) 8 mg IV Q4H PRN PRN Reason: PAIN Pantoprazole Sodium (Pantoprazole 40 Mg Vial) 40 mg IVPUSH ONETIME ONE Stop: 01/06/21 05:53 Last Admin: 01/06/21 07:22 Dose: 40 mg Documented by: Phytonadione (Phytonadione 10 Mg/1 Ml Amp) Confirm Administered Dose 10 mg .ROUTE .STK-MED ONE Stop: 01/06/21 08:18 Last Admin: 01/06/21 08:32 Dose: Not Given Documented by: Phytonadione (Phytonadione 10 Mg/1 Ml Amp) Confirm Administered Dose 10 mg .ROUTE .STK-MED ONE Stop: 01/06/21 08:24 Last Admin: 01/06/21 08:32 Dose: Not Given Documented by: - Exam General: Alert, Moderate Distress (Pain) HEENT: Pupils Equal Lungs: Clear to Auscultation, Normal Respiratory Effort Cardiovascular: Regular Rhythm, Irregular Rhythm (Patient's rhythm is labile switching between sinus tach of a rate from 110 to an SVT of 220) GI/Abdominal Exam: Other (Poorly localized generalized pain on palpation of the abdomen). No: Guarding, Rigid, Mass Extremities: Normal Inspection, Normal Range of Motion, Non-Tender, No Pedal Edema, Normal Capillary Refill Skin: Warm, Dry, Intact Neurological: Other (Patient still slightly sedated secondary to Haldol, Ativan, to me) Psy/Mental Status: Alert #1 Interpretation EKG Date: 01/08/21 (Patient's rate fluctuates between 100-220, narrow complex, without ectopy) - Patient Data Lab Results Last 24 hrs: Laboratory Results - last 24 hr 01/08/21 01/08/21 01/08/21 Range/Units 08:15 08:15 08:15 WBC 11.2 H (4.0-11.0) K/uL RBC 3.14 L (3.80-5.80) M/uL Hgb 9.0 L (11.5-16.5) g/dL Hct 28.6 L (37.0-47.0) % MCV 91 (76-96) fL MCH 28.7 (27.0-32.0) pg MCHC 31.5 (31.0-35.0) g/dL RDW 18.2 H (11.0-16.0) % Plt Count 233 (150-500) K/uL MPV 9.4 (6.0-10.0) fL Neut % (Auto) 68.4 (45.0-70.0) % Lymph % (Auto) 22.6 (20.0-40.0) % [place] % (Auto) 7.7 (3.0-10.0) % Eos % (Auto) 1.1 (1.0-5.0) % Baso % (Auto) 0.2 (0.0-0.5) % Neut # (Auto) 7.68 H (2.00-7.50) K/uL Lymph # (Auto) 2.54 (1.50-4.00) K/uL [place] # (Auto) 0.87 H (0.20-0.80) K/uL Eos # (Auto) 0.12 (0.04-0.40) K/uL Baso # (Auto) 0.02 (0.02-0.10) K/uL PT 44.1 H (9.0-11.5) sec INR 4.8 H* (1.0-3.5) ABG pH (7.35-7.45) ABG pCO2 (35-45) mmHg ABG pO2 (80-105) mmHg ABG HCO3 (22-26) mmol/L ABG O2 Saturation (95-98) % ABG Base Excess (-2-2) O2 Delivery Device Sodium 141 (136-145) mmol/L Potassium 4.4 (3.5-5.1) mmol/L Chloride 113 H (98-107) mmol/L Carbon Dioxide 19.6 L (21.0-32.0) mmol/L Anion Gap 12.8 (5.0-15.0) mmol/L BUN 36 H D (8-26) mg/dL Creatinine 1.38 H D (0.55-1.02) mg/dL Est Cr Clr Drug Dosing 44.21 mL/min Estimated GFR (MDRD) 40 L (>60) MLS/MIN BUN/Creatinine Ratio 26.1 H (6-25) Glucose 102 H (74-100) mg/dL Lactic Acid (0.4-2.0) mmol/L Calcium 8.3 L (8.5-10.1) mg/dL Total Bilirubin (0.0-1.0) mg/dL Direct Bilirubin (0.0-0.3) mg/dL Indirect Bilirubin (<= 0.7) mg/dL AST (15-37) U/L ALT (12-78) U/L Alkaline Phosphatase (46-116) U/L Troponin I (0.000-0.060) ng/mL Total Protein (6.4-8.2) g/dL Albumin (3.4-5.0) g/dL Globulin (2.2-4.2) g/dL Albumin/Globulin Ratio (0.8-2.0) Lipase (73-393) U/L TSH, Ultra Sensitive (0.358-3.740) uIU/mL 01/08/21 01/08/21 01/08/21 Range/Units 09:36 09:45 11:18 WBC (4.0-11.0) K/uL RBC (3.80-5.80) M/uL Hgb (11.5-16.5) g/dL Hct (37.0-47.0) % MCV (76-96) fL MCH (27.0-32.0) pg MCHC (31.0-35.0) g/dL RDW (11.0-16.0) % Plt Count (150-500) K/uL MPV (6.0-10.0) fL Neut % (Auto) (45.0-70.0) % Lymph % (Auto) (20.0-40.0) % [place] % (Auto) (3.0-10.0) % Eos % (Auto) (1.0-5.0) % Baso % (Auto) (0.0-0.5) % Neut # (Auto) (2.00-7.50) K/uL Lymph # (Auto) (1.50-4.00) K/uL [place] # (Auto) (0.20-0.80) K/uL Eos # (Auto) (0.04-0.40) K/uL Baso # (Auto) (0.02-0.10) K/uL PT (9.0-11.5) sec INR (1.0-3.5) ABG pH 7.31 L (7.35-7.45) ABG pCO2 35.9 (35-45) mmHg ABG pO2 98.8 (80-105) mmHg ABG HCO3 18.0 L (22-26) mmol/L ABG O2 Saturation 97.1 (95-98) % ABG Base Excess -8.3 L (-2-2) O2 Delivery Device Room air Sodium (136-145) mmol/L Potassium (3.5-5.1) mmol/L Chloride (98-107) mmol/L Carbon Dioxide (21.0-32.0) mmol/L Anion Gap (5.0-15.0) mmol/L BUN (8-26) mg/dL Creatinine (0.55-1.02) mg/dL Est Cr Clr Drug Dosing mL/min Estimated GFR (MDRD) (>60) MLS/MIN BUN/Creatinine Ratio (6-25) Glucose (74-100) mg/dL Lactic Acid 1.8 (0.4-2.0) mmol/L Calcium (8.5-10.1) mg/dL Total Bilirubin 0.5 (0.0-1.0) mg/dL Direct Bilirubin 0.1 (0.0-0.3) mg/dL Indirect Bilirubin 0.4 (<= 0.7) mg/dL AST 39 H (15-37) U/L ALT 34 (12-78) U/L Alkaline Phosphatase 89 (46-116) U/L Troponin I < 0.017 (0.000-0.060) ng/mL Total Protein 5.9 L (6.4-8.2) g/dL Albumin 2.1 L (3.4-5.0) g/dL Globulin 3.8 (2.2-4.2) g/dL Albumin/Globulin Ratio 0.6 L (0.8-2.0) Lipase 168 (73-393) U/L TSH, Ultra Sensitive 9.772 H D (0.358-3.740) uIU/mL Result Diagrams: 01/08/21 08:15 01/08/21 08:15 Sepsis Event Note - Evaluation Sepsis Screening Result: No Definite Risk Current Stage of Sepsis: Septic Shock Possible Source of Sepsis: GI Tract/Intra-abdominal - Focused Exam Sepsis Event Note Statement: Focused Sepsis Exam Completed Vital Signs: Vital Signs Pulse BP 01/08/21 09:00 174 H 84/40 L 01/08/21 08:30 210 H 83/50 L Respiratory Effort Without Exertion: Other (see below) Capillary Refill, Detail: Greater than (>) 2 Seconds Peripheral Pulse Location: Radial Skin Exam (Focused Sepsis): Normal Turgor Date Exam was Performed: 01/08/21 Time Exam was Performed: 11:55 - Bedside Monitoring Passive Leg Raise/Fluid Bolus: Not Fluid Responsive Date Bedside Monitoring was Performed: 01/08/21 Time Bedside Monitoring was Performed: 12:51 - Problem List Review Problem List Initiated/Reviewed/Updated: Yes - My Orders Last 24 Hours: My Active Orders 01/08/21 07:00 Levothyroxine 50 mcg PO ACBREAKFAST 01/08/21 10:00 Piperacillin/Tazobactam [Zosyn] 3.375 gm Sodium Chloride 0.9% [Normal Saline AdvBag] 100 ml IV Q6H 01/08/21 10:30 UA RFX RAMÓN AND CULT IF INDIC [URIN] Stat 01/08/21 11:00 Sodium Chloride 0.9% [Normal Saline] 1,000 ml IV ASDIRECTED 01/08/21 11:10 CULTURE BLOOD [BC] Routine - Assessment Assessment:: 1. Leukocytosis 2. Abdominal pain 3. Hypotension 4. Sepsis - Plan Plan:: 1. Leukocytosis 2. Abdominal pain 3. Hypotension 4. Sepsis Abdominal pain, hypotension, leukocytosis, sepsis most likely origin intra- abdominal per consultation with [facility] concerns with colitis at the splenic flexure, possible ischemic bowel, or infectious/inflammatory inflammatory. Patient needs a higher level of care for her condition. We have been working on getting her placed at a facility that can handle a patient at her level of acuity. Patient is receiving fluid normal saline bolus, Zosyn for possible infection and leukocytosis, pain medication for abdominal pain/agitation. Levophed to address patient's hypotension.
[2021-01-08] MEDS: Hydrocortisone Sodium Succinate 100 MG/2 ML SDV IVPUSH ONE ×2 (13:50→17:24)
[2021-01-08] MEDS ORDERED: HYDROmorphone 2 MG/ML SDV ONE ×2 (14:02→22:33)
[2021-01-08] MEDS: HYDROmorphone 2 MG/ML SDV IVPUSH ONE ×2 (14:05→16:59)
[2021-01-08] MEDS ORDERED: Sodium Chloride 0.9% 1,000 ML IV ONE (14:40)
[2021-01-08] MEDS ORDERED: Amiodarone 150 MG in Dextrose 5% in Water 100 ML IV ONE ×4 (15:15→22:38)
[2021-01-08] MEDS: Morphine 10 MG/ML SDV SUBCUT PRN (22:22)
[2021-01-08] MEDS ORDERED: HYDROmorphone 2 MG/ML SDV IVPUSH ONE ×2 (22:33→23:13)
[2021-01-08] MEDS ORDERED: Hydrocortisone Sodium Succinate 100 MG/2 ML SDV ONE (22:50)
[2021-01-08] MEDS ORDERED: Hydrocortisone Sodium Succinate 100 MG/2 ML SDV IVPUSH ONE (22:51)
[2021-01-08] MEDS ORDERED: Orphenadrine 60 MG/2 ML Inj IV ONE (23:52)
[2021-01-08] MEDS ORDERED: Orphenadrine 60 MG/2 ML Inj ONE (23:56)
[2021-01-09] MEDS: HYDROmorphone 2 MG/ML SDV IVPUSH PRN ×6 (00:35→12:41)
[2021-01-09] MEDS ORDERED: Metoprolol Tartrate 5 MG/5 ML SDV IVPUSH ONE ×2 (00:38→05:17)
[2021-01-09] MEDS: Piperacillin/Tazobactam 3.375 GM in Sodium Chloride 0.9% 100 ML IV SCH ×2 (05:03→11:43)
[2021-01-09] MEDS: LORazepam 2 MG/ML SDV IVPUSH PRN ×2 (05:16→09:44)
[2021-01-09] MEDS: Levothyroxine 25 MCG Tab PO SCH ×2 (08:22→14:00)
[2021-01-09] MEDS: Sodium Chloride 0.9% 10 ML Syringe FLUSH PRN (08:30)
--- NOTE | 2021-01-09 09:18 | CT ---
DATE OF SERVICE: 01/08/21 CLINICAL DATA: INR > [address]: No priors. There is mild diffuse atrophy. No masses or mass effect. No intracranial hemorrhage. No evidence of acute or subacute infarct. There is mild mucosal thickening in the ethmoid sinuses consistent with chronic sinusitis. No osseous abnormalities. IMPRESSION: No acute intracranial abnormalities. [id number] [facility]
--- NOTE | 2021-01-09 09:25 | CT ---
DATE OF SERVICE: 01/08/21 CLINICAL DATA: INR > 10 [address]ED [address] AND PELVIC CT: Multislice axial acquisition without IV or oral contrast was performed. Comparison is made to a prior exam dated 01/06/21. The patient is status post partial right colectomy with an ileocolic anastomosis. It appears unchanged from the prior exam with persistent adjacent fat stranding. The adjacent oval-shaped fluid collection is again seen. It does not appear significantly changed from the prior study. The gas within it on the prior exam has decreased on this followup study. There is mural thickening within the splenic flexure and descending colon with adjacent fat stranding. Colitis should be considered. There is subtle hyperdensity of the descending colon. Significance is uncertain. The right gluteal hematoma is again seen. It has decreased in size from the prior study. The remainder of the exam is unchanged from the prior. [id number] [facility]
[2021-01-09] MEDS: Morphine 10 MG/ML SDV SUBCUT PRN (10:12)
--- NOTE | 2021-01-09 10:22 | PCM.PN ---
- General Info Date of Service: 01/09/21 Admission Dx/Problem (Free Text): GI bleed Subjective Update: Patient remains in a tenuous state, still unable to place patient in an appropriate facility. Patient's heart rate is extremely labile, in the last 24 hours patient had 2 episodes of sustained V. tach, better accompanied by episodes of extreme pain. Pain Score: 10 - Review of Systems General: Reports: Weakness. Denies: Fever HEENT: Reports: No Symptoms Pulmonary: Reports: No Symptoms Cardiovascular: Reports: Other (Rapid heart rate) Gastrointestinal: Reports: Hematochezia, Melena Genitourinary: Reports: Other (UTIs) Musculoskeletal: Reports: Back Pain Psychiatric: Reports: No Symptoms - Patient Data Vitals - Most Recent: Last Vital Signs Temp 98 F 01/09/21 01:00 Pulse 105 H 01/09/21 08:27 Resp 18 01/09/21 04:30 BP 91/63 01/09/21 08:27 Pulse Ox 97 01/09/21 04:30 Weight - Most Recent: 128 lb I&O - Last 24 Hours: Intake & Output 01/08/21 01/09/21 01/09/21 22:59 06:59 14:59 Intake Total 390 Output Total 725 1250 Balance -335 -1250 Lab Results Last 24 Hours: Laboratory Results - last 24 hr 01/06/21 01/08/21 01/08/21 Range/Units 07:00 09:36 11:18 WBC (4.0-11.0) K/uL RBC (3.80-5.80) M/uL Hgb (11.5-16.5) g/dL Hct (37.0-47.0) % MCV (76-96) fL MCH (27.0-32.0) pg MCHC (31.0-35.0) g/dL RDW (11.0-16.0) % Plt Count (150-500) K/uL MPV (6.0-10.0) fL Neut % (Auto) (45.0-70.0) % Lymph % (Auto) (20.0-40.0) % [place] % (Auto) (3.0-10.0) % Eos % (Auto) (1.0-5.0) % Baso % (Auto) (0.0-0.5) % Neut # (Auto) (2.00-7.50) K/uL Lymph # (Auto) (1.50-4.00) K/uL [place] # (Auto) (0.20-0.80) K/uL Eos # (Auto) (0.04-0.40) K/uL Baso # (Auto) (0.02-0.10) K/uL PT (9.0-11.5) sec INR (1.0-3.5) ABG pH 7.31 L (7.35-7.45) ABG pCO2 35.9 (35-45) mmHg ABG pO2 98.8 (80-105) mmHg ABG HCO3 18.0 L (22-26) mmol/L ABG O2 Saturation 97.1 (95-98) % ABG Base Excess -8.3 L (-2-2) O2 Delivery Device Room air Lactic Acid 1.8 (0.4-2.0) mmol/L Urine Color Urine Appearance (CLEAR) Urine pH (5.0-8.0) Ur Specific [place] (1.003-1.030) Urine Protein (NEGATIVE) mg/dL Urine Glucose (UA) (NEGATIVE) mg/dL Urine Ketones (NEGATIVE) mg/dL Urine Occult Blood (NEGATIVE) Urine Nitrite (NEGATIVE) Urine Bilirubin (NEGATIVE) Urine Urobilinogen (0.2-1.0) E.U./dL Ur Leukocyte Esterase (NEGATIVE) Urine RBC /HPF Urine WBC /HPF Ur Squamous Epith Cells /HPF Urine Bacteria /HPF Blood Type O NEGATIVE Gel Antibody Screen Negative Crossmatch See Detail 01/08/21 01/08/21 01/08/21 Range/Units 13:31 15:36 16:48 WBC 12.3 H (4.0-11.0) K/uL RBC 2.81 L (3.80-5.80) M/uL Hgb 8.2 L (11.5-16.5) g/dL Hct 25.5 L (37.0-47.0) % MCV 91 (76-96) fL MCH 29.2 (27.0-32.0) pg MCHC 32.2 (31.0-35.0) g/dL RDW 18.0 H (11.0-16.0) % Plt Count 200 (150-500) K/uL MPV 9.2 (6.0-10.0) fL Neut % (Auto) 89.0 H (45.0-70.0) % Lymph % (Auto) 6.5 L (20.0-40.0) % [place] % (Auto) 3.8 (3.0-10.0) % Eos % (Auto) 0.5 L (1.0-5.0) % Baso % (Auto) 0.2 (0.0-0.5) % Neut # (Auto) 10.90 H (2.00-7.50) K/uL Lymph # (Auto) 0.80 L (1.50-4.00) K/uL [place] # (Auto) 0.46 (0.20-0.80) K/uL Eos # (Auto) 0.06 (0.04-0.40) K/uL Baso # (Auto) 0.03 (0.02-0.10) K/uL PT 42.6 H (9.0-11.5) sec INR 4.6 H* (1.0-3.5) ABG pH (7.35-7.45) ABG pCO2 (35-45) mmHg ABG pO2 (80-105) mmHg ABG HCO3 (22-26) mmol/L ABG O2 Saturation (95-98) % ABG Base Excess (-2-2) O2 Delivery Device Lactic Acid (0.4-2.0) mmol/L Urine Color Yellow Urine Appearance Clear (CLEAR) Urine pH 6.0 (5.0-8.0) Ur Specific [place] 1.020 (1.003-1.030) Urine Protein Negative (NEGATIVE) mg/dL Urine Glucose (UA) 100 H (NEGATIVE) mg/dL Urine Ketones Negative (NEGATIVE) mg/dL Urine Occult Blood Small H (NEGATIVE) Urine Nitrite Negative (NEGATIVE) Urine Bilirubin Negative (NEGATIVE) Urine Urobilinogen 0.2 (0.2-1.0) E.U./dL Ur Leukocyte Esterase Negative (NEGATIVE) Urine RBC 0-5 H /HPF Urine WBC 5-10 H /HPF Ur Squamous Epith Cells Many /HPF Urine Bacteria Few /HPF Blood Type Gel Antibody Screen Crossmatch 01/09/21 01/09/21 Range/Units 08:36 08:36 WBC 13.0 H (4.0-11.0) K/uL RBC 3.12 L (3.80-5.80) M/uL Hgb 9.2 L (11.5-16.5) g/dL Hct 28.9 L (37.0-47.0) % MCV 93 (76-96) fL MCH 29.5 (27.0-32.0) pg MCHC 31.8 (31.0-35.0) g/dL RDW 18.2 H (11.0-16.0) % Plt Count 240 (150-500) K/uL MPV 9.2 (6.0-10.0) fL Neut % (Auto) 91.0 H (45.0-70.0) % Lymph % (Auto) 6.2 L (20.0-40.0) % [place] % (Auto) 2.7 L (3.0-10.0) % Eos % (Auto) 0.0 L (1.0-5.0) % Baso % (Auto) 0.1 (0.0-0.5) % Neut # (Auto) 11.80 H (2.00-7.50) K/uL Lymph # (Auto) 0.81 L (1.50-4.00) K/uL [place] # (Auto) 0.35 (0.20-0.80) K/uL Eos # (Auto) 0.00 L (0.04-0.40) K/uL Baso # (Auto) 0.01 L (0.02-0.10) K/uL PT 44.0 H (9.0-11.5) sec INR 4.7 H* (1.0-3.5) ABG pH (7.35-7.45) ABG pCO2 (35-45) mmHg ABG pO2 (80-105) mmHg ABG HCO3 (22-26) mmol/L ABG O2 Saturation (95-98) % ABG Base Excess (-2-2) O2 Delivery Device Lactic Acid (0.4-2.0) mmol/L Urine Color Urine Appearance (CLEAR) Urine pH (5.0-8.0) Ur Specific [place] (1.003-1.030) Urine Protein (NEGATIVE) mg/dL Urine Glucose (UA) (NEGATIVE) mg/dL Urine Ketones (NEGATIVE) mg/dL Urine Occult Blood (NEGATIVE) Urine Nitrite (NEGATIVE) Urine Bilirubin (NEGATIVE) Urine Urobilinogen (0.2-1.0) E.U./dL Ur Leukocyte Esterase (NEGATIVE) Urine RBC /HPF Urine WBC /HPF Ur Squamous Epith Cells /HPF Urine Bacteria /HPF Blood Type Gel Antibody Screen Crossmatch Med Orders - Current: Current Medications Dextrose/Water (50% Dextrose In Water 50 Ml Syringe) 50 ml IVPUSH ASDIRECTED PRN PRN Reason: Hypoglycemia Last Admin: 01/06/21 09:13 Dose: 50 ml Documented by: Fentanyl (Fentanyl 50 Mcg/Hr Transdermal Patch) 50 mcg TRDERM Q72H YARELI Last Admin: 01/07/21 08:33 Dose: 50 mcg Documented by: Hydromorphone HCl (Hydromorphone 2 Mg/Ml Sdv) 1 - 2 mg IVPUSH Q4H PRN PRN Reason: Pain Last Admin: 01/09/21 09:15 Dose: 1 mg Documented by: Dextrose/Sodium Chloride (Dextrose 5%-1/2 Ns) 1,000 mls @ 75 mls/hr IV ASDIRECTED [facility] Last Infusion: 01/08/21 16:40 Dose: 0 mls/hr Documented by: Norepinephrine Bitartrate 4 mg (/ Dextrose/Water) 250 mls @ 22.5 mls/hr IV TITRATE [facility]; Protocol Last Admin: 01/08/21 23:30 Dose: 7 mcg/min, 26.25 mls/hr Documented by: Piperacillin Sod/Tazobactam (Sod 3.375 gm/ Sodium Chloride) 100 mls @ 100 mls/hr IV Q6H YARELI Last Admin: 01/09/21 05:03 Dose: 100 mls/hr Documented by: Metoprolol Tartrate 10 mg/ (Sodium Chloride) 60 mls @ 100 mls/hr IV Q6H YARELI Last Admin: 01/09/21 08:27 Dose: 100 mls/hr Documented by: Amiodarone HCl 900 mg/ (Dextrose/Water) 500 mls @ 33.333 mls/hr IV ASDIRECTED YARELI; Protocol Last Admin: 01/09/21 09:10 Dose: 1 mg/min, 33.333 mls/hr Documented by: Levothyroxine Sodium (Levothyroxine 25 Mcg Tab) 50 mcg PO ACBREAKFAST YARELI Last Admin: 01/09/21 08:22 Dose: Not Given Documented by: Lorazepam (Lorazepam 2 Mg/Ml Sdv) 2 mg IVPUSH Q4H PRN PRN Reason: Anxiety Last Admin: 01/09/21 09:44 Dose: 2 mg Documented by: Morphine Sulfate (Morphine 10 Mg/Ml Sdv) 8 mg SUBCUT Q4H PRN PRN Reason: PAIN Last Admin: 01/09/21 10:12 Dose: 8 mg Documented by: Sodium Chloride (Sodium Chloride 0.9% 10 Ml Syringe) 10 ml FLUSH ASDIRECTED PRN PRN Reason: Keep Vein Open Last Admin: 01/09/21 08:30 Dose: 10 ml Documented by: Sodium Chloride (Sodium Chloride 0.9% 10 Ml Syringe) 10 ml FLUSH ASDIRECTED PRN PRN Reason: Keep Vein Open Last Admin: 01/09/21 09:10 Dose: 10 ml Documented by: Discontinued Medications Famotidine (Famotidine 20 Mg/2 Ml Sdv) 20 mg IVPUSH ONETIME ONE Stop: 01/06/21 07:43 Last Admin: 01/06/21 08:52 Dose: 20 mg Documented by: Fentanyl (Fentanyl 50 Mcg/Hr Transdermal Patch) Confirm Administered Dose 50 mcg .ROUTE .STK-MED ONE Stop: 01/07/21 08:34 Last Admin: 01/07/21 08:38 Dose: Not Given Documented by: Glucagon (Glucagon,Human Recombinant 1 Mg Vial) 1 mg IM ASDIRECTED PRN PRN Reason: Hypoglycemia Haloperidol Lactate (Haloperidol Lactate 5 Mg/Ml Sdv) 2 mg IVPUSH ONETIME ONE Stop: 01/07/21 02:33 Last Admin: 01/07/21 02:36 Dose: 2 mg Documented by: Haloperidol Lactate (Haloperidol Lactate 5 Mg/Ml Sdv) Confirm Administered Dose 5 mg .ROUTE .STK-MED ONE Stop: 01/07/21 02:35 Last Admin: 01/07/21 05:54 Dose: Not Given Documented by: Haloperidol Lactate (Haloperidol Lactate 5 Mg/Ml Sdv) Confirm Administered Dose 5 mg .ROUTE .STK-MED ONE Stop: 01/08/21 09:54 Last Admin: 01/08/21 11:36 Dose: Not Given Documented by: Haloperidol Lactate (Haloperidol Lactate 5 Mg/Ml Sdv) Confirm Administered Dose 5 mg .ROUTE .STK-MED ONE Stop: 01/08/21 10:05 Last Admin: 01/08/21 12:03 Dose: Not Given Documented by: Haloperidol Lactate (Haloperidol Lactate 5 Mg/Ml Sdv) Confirm Administered Dose 5 mg .ROUTE .STK-MED ONE Stop: 01/08/21 10:06 Last Admin: 01/08/21 12:03 Dose: Not Given Documented by: Hydrocortisone Sodium Succinate (Hydrocortisone Sodium Succinate 100 Mg/2 Ml Sdv) 100 mg IVPUSH ONETIME ONE Stop: 01/08/21 15:08 Last Admin: 01/08/21 17:24 Dose: Not Given Documented by: Hydrocortisone Sodium Succinate (Hydrocortisone Sodium Succinate 100 Mg/2 Ml Sdv) Confirm Administered Dose 100 mg .ROUTE .STK-MED ONE Stop: 01/08/21 22:51 Last Admin: 01/08/21 22:56 Dose: Not Given Documented by: Hydrocortisone Sodium Succinate (Hydrocortisone Sodium Succinate 100 Mg/2 Ml Sdv) 100 mg IVPUSH ONETIME ONE Stop: 01/08/21 22:52 Last Admin: 01/08/21 22:50 Dose: 100 mg Documented by: Hydromorphone HCl (Hydromorphone 2 Mg/Ml Sdv) Confirm Administered Dose 2 mg .ROUTE .STK-MED ONE Stop: 01/08/21 14:03 Last Admin: 01/08/21 14:16 Dose: Not Given Documented by: Hydromorphone HCl (Hydromorphone 2 Mg/Ml Sdv) 1 mg IVPUSH ONETIME ONE Stop: 01/08/21 13:51 Last Admin: 01/08/21 16:59 Dose: Not Given Documented by: Hydromorphone HCl (Hydromorphone 2 Mg/Ml Sdv) 1 mg IVPUSH ONETIME ONE Stop: 01/08/21 22:34 Last Admin: 01/08/21 22:33 Dose: 1 mg Documented by: Hydromorphone HCl (Hydromorphone 2 Mg/Ml Sdv) Confirm Administered Dose 2 mg .ROUTE .STK-MED ONE Stop: 01/08/21 22:34 Last Admin: 01/08/21 22:56 Dose: Not Given Documented by: Hydromorphone HCl (Hydromorphone 2 Mg/Ml Sdv) 1 mg IVPUSH ONETIME ONE Stop: 01/08/21 23:14 Last Admin: 01/08/21 23:14 Dose: 1 mg Documented by: Sodium Chloride (Normal Saline) 1,000 mls @ 999 mls/hr IV ASDIRECTED YARELI Last Infusion: 01/06/21 08:33 Dose: Infused Documented by: Phytonadione 10 mg/ Sodium (Chloride) 51 mls @ 100 mls/hr IV NOW ONE Stop: 01/06/21 08:15 Last Admin: 01/06/21 08:30 Dose: 100 mls/hr Documented by: Lactated Ringer's (Ringers, Lactated) 1,000 mls @ 100 mls/hr IV ASDIRECTED YARELI Last Admin: 01/06/21 09:02 Dose: 100 mls/hr Documented by: Sodium Chloride (Normal Saline) 500 mls @ 500 mls/hr IV ASDIRECTED YARELI Last Admin: 01/06/21 19:00 Dose: 500 mls/hr Documented by: Sodium Chloride (Normal Saline) 1,000 mls @ 500 mls/hr IV ASDIRECTED YARELI Last Infusion: 01/07/21 04:50 Dose: Infused Documented by: Norepinephrine Bitartrate 4 mg (/ Dextrose/Water) 250 mls @ 7.5 mls/hr IV TITRATE [facility]; Protocol Last Titration: 01/07/21 04:25 Dose: 5 mcg/min, 18.75 mls/hr Documented by: Metoprolol Tartrate 20 mg/ (Sodium Chloride) 70 mls @ 100 mls/hr IV ONETIME ONE Stop: 01/07/21 19:29 Last Admin: 01/07/21 19:08 Dose: 100 mls/hr Documented by: Sodium Chloride (Normal Saline) 1,000 mls @ 999 mls/hr IV ASDIRECTED YARELI Last Infusion: 01/08/21 16:40 Dose: Infused Documented by: Sodium Chloride (Normal Saline) 1,000 mls @ 999 mls/hr IV ONETIME ONE Stop: 01/08/21 15:40 Last Admin: 01/08/21 14:40 Dose: 999 mls/hr Documented by: Amiodarone HCl 150 mg/ (Dextrose/Water) 103 mls @ 10 mls/min IV .BOLUS ONE Stop: 01/08/21 15:25 Last Admin: 01/08/21 13:45 Dose: 10 mls/min Documented by: Amiodarone HCl 150 mg/ (Dextrose/Water) 103 mls @ 618 mls/hr IV ONETIME ONE Stop: 01/08/21 22:47 Last Admin: 01/08/21 22:36 Dose: 618 mls/hr Documented by: Insulin Human Regular (Insulin Regular, Human 100 Units/Ml 3 Ml Vial) 10 unit IV ONETIME ONE Stop: 01/06/21 09:00 Last Admin: 01/06/21 09:10 Dose: 10 units Documented by: Ketamine HCl (Ketamine 200 Mg/20 Ml Mdv) Confirm Administered Dose 200 mg .ROUTE .STK-MED ONE Stop: 01/08/21 10:35 Last Admin: 01/08/21 12:03 Dose: Not Given Documented by: Ketamine HCl (Ketamine 200 Mg/20 Ml Mdv) 60 mg IVPUSH ONETIME ONE Stop: 01/08/21 10:58 Last Admin: 01/08/21 10:15 Dose: 60 mg Documented by: Ketamine HCl (Ketamine 200 Mg/20 Ml Mdv) Confirm Administered Dose 200 mg .ROUTE .STK-MED ONE Stop: 01/08/21 22:55 Last Admin: 01/08/21 22:56 Dose: Not Given Documented by: Ketamine HCl (Ketamine 200 Mg/20 Ml Mdv) 60 mg IVPUSH ONETIME ONE Stop: 01/08/21 22:51 Last Admin: 01/08/21 22:42 Dose: 60 mg Documented by: Lorazepam (Lorazepam 2 Mg/Ml Sdv) 2 mg IVPUSH ONETIME ONE Stop: 01/06/21 18:28 Last Admin: 01/06/21 18:34 Dose: 2 mg Documented by: Lorazepam (Lorazepam 2 Mg/Ml Sdv) Confirm Administered Dose 2 mg .ROUTE .STK-MED ONE Stop: 01/06/21 18:31 Last Admin: 01/06/21 18:33 Dose: Not Given Documented by: Lorazepam (Lorazepam 2 Mg/Ml Sdv) Confirm Administered Dose 2 mg .ROUTE .STK-MED ONE Stop: 01/07/21 07:53 Last Admin: 01/07/21 07:53 Dose: Not Given Documented by: Metoprolol Tartrate (Metoprolol Tartrate 5 Mg/5 Ml Sdv) Confirm Administered Dose 10 mg .ROUTE .STK-MED ONE Stop: 01/06/21 13:05 Last Admin: 01/06/21 13:48 Dose: Not Given Documented by: Metoprolol Tartrate (Metoprolol Tartrate 5 Mg/5 Ml Sdv) 10 mg IVPUSH ONETIME ONE Stop: 01/06/21 13:49 Last Admin: 01/06/21 13:51 Dose: 10 mg Documented by: Metoprolol Tartrate (Metoprolol Tartrate 5 Mg/5 Ml Sdv) 10 mg IVPUSH ONETIME ONE Stop: 01/06/21 15:47 Last Admin: 01/06/21 16:56 Dose: 10 mg Documented by: Metoprolol Tartrate (Metoprolol Tartrate 5 Mg/5 Ml Sdv) 10 mg IVPUSH ONETIME ONE Stop: 01/06/21 21:28 Last Admin: 01/07/21 02:00 Dose: 10 mg Documented by: Metoprolol Tartrate (Metoprolol Tartrate 5 Mg/5 Ml Sdv) Confirm Administered Dose 5 mg .ROUTE .STK-MED ONE Stop: 01/06/21 21:53 Last Admin: 01/07/21 02:02 Dose: Not Given Documented by: Metoprolol Tartrate (Metoprolol Tartrate 5 Mg/5 Ml Sdv) Confirm Administered Dose 5 mg .ROUTE .STK-MED ONE Stop: 01/07/21 00:13 Last Admin: 01/07/21 02:02 Dose: Not Given Documented by: Metoprolol Tartrate (Metoprolol Tartrate 5 Mg/5 Ml Sdv) 20 mg IVPUSH ONETIME ONE Stop: 01/07/21 08:26 Last Admin: 01/07/21 08:44 Dose: 20 mg Documented by: Metoprolol Tartrate (Metoprolol Tartrate 5 Mg/5 Ml Sdv) Confirm Administered Dose 10 mg .ROUTE .STK-MED ONE Stop: 01/07/21 23:21 Last Admin: 01/07/21 23:30 Dose: 2.5 mg Documented by: Metoprolol Tartrate (Metoprolol Tartrate 5 Mg/5 Ml Sdv) Confirm Administered Dose 10 mg .ROUTE .STK-MED ONE Stop: 01/08/21 08:28 Last Admin: 01/08/21 08:46 Dose: Not Given Documented by: Metoprolol Tartrate (Metoprolol Tartrate 5 Mg/5 Ml Sdv) 10 mg IVPUSH ASDIRECTED YARELI Stop: 01/08/21 23:59 Last Admin: 01/08/21 22:55 Dose: 10 mg Documented by: Metoprolol Tartrate (Metoprolol Tartrate 5 Mg/5 Ml Sdv) 10 mg IVPUSH ONETIME ONE Stop: 01/09/21 00:39 Last Admin: 01/09/21 00:39 Dose: 10 mg Documented by: Metoprolol Tartrate (Metoprolol Tartrate 5 Mg/5 Ml Sdv) 10 mg IVPUSH ONETIME ONE Stop: 01/09/21 05:18 Last Admin: 01/09/21 06:38 Dose: Not Given Documented by: Morphine Sulfate (Morphine 4 Mg/Ml Vial) 4 mg IVPUSH Q2H PRN PRN Reason: Pain (moderate 4-6) Last Admin: 01/07/21 07:45 Dose: 4 mg Documented by: Morphine Sulfate (Morphine 4 Mg/Ml Vial) Confirm Administered Dose 4 mg .ROUTE .STK-MED ONE Stop: 01/07/21 07:53 Last Admin: 01/07/21 07:53 Dose: Not Given Documented by: Morphine Sulfate (Morphine 10 Mg/Ml Syringe) 8 mg SUBCUT Q4H PRN PRN Reason: Pain (severe 7-10) Last Admin: 01/08/21 09:00 Dose: 4 mg Documented by: Morphine Sulfate (Morphine 4 Mg/Ml Vial) Confirm Administered Dose 8 mg .ROUTE .STK-MED ONE Stop: 01/07/21 19:32 Last Admin: 01/07/21 19:30 Dose: 4 mg Documented by: Morphine Sulfate (Morphine 4 Mg/Ml Vial) Confirm Administered Dose 4 mg .ROUTE .STK-MED ONE Stop: 01/07/21 20:09 Last Admin: 01/08/21 09:42 Dose: Not Given Documented by: Morphine Sulfate (Morphine 4 Mg/Ml Vial) Confirm Administered Dose 4 mg .ROUTE .STK-MED ONE Stop: 01/08/21 09:07 Last Admin: 01/08/21 11:21 Dose: Not Given Documented by: Morphine Sulfate (Morphine 10 Mg/Ml Sdv) 8 mg IV Q4H PRN PRN Reason: PAIN Orphenadrine Citrate (Orphenadrine 60 Mg/2 Ml Inj) 60 mg IV ONETIME ONE Stop: 01/08/21 23:53 Last Admin: 01/09/21 00:03 Dose: 60 mg Documented by: Orphenadrine Citrate (Orphenadrine 60 Mg/2 Ml Inj) Confirm Administered Dose 60 mg .ROUTE .STK-MED ONE Stop: 01/08/21 23:57 Last Admin: 01/09/21 00:23 Dose: Not Given Documented by: Pantoprazole Sodium (Pantoprazole 40 Mg Vial) 40 mg IVPUSH ONETIME ONE Stop: 01/06/21 05:53 Last Admin: 01/06/21 07:22 Dose: 40 mg Documented by: Phytonadione (Phytonadione 10 Mg/1 Ml Amp) Confirm Administered Dose 10 mg .ROUTE .STK-MED ONE Stop: 01/06/21 08:18 Last Admin: 01/06/21 08:32 Dose: Not Given Documented by: Phytonadione (Phytonadione 10 Mg/1 Ml Amp) Confirm Administered Dose 10 mg .ROUTE .STK-MED ONE Stop: 01/06/21 08:24 Last Admin: 01/06/21 08:32 Dose: Not Given Documented by: - Exam Urinary Catheter Total Time: 0Days 15Hours General: Alert, Oriented, Cooperative, Severe Distress, Sedated HEENT: Pupils Equal, EOMI Neck: No JVD Lungs: Clear to Auscultation, Normal Respiratory Effort Cardiovascular: Other (2 episodes in the last 24 hours of sustained ventricular tachycardia with a pulse lasting approximately 20 to 25 minutes each, both episodes were controlled with administration of 150 mg of amiodarone, 10 mg metoprolol, 100 mg hydrocortisone) GI/Abdominal Exam: Soft Extremities: Other (Patient flailing legs and arms due to her discomfort CMS is intact, patient's legs were mottled yesterday during her episode of V. tach during the day.) Skin: Warm, Dry, Intact Neurological: Other (Slurred speech secondary to sedation) Psy/Mental Status: Alert, Agitated - Patient Data Lab Results Last 24 hrs: Laboratory Results - last 24 hr 01/06/21 01/08/21 01/08/21 Range/Units 07:00 09:36 11:18 WBC (4.0-11.0) K/uL RBC (3.80-5.80) M/uL Hgb (11.5-16.5) g/dL Hct (37.0-47.0) % MCV (76-96) fL MCH (27.0-32.0) pg MCHC (31.0-35.0) g/dL RDW (11.0-16.0) % Plt Count (150-500) K/uL MPV (6.0-10.0) fL Neut % (Auto) (45.0-70.0) % Lymph % (Auto) (20.0-40.0) % [place] % (Auto) (3.0-10.0) % Eos % (Auto) (1.0-5.0) % Baso % (Auto) (0.0-0.5) % Neut # (Auto) (2.00-7.50) K/uL Lymph # (Auto) (1.50-4.00) K/uL [place] # (Auto) (0.20-0.80) K/uL Eos # (Auto) (0.04-0.40) K/uL Baso # (Auto) (0.02-0.10) K/uL PT (9.0-11.5) sec INR (1.0-3.5) ABG pH 7.31 L (7.35-7.45) ABG pCO2 35.9 (35-45) mmHg ABG pO2 98.8 (80-105) mmHg ABG HCO3 18.0 L (22-26) mmol/L ABG O2 Saturation 97.1 (95-98) % ABG Base Excess -8.3 L (-2-2) O2 Delivery Device Room air Lactic Acid 1.8 (0.4-2.0) mmol/L Urine Color Urine Appearance (CLEAR) Urine pH (5.0-8.0) Ur Specific [place] (1.003-1.030) Urine Protein (NEGATIVE) mg/dL Urine Glucose (UA) (NEGATIVE) mg/dL Urine Ketones (NEGATIVE) mg/dL Urine Occult Blood (NEGATIVE) Urine Nitrite (NEGATIVE) Urine Bilirubin (NEGATIVE) Urine Urobilinogen (0.2-1.0) E.U./dL Ur Leukocyte Esterase (NEGATIVE) Urine RBC /HPF Urine WBC /HPF Ur Squamous Epith Cells /HPF Urine Bacteria /HPF Blood Type O NEGATIVE Gel Antibody Screen Negative Crossmatch See Detail 01/08/21 01/08/21 01/08/21 Range/Units 13:31 15:36 16:48 WBC 12.3 H (4.0-11.0) K/uL RBC 2.81 L (3.80-5.80) M/uL Hgb 8.2 L (11.5-16.5) g/dL Hct 25.5 L (37.0-47.0) % MCV 91 (76-96) fL MCH 29.2 (27.0-32.0) pg MCHC 32.2 (31.0-35.0) g/dL RDW 18.0 H (11.0-16.0) % Plt Count 200 (150-500) K/uL MPV 9.2 (6.0-10.0) fL Neut % (Auto) 89.0 H (45.0-70.0) % Lymph % (Auto) 6.5 L (20.0-40.0) % [place] % (Auto) 3.8 (3.0-10.0) % Eos % (Auto) 0.5 L (1.0-5.0) % Baso % (Auto) 0.2 (0.0-0.5) % Neut # (Auto) 10.90 H (2.00-7.50) K/uL Lymph # (Auto) 0.80 L (1.50-4.00) K/uL [place] # (Auto) 0.46 (0.20-0.80) K/uL Eos # (Auto) 0.06 (0.04-0.40) K/uL Baso # (Auto) 0.03 (0.02-0.10) K/uL PT 42.6 H (9.0-11.5) sec INR 4.6 H* (1.0-3.5) ABG pH (7.35-7.45) ABG pCO2 (35-45) mmHg ABG pO2 (80-105) mmHg ABG HCO3 (22-26) mmol/L ABG O2 Saturation (95-98) % ABG Base Excess (-2-2) O2 Delivery Device Lactic Acid (0.4-2.0) mmol/L Urine Color Yellow Urine Appearance Clear (CLEAR) Urine pH 6.0 (5.0-8.0) Ur Specific [place] 1.020 (1.003-1.030) Urine Protein Negative (NEGATIVE) mg/dL Urine Glucose (UA) 100 H (NEGATIVE) mg/dL Urine Ketones Negative (NEGATIVE) mg/dL Urine Occult Blood Small H (NEGATIVE) Urine Nitrite Negative (NEGATIVE) Urine Bilirubin Negative (NEGATIVE) Urine Urobilinogen 0.2 (0.2-1.0) E.U./dL Ur Leukocyte Esterase Negative (NEGATIVE) Urine RBC 0-5 H /HPF Urine WBC 5-10 H /HPF Ur Squamous Epith Cells Many /HPF Urine Bacteria Few /HPF Blood Type Gel Antibody Screen Crossmatch 01/09/21 01/09/21 Range/Units 08:36 08:36 WBC 13.0 H (4.0-11.0) K/uL RBC 3.12 L (3.80-5.80) M/uL Hgb 9.2 L (11.5-16.5) g/dL Hct 28.9 L (37.0-47.0) % MCV 93 (76-96) fL MCH 29.5 (27.0-32.0) pg MCHC 31.8 (31.0-35.0) g/dL RDW 18.2 H (11.0-16.0) % Plt Count 240 (150-500) K/uL MPV 9.2 (6.0-10.0) fL Neut % (Auto) 91.0 H (45.0-70.0) % Lymph % (Auto) 6.2 L (20.0-40.0) % [place] % (Auto) 2.7 L (3.0-10.0) % Eos % (Auto) 0.0 L (1.0-5.0) % Baso % (Auto) 0.1 (0.0-0.5) % Neut # (Auto) 11.80 H (2.00-7.50) K/uL Lymph # (Auto) 0.81 L (1.50-4.00) K/uL [place] # (Auto) 0.35 (0.20-0.80) K/uL Eos # (Auto) 0.00 L (0.04-0.40) K/uL Baso # (Auto) 0.01 L (0.02-0.10) K/uL PT 44.0 H (9.0-11.5) sec INR 4.7 H* (1.0-3.5) ABG pH (7.35-7.45) ABG pCO2 (35-45) mmHg ABG pO2 (80-105) mmHg ABG HCO3 (22-26) mmol/L ABG O2 Saturation (95-98) % ABG Base Excess (-2-2) O2 Delivery Device Lactic Acid (0.4-2.0) mmol/L Urine Color Urine Appearance (CLEAR) Urine pH (5.0-8.0) Ur Specific [place] (1.003-1.030) Urine Protein (NEGATIVE) mg/dL Urine Glucose (UA) (NEGATIVE) mg/dL Urine Ketones (NEGATIVE) mg/dL Urine Occult Blood (NEGATIVE) Urine Nitrite (NEGATIVE) Urine Bilirubin (NEGATIVE) Urine Urobilinogen (0.2-1.0) E.U./dL Ur Leukocyte Esterase (NEGATIVE) Urine RBC /HPF Urine WBC /HPF Ur Squamous Epith Cells /HPF Urine Bacteria /HPF Blood Type Gel Antibody Screen Crossmatch Result Diagrams: 01/09/21 08:36 01/09/21 09:30 Sepsis Event Note - Evaluation Sepsis Screening Result: No Definite Risk Current Stage of Sepsis: Septic Shock Possible Source of Sepsis: GI Tract/Intra-abdominal - Focused Exam Sepsis Event Note Statement: Focused Sepsis Exam Completed Vital Signs: Vital Signs Temp Temp Pulse Pulse Resp BP BP 01/09/21 08:27 105 H 91/63 01/09/21 04:30 138 H 18 124/93 H 01/09/21 01:00 98 F 100 14 108/62 01/09/21 00:39 136 H 121/79 01/08/21 22:55 135 H 111/65 01/08/21 22:20 97.8 F 112 H 16 102/69 Pulse Ox 01/09/21 08:27 01/09/21 04:30 97 01/09/21 01:00 97 01/09/21 00:39 01/08/21 22:55 01/08/21 22:20 96 Capillary Refill, Detail: Less than/Equal to (</=) 2 Seconds Pulse Description: 2+ Normal Peripheral Pulse Location: Radial Skin Exam (Focused Sepsis): Normal [place] Date Exam was Performed: 01/09/21 Time Exam was Performed: 09:15 - Problem List Review Problem List Initiated/Reviewed/Updated: Yes - My Orders Last 24 Hours: My Active Orders 01/08/21 10:00 Piperacillin/Tazobactam [Zosyn] 3.375 gm Sodium Chloride 0.9% [Normal Saline AdvBag] 100 ml IV Q6H 01/08/21 11:10 CULTURE BLOOD [BC] Routine 01/08/21 13:00 Insert Lua Catheter [Insert Urinary Catheter] [OM.PC] Q24H 01/08/21 17:36 Resuscitation Status Routine 01/08/21 18:05 Urinary Catheter Assessment [RC] 18 01/09/21 00:08 HYDROmorphone [Dilaudid] 1 - 2 mg IVPUSH Q4H PRN 01/09/21 08:15 Amiodarone [Cordarone] 900 mg Dextrose 5% in Water 482 ml IV ASDIRECTED Metoprolol Tartrate [Lopressor] 10 mg Sodium Chloride 0.9% [Normal Saline] 50 ml IV Q6H 01/09/21 08:36 MAGNESIUM [CHEM] Routine PHOSPHORUS [CHEM] Routine 01/09/21 10:07 FRESH FROZEN PLASMA [BBK] Routine 01/09/21 10:13 COMPREHENSIVE METABOLIC PN,CMP [CHEM] Stat - Assessment Assessment:: 1. Sepsisleukocytosis, hypotension 2. Rapid heart rate/V. tach 3. gastrointestinal hemorrhage 4. Elevated INR 5. Pain control narcotic dependence - Plan Plan:: 1. Sepsisleukocytosis, hypotension -hypotension: 2000 cc bolus, Levophed Leukocytosis/infection: Zosyn Patient carries gene for-[place]'s, patient has lost son to same, other son has [place] as well, over concern for possibility of [place] patient was treated as if it was a complicating factor and was given hydrocortisone 100 mg every 12 hours for the last 24 hours. 2. Rapid heart rate/V. tach Patient has been getting metoprolol 10 mg IV pushes as needed for heart rate patient's been converted to 10 mg every 6 hours IV V. tach patient received 150 mg amiodarone at 2 separate occasions yesterday to control sustained V. tach, patient was started on a amiodarone drip this morning running at 1 mg/min for the first 6 hours, 0.5 mg/min for the next 18. 3. Elevated INR/gastrointestinal hemorrhage Patient received 1 unit of O- blood yesterday evening with a corresponding rise in her hematocrit today. Patient's INR 4.7 this morning patient will receive 2 units fresh frozen plasma to address bleeding and elevated INR new Patient was placed on Protonix per ED hospitalist recommendation 4. Pain control narcotic dependence Patient is in extreme pain and I believe experiencing some level of narcotic withdrawal Patient's pain is extremely difficult to control following medications are being used concurrently to control patient's pain: 25 mg fentanyl patch, 8 mg morphine push every 4 hours, 2 mg Dilaudid every 6 hours, 60 milligrams ketamine up to twice daily for breakthrough pain, Norflex 60 mg IV every 12, Ativan 2 mg as needed for sedation Continue to work on transferring patient to higher level of care. Consider transitioning to another antibiotic. Consulted with Kevon Ramirez hospitalist, recommended cefepime Flagjimbo, based on review of patient's record she has an anaphylactic reaction to beta-lactam antibiotics therefore the change was not made.
[2021-01-09] MEDS: Norepinephrine 4 MG in Dextrose 5% in Water 246 ML IV SCH ×2 (10:34)
[2021-01-09] MEDS ORDERED: Morphine 10 MG/ML SDV IV PRN (10:41)
[2021-01-09] MEDS ORDERED: Ketamine 200 MG/20 ML MDV IVPUSH ONE ×2 (10:42→10:44)
[2021-01-09] MEDS ORDERED: Pantoprazole 80 MG in Sodium Chloride 0.9% 100 ML IV ONE (12:43)
--- NOTE | 2021-01-09 13:03 | PCM.CONSN ---
- General Info Date of Service: 01/09/21 - Patient Data Vitals - Most Recent: Last Vital Signs Temp 36.8 C 01/09/21 13:00 Pulse 103 H 01/09/21 13:00 Resp 10 L 01/09/21 13:00 BP 106/69 01/09/21 13:00 Pulse Ox 98 01/09/21 13:00 Weight - Most Recent: 58.06 kg I&O - Last 24 Hours: Intake & Output 01/08/21 01/09/21 01/09/21 22:59 06:59 14:59 Intake Total 390 Output Total 725 1250 Balance -335 -1250 Lab Results Last 24 Hours: Laboratory Results - last 24 hr 01/06/21 01/08/21 01/08/21 Range/Units 07:00 13:31 15:36 WBC 12.3 H (4.0-11.0) K/uL RBC 2.81 L (3.80-5.80) M/uL Hgb 8.2 L (11.5-16.5) g/dL Hct 25.5 L (37.0-47.0) % MCV 91 (76-96) fL MCH 29.2 (27.0-32.0) pg MCHC 32.2 (31.0-35.0) g/dL RDW 18.0 H (11.0-16.0) % Plt Count 200 (150-500) K/uL MPV 9.2 (6.0-10.0) fL Neut % (Auto) 89.0 H (45.0-70.0) % Lymph % (Auto) 6.5 L (20.0-40.0) % [place] % (Auto) 3.8 (3.0-10.0) % Eos % (Auto) 0.5 L (1.0-5.0) % Baso % (Auto) 0.2 (0.0-0.5) % Neut # (Auto) 10.90 H (2.00-7.50) K/uL Lymph # (Auto) 0.80 L (1.50-4.00) K/uL [place] # (Auto) 0.46 (0.20-0.80) K/uL Eos # (Auto) 0.06 (0.04-0.40) K/uL Baso # (Auto) 0.03 (0.02-0.10) K/uL PT (9.0-11.5) sec INR (1.0-3.5) Sodium (136-145) mmol/L Potassium (3.5-5.1) mmol/L Chloride (98-107) mmol/L Carbon Dioxide (21.0-32.0) mmol/L Anion Gap (5.0-15.0) mmol/L BUN (8-26) mg/dL Creatinine (0.55-1.02) mg/dL Est Cr Clr Drug Dosing mL/min Estimated GFR (MDRD) (>60) MLS/MIN BUN/Creatinine Ratio (6-25) Glucose (74-100) mg/dL Calcium (8.5-10.1) mg/dL Phosphorus (2.5-4.9) mg/dL Magnesium (1.8-2.4) mg/dL Total Bilirubin (0.0-1.0) mg/dL AST (15-37) U/L ALT (12-78) U/L Alkaline Phosphatase (46-116) U/L Total Protein (6.4-8.2) g/dL Albumin (3.4-5.0) g/dL Globulin (2.2-4.2) g/dL Albumin/Globulin Ratio (0.8-2.0) Urine Color Yellow Urine Appearance Clear (CLEAR) Urine pH 6.0 (5.0-8.0) Ur Specific [place] 1.020 (1.003-1.030) Urine Protein Negative (NEGATIVE) mg/dL Urine Glucose (UA) 100 H (NEGATIVE) mg/dL Urine Ketones Negative (NEGATIVE) mg/dL Urine Occult Blood Small H (NEGATIVE) Urine Nitrite Negative (NEGATIVE) Urine Bilirubin Negative (NEGATIVE) Urine Urobilinogen 0.2 (0.2-1.0) E.U./dL Ur Leukocyte Esterase Negative (NEGATIVE) Urine RBC 0-5 H /HPF Urine WBC 5-10 H /HPF Ur Squamous Epith Cells Many /HPF Urine Bacteria Few /HPF Blood Type O NEGATIVE Gel Antibody Screen Negative Crossmatch See Detail 01/08/21 01/09/21 01/09/21 Range/Units 16:48 08:36 08:36 WBC (4.0-11.0) K/uL RBC (3.80-5.80) M/uL Hgb (11.5-16.5) g/dL Hct (37.0-47.0) % MCV (76-96) fL MCH (27.0-32.0) pg MCHC (31.0-35.0) g/dL RDW (11.0-16.0) % Plt Count (150-500) K/uL MPV (6.0-10.0) fL Neut % (Auto) (45.0-70.0) % Lymph % (Auto) (20.0-40.0) % [place] % (Auto) (3.0-10.0) % Eos % (Auto) (1.0-5.0) % Baso % (Auto) (0.0-0.5) % Neut # (Auto) (2.00-7.50) K/uL Lymph # (Auto) (1.50-4.00) K/uL [place] # (Auto) (0.20-0.80) K/uL Eos # (Auto) (0.04-0.40) K/uL Baso # (Auto) (0.02-0.10) K/uL PT 42.6 H (9.0-11.5) sec INR 4.6 H* (1.0-3.5) Sodium (136-145) mmol/L Potassium (3.5-5.1) mmol/L Chloride (98-107) mmol/L Carbon Dioxide (21.0-32.0) mmol/L Anion Gap (5.0-15.0) mmol/L BUN (8-26) mg/dL Creatinine (0.55-1.02) mg/dL Est Cr Clr Drug Dosing mL/min Estimated GFR (MDRD) (>60) MLS/MIN BUN/Creatinine Ratio (6-25) Glucose (74-100) mg/dL Calcium (8.5-10.1) mg/dL Phosphorus 3.8 (2.5-4.9) mg/dL Magnesium 1.7 L (1.8-2.4) mg/dL Total Bilirubin (0.0-1.0) mg/dL AST (15-37) U/L ALT (12-78) U/L Alkaline Phosphatase (46-116) U/L Total Protein (6.4-8.2) g/dL Albumin (3.4-5.0) g/dL Globulin (2.2-4.2) g/dL Albumin/Globulin Ratio (0.8-2.0) Urine Color Urine Appearance (CLEAR) Urine pH (5.0-8.0) Ur Specific [place] (1.003-1.030) Urine Protein (NEGATIVE) mg/dL Urine Glucose (UA) (NEGATIVE) mg/dL Urine Ketones (NEGATIVE) mg/dL Urine Occult Blood (NEGATIVE) Urine Nitrite (NEGATIVE) Urine Bilirubin (NEGATIVE) Urine Urobilinogen (0.2-1.0) E.U./dL Ur Leukocyte Esterase (NEGATIVE) Urine RBC /HPF Urine WBC /HPF Ur Squamous Epith Cells /HPF Urine Bacteria /HPF Blood Type Gel Antibody Screen Crossmatch 01/09/21 01/09/21 01/09/21 Range/Units 08:36 08:36 09:30 WBC 13.0 H (4.0-11.0) K/uL RBC 3.12 L (3.80-5.80) M/uL Hgb 9.2 L (11.5-16.5) g/dL Hct 28.9 L (37.0-47.0) % MCV 93 (76-96) fL MCH 29.5 (27.0-32.0) pg MCHC 31.8 (31.0-35.0) g/dL RDW 18.2 H (11.0-16.0) % Plt Count 240 (150-500) K/uL MPV 9.2 (6.0-10.0) fL Neut % (Auto) 91.0 H (45.0-70.0) % Lymph % (Auto) 6.2 L (20.0-40.0) % [place] % (Auto) 2.7 L (3.0-10.0) % Eos % (Auto) 0.0 L (1.0-5.0) % Baso % (Auto) 0.1 (0.0-0.5) % Neut # (Auto) 11.80 H (2.00-7.50) K/uL Lymph # (Auto) 0.81 L (1.50-4.00) K/uL [place] # (Auto) 0.35 (0.20-0.80) K/uL Eos # (Auto) 0.00 L (0.04-0.40) K/uL Baso # (Auto) 0.01 L (0.02-0.10) K/uL PT 44.0 H (9.0-11.5) sec INR 4.7 H* (1.0-3.5) Sodium 145 (136-145) mmol/L Potassium 4.2 (3.5-5.1) mmol/L Chloride 116 H (98-107) mmol/L Carbon Dioxide 19.0 L (21.0-32.0) mmol/L Anion Gap 14.2 (5.0-15.0) mmol/L BUN 18 D (8-26) mg/dL Creatinine 1.02 D (0.55-1.02) mg/dL Est Cr Clr Drug Dosing 59.81 mL/min Estimated GFR (MDRD) 57 L (>60) MLS/MIN BUN/Creatinine Ratio 17.6 (6-25) Glucose 115 H (74-100) mg/dL Calcium 7.9 L (8.5-10.1) mg/dL Phosphorus (2.5-4.9) mg/dL Magnesium (1.8-2.4) mg/dL Total Bilirubin 0.4 (0.0-1.0) mg/dL AST 37 (15-37) U/L ALT 33 (12-78) U/L Alkaline Phosphatase 104 (46-116) U/L Total Protein 5.2 L (6.4-8.2) g/dL Albumin 2.2 L (3.4-5.0) g/dL Globulin 3.0 (2.2-4.2) g/dL Albumin/Globulin Ratio 0.7 L (0.8-2.0) Urine Color Urine Appearance (CLEAR) Urine pH (5.0-8.0) Ur Specific [place] (1.003-1.030) Urine Protein (NEGATIVE) mg/dL Urine Glucose (UA) (NEGATIVE) mg/dL Urine Ketones (NEGATIVE) mg/dL Urine Occult Blood (NEGATIVE) Urine Nitrite (NEGATIVE) Urine Bilirubin (NEGATIVE) Urine Urobilinogen (0.2-1.0) E.U./dL Ur Leukocyte Esterase (NEGATIVE) Urine RBC /HPF Urine WBC /HPF Ur Squamous Epith Cells /HPF Urine Bacteria /HPF Blood Type Gel Antibody Screen Crossmatch Gen Results Last 24 Hours: Microbiology 01/08/21 11:10 Aerobic Blood Culture - Preliminary Blood NO GROWTH AFTER 1 DAY Anaerobic Blood Culture - Preliminary NO GROWTH AFTER 1 DAY Med Orders - Current: Current Medications Dextrose/Water (50% Dextrose In Water 50 Ml Syringe) 50 ml IVPUSH ASDIRECTED PRN PRN Reason: Hypoglycemia Last Admin: 01/06/21 09:13 Dose: 50 ml Documented by: Fentanyl (Fentanyl 50 Mcg/Hr Transdermal Patch) 50 mcg TRDERM Q72H YARELI Last Admin: 01/07/21 08:33 Dose: 50 mcg Documented by: Hydromorphone HCl (Hydromorphone 2 Mg/Ml Sdv) 1 - 2 mg IVPUSH Q4H PRN PRN Reason: Pain Last Admin: 01/09/21 12:41 Dose: 1 mg Documented by: Dextrose/Sodium Chloride (Dextrose 5%-1/2 Ns) 1,000 mls @ 75 mls/hr IV ASDIRECTED YARELI Last Infusion: 01/08/21 16:40 Dose: 0 mls/hr Documented by: Norepinephrine Bitartrate 4 mg (/ Dextrose/Water) 250 mls @ 22.5 mls/hr IV TITRATE YARELI; Protocol Last Admin: 01/09/21 10:34 Dose: 7 mcg/min, 26.25 mls/hr Documented by: Metoprolol Tartrate 10 mg/ (Sodium Chloride) 60 mls @ 100 mls/hr IV Q6H YARELI Last Admin: 01/09/21 08:27 Dose: 100 mls/hr Documented by: Amiodarone HCl 900 mg/ (Dextrose/Water) 500 mls @ 33.333 mls/hr IV ASDIRECTED YARELI; Protocol Last Admin: 01/09/21 09:10 Dose: 1 mg/min, 33.333 mls/hr Documented by: Pantoprazole Sodium 80 mg/ (Sodium Chloride) 100 mls @ 200 mls/hr IV .BOLUS ONE Stop: 01/09/21 13:12 Levothyroxine Sodium (Levothyroxine 25 Mcg Tab) 50 mcg PO ACBREAKFAST YARELI Last Admin: 01/09/21 08:22 Dose: Not Given Documented by: Lorazepam (Lorazepam 2 Mg/Ml Sdv) 2 mg IVPUSH Q4H PRN PRN Reason: Anxiety Last Admin: 01/09/21 09:44 Dose: 2 mg Documented by: Morphine Sulfate (Morphine 10 Mg/Ml Sdv) 8 mg IV Q4H PRN PRN Reason: PAIN Sodium Chloride (Sodium Chloride 0.9% 10 Ml Syringe) 10 ml FLUSH ASDIRECTED PRN PRN Reason: Keep Vein Open Last Admin: 01/09/21 08:30 Dose: 10 ml Documented by: Sodium Chloride (Sodium Chloride 0.9% 10 Ml Syringe) 10 ml FLUSH ASDIRECTED PRN PRN Reason: Keep Vein Open Last Admin: 01/09/21 09:10 Dose: 10 ml Documented by: Discontinued Medications Famotidine (Famotidine 20 Mg/2 Ml Sdv) 20 mg IVPUSH ONETIME ONE Stop: 01/06/21 07:43 Last Admin: 01/06/21 08:52 Dose: 20 mg Documented by: Fentanyl (Fentanyl 50 Mcg/Hr Transdermal Patch) Confirm Administered Dose 50 mcg .ROUTE .STK-MED ONE Stop: 01/07/21 08:34 Last Admin: 01/07/21 08:38 Dose: Not Given Documented by: Glucagon (Glucagon,Human Recombinant 1 Mg Vial) 1 mg IM ASDIRECTED PRN PRN Reason: Hypoglycemia Haloperidol Lactate (Haloperidol Lactate 5 Mg/Ml Sdv) 2 mg IVPUSH ONETIME ONE Stop: 01/07/21 02:33 Last Admin: 01/07/21 02:36 Dose: 2 mg Documented by: Haloperidol Lactate (Haloperidol Lactate 5 Mg/Ml Sdv) Confirm Administered Dose 5 mg .ROUTE .STK-MED ONE Stop: 01/07/21 02:35 Last Admin: 01/07/21 05:54 Dose: Not Given Documented by: Haloperidol Lactate (Haloperidol Lactate 5 Mg/Ml Sdv) Confirm Administered Dose 5 mg .ROUTE .STK-MED ONE Stop: 01/08/21 09:54 Last Admin: 01/08/21 11:36 Dose: Not Given Documented by: Haloperidol Lactate (Haloperidol Lactate 5 Mg/Ml Sdv) Confirm Administered Dose 5 mg .ROUTE .STK-MED ONE Stop: 01/08/21 10:05 Last Admin: 01/08/21 12:03 Dose: Not Given Documented by: Haloperidol Lactate (Haloperidol Lactate 5 Mg/Ml Sdv) Confirm Administered Dose 5 mg .ROUTE .STK-MED ONE Stop: 01/08/21 10:06 Last Admin: 01/08/21 12:03 Dose: Not Given Documented by: Hydrocortisone Sodium Succinate (Hydrocortisone Sodium Succinate 100 Mg/2 Ml Sdv) 100 mg IVPUSH ONETIME ONE Stop: 01/08/21 15:08 Last Admin: 01/08/21 17:24 Dose: Not Given Documented by: Hydrocortisone Sodium Succinate (Hydrocortisone Sodium Succinate 100 Mg/2 Ml Sdv) Confirm Administered Dose 100 mg .ROUTE .STK-MED ONE Stop: 01/08/21 22:51 Last Admin: 01/08/21 22:56 Dose: Not Given Documented by: Hydrocortisone Sodium Succinate (Hydrocortisone Sodium Succinate 100 Mg/2 Ml Sdv) 100 mg IVPUSH ONETIME ONE Stop: 01/08/21 22:52 Last Admin: 01/08/21 22:50 Dose: 100 mg Documented by: Hydromorphone HCl (Hydromorphone 2 Mg/Ml Sdv) Confirm Administered Dose 2 mg .ROUTE .STK-MED ONE Stop: 01/08/21 14:03 Last Admin: 01/08/21 14:16 Dose: Not Given Documented by: Hydromorphone HCl (Hydromorphone 2 Mg/Ml Sdv) 1 mg IVPUSH ONETIME ONE Stop: 01/08/21 13:51 Last Admin: 01/08/21 16:59 Dose: Not Given Documented by: Hydromorphone HCl (Hydromorphone 2 Mg/Ml Sdv) 1 mg IVPUSH ONETIME ONE Stop: 01/08/21 22:34 Last Admin: 01/08/21 22:33 Dose: 1 mg Documented by: Hydromorphone HCl (Hydromorphone 2 Mg/Ml Sdv) Confirm Administered Dose 2 mg .ROUTE .STK-MED ONE Stop: 01/08/21 22:34 Last Admin: 01/08/21 22:56 Dose: Not Given Documented by: Hydromorphone HCl (Hydromorphone 2 Mg/Ml Sdv) 1 mg IVPUSH ONETIME ONE Stop: 01/08/21 23:14 Last Admin: 01/08/21 23:14 Dose: 1 mg Documented by: Sodium Chloride (Normal Saline) 1,000 mls @ 999 mls/hr IV ASDIRECTED YARELI Last Infusion: 01/06/21 08:33 Dose: Infused Documented by: Phytonadione 10 mg/ Sodium (Chloride) 51 mls @ 100 mls/hr IV NOW ONE Stop: 01/06/21 08:15 Last Admin: 01/06/21 08:30 Dose: 100 mls/hr Documented by: Lactated Ringer's (Ringers, Lactated) 1,000 mls @ 100 mls/hr IV ASDIRECTED YARELI Last Admin: 01/06/21 09:02 Dose: 100 mls/hr Documented by: Sodium Chloride (Normal Saline) 500 mls @ 500 mls/hr IV ASDIRECTED YARELI Last Admin: 01/06/21 19:00 Dose: 500 mls/hr Documented by: Sodium Chloride (Normal Saline) 1,000 mls @ 500 mls/hr IV ASDIRECTED YARELI Last Infusion: 01/07/21 04:50 Dose: Infused Documented by: Norepinephrine Bitartrate 4 mg (/ Dextrose/Water) 250 mls @ 7.5 mls/hr IV TITRATE YARELI; Protocol Last Titration: 01/07/21 04:25 Dose: 5 mcg/min, 18.75 mls/hr Documented by: Metoprolol Tartrate 20 mg/ (Sodium Chloride) 70 mls @ 100 mls/hr IV ONETIME ONE Stop: 01/07/21 19:29 Last Admin: 01/07/21 19:08 Dose: 100 mls/hr Documented by: Piperacillin Sod/Tazobactam (Sod 3.375 gm/ Sodium Chloride) 100 mls @ 100 mls/hr IV Q6H [facility] Last Admin: 01/09/21 11:43 Dose: 100 mls/hr Documented by: Sodium Chloride (Normal Saline) 1,000 mls @ 999 mls/hr IV ASDIRECTED YARELI Last Infusion: 01/08/21 16:40 Dose: Infused Documented by: Sodium Chloride (Normal Saline) 1,000 mls @ 999 mls/hr IV ONETIME ONE Stop: 01/08/21 15:40 Last Admin: 01/08/21 14:40 Dose: 999 mls/hr Documented by: Amiodarone HCl 150 mg/ (Dextrose/Water) 103 mls @ 10 mls/min IV .BOLUS ONE Stop: 01/08/21 15:25 Last Admin: 01/08/21 13:45 Dose: 10 mls/min Documented by: Amiodarone HCl 150 mg/ (Dextrose/Water) 103 mls @ 618 mls/hr IV ONETIME ONE Stop: 01/08/21 22:47 Last Admin: 01/08/21 22:36 Dose: 618 mls/hr Documented by: Insulin Human Regular (Insulin Regular, Human 100 Units/Ml 3 Ml Vial) 10 unit IV ONETIME ONE Stop: 01/06/21 09:00 Last Admin: 01/06/21 09:10 Dose: 10 units Documented by: Ketamine HCl (Ketamine 200 Mg/20 Ml Mdv) Confirm Administered Dose 200 mg .ROUTE .STK-MED ONE Stop: 01/08/21 10:35 Last Admin: 01/08/21 12:03 Dose: Not Given Documented by: Ketamine HCl (Ketamine 200 Mg/20 Ml Mdv) 60 mg IVPUSH ONETIME ONE Stop: 01/08/21 10:58 Last Admin: 01/08/21 10:15 Dose: 60 mg Documented by: Ketamine HCl (Ketamine 200 Mg/20 Ml Mdv) Confirm Administered Dose 200 mg .ROUTE .STK-MED ONE Stop: 01/08/21 22:55 Last Admin: 01/08/21 22:56 Dose: Not Given Documented by: Ketamine HCl (Ketamine 200 Mg/20 Ml Mdv) 60 mg IVPUSH ONETIME ONE Stop: 01/08/21 22:51 Last Admin: 01/08/21 22:42 Dose: 60 mg Documented by: Ketamine HCl (Ketamine 200 Mg/20 Ml Mdv) 60 mg IVPUSH ONETIME ONE Stop: 01/09/21 10:45 Last Admin: 01/09/21 11:00 Dose: 60 mg Documented by: Lorazepam (Lorazepam 2 Mg/Ml Sdv) 2 mg IVPUSH ONETIME ONE Stop: 01/06/21 18:28 Last Admin: 01/06/21 18:34 Dose: 2 mg Documented by: Lorazepam (Lorazepam 2 Mg/Ml Sdv) Confirm Administered Dose 2 mg .ROUTE .STK-MED ONE Stop: 01/06/21 18:31 Last Admin: 01/06/21 18:33 Dose: Not Given Documented by: Lorazepam (Lorazepam 2 Mg/Ml Sdv) Confirm Administered Dose 2 mg .ROUTE .STK-MED ONE Stop: 01/07/21 07:53 Last Admin: 01/07/21 07:53 Dose: Not Given Documented by: Metoprolol Tartrate (Metoprolol Tartrate 5 Mg/5 Ml Sdv) Confirm Administered Dose 10 mg .ROUTE .STK-MED ONE Stop: 01/06/21 13:05 Last Admin: 01/06/21 13:48 Dose: Not Given Documented by: Metoprolol Tartrate (Metoprolol Tartrate 5 Mg/5 Ml Sdv) 10 mg IVPUSH ONETIME ONE Stop: 01/06/21 13:49 Last Admin: 01/06/21 13:51 Dose: 10 mg Documented by: Metoprolol Tartrate (Metoprolol Tartrate 5 Mg/5 Ml Sdv) 10 mg IVPUSH ONETIME ONE Stop: 01/06/21 15:47 Last Admin: 01/06/21 16:56 Dose: 10 mg Documented by: Metoprolol Tartrate (Metoprolol Tartrate 5 Mg/5 Ml Sdv) 10 mg IVPUSH ONETIME ONE Stop: 01/06/21 21:28 Last Admin: 01/07/21 02:00 Dose: 10 mg Documented by: Metoprolol Tartrate (Metoprolol Tartrate 5 Mg/5 Ml Sdv) Confirm Administered Dose 5 mg .ROUTE .STK-MED ONE Stop: 01/06/21 21:53 Last Admin: 01/07/21 02:02 Dose: Not Given Documented by: Metoprolol Tartrate (Metoprolol Tartrate 5 Mg/5 Ml Sdv) Confirm Administered Dose 5 mg .ROUTE .STK-MED ONE Stop: 01/07/21 00:13 Last Admin: 01/07/21 02:02 Dose: Not Given Documented by: Metoprolol Tartrate (Metoprolol Tartrate 5 Mg/5 Ml Sdv) 20 mg IVPUSH ONETIME ONE Stop: 01/07/21 08:26 Last Admin: 01/07/21 08:44 Dose: 20 mg Documented by: Metoprolol Tartrate (Metoprolol Tartrate 5 Mg/5 Ml Sdv) Confirm Administered Dose 10 mg .ROUTE .STK-MED ONE Stop: 01/07/21 23:21 Last Admin: 01/07/21 23:30 Dose: 2.5 mg Documented by: Metoprolol Tartrate (Metoprolol Tartrate 5 Mg/5 Ml Sdv) Confirm Administered Dose 10 mg .ROUTE .STK-MED ONE Stop: 01/08/21 08:28 Last Admin: 01/08/21 08:46 Dose: Not Given Documented by: Metoprolol Tartrate (Metoprolol Tartrate 5 Mg/5 Ml Sdv) 10 mg IVPUSH ASDIRECTED YARELI Stop: 01/08/21 23:59 Last Admin: 01/08/21 22:55 Dose: 10 mg Documented by: Metoprolol Tartrate (Metoprolol Tartrate 5 Mg/5 Ml Sdv) 10 mg IVPUSH ONETIME ONE Stop: 01/09/21 00:39 Last Admin: 01/09/21 00:39 Dose: 10 mg Documented by: Metoprolol Tartrate (Metoprolol Tartrate 5 Mg/5 Ml Sdv) 10 mg IVPUSH ONETIME ONE Stop: 01/09/21 05:18 Last Admin: 01/09/21 06:38 Dose: Not Given Documented by: Morphine Sulfate (Morphine 4 Mg/Ml Vial) 4 mg IVPUSH Q2H PRN PRN Reason: Pain (moderate 4-6) Last Admin: 01/07/21 07:45 Dose: 4 mg Documented by: Morphine Sulfate (Morphine 4 Mg/Ml Vial) Confirm Administered Dose 4 mg .ROUTE .STK-MED ONE Stop: 01/07/21 07:53 Last Admin: 01/07/21 07:53 Dose: Not Given Documented by: Morphine Sulfate (Morphine 10 Mg/Ml Syringe) 8 mg SUBCUT Q4H PRN PRN Reason: Pain (severe 7-10) Last Admin: 01/08/21 09:00 Dose: 4 mg Documented by: Morphine Sulfate (Morphine 4 Mg/Ml Vial) Confirm Administered Dose 8 mg .ROUTE .STK-MED ONE Stop: 01/07/21 19:32 Last Admin: 01/07/21 19:30 Dose: 4 mg Documented by: Morphine Sulfate (Morphine 4 Mg/Ml Vial) Confirm Administered Dose 4 mg .ROUTE .STK-MED ONE Stop: 01/07/21 20:09 Last Admin: 01/08/21 09:42 Dose: Not Given Documented by: Morphine Sulfate (Morphine 4 Mg/Ml Vial) Confirm Administered Dose 4 mg .ROUTE .STK-MED ONE Stop: 01/08/21 09:07 Last Admin: 01/08/21 11:21 Dose: Not Given Documented by: Morphine Sulfate (Morphine 10 Mg/Ml Sdv) 8 mg IV Q4H PRN PRN Reason: PAIN Morphine Sulfate (Morphine 10 Mg/Ml Sdv) 8 mg SUBCUT Q4H PRN PRN Reason: PAIN Last Admin: 01/09/21 10:12 Dose: 8 mg Documented by: Orphenadrine Citrate (Orphenadrine 60 Mg/2 Ml Inj) 60 mg IV ONETIME ONE Stop: 01/08/21 23:53 Last Admin: 01/09/21 00:03 Dose: 60 mg Documented by: Orphenadrine Citrate (Orphenadrine 60 Mg/2 Ml Inj) Confirm Administered Dose 60 mg .ROUTE .STK-MED ONE Stop: 01/08/21 23:57 Last Admin: 01/09/21 00:23 Dose: Not Given Documented by: Pantoprazole Sodium (Pantoprazole 40 Mg Vial) 40 mg IVPUSH ONETIME ONE Stop: 01/06/21 05:53 Last Admin: 01/06/21 07:22 Dose: 40 mg Documented by: Phytonadione (Phytonadione 10 Mg/1 Ml Amp) Confirm Administered Dose 10 mg .ROUTE .STK-MED ONE Stop: 01/06/21 08:18 Last Admin: 01/06/21 08:32 Dose: Not Given Documented by: Phytonadione (Phytonadione 10 Mg/1 Ml Amp) Confirm Administered Dose 10 mg .ROUTE .STK-MED ONE Stop: 01/06/21 08:24 Last Admin: 01/06/21 08:32 Dose: Not Given Documented by: - Exam Urinary Catheter Total Time: 0Days 15Hours Sepsis Event Note - Evaluation Sepsis Screening Result: No Definite Risk - Focused Exam Vital Signs: Vital Signs Temp Pulse Pulse Resp BP BP Pulse Ox 01/09/21 13:00 36.8 C 103 H 10 L 106/69 98 01/09/21 12:45 37.0 C 12 111/76 97 01/09/21 11:29 36.6 C 12 105/83 01/09/21 08:27 105 H 91/63 01/09/21 04:30 138 H 18 124/93 H 97 Consult PN Assessment/Plan Procedures: Procedures ASSAY OF ACTH (11/30/18) ASSAY OF ALDOSTERONE (07/07/16) ASSAY OF C-PEPTIDE (12/16/16) ASSAY OF CREATININE (05/19/20) ASSAY OF LACTIC ACID (07/29/19) ASSAY OF MAGNESIUM (11/21/19) ASSAY OF METANEPHRINES (04/17/18) ASSAY OF NATRIURETIC PEPTIDE (11/30/18) ASSAY OF SERUM POTASSIUM (05/19/20) ASSAY OF SERUM SODIUM (05/19/20) ASSAY OF TROPONIN QUANT (03/25/20) ASSAY OF UREA NITROGEN (05/19/20) ASSAY OF URINE CREATININE (04/17/18) ASSAY THREE CATECHOLAMINES (04/17/18) ASSAY THYROID STIM HORMONE (11/30/18) BLOOD CULTURE FOR BACTERIA (11/30/18) BLOOD GASES ANY COMBINATION (07/09/19) BLOOD PH (11/30/18) BLOOD TRANSFUSION SERVICE (07/09/19) BLOOD TYPING SEROLOGIC ABO (07/09/19) BLOOD TYPING SEROLOGIC RH(D) (07/09/19) C DIFF AMPLIFIED PROBE (04/13/16) C-REACTIVE PROTEIN (11/21/19) C-REACTIVE PROTEIN HS (09/10/15) CARDIAC REHAB/MONITOR (12/02/15) CHEST X-RAY 1 VIEW FRONTAL (10/22/16) CHEST X-RAY 2VW FRONTAL&LATL (09/10/15) COMPATIBILITY TEST ANTIGLOB (07/09/19) COMPATIBILITY TEST SPIN (07/09/19) COMPLETE CBC AUTOMATED (03/25/20) COMPLETE CBC W/AUTO DIFF WBC (12/29/20) COMPREHEN METABOLIC PANEL (03/25/20) CT ABD & PELV W/CONTRAST (02/02/18) CT ABD & PELVIS W/O CONTRAST (11/21/19) CT PELVIS W/O DYE (01/28/19) CT SCAN FOR NEEDLE BIOPSY (08/06/15) CT THORAX DX C+ (10/22/16) CT THORAX DX C- (09/25/15) CYTOPATH FL NONGYN SMEARS (04/13/18) ELECTROCARDIOGRAM TRACING (03/25/20) EMERGENCY DEPT VISIT (12/12/20) EMERGENCY DEPT VISIT (07/12/20) EMERGENCY DEPT VISIT (03/25/20) EMERGENCY DEPT VISIT (03/25/20) EMERGENCY DEPT VISIT (11/21/19) EMERGENCY DEPT VISIT (07/29/19) EMERGENCY DEPT VISIT (07/17/19) EMERGENCY DEPT VISIT (07/17/19) EMERGENCY DEPT VISIT (07/09/19) EMERGENCY DEPT VISIT (05/25/19) EMERGENCY DEPT VISIT (01/28/19) EMERGENCY DEPT VISIT (01/28/19) EMERGENCY DEPT VISIT (01/01/19) EMERGENCY DEPT VISIT (11/30/18) EMERGENCY DEPT VISIT (08/02/17) EMERGENCY DEPT VISIT (10/22/16) EMERGENCY DEPT VISIT (08/01/16) EMERGENCY DEPT VISIT (09/29/15) FIBRIN DEGRADATION QUANT (10/22/16) GAIT TRAINING THERAPY (10/01/19) GLUCOSE BLOOD TEST (07/17/19) GLYCOSYLATED HEMOGLOBIN TEST (10/08/19) HEMATOCRIT (04/27/19) HEMOGLOBIN (04/27/19) HYDRATE IV INFUSION ADD-ON (01/01/19) HYDRATION IV INFUSION INIT (01/01/19) INSERT TEMP BLADDER CATH (07/29/19) LACTATE (LD) (LDH) ENZYME (07/29/19) METABOLIC PANEL TOTAL CA (12/29/20) MICROBE SUSCEPTIBLE GEN (07/12/20) MRI CHEST SPINE W/O & W/DYE (01/04/17) MRI CHEST SPINE W/O DYE (01/10/18) MRI LUMBAR SPINE W/O DYE (06/24/16) NJX INTERLAMINAR LMBR/SAC (02/23/18) OT EVAL LOW COMPLEX 30 MIN (07/17/19) OT RE-EVAL EST PLAN CARE (03/26/19) PROTHROMBIN TIME (05/19/20) PT EVAL HIGH COMPLEX 45 MIN (07/17/19) PT EVAL LOW COMPLEX 20 MIN (08/28/19) PT EVALUATION (12/25/14) PT RE-EVAL EST PLAN CARE (04/27/19) RBC ANTIBODY SCREEN (07/09/19) RBC SED RATE NONAUTOMATED (11/21/19) ROUTINE VENIPUNCTURE (12/29/20) RPR S/N/AX/GEN/TRNK 2.5CM/< (05/25/19) SARS-COV-2 COVID-19 AMP PRB (01/01/21) SELF CARE MNGMENT TRAINING (07/17/19) THER/DIAG CONCURRENT INF (07/29/19) THER/PROPH/DIAG INJ IV PUSH (01/28/19) THER/PROPH/DIAG INJ SC/IM (08/04/20) THER/PROPH/DIAG IV INF ADDON (11/21/19) THER/PROPH/DIAG IV INF INIT (11/21/19) THERAPEUTIC ACTIVITIES (07/17/19) THERAPEUTIC EXERCISES (10/01/19) TOTAL CORTISOL (11/30/18) TX/PRO/DX INJ NEW DRUG ADDON (11/21/19) TX/PRO/DX INJ SAME DRUG CHIEF CONTROLLER TOWER (11/21/19) URINALYSIS AUTO W/O SCOPE (11/30/18) URINALYSIS AUTO W/SCOPE (12/29/20) URINE BACTERIA CULTURE (07/12/20) URINE CULTURE/COLONY COUNT (12/29/20) VITAMIN D 25 HYDROXY (01/08/19) WITHDRAWAL OF ARTERIAL BLOOD (07/09/19) X-RAY EXAM CHEST 1 VIEW (11/21/19) X-RAY EXAM CHEST 2 VIEWS (08/02/17) X-RAY EXAM HIP UNI 2-3 VIEWS (01/28/19) X-RAY EXAM L-S SPINE 2/3 VWS (07/03/19) X-RAY EXAM OF ABDOMEN (09/29/15) X-RAY EXAM THORAC SPINE 3VWS (07/03/19) Problem List Initiated/Reviewed/Updated: Yes [facility]: Hospital course: Patient is a 50-year-old female with pmh of CKD, chronic back pain, A. fib on Coumadin, Crohn's disease s/p ostomy and takedown, medication overdose who was admitted for GI bleed. She was given IV vitamin K, PRBCs, FFP's to correct her elevated INR (if greater than 10 on presentation), hemoglobin of 4.9 upon presentation. Her hemoglobin has been above 7, her INR is coming down slowly. She was also started on Levophed for hypotension. Per local provider, patient also had 2 episodes of sustained V. tach lasting about 20 minutes while she was asymptomatic. She was started on amiodarone for this. Her renal function has improved since admission. Per local provider, transfer efforts continue to be underway with no success so far. Reviewed labs and imaging reports from this admission Recommendations: Based on chart review, information gathered from discussion with local provider, review of labs and imaging as noted above, I recommend the following: #Septic shock Likely from abdominal source. Has been on IV Zosyn. Lactic acid now normal. -Recommend cefepime 2 g IV every 8 hours, Flagyl 500 mg 3 times daily IV. -Needs urgent surgery consult #GI bleed Continues to have dark/bloody stools. -Monitor hemoglobin every 8 to every 12 hours and transfuse to keep hemoglobin greater than 7. -Goal INR less than 2 -Recommend another dose of IV vitamin K -Continue home warfarin, aspirin or other antiplatelets or anticoagulation. -Needs urgent endoscopy #V. tach: Recommend amiodarone loading, metoprolol tartrate as ordered, urgent cardiology consult. Discussed with cardiology regarding pressor choice #RUPAL, hyperkalemia: Resolved. Continue to hold Entresto #Elevated TSH: Check free T4 #Management of other chronic medical conditions per local provider Discussed above plan with local provider, ZOIE Browning. Thank you for including Kevon Hurst in the patients care. This service is available for further assistance as requested by your care team by calling [phone].
[2021-01-09] MEDS ORDERED: HYDROmorphone 2 MG/ML SDV ONE (14:23)
[2021-01-09] MEDS ORDERED: HYDROmorphone 2 MG/ML SDV IM ONE (14:49)
[2021-01-09] MEDS ORDERED: Metoprolol Tartrate 5 MG/5 ML SDV ONE (14:54)
[2021-01-09] MEDS ORDERED: Amiodarone 150 MG in Dextrose 5% in Water 100 ML IV SCH ×2 (15:00)
--- NOTE | 2021-01-09 17:56 | DISCH ---
Discharge/Transfer Summary DATE OF TRANSFER: 01/08/2021. ADMISSION DIAGNOSIS: Lower gastrointestinal bleeding. DISCHARGE DIAGNOSES: 1. Lower gastrointestinal bleeding with abdominal pain. 2. Sepsis. 3. Hypotension and supraventricular tachyarrhythmias. 4. Opioid dependence. HOSPITAL COURSE: This 50-year-old woman was admitted on the above-mentioned date with a history of a few days of maroon-colored stools, weakness, and abdominal pain. She was seen by nurse practitioner, Juana Love, and she had a complicated antecedent history that includes Crohn's disease requiring a right colon and distal small bowel resection 2 years ago. She has had chronic pain issues, which have at times even got to the point where she has had opiate overdose as a consequence of opiate dependence because of chronic low back pain and other skeletal pain. For further details on her extensive PMH, see admission H&P On arrival here on admission, she had dark maroon- colored stools, had increasing abdominal pain with nausea, but no vomiting. When she was seen in the emergency department on the morning of 01/06/2021, she had hypotension with blood pressure ranging in the 60s to 70s systolic and tachycardia that ranged from 135 to 201. At this point, it was felt that she was experiencing significant GI bleeding. Her hemoglobin on admission was 4.9. She was subsequently, over the next 3 days, transfused to the point where her most recent hemoglobin is 9.2. She did have significant leukocytosis of 19,900 with a left shift on admission, but she was afebrile. She did have some mild hyperkalemia and had what appears to be significant prerenal azotemia with a BUN of 86 and a creatinine of 2.7. Her lactic acid was elevated at 2.4 on admission. Subsequent studies included a CT scan of her abdomen which was performed on 01/08 and this showed some old fluid collections in her right abdomen, which had been known to be present on previous studies and appeared to be unchanged. These were small and adjacent to the area where she had her right colon resection. Most importantly, however, she did have thickening of her left colon at the level of the splenic flexure, which seemed to be most consistent with colitis, probably ischemic in nature, but the possibility of Crohn's colitis could not be excluded on the basis of the CT scan. Since her admission, she has been transfused and has had some additional maroon-colored stools, but no nausea or vomiting. Her metabolic abnormalities in terms of her renal function have improved considerably with fluid resuscitation to the extent that her electrolytes are now normal and her creatinine is currently 1.02 with a BUN of 18. Her lactate levels have normalized. Her electrolytes are also normalized. Her leukocytosis is still present ranging between 12,000 and 13,000. She has not had any thrombocytopenia throughout all this. Her liver enzymes have been normal through this. She also had a troponin 1 on admission, which was normal. Because of her history of hypothyroidism, a TSH was obtained and it is quite elevated at 9.77. Urinalysis was essentially normal with no evidence of urinary tract infection. Beginning yesterday, she began to have severe problems with tachyarrhythmias including runs of ventricular tachycardia and supraventricular tach which almost seemed to have the appearance of a multifocal atrial tachycardia. There were both runs of narrow complex and wide- complex supraventricular tachycardia ranging as high as 200. Because of these tachyarrhythmias, we went ahead and treated her with amiodarone beginning with a bolus of 150 and eventually having to repeat this and started her on an amiodarone drip. This did help considerably to the extent that for the most part she was in a sinus tachycardia, but then still had runs of supraventricular tachycardia, necessitating continuation of the amiodarone drip. In addition to this because of hypotension in spite of aggressive volume replacement of crystalloid fresh frozen and packed red cells, she had to be started on levo to maintain a blood pressure. Throughout all of this, her urine output remained quite satisfactory and in fact has been fairly brisk overnight. Clinically when I first saw her yesterday, she did have abdominal tenderness which was poorly localized. This combined with her overall clinical picture and her CT finding suggested to me that she had an intraabdominal process that was producing a picture of sepsis as well as the bleeding. She had been on anticoagulation because of prior Coumadin use because of prosthetic aortic valve as well as a history of atrial fibrillation. Her Coumadin was not continued because of her GI bleeding and we had to be more aggressive in terms of reversing her elevated INR with fresh frozen plasma. In spite of giving 5 units of fresh frozen plasma, her INR is still elevated at 4, and she has received a total of 5 units of packed red cells to get her hemoglobin up to the most recent value of 9.2. Her liver enzymes are normal as mentioned above. This morning, she seemed to have less abdominal tenderness, but her tachyarrhythmias and her need for continued pressors and continued passage of maroon stools, it is concerning that she still has an intraabdominal process ongoing. For the last 2 days, we have struggled to try to get her transferred to a facility that has critical care and surgical capabilities as well as possibly Interventional Radiology. We were able to finally contact [facility] in [place] and spoke to the ladle pourer there who agreed to accept her in transfer. The realizes that this is definitely a better situation for her in light of their capability for critical care medicine and surgical services. He also understands that certain modalities such as Interventional Radiology possibly requiring thromboembolization for bleeding may not be available for them in [place] should that need arise. Nevertheless, given the fact that we have not been able to locate beds for the last 2 days in the 4-stage area , we felt that this was something on which we had to seize the opportunity to improve her chances. She knows the is aware that she quite possibly has an intraabdominal process that may require surgical intervention and he is fully supportive of that should the need be deemed advisable. All questions were answered. He understands and agrees with this. GIBRAN /[id number] ANGELICA
[2021-01-09 18:26] VITALS: BP 104/67; PULSE 99
== END 2021-01-09 17:50 | disposition home or self-care (01) | DRG 871 ==
LOC: LB.ED 05:24 → LB.MS 01-08 06:41
PROVIDERS: ADMIT Nurse Practitioner; ATTEND Nurse Practitioner
PROC: 30233N1 Transfusion of Nonautologous Red Blood Cells into Peripheral Vein, Percutaneous Approach (ICD-10-PCS; principal; 2021-01-08)
PROC: 3E033XZ Introduction of Vasopressor into Peripheral Vein, Percutaneous Approach (ICD-10-PCS; 2021-01-08)
PROC: 30233L1 Transfusion of Nonautologous Fresh Plasma into Peripheral Vein, Percutaneous Approach (ICD-10-PCS; 2021-01-09)
DX: A41.9 Sepsis, unspecified organism (principal); R65.21 Severe sepsis with septic shock; K92.2 Gastrointestinal hemorrhage, unspecified; F19.20 Other psychoactive substance dependence, uncomplicated; I47.2 Ventricular tachycardia; N17.9 Acute kidney failure, unspecified; K51.90 Ulcerative colitis, unspecified, without complications; E87.5 Hyperkalemia; Z20.822 Contact with and (suspected) exposure to COVID-19; H54.7 Unspecified visual loss; I48.91 Unspecified atrial fibrillation; I50.9 Heart failure, unspecified; E03.9 Hypothyroidism, unspecified; J44.9 Chronic obstructive pulmonary disease, unspecified; K21.9 Gastro-esophageal reflux disease without esophagitis; K57.90 Diverticulosis of intestine, part unspecified, without perforation or abscess without bleeding; G89.29 Other chronic pain; M54.9 Dorsalgia, unspecified; F41.9 Anxiety disorder, unspecified; F32.A Depression, unspecified; D64.9 Anemia, unspecified; Z95.2 Presence of prosthetic heart valve; Z88.0 Allergy status to penicillin; Z91.040 Latex allergy status; Z88.8 Allergy status to other drugs, medicaments and biological substances; Z79.82 Long term (current) use of aspirin; Z79.01 Long term (current) use of anticoagulants; Z79.899 Other long term (current) drug therapy; Z90.49 Acquired absence of other specified parts of digestive tract; Z98.890 Other specified postprocedural states; Z79.890 Hormone replacement therapy
CPT/HCPCS: 36415; 36430; 36600; 51702; 70450; 74176; 80048; 80053; 80076; 81001; 82803; 83605; 83690; 83735; 84100; 84132; 84443; 84484; 85014; 85018; 85025; 85610; 86850; 86900; 86901; 86920; 86922; 87040; 93005; A0425; A0429; A9270-GY; C9113; J0282; J1170; J1630; J1720; J2060; J2270; J2360; J2543; J3430; J3490; J7030; J7042; J7060; J7120; P9016; P9017; U0002

== ENCOUNTER 2021-01-23 22:12 | Emergency (ER) | payer MEDICAID ==
[2021-01-23] MEDS: Morphine 2 MG/ML SYRINGE IM ONE (23:00)
[2021-01-23] MEDS ORDERED: Menthol/Zinc Oxide Ointment 113 GM Tube TOP ONE ×2 (23:00→23:53)
[2021-01-23 23:08] VITALS: BP 113/86; PULSE 80
[2021-01-23] MEDS: HYDROmorphone 2 MG/ML SDV IM ONE (23:10)
[2021-01-23] MEDS: Ketamine 200 MG/20 ML MDV IVPUSH ONE (23:54)
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
--- NOTE | 2021-01-25 10:18 | EDM.PDOC ---
ED HPI GENERAL MEDICAL PROBLEM - General Chief Complaint: Gastrointestinal Problem Stated Complaint: COLOSTOMY Time Seen by Provider: 01/23/21 22:15 Source of Information: Reports: Patient History Limitations: Reports: No Limitations - History of Present Illness INITIAL COMMENTS - FREE TEXT/NARRATIVE: 50-year-old female presents to the ED secondary to her ileostomy bag rupturing causing skin godoy. And complications with wound VAC due to proximity to ileostomy opening. Patient has godoy first-degree secondary to stomach acid covering approximately 4% BSA/palm area x2 inferior to ileostomy. Skin is highly sensitive and irritated painful 8/10 on the pain scale which stopped patient from trying to correct the problem herself. No other complaints. No chest pain no shortness of breath no dizzy lightheaded. Isolated issue skin irritation, replace ileostomy bag, wound VAC issue. Abdominal Pain Score (Numeric/FACES): 10 - Related Data Allergies Allergy/AdvReac Type Severity Reaction Status Date / Time Penicillins Allergy Severe Anaphylactic Verified 01/06/21 07:30 Shock latex Allergy Intermediate Itching Verified 01/06/21 07:30 dofetilide Allergy Other Verified 01/06/21 07:30 lidocaine Allergy Hives Verified 01/06/21 07:30 Home Meds: Home Meds Warfarin Sodium [Jantoven] 5 mg PO DAILY 09/25/15 [History] Aspirin [Halfprin] 81 mg PO DAILY 07/07/16 [History] Albuterol [Ventolin HFA] 2 inhalation PO Q4HR PRN 11/30/18 [History] Metoprolol Succinate [Kapspargo Sprinkle] 175 mg PO DAILY 11/21/19 [History] fentaNYL [Fentanyl] 25 mcg TOP ASDIRECTED 07/12/20 [History] Dapagliflozin Propanediol [Farxiga] 10 mg PO DAILY 07/19/20 [History] Sacubitril/Valsartan [Entresto 24 mg-26 mg Tablet] 1 each PO BID 07/19/20 [History] DULoxetine [Cymbalta] 60 mg PO DAILY 01/01/21 [History] Sulfamethoxazole/Trimethoprim [Bactrim Ds Tablet] 1 tab PO BID 01/01/21 [History] oxyCODONE 5 mg PO Q6HR PRN 01/01/21 [History] tiZANidine HCl [Tizanidine HCl] 4 mg PO Q6HR PRN 01/01/21 [History] traMADol [Ultram] 50 mg PO Q6HR PRN 01/01/21 [History] Past Medical History HEENT History: Reports: Impaired Vision Cardiovascular History: Reports: Afib, Heart Failure, Heart Murmur, SOB on Exertion, Other (See Below) Other Cardiovascular History: chf Respiratory History: Reports: COPD, SOB, Other (See Below) Other Respiratory History: Fluid in one lung Gastrointestinal History: Reports: Diverticulosis, GERD, GI Bleed, Other (See Below) Other Gastrointestinal History: hx C diff several times. 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 Ileostomy ileostomy reversal february 2020 Other Endocrine Surgeries/Procedures: denies history of diabetes as mentioned in medical record Musculoskeletal Surgical History: Reports: Shoulder Surgery, Other (See Below) Other Musculoskeletal Surgeries/Procedures:: Right hip ORIF Social & Family History - Family History Family Medical History: No Pertinent Family History Cardiac: Reports: ID, Stent Respiratory: Reports: COPD Other Respiratory Family Hisory: COPD not actually diagnosed but feels has, long hx of smoking Musculoskeletal: Reports: Other (See Below) Other Musculoskeletal Family History: AMN, ALD, ADDISONS Psychiatric: Reports: None Oncologic: Reports: Colon - Caffeine Use Caffeine Use: Reports: None - Recreational Drug Use Recreational Drug Use: No ED EXAM, SKIN/RASH Text/Narrative:: 50-year-old female supine in [facility] ED. Patient in obvious distress secondary to pain. Patient is grossly contaminated with GI contents from leaking ileostomy bag, large open surgical wound midline of the abdomen. Patient is alert and oriented 3 of 3 GCS 4 5 6. Speaking in full sentences. ABCs intact Exam Limited By: No Limitations General Appearance: Alert, WD/WN, No Apparent Distress Eye Exam: Bilateral Eye: EOMI, PERRL Ears: Normal External Exam, Hearing Grossly Normal Nose: Normal Inspection, Normal Mucosa, No Blood Head: Atraumatic, Normocephalic Respiratory/Chest: No Respiratory Distress, Lungs Clear, Normal Breath Sounds, No Accessory Muscle Use, Chest Non-Tender Cardiovascular: Normal Peripheral Pulses, Regular Rate, Rhythm, No Edema, No Gallop, No JVD, No Murmur, No Rub GI/Abdominal: Tender, Other (Proximally 4% first-degree burn secondary to GI acid spillage, patient has a large approximately 8 inch open surgical wound grossly contaminated with GI contents as well. Patient grossly tender throughout abdominal compartment secondary to surgery.) Back Exam: Normal Inspection, Full Range of Motion, NT Extremities: No Pedal Edema Neurological: Alert, Oriented, Normal Cognition Psychiatric: Normal Affect, Normal Mood Skin: Warm, Dry, Intact, Normal Color, Other (Approximately 4% BSA first-degree burn secondary to ascitic GI contents spillover from ileostomy) Location, Skin: Abdomen Characteristics: Erythematous Associated features: Inflammation, Weeping Lymphatic: No Adenopathy Course - Vital Signs Last Recorded V/S: Last Vital Signs Temp 97 F 01/23/21 22:57 Pulse 80 01/23/21 22:57 Resp 18 01/23/21 22:57 BP 113/86 01/23/21 22:57 Pulse Ox 98 01/23/21 22:57 - Orders/Labs/Meds Meds: Medications Discontinued Medications Generic Name Dose Route Start Last Admin Trade Name Ryan PRN Reason Stop Dose Admin Calamine/Phenol Confirm 01/23/21 23:53 Menthol/Zinc Oxide Ointment 113 Gm Tube Administered 01/23/21 23:54 Dose 113 gm TOP .STK-MED ONE Hydromorphone HCl 1 mg 01/23/21 23:09 01/23/21 23:10 Hydromorphone 2 Mg/Ml Sdv IM 01/23/21 23:10 1 mg ONETIME ONE Administration Ketamine HCl 15 mg 01/23/21 23:22 01/23/21 23:54 Ketamine 200 Mg/20 Ml Mdv IVPUSH 01/23/21 23:23 Not Given ONETIME ONE Morphine Sulfate 2 mg 01/23/21 22:55 01/23/21 23:00 Morphine 2 Mg/Ml Syringe IM 01/23/21 22:56 2 mg ONETIME ONE Administration Departure - Departure Disposition: Home, Self-Care 01 Condition: Good Clinical Impression: Burn of first degree of abdominal wall, initial encounter, Encounter for postoperative wound care - Discharge Information *PRESCRIPTION DRUG MONITORING PROGRAM REVIEWED*: No *COPY OF PRESCRIPTION DRUG MONITORING REPORT IN PATIENT ROJELIO: No Instructions: Wound Care, Adult Referrals: PCP,Unknown [Ordering Only Provider] - Forms: ED Department Discharge Care Plan Goals: wound care - saline moist gauze to abd wound cover with ABD. change dressing every 12 hrs. Follow up with wound care Tuesday. Keep wound vac off. May apply barrier cream to surrounding tissue as needed. Monitor for any signs of infection. Return immediately should any fever or unusual drainage develope. - Problem List & Annotations (1) Burn of first degree of abdominal wall, initial encounter SNOMED Code(s): 38011750 Code(s): T21.12XA - BURN OF FIRST DEGREE OF ABDOMINAL WALL, INITIAL ENCOUNTER Status: Acute (2) Encounter for postoperative wound care SNOMED Code(s): 565373051, 026879740, 644722161 Code(s): Z48.89 - ENCOUNTER FOR OTHER SPECIFIED SURGICAL AFTERCARE Status: Acute
== END 2021-01-24 00:26 | disposition home or self-care (01) ==
LOC: LB.ED 22:12
DX: T21.12XA Burn of first degree of abdominal wall, initial encounter (principal); J44.9 Chronic obstructive pulmonary disease, unspecified; K21.9 Gastro-esophageal reflux disease without esophagitis; I48.91 Unspecified atrial fibrillation; Z88.0 Allergy status to penicillin; Z91.040 Latex allergy status; Z88.4 Allergy status to anesthetic agent; Z88.8 Allergy status to other drugs, medicaments and biological substances; Z79.01 Long term (current) use of anticoagulants; Z79.82 Long term (current) use of aspirin; Z79.899 Other long term (current) drug therapy; X19.XXXA Contact with other heat and hot substances, initial encounter
CPT/HCPCS: 16000; 96372; 99283-25; A9270-GY; J1170; J2270

== ENCOUNTER 2021-01-24 17:16 | Emergency (ER) | payer MEDICAID ==
[2021-01-24] MEDS: HYDROmorphone 2 MG/ML SDV IM ONE ×2 (18:25→20:09)
[2021-01-24 20:00] VITALS: BP 117/97
[2021-01-24] MEDS: HYDROmorphone 2 MG/ML SDV ONE ×3 (20:02→20:07)
--- NOTE | 2021-01-25 11:43 | EDM.PDOC ---
ED HPI GENERAL MEDICAL PROBLEM - General Chief Complaint: Abdominal Pain Stated Complaint: ileostomy Time Seen by Provider: 01/24/21 17:20 Source of Information: Reports: Patient History Limitations: Reports: No Limitations - History of Present Illness INITIAL COMMENTS - FREE TEXT/NARRATIVE: 50-year-old female presents to the ED complaining of pain secondary to spillage from her ileostomy bag. Patient had same problem yesterday was treated for the same. PT/wound care was consulted regarding the issue of proximity of ileostomy opening and open surgical wound. Wound VAC was DC'd at that time. But creating a seal between ileostomy, skin fold, open wound was only successful for a few hours. At last visit patient's PSA first-degree burn secondary to ascitic GI contents was 2% but has increased now to 4% using the palmar method. Around the ileostomy and inferior wound into the groin. Surgical wound grossly contaminated. Pain and contamination are chief complaints. No other issues patient denies chest pain shortness of breath or trauma. - Related Data Allergies Allergy/AdvReac Type Severity Reaction Status Date / Time Penicillins Allergy Severe Anaphylactic Verified 01/06/21 07:30 Shock latex Allergy Intermediate Itching Verified 01/06/21 07:30 dofetilide Allergy Other Verified 01/06/21 07:30 lidocaine Allergy Hives Verified 01/06/21 07:30 Home Meds: Home Meds Warfarin Sodium [Jantoven] 5 mg PO DAILY 09/25/15 [History] Aspirin [Halfprin] 81 mg PO DAILY 07/07/16 [History] Albuterol [Ventolin HFA] 2 inhalation PO Q4HR PRN 11/30/18 [History] Metoprolol Succinate [Kapspargo Sprinkle] 175 mg PO DAILY 11/21/19 [History] fentaNYL [Fentanyl] 25 mcg TOP ASDIRECTED 07/12/20 [History] Dapagliflozin Propanediol [Farxiga] 10 mg PO DAILY 07/19/20 [History] Sacubitril/Valsartan [Entresto 24 mg-26 mg Tablet] 1 each PO BID 07/19/20 [History] DULoxetine [Cymbalta] 60 mg PO DAILY 01/01/21 [History] Sulfamethoxazole/Trimethoprim [Bactrim Ds Tablet] 1 tab PO BID 01/01/21 [History] oxyCODONE 5 mg PO Q6HR PRN 01/01/21 [History] tiZANidine HCl [Tizanidine HCl] 4 mg PO Q6HR PRN 01/01/21 [History] traMADol [Ultram] 50 mg PO Q6HR PRN 01/01/21 [History] Past Medical History HEENT History: Reports: Impaired Vision Cardiovascular History: Reports: Afib, Heart Failure, Heart Murmur, SOB on Exertion, Other (See Below) Other Cardiovascular History: chf Respiratory History: Reports: COPD, SOB, Other (See Below) Other Respiratory History: Fluid in one lung Gastrointestinal History: Reports: Diverticulosis, GERD, GI Bleed, Other (See Below) Other Gastrointestinal History: hx C diff several times. 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 Ileostomy ileostomy reversal february 2020 Other Endocrine Surgeries/Procedures: denies history of diabetes as mentioned in medical record Musculoskeletal Surgical History: Reports: Shoulder Surgery, Other (See Below) Other Musculoskeletal Surgeries/Procedures:: Right hip ORIF Social & Family History - Family History Family Medical History: No Pertinent Family History Cardiac: Reports: ND, Stent Respiratory: Reports: COPD Other Respiratory Family Hisory: COPD not actually diagnosed but feels has, long hx of smoking Musculoskeletal: Reports: Other (See Below) Other Musculoskeletal Family History: AMN, ALD, ADDISONS Psychiatric: Reports: None Oncologic: Reports: Colon - Caffeine Use Caffeine Use: Reports: None - Recreational Drug Use Recreational Drug Use: No ED ROS GENERAL - Review of Systems Review Of Systems: Unable To Obtain Reason Not Obtained: Same as yesterday ED EXAM, SKIN/RASH Exam: See Below Text/Narrative:: 50-year-old female presents to ED with a 1. Patient is supine. Writhing around in pain obvious distress. Patient is grossly contaminated with GI contents. She is alert and oriented through 3 GCS 4 5 6, speaking in full sentences. ABCs are intact Exam Limited By: No Limitations General Appearance: Alert, WD/WN, Moderate Distress Eye Exam: Bilateral Eye: EOMI, PERRL Ears: Normal External Exam, Hearing Grossly Normal Head: Atraumatic, Normocephalic Respiratory/Chest: No Respiratory Distress, Lungs Clear, Normal Breath Sounds, No Accessory Muscle Use, Chest Non-Tender Cardiovascular: Normal Peripheral Pulses, Regular Rate, Rhythm, No Edema, No G allop, No JVD, No Murmur, No Rub GI/Abdominal: Tender (4% BSA first-degree burn inferiorly to the ileostomy opening approximately 10 inches in width extending down into the groin), Other (Large open surgical wound midline abdomen grossly contaminated with GI contents from ileostomy bag spillage. On the skin surface of the abdomen right side adjacent to ileostomy opening approximately 2 inches laterally medially and superiorly first-degree burn secondary to ascitic gastric contents, ) Extremities: Normal Inspection, Normal Range of Motion, Non-Tender, No Pedal Edema, Normal Capillary Refill Neurological: Alert, Normal Cognition Psychiatric: Normal Affect, Normal Mood Skin: Warm, Dry, Intact, Normal Color, No Rash, Other (See above regarding scan of the abdomen) Location, Skin: Abdomen Characteristics: Erythematous Associated features: Tenderness, Weeping Course - Vital Signs Last Recorded V/S: Last Vital Signs Temp 97.9 F 01/24/21 19:47 Pulse Resp 20 01/24/21 19:47 BP 117/97 H 01/24/21 19:47 Pulse Ox 94 L 01/24/21 19:47 - Orders/Labs/Meds Meds: Medications Discontinued Medications Generic Name Dose Route Start Last Admin Trade Name Freq PRN Reason Stop Dose Admin Hydromorphone HCl Confirm 01/24/21 18:32 01/24/21 20:02 Hydromorphone 2 Mg/Ml Sdv Administered 01/24/21 18:33 Not Given Dose 2 mg .ROUTE .STK-MED ONE Hydromorphone HCl 3 mg 01/24/21 20:00 01/24/21 20:09 Hydromorphone 2 Mg/Ml Sdv IM 01/24/21 20:01 3 mg ONETIME ONE Administration Hydromorphone HCl Confirm 01/24/21 20:12 01/24/21 20:06 Hydromorphone 2 Mg/Ml Sdv Administered 01/24/21 20:13 Not Given Dose 2 mg .ROUTE .STK-MED ONE Hydromorphone HCl Confirm 01/24/21 20:12 01/24/21 20:07 Hydromorphone 2 Mg/Ml Sdv Administered 01/24/21 20:13 Not Given Dose 2 mg .ROUTE .STK-MED ONE Hydromorphone HCl 2 mg 01/24/21 20:07 01/24/21 18:25 Hydromorphone 2 Mg/Ml Sdv IM 01/24/21 20:08 2 mg ONETIME ONE Administration Departure - Departure Time of Disposition: 21:18 Disposition: Home, Self-Care 01 Condition: Good Clinical Impression: Burn of first degree of abdominal wall, initial encounter, Encounter for postoperative wound care Abdominal pain Qualifiers: Abdominal location: generalized Qualified Code(s): R10.84 - Generalized abdominal pain - Discharge Information *PRESCRIPTION DRUG MONITORING PROGRAM REVIEWED*: No *COPY OF PRESCRIPTION DRUG MONITORING REPORT IN PATIENT ROJELIO: No Referrals: PCP,None [Primary Care Provider] - Forms: ED Department Discharge Care Plan Goals: Continue dressing as directed. Follow up with wound care. Return to ER as needed. Sepsis Event Note (ED) - Evaluation Sepsis Screening Result: No Definite Risk - Assessment/Plan Assessment:: Patient was grossly decontaminated, wound was irrigated thoroughly and repacked, new ileostomy bag was put in place new orientation lateral instead of inferior to address possible cause of losing seal. To allow healthcare providers to clean and irrigate patient's wounds pain relief was required. She was given Dilaudid to address her pain. Plan is to try to keep on her right side until she can see her surgeon again to address the issue of the ileostomy opening being to close to the surgical opening. Until that happens this will be a constant problem and is not tenable for patient or successful surgical wound healing. All questions were answered to the patient's and 's satisfaction patient understood the issue that we are addressing and the complication that we cannot fix, patient understands so does and agrees to the treatment plan Plan: See above
== END 2021-01-24 20:32 | disposition home or self-care (01) ==
LOC: LB.ED 17:16
DX: T21.12XA Burn of first degree of abdominal wall, initial encounter (principal); I48.91 Unspecified atrial fibrillation; J44.9 Chronic obstructive pulmonary disease, unspecified; K21.9 Gastro-esophageal reflux disease without esophagitis; Z88.0 Allergy status to penicillin; Z91.040 Latex allergy status; Z88.4 Allergy status to anesthetic agent; Z88.8 Allergy status to other drugs, medicaments and biological substances; Z79.82 Long term (current) use of aspirin; Z79.01 Long term (current) use of anticoagulants; X19.XXXA Contact with other heat and hot substances, initial encounter
CPT/HCPCS: 96372; 99283; J1170

== ENCOUNTER 2021-01-25 12:55 | Emergency (ER) | payer MEDICAID ==
[2021-01-25] MEDS ORDERED: HYDROmorphone 2 MG/ML SDV ONE (15:18)
--- NOTE | 2021-01-25 15:38 | EDM.PDOC ---
ED HPI GENERAL MEDICAL PROBLEM - General Chief Complaint: Gastrointestinal Problem Stated Complaint: ileostomy bag change Time Seen by Provider: 01/25/21 13:00 Source of Information: Reports: Patient History Limitations: Reports: No Limitations - History of Present Illness INITIAL COMMENTS - FREE TEXT/NARRATIVE: The third time Hazel has come into the ED for ileostomy bag leaking with irritation to the skin of the abdomen and groin secondary to ascitic GI contents. Patient's ileostomy and open surgical wound are in such close proximity but it does not allow for an appropriate seal for her ileostomy bag. Patient complains of abdominal pain specifically skin. No other complaints. No chest pain or shortness of breath no dizzy lightheaded no syncope no near syncope or trauma. See previous to visit narrative for progression of skin injuries - Related Data Allergies Allergy/AdvReac Type Severity Reaction Status Date / Time Penicillins Allergy Severe Anaphylactic Verified 01/06/21 07:30 Shock latex Allergy Intermediate Itching Verified 01/06/21 07:30 dofetilide Allergy Other Verified 01/06/21 07:30 lidocaine Allergy Hives Verified 01/06/21 07:30 Home Meds: Home Meds Warfarin Sodium [Jantoven] 5 mg PO DAILY 09/25/15 [History] Aspirin [Halfprin] 81 mg PO DAILY 07/07/16 [History] Albuterol [Ventolin HFA] 2 inhalation PO Q4HR PRN 11/30/18 [History] Metoprolol Succinate [Kapspargo Sprinkle] 175 mg PO DAILY 11/21/19 [History] fentaNYL [Fentanyl] 25 mcg TOP ASDIRECTED 07/12/20 [History] Dapagliflozin Propanediol [Farxiga] 10 mg PO DAILY 07/19/20 [History] Sacubitril/Valsartan [Entresto 24 mg-26 mg Tablet] 1 each PO BID 07/19/20 [History] DULoxetine [Cymbalta] 60 mg PO DAILY 01/01/21 [History] Sulfamethoxazole/Trimethoprim [Bactrim Ds Tablet] 1 tab PO BID 01/01/21 [History] oxyCODONE 5 mg PO Q6HR PRN 01/01/21 [History] tiZANidine HCl [Tizanidine HCl] 4 mg PO Q6HR PRN 01/01/21 [History] traMADol [Ultram] 50 mg PO Q6HR PRN 01/01/21 [History] Past Medical History HEENT History: Reports: Impaired Vision Cardiovascular History: Reports: Afib, Heart Failure, Heart Murmur, SOB on Exertion, Other (See Below) Other Cardiovascular History: chf Respiratory History: Reports: COPD, SOB, Other (See Below) Other Respiratory History: Fluid in one lung Gastrointestinal History: Reports: Diverticulosis, GERD, GI Bleed, Other (See Below) Other Gastrointestinal History: hx C diff several times. 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 Ileostomy ileostomy reversal february 2020 Other Endocrine Surgeries/Procedures: denies history of diabetes as mentioned in medical record Musculoskeletal Surgical History: Reports: Shoulder Surgery, Other (See Below) Other Musculoskeletal Surgeries/Procedures:: Right hip ORIF Social & Family History - Family History Family Medical History: No Pertinent Family History Cardiac: Reports: [place], Stent Respiratory: Reports: COPD Other Respiratory Family Hisory: COPD not actually diagnosed but feels has, long hx of smoking Musculoskeletal: Reports: Other (See Below) Other Musculoskeletal Family History: AMN, ALD, ADDISONS Psychiatric: Reports: None Oncologic: Reports: Colon - Caffeine Use Caffeine Use: Reports: None ED ROS GENERAL - Review of Systems Review Of Systems: Comprehensive ROS is negative, except as noted in HPI. ED EXAM, SKIN/RASH Exam: See Below Text/Narrative:: 50-year-old female found supine in bay 1 ED. ABC intact. Mild to moderate distress secondary to pain from skin irritation. Patient is speaking in full sentences. Alert and oriented through 3 GCS 4 5 6 Exam Limited By: No Limitations General Appearance: Alert, WD/WN, Mild Distress, Moderate Distress Eye Exam: Bilateral Eye: EOMI, PERRL Respiratory/Chest: No Respiratory Distress, Lungs Clear, Normal Breath Sounds, No Accessory Muscle Use, Chest Non-Tender Cardiovascular: Normal Peripheral Pulses, Regular Rate, Rhythm, No Edema, No Gallop, No JVD, No Murmur, No Rub GI/Abdominal: Soft, Non-Tender (Approximately 2.5 to 3% BSA first-degree burn secondary to ascitic gastric contents leaking from ileostomy, improvement from yesterday which was 4%. Skin included approximately 2 inches superior to the ileostomy 2 inches to the medial and lateral edges and then inferior to the ileostomy opening.) (Female) Exam: Normal External Exam Back Exam: Normal Inspection. No: CVA Tenderness (R), CVA Tenderness (L) Extremities: Normal Inspection, Normal Range of Motion, Non-Tender, No Pedal Edema, Normal Capillary Refill Neurological: Alert, Oriented, Normal Cognition Psychiatric: Normal Affect, Normal Mood Skin: Warm, Dry, Intact, Normal Color, No Rash, Other (CT abdomen regarding skin) Location, Skin: Abdomen Associated features: Tenderness, Inflammation, Weeping Lymphatic: No Adenopathy Course - Orders/Labs/Meds Meds: Medications Discontinued Medications Generic Name Dose Route Start Last Admin Trade Name Ryan PRN Reason Stop Dose Admin Hydromorphone HCl Confirm 01/25/21 15:18 Hydromorphone 2 Mg/Ml Sdv Administered 01/25/21 15:19 Dose 4 mg .ROUTE .STK-MED ONE Departure - Departure Time of Disposition: 16:00 Disposition: Home, Self-Care 01 Condition: Good Clinical Impression: First degree burn of abdominal wall Qualifiers: Encounter type: subsequent encounter Qualified Code(s): T21.12XD - Burn of first degree of abdominal wall, subsequent encounter - Discharge Information *PRESCRIPTION DRUG MONITORING PROGRAM REVIEWED*: No *COPY OF PRESCRIPTION DRUG MONITORING REPORT IN PATIENT ROJELIO: No Referrals: PCP,None [Primary Care Provider] - - Assessment/Plan Assessment:: Skin irritation secondary to gastric contents causing first-degree burn of the abdominal skin adjacent to it inferior to ileostomy opening. Complicated by open surgical wound. Making seal with ileostomy appliance difficult/near impossible. Plan: ABC, history, exam, narcotics for pain, wound care, replace and adjust ileostomy bag, all questions answered to patient and satisfaction, patient and understand treatment plan and agreed to same, ultimate solution is to follow-up with surgery for revision of ileostomy opening to get away from the open surgical wound.
[2021-01-25] MEDS ORDERED: HYDROmorphone 2 MG/ML SDV IM ONE ×2 (16:19→16:20)
== END 2021-01-25 15:50 | disposition home or self-care (01) ==
LOC: LB.ED 12:55
DX: T21.12XA Burn of first degree of abdominal wall, initial encounter (principal); I48.91 Unspecified atrial fibrillation; J44.9 Chronic obstructive pulmonary disease, unspecified; K21.9 Gastro-esophageal reflux disease without esophagitis; Z88.0 Allergy status to penicillin; Z91.040 Latex allergy status; Z88.4 Allergy status to anesthetic agent; Z88.8 Allergy status to other drugs, medicaments and biological substances; Z79.01 Long term (current) use of anticoagulants; Z79.82 Long term (current) use of aspirin; X19.XXXA Contact with other heat and hot substances, initial encounter
CPT/HCPCS: 96372; 99282; J1170

== ENCOUNTER 2021-01-26 13:21 | Emergency (ER) | payer MEDICAID ==
[2021-01-26] MEDS ORDERED: Ondansetron 4 MG Tab.DIS ONE (13:34)
[2021-01-26] MEDS ORDERED: HYDROmorphone 2 MG/ML SDV ONE ×2 (14:05→15:46)
[2021-01-26] MEDS ORDERED: HYDROmorphone 2 MG/ML SDV IM ONE ×4 (16:01→17:01)
[2021-01-26] MEDS ORDERED: Ondansetron 4 MG Tab.DIS PO ONE (16:45)
--- NOTE | 2021-01-26 17:15 | EDM.PDOC ---
ED HPI GENERAL MEDICAL PROBLEM - General Chief Complaint: Abdominal Pain Stated Complaint: ILEOSTOMY Time Seen by Provider: 01/26/21 13:21 Source of Information: Reports: Patient History Limitations: Reports: No Limitations - History of Present Illness INITIAL COMMENTS - FREE TEXT/NARRATIVE: 50-year-old female came in for issues with her ileostomy bag, skin breakdown/acid godoy around her ostomy. Patient is in a great deal of pain from the breakdown of her skin, with nausea. Patient denies chest pain, shortness of breath, trauma, syncope/near syncope. Patient has been seen in the ED for the past 3 days for same. No other complaints - Related Data Allergies Allergy/AdvReac Type Severity Reaction Status Date / Time Penicillins Allergy Severe Anaphylactic Verified 01/06/21 07:30 Shock latex Allergy Intermediate Itching Verified 01/06/21 07:30 dofetilide Allergy Other Verified 01/06/21 07:30 lidocaine Allergy Hives Verified 01/06/21 07:30 Home Meds: Home Meds Warfarin Sodium [Jantoven] 5 mg PO DAILY 09/25/15 [History] Aspirin [Halfprin] 81 mg PO DAILY 07/07/16 [History] Albuterol [Ventolin HFA] 2 inhalation PO Q4HR PRN 11/30/18 [History] Metoprolol Succinate [Kapspargo Sprinkle] 175 mg PO DAILY 11/21/19 [History] fentaNYL [Fentanyl] 25 mcg TOP ASDIRECTED 07/12/20 [History] Dapagliflozin Propanediol [Farxiga] 10 mg PO DAILY 07/19/20 [History] Sacubitril/Valsartan [Entresto 24 mg-26 mg Tablet] 1 each PO BID 07/19/20 [History] DULoxetine [Cymbalta] 60 mg PO DAILY 01/01/21 [History] Sulfamethoxazole/Trimethoprim [Bactrim Ds Tablet] 1 tab PO BID 01/01/21 [History] oxyCODONE 5 mg PO Q6HR PRN 01/01/21 [History] tiZANidine HCl [Tizanidine HCl] 4 mg PO Q6HR PRN 01/01/21 [History] traMADol [Ultram] 50 mg PO Q6HR PRN 01/01/21 [History] HYDROmorphone [Dilaudid] 2 mg PO Q4H PRN #6 tab 01/26/21 [Rx] Past Medical History HEENT History: Reports: Impaired Vision Cardiovascular History: Reports: Afib, Heart Failure, Heart Murmur, SOB on Exertion, Other (See Below) Other Cardiovascular History: chf Respiratory History: Reports: COPD, SOB, Other (See Below) Other Respiratory History: Fluid in one lung Gastrointestinal History: Reports: Diverticulosis, GERD, GI Bleed, Other (See Below) Other Gastrointestinal History: hx C diff several times. 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 Ileostomy ileostomy reversal february 2020 Other Endocrine Surgeries/Procedures: denies history of diabetes as mentioned in medical record Musculoskeletal Surgical History: Reports: Shoulder Surgery, Other (See Below) Other Musculoskeletal Surgeries/Procedures:: Right hip ORIF Social & Family History - Family History Family Medical History: No Pertinent Family History Cardiac: Reports: [place], Stent Respiratory: Reports: COPD Other Respiratory Family Hisory: COPD not actually diagnosed but feels has, long hx of smoking Musculoskeletal: Reports: Other (See Below) Other Musculoskeletal Family History: AMN, ALD, ADDISONS Psychiatric: Reports: None Oncologic: Reports: Colon - Caffeine Use Caffeine Use: Reports: None ED ROS GENERAL - Review of Systems Review Of Systems: Comprehensive ROS is negative, except as noted in HPI. ED EXAM, SKIN/RASH Exam: See Below Text/Narrative:: 54-year-old female found in room 182. Patient in moderate distress secondary to pain from breakdown of skin around ileostomy. Patient is alert and oriented 3 of 3 GCS 4 5 6. Speaking in full sentences. No other obvious trauma. Exam Limited By: No Limitations General Appearance: Alert, WD/WN, No Apparent Distress Eye Exam: Bilateral Eye: EOMI, PERRL Ears: Normal External Exam, Hearing Grossly Normal Nose: Normal Inspection, Normal Mucosa, No Blood Throat/Mouth: Normal Lips, Normal Voice, No Airway Compromise Head: Atraumatic, Normocephalic Neck: Normal Inspection, Supple, Non-Tender, Full Range of Motion Respiratory/Chest: No Respiratory Distress, Lungs Clear, Normal Breath Sounds, No Accessory Muscle Use, Chest Non-Tender Cardiovascular: Normal Peripheral Pulses, Regular Rate, Rhythm, No Edema, No Gallop, No JVD, No Murmur, No Rub GI/Abdominal: Other (Ileostomy opening bleeding at edges, skin adjacent to ileostomy in all directions weeping erythema, skin irritation/acid [place] approximately 4% BSA. 3% being inferior to ileostomy. Skin grossly contaminated with GI contents. Open surgical wound grossly contaminated GI contents.) Extremities: Normal Inspection, Normal Range of Motion, Non-Tender, No Pedal Edema, Normal Capillary Refill Neurological: Alert, Oriented, Normal Cognition Psychiatric: Normal Affect, Tearful Skin: Warm, Dry, Intact, Normal Color, Other (See skin description under abdomen) Location, Skin: Abdomen Characteristics: Erythematous, Other (Weeping, skin breakdown, bleeding near ileostomy opening) Associated features: Tenderness, Inflammation, Weeping Lymphatic: No Adenopathy Course - Orders/Labs/Meds Labs: Laboratory Tests 01/26/21 01/26/21 01/26/21 Range/Units 14:00 14:00 14:00 WBC 16.3 H D (4.0-11.0) K/uL RBC 4.11 (3.80-5.80) M/uL Hgb 12.1 D (11.5-16.5) g/dL Hct 38.1 D (37.0-47.0) % MCV 93 (76-96) fL MCH 29.4 (27.0-32.0) pg MCHC 31.8 (31.0-35.0) g/dL RDW 18.9 H (11.0-16.0) % Plt Count 431 D (150-500) K/uL MPV 10.7 H (6.0-10.0) fL Neut % (Auto) 83.9 H (45.0-70.0) % Lymph % (Auto) 8.7 L (20.0-40.0) % [place] % (Auto) 5.5 (3.0-10.0) % Eos % (Auto) 1.2 (1.0-5.0) % Baso % (Auto) 0.7 H (0.0-0.5) % Neut # (Auto) 13.70 H (2.00-7.50) K/uL Lymph # (Auto) 1.41 L (1.50-4.00) K/uL [place] # (Auto) 0.89 H (0.20-0.80) K/uL Eos # (Auto) 0.19 (0.04-0.40) K/uL Baso # (Auto) 0.11 H (0.02-0.10) K/uL PT 14.4 H D (9.0-11.5) sec INR 1.5 D (1.0-3.5) Sodium 130 L (136-145) mmol/L Potassium 5.1 D (3.5-5.1) mmol/L Chloride 97 L (98-107) mmol/L Carbon Dioxide 25.5 D (21.0-32.0) mmol/L Anion Gap 12.6 (5.0-15.0) mmol/L BUN 40 H D (8-26) mg/dL Creatinine 1.45 H D (0.55-1.02) mg/dL Est Cr Clr Drug Dosing TNP Estimated GFR (MDRD) 38 L (>60) MLS/MIN BUN/Creatinine Ratio 27.6 H (6-25) Glucose 113 H (74-100) mg/dL Calcium 10.0 D (8.5-10.1) mg/dL Meds: Medications Discontinued Medications Generic Name Dose Route Start Last Admin Trade Name Freq PRN Reason Stop Dose Admin Hydromorphone HCl Confirm 01/26/21 14:05 01/26/21 16:47 Hydromorphone 2 Mg/Ml Sdv Administered 01/26/21 14:06 Not Given Dose 6 mg .ROUTE .STK-MED ONE Hydromorphone HCl Confirm 01/26/21 15:46 01/26/21 16:42 Hydromorphone 2 Mg/Ml Sdv Administered 01/26/21 15:47 Not Given Dose 2 mg .ROUTE .STK-MED ONE Hydromorphone HCl 2 mg 01/26/21 16:01 01/26/21 13:24 Hydromorphone 2 Mg/Ml Sdv IM 01/26/21 16:02 2 mg ONETIME ONE Administration Hydromorphone HCl 3 mg 01/26/21 16:02 01/26/21 14:11 Hydromorphone 2 Mg/Ml Sdv IM 01/26/21 16:03 3 mg ONETIME ONE Administration Hydromorphone HCl 2 mg 01/26/21 16:03 01/26/21 15:50 Hydromorphone 2 Mg/Ml Sdv IM 01/26/21 16:04 2 mg ONETIME ONE Administration Hydromorphone HCl 3 mg 01/26/21 17:01 01/26/21 17:00 Hydromorphone 2 Mg/Ml Sdv IM 01/26/21 17:02 3 mg ONETIME ONE Administration Ondansetron HCl Confirm 01/26/21 13:34 01/26/21 16:45 Ondansetron 4 Mg Tab.Dis Administered 01/26/21 13:35 Not Given Dose 4 mg .ROUTE .STK-MED ONE Ondansetron HCl 4 mg 01/26/21 16:45 01/26/21 13:33 Ondansetron 4 Mg Tab.Dis PO 01/26/21 16:46 4 mg ONETIME ONE Administration Departure - Departure Time of Disposition: 17:20 Disposition: Home, Self-Care 01 Condition: Good Clinical Impression: First degree burn of abdominal wall Qualifiers: Encounter type: subsequent encounter Qualified Code(s): T21.12XD - Burn of first degree of abdominal wall, subsequent encounter - Discharge Information *PRESCRIPTION DRUG MONITORING PROGRAM REVIEWED*: No *COPY OF PRESCRIPTION DRUG MONITORING REPORT IN PATIENT ROJELIO: No Prescriptions: HYDROmorphone [Dilaudid] 2 mg PO Q4H PRN #6 tab PRN Reason: Abdominal Pain Instructions: Ileostomy, Ileostomy, Care After Referrals: PCP,None [Primary Care Provider] - Forms: ED Department Discharge - Assessment/Plan Assessment:: Skin breakdown secondary to gastric contents from leaking ileostomy appliance. Pain secondary to skin breakdown. Nausea secondary to pain. Plan: 1. Skin breakdown secondary to leaking ileostomy appliance. 2. Pain 3. Nausea Plan: ABC, history, exam, Zofran, Dilaudid, wound care, set up appointment for ostomy clinic in [place] 11:00 tomorrow, lab work, patient education/shared decision making, decision made not to prophylactically treat elevated white blood cell count, ambulatory prescription given for Dilaudid to help patient get to [place] tomorrow for appointment. Overall game plan is to get appropriate supplies to address patient's leaking ostomy to allow skin to heal. And surgical site to stay clean and continue to heal without infection. Treatment plan was explained to and patient, both understood and agreed to treatment plan all questions were answered to their satisfaction patient was discharged in stable condition
== END 2021-01-26 17:06 | disposition home or self-care (01) ==
LOC: LB.ED 13:21
DX: T21.12XA Burn of first degree of abdominal wall, initial encounter (principal); I48.91 Unspecified atrial fibrillation; J44.9 Chronic obstructive pulmonary disease, unspecified; K21.9 Gastro-esophageal reflux disease without esophagitis; Z88.0 Allergy status to penicillin; Z91.040 Latex allergy status; Z88.4 Allergy status to anesthetic agent; Z79.01 Long term (current) use of anticoagulants; Z79.82 Long term (current) use of aspirin; X19.XXXA Contact with other heat and hot substances, initial encounter
CPT/HCPCS: 36415; 80048; 85025; 85610; 96372; 99283; A9270; J1170

== ENCOUNTER 2021-09-08 09:37 | Emergency (ER) | payer MEDICAID ==
[2021-09-08 09:57] VITALS: BP 115/65; PULSE 96
== END 2021-09-08 10:27 | disposition home or self-care (01) ==
LOC: LB.ED 09:37
DX: S82.141A Displaced bicondylar fracture of right tibia, initial encounter for closed fracture (principal); I50.9 Heart failure, unspecified; J44.9 Chronic obstructive pulmonary disease, unspecified; Z88.0 Allergy status to penicillin; Z88.4 Allergy status to anesthetic agent; Z91.040 Latex allergy status; Z88.6 Allergy status to analgesic agent; Z79.01 Long term (current) use of anticoagulants; Z79.899 Other long term (current) drug therapy; Z79.82 Long term (current) use of aspirin; W18.12XA Fall from or off toilet with subsequent striking against object, initial encounter
CPT/HCPCS: 73562-RT; 99282; 99283

== ENCOUNTER 2021-12-17 07:00 | Emergency (ER) | payer MEDICAID ==
[2021-12-17 07:59] LABS: ESTIMATED GFR 80 mL/min (>60)
[2021-12-17 08:07] VITALS: BP 137/82; PULSE 104
== END 2021-12-17 08:35 | disposition home or self-care (01) ==
LOC: LB.ED 07:00
DX: T45.511A Poisoning by anticoagulants, accidental (unintentional), initial encounter (principal); I48.91 Unspecified atrial fibrillation; J44.9 Chronic obstructive pulmonary disease, unspecified; K21.9 Gastro-esophageal reflux disease without esophagitis; Z88.0 Allergy status to penicillin; Z91.040 Latex allergy status; Z88.4 Allergy status to anesthetic agent; Z79.01 Long term (current) use of anticoagulants; Z79.82 Long term (current) use of aspirin
CPT/HCPCS: 36415; 80048; 85025; 85610; 99284

== ENCOUNTER 2022-03-26 16:00 | Emergency (ER) | payer MEDICARE, MEDICAID ==
[2022-03-26] MEDS: Sodium Chloride 0.9% 1,000 ML IV SCH (16:15)
[2022-03-26 16:39] VITALS: BP 113/44; PULSE 124
[2022-03-26] MEDS ORDERED: Sodium Chloride 0.9% 10 ML Syringe FLUSH PRN (16:40)
[2022-03-26 17:12] LABS: ESTIMATED GFR 3 mL/min (>60)
[2022-03-26] MEDS: Calcium Gluconate 10% 1 GM/10 ML SDV IVPUSH ONE (17:12)
[2022-03-26] MEDS: Phytonadione 5 MG Tab PO ONE (17:30)
[2022-03-26] MEDS: Albuterol 0.083% 2.5 MG/3 ML Neb Soln NEB ONE (17:53)
[2022-03-26] MEDS: Sodium Bicarbonate 8.4% 50 MEQ/50 ML Syringe IVPUSH ONE (17:55)
[2022-03-26] MEDS: cefTRIAXone 1 GM Vial IVPUSH SCH (18:06)
[2022-03-26] MEDS: metroNIDAZOLE/Normal Saline 500 MG in Premix Bag 1 BAG IV ONE (18:12)
[2022-03-26] MEDS: Sodium Polystyrene Sulfonate 15 GM/60 ML Susp 60 ML Bot PO ONE (18:21)
[2022-03-26] MEDS: Morphine 4 MG/ML VIAL IVPUSH ONE ×2 (19:53→20:12)
[2022-03-26] MEDS ORDERED: Lactated Ringers 1,000 ML IV SCH (20:00)
== END 2022-03-26 20:48 ==
LOC: SUPCPDRO 16:00 → LB.ED 16:00
DX: A41.9 Sepsis, unspecified organism (principal); R65.21 Severe sepsis with septic shock; N17.9 Acute kidney failure, unspecified; N30.00 Acute cystitis without hematuria; J44.9 Chronic obstructive pulmonary disease, unspecified; K21.9 Gastro-esophageal reflux disease without esophagitis; E86.0 Dehydration; N18.9 Chronic kidney disease, unspecified; I48.91 Unspecified atrial fibrillation; Z79.01 Long term (current) use of anticoagulants; Z88.0 Allergy status to penicillin; Z91.040 Latex allergy status; Z88.4 Allergy status to anesthetic agent; Z88.8 Allergy status to other drugs, medicaments and biological substances; Z79.82 Long term (current) use of aspirin; Z20.822 Contact with and (suspected) exposure to COVID-19
CPT/HCPCS: 36415; 71250; 74176; 80053; 81001; 82274; 83605; 83735; 83880; 84100; 85027; 85610; 87040; 87086; 87493; 93005; 93010; 96365; 96375; 99285; 99285-25; A0425; A0429; A9270-GY; J0610; J0696; J2270; J3490; J7030; U0002

== ENCOUNTER 2022-05-25 14:07 | Inpatient (IN) | payer MEDICARE, MEDICAID ==
[2022-05-25] MEDS ORDERED: Morphine 2 MG/ML SYRINGE IVPUSH PRN (14:08)
[2022-05-25] MEDS ORDERED: metroNIDAZOLE/Normal Saline 500 MG in Premix Bag 1 BAG IV SCH (14:15)
[2022-05-25] MEDS ORDERED: Sodium Chloride 0.9% 1,000 ML IV SCH ×2 (14:15→14:45)
[2022-05-25] MEDS ORDERED: Ondansetron 4 MG Tab.DIS ONE (14:30)
[2022-05-25] MEDS: metroNIDAZOLE/Normal Saline 100 ML IV SCH ×2 (15:11→23:00)
[2022-05-25] MEDS: Ondansetron 4 MG/2 ML SDV IV PRN (15:15)
[2022-05-25] MEDS: Morphine 4 MG/ML VIAL IVPUSH PRN (15:22)
[2022-05-25] MEDS ORDERED: Albuterol 8 GM Inhaler INH PRN (17:43)
[2022-05-25] MEDS: Sodium Chloride 0.9% 1,000 ML IV SCH (18:29)
[2022-05-25] MEDS ORDERED: Warfarin 5 MG Tab PO ONE (19:00)
[2022-05-25] MEDS: Cefepime 1 GM in Sodium Chloride 0.9% 50 ML IV SCH (19:00)
[2022-05-25] MEDS: Cholecalciferol (Vitamin D3) 25 MCG Tab PO SCH (19:00)
[2022-05-26] MEDS: Sodium Chloride 0.9% 1,000 ML IV SCH ×3 (03:00→20:24)
[2022-05-26] MEDS: oxyCODONE 5 MG Tab PO PRN ×2 (05:16→20:19)
[2022-05-26] MEDS: metroNIDAZOLE/Normal Saline 100 ML IV SCH ×3 (05:47→23:23)
[2022-05-26] MEDS: Pantoprazole 40 MG Tab.CR PO SCH (07:08)
[2022-05-26] MEDS: Amiodarone 200 MG Tab PO SCH ×2 (08:07→12:01)
[2022-05-26] MEDS: Cefepime 1 GM in Sodium Chloride 0.9% 50 ML IV SCH ×2 (08:07→20:22)
[2022-05-26] MEDS: Cholecalciferol (Vitamin D3) 25 MCG Tab PO SCH ×2 (08:07→20:20)
[2022-05-26] MEDS: Aspirin 81 MG Tab.EC PO SCH (08:07)
[2022-05-26] MEDS: Ondansetron 4 MG/2 ML SDV IV PRN (08:30)
[2022-05-26 09:31] LABS: ESTIMATED GFR 19 mL/min (>60)
[2022-05-26] MEDS: Non-Formulary Medication 1 Each (Midodrine [Midodrine] 10 MG Tablet) PO SCH ×4 (09:43→20:22)
[2022-05-26] MEDS: Morphine 4 MG/ML VIAL IVPUSH PRN ×2 (12:40→15:44)
[2022-05-26] MEDS: Warfarin 2.5 MG Tab PO SCH (17:43)
[2022-05-27] MEDS: Sodium Chloride 0.9% 1,000 ML IV SCH (04:32)
[2022-05-27] MEDS: oxyCODONE 5 MG Tab PO PRN ×3 (04:33→19:20)
[2022-05-27] MEDS: metroNIDAZOLE/Normal Saline 100 ML IV SCH ×3 (07:13→22:43)
[2022-05-27] MEDS: Pantoprazole 40 MG Tab.CR PO SCH (07:17)
[2022-05-27] MEDS: Cholecalciferol (Vitamin D3) 25 MCG Tab PO SCH ×2 (07:30→19:19)
[2022-05-27] MEDS: Aspirin 81 MG Tab.EC PO SCH (07:30)
[2022-05-27] MEDS: Non-Formulary Medication 1 Each (Midodrine [Midodrine] 10 MG Tablet) PO SCH ×3 (07:32→20:11)
[2022-05-27] MEDS: Amiodarone 200 MG Tab PO SCH (07:33)
[2022-05-27] MEDS: Cefepime 1 GM in Sodium Chloride 0.9% 50 ML IV SCH ×2 (08:49→19:21)
[2022-05-27 12:34] LABS: ESTIMATED GFR 46 mL/min (>60)
[2022-05-27] MEDS ORDERED: Warfarin 5 MG Tab PO SCH (18:00)
[2022-05-28] MEDS: Morphine 4 MG/ML VIAL IVPUSH PRN ×3 (02:20→19:26)
[2022-05-28] MEDS: metroNIDAZOLE/Normal Saline 100 ML IV SCH ×3 (06:31→22:12)
[2022-05-28] MEDS: Pantoprazole 40 MG Tab.CR PO SCH (06:35)
[2022-05-28] MEDS: Aspirin 81 MG Tab.EC PO SCH (07:36)
[2022-05-28] MEDS: Amiodarone 200 MG Tab PO SCH (07:36)
[2022-05-28] MEDS: Cefepime 1 GM in Sodium Chloride 0.9% 50 ML IV SCH ×2 (07:36→19:24)
[2022-05-28] MEDS: Non-Formulary Medication 1 Each (Midodrine [Midodrine] 10 MG Tablet) PO SCH ×3 (07:36→19:24)
[2022-05-28] MEDS: Cholecalciferol (Vitamin D3) 25 MCG Tab PO SCH ×2 (07:36→19:24)
[2022-05-28] MEDS: oxyCODONE 5 MG Tab PO PRN ×2 (08:16→22:12)
[2022-05-28] MEDS ORDERED: Potassium Chloride Riders 10 MEQ in Premix Bag 1 BAG IV ONE (09:14)
[2022-05-28] MEDS: Potassium Chloride 20 MEQ Tab.ER PO SCH ×2 (09:36→19:24)
[2022-05-28] MEDS: Warfarin 2.5 MG Tab PO SCH (17:11)
[2022-05-29] MEDS: Morphine 4 MG/ML VIAL IVPUSH PRN (02:38)
[2022-05-29] MEDS: metroNIDAZOLE/Normal Saline 100 ML IV SCH (07:00)
[2022-05-29] MEDS: Aspirin 81 MG Tab.EC PO SCH (07:02)
[2022-05-29] MEDS: Pantoprazole 40 MG Tab.CR PO SCH (07:02)
[2022-05-29] MEDS: Potassium Chloride 20 MEQ Tab.ER PO SCH (07:03)
[2022-05-29] MEDS: Cholecalciferol (Vitamin D3) 25 MCG Tab PO SCH (07:04)
[2022-05-29] MEDS: Amiodarone 200 MG Tab PO SCH (07:04)
[2022-05-29] MEDS: Non-Formulary Medication 1 Each (Midodrine [Midodrine] 10 MG Tablet) PO SCH (07:07)
[2022-05-29] MEDS: Cefepime 1 GM in Sodium Chloride 0.9% 50 ML IV SCH (08:09)
[2022-05-29] MEDS: oxyCODONE 5 MG Tab PO PRN (09:23)
[2022-05-29] MEDS: Ondansetron 4 MG/2 ML SDV IV PRN (09:23)
[2022-05-29] MEDS ORDERED: Ondansetron 4 MG Tab.DIS ONE ×2 (10:11)
[2022-05-29 10:47] VITALS: BP 124/72; PULSE 60
== END 2022-05-29 10:30 | disposition home or self-care (01) | DRG 871 ==
LOC: LB.MS 14:08
PROVIDERS: ADMIT Surgery; ATTEND Surgery
DX: A41.9 Sepsis, unspecified organism (principal); R65.21 Severe sepsis with septic shock; N17.9 Acute kidney failure, unspecified; A09 Infectious gastroenteritis and colitis, unspecified; I13.0 Hypertensive heart and chronic kidney disease with heart failure and stage 1 through stage 4 chronic kidney disease, or unspecified chronic kidney disease; E86.0 Dehydration; N18.9 Chronic kidney disease, unspecified; I50.9 Heart failure, unspecified; J44.9 Chronic obstructive pulmonary disease, unspecified; I48.91 Unspecified atrial fibrillation; G89.29 Other chronic pain; M54.9 Dorsalgia, unspecified; K21.9 Gastro-esophageal reflux disease without esophagitis; K52.9 Noninfective gastroenteritis and colitis, unspecified; E87.6 Hypokalemia; Z20.822 Contact with and (suspected) exposure to COVID-19; F41.9 Anxiety disorder, unspecified; F32.A Depression, unspecified; D63.1 Anemia in chronic kidney disease; Z98.890 Other specified postprocedural states; Z93.2 Ileostomy status; Z79.01 Long term (current) use of anticoagulants; Z79.899 Other long term (current) drug therapy; Z93.3 Colostomy status; Z79.82 Long term (current) use of aspirin; Z88.0 Allergy status to penicillin; Z88.8 Allergy status to other drugs, medicaments and biological substances; Z91.040 Latex allergy status; R11.2 Nausea with vomiting, unspecified; R10.9 Unspecified abdominal pain; J00 Acute nasopharyngitis [common cold]
CPT/HCPCS: 0241U; 36415; 74176; 80048; 80053; 83605; 83880; 84484; 85025; 85027; 85610; 86140; 93005; 97161-GP; 99222; 99232; 99239; A9270-GY; J0692; J2270; J2405; J3480; J3490; J7030; Q0162

== ENCOUNTER 2023-12-31 17:59 | Emergency (ER) | payer MEDICARE ==
[2023-12-31] MEDS: Sodium Chloride 0.9% 1,000 ML IV SCH (18:18)
[2023-12-31 18:25] LABS: BASOPHILS ABSOLUTE AUTO 0.02 K/uL (0.02-0.10); BASOPHILS PERCENT AUTO 0.1 % (0.0-0.5); EOSINOPHILS ABSOLUTE AUTO 0.01 K/uL (0.04-0.40); EOSINOPHILS PERCENT AUTO 0.1 % (1.0-5.0); HEMATOCRIT 37.2 % (37.0-47.0); HEMOGLOBIN 12.5 g/dL (11.5-16.5); LYMPHOCYTES ABSOLUTE AUTO 1.03 K/uL (1.50-4.00); LYMPHOCYTES PERCENT AUTO 7.3 % (20.0-40.0); MEAN CORPUSCULAR HEMOGLOBIN 30.7 pg (27.0-32.0); MEAN CORPUSCULAR HGB CONC 33.6 g/dL (31.0-35.0); MEAN CORPUSCULAR VOLUME 91 fL (76-96); MEAN PLATELET VOLUME 11.4 fL (6.0-10.0); MONOCYTES ABSOLUTE AUTO 0.91 K/uL (0.20-0.80); MONOCYTES PERCENT AUTO 6.4 % (3.0-10.0); NEUTROPHILS ABSOLUTE AUTO 12.22 K/uL (2.00-7.50); NEUTROPHILS PERCENT AUTO 86.1 % (45.0-70.0); PLATELET COUNT,PLT 345 K/uL (150-500); RED BLOOD CELL COUNT 4.07 M/uL (3.80-5.80); RED CELL DISTRIBUTION WIDTH 14.8 % (11.0-16.0); WHITE BLOOD CELL COUNT,WBC 14.2 K/uL (4.0-11.0)
[2023-12-31] MEDS: Ondansetron 4 MG/2 ML SDV IVPUSH ONE (18:32)
[2023-12-31 18:59] LABS: A/G RATIO 0.8 (0.8-2.0); ALBUMIN 3.3 g/dL (3.4-5.0); BILIRUBIN TOTAL 0.8 mg/dL (0.0-1.0); CALCIUM 9.2 mg/dL (8.5-10.1); PROTEIN TOTAL,TP 7.6 g/dL (6.4-8.2); TROPONIN I HIGH SENSITIVITY 11.6 pg/ml (<=60.4)
[2023-12-31 19:00] LABS: ANION GAP 31.5 mmol/L (5.0-15.0); BUN/CREATININE RATIO 10.8 (6-25); CREATININE 17.18 mg/dL (0.55-1.02); EST CRCL DRUG DOSING (CG) 3.5 mL/min; POTASSIUM,K 6.9 mmol/L (3.5-5.1)
[2023-12-31 19:02] LABS: CARBON DIOXIDE,CO2 11.4 mmol/L (21.0-32.0)
[2023-12-31 19:04] LABS: APPEARANCE,URINE CLOUDY (CLEAR); BILIRUBIN,URINE SMALL (NEGATIVE); COLOR,URINE YELLOW; GLUCOSE,URINE NEGATIVE (NEGATIVE); KETONES,URINE NEGATIVE (NEGATIVE); LEUKOCYTE ESTERASE,URINE SMALL (NEGATIVE); NITRITE,URINE NEGATIVE (NEGATIVE); OCCULT BLOOD,URINE NEGATIVE (NEGATIVE); PH,URINE 5.5 (5.0-8.0); PROTEIN,URINE 30 mg/dL (NEGATIVE); UROBILINOGEN,URINE 0.2 E.U./dL (0.2-1.0)
[2023-12-31] MEDS: Sodium Bicarbonate 8.4% 50 MEQ/50 ML Syringe IVPUSH ONE (19:07)
[2023-12-31 19:09] LABS: BACTERIA,URINE MANY /HPF; RBC,URINE 0-5 /HPF; SQUAMOUS EPITHELIAL CELLS,UR MANY /HPF
[2023-12-31] MEDS: Sodium Polystyrene Sulfonate 15 GM/60 ML Susp 60 ML Bot PO ONE (19:11)
[2023-12-31 19:13] LABS: PROTHROMBIN TIME 46.8 sec (9.0-11.5)
[2023-12-31] MEDS: Sodium Bicarbonate 8.4% 50 MEQ/50 ML Syringe ONE (19:13)
[2023-12-31 19:15] LABS: INFLUENZA A NAA NEGATIVE (NEGATIVE); INFLUENZA B NAA NEGATIVE (NEGATIVE); RESPIRATORY SYNCYTIAL VIR NAA NEGATIVE (NEGATIVE)
[2023-12-31 19:18] LABS: CORONAVIRUS COVID-19 NAA POSITIVE (NEGATIVE)
[2023-12-31] MEDS: Phytonadione 5 MG in Sodium Chloride 0.9% 50 ML IV ONE (19:26)
[2023-12-31] MEDS: Phytonadione 10 MG in Sodium Chloride 0.9% 50 ML IV ONE (19:27)
[2023-12-31] MEDS: Albuterol 0.083% 2.5 MG/3 ML Neb Soln NEB ONE (19:36)
[2023-12-31] MEDS: Albuterol 0.083% 2.5 MG/3 ML Neb Soln ONE ×2 (19:40)
[2023-12-31] MEDS: Sodium Chloride 0.9% 1,000 ML IV ONE (19:48)
[2023-12-31] MEDS: cefTRIAXone 1 GM Vial ONE (20:57)
[2023-12-31] MEDS: cefTRIAXone 1 GM in Sodium Chloride 0.9% 50 ML IV ONE (21:00)
[2023-12-31 21:01] LABS: BASE EXCESS ARTERIAL -18.6 (-2-2); BICARBONATE,ARTERIAL 9.6 mmol/L (22-26); O2 SATURATION ARTERIAL 94.8 % (95-98); PCO2 ARTERIAL 25.4 mmHg (35-45)
[2023-12-31 21:03] VITALS: BP 82/49
[2023-12-31 21:05] LABS: APPEARANCE,URINE SLIGHTLY CLOUDY (CLEAR); BILIRUBIN,URINE NEGATIVE (NEGATIVE); COLOR,URINE YELLOW; GLUCOSE,URINE NEGATIVE (NEGATIVE); KETONES,URINE NEGATIVE (NEGATIVE); LEUKOCYTE ESTERASE,URINE NEGATIVE (NEGATIVE); NITRITE,URINE NEGATIVE (NEGATIVE); OCCULT BLOOD,URINE NEGATIVE (NEGATIVE); PROTEIN,URINE 30 mg/dL (NEGATIVE); UROBILINOGEN,URINE 0.2 E.U./dL (0.2-1.0)
[2023-12-31 21:07] LABS: ANION GAP 26.6 mmol/L (5.0-15.0); BUN/CREATININE RATIO 12.6 (6-25); CALCIUM 8.3 mg/dL (8.5-10.1); EST CRCL DRUG DOSING (CG) 4.11 mL/min; POTASSIUM,K 5.7 mmol/L (3.5-5.1)
[2023-12-31] MEDS: Lactated Ringers 1,000 ML IV SCH (21:08)
[2023-12-31 21:09] LABS: CARBON DIOXIDE,CO2 12.1 mmol/L (21.0-32.0)
[2023-12-31 21:10] LABS: CREATININE 14.63 mg/dL (0.55-1.02)
[2023-12-31 21:12] LABS: BACTERIA,URINE MANY /HPF; RBC,URINE NOT SEEN /HPF; SQUAMOUS EPITHELIAL CELLS,UR FEW /HPF; WBC,URINE 0-5 /HPF
[2023-12-31 21:32] VITALS: PULSE 72
== END 2023-12-31 21:25 ==
LOC: LB.ED 17:59
DX: U07.1 COVID-19 (principal); A08.39 Other viral enteritis; N17.9 Acute kidney failure, unspecified; I48.19 Other persistent atrial fibrillation; E86.0 Dehydration; E87.21 Acute metabolic acidosis; F11.23 Opioid dependence with withdrawal; R79.1 Abnormal coagulation profile; I50.9 Heart failure, unspecified; J44.9 Chronic obstructive pulmonary disease, unspecified; K21.9 Gastro-esophageal reflux disease without esophagitis; Z79.82 Long term (current) use of aspirin; Z79.01 Long term (current) use of anticoagulants; Z79.899 Other long term (current) drug therapy; Z91.040 Latex allergy status; Z88.8 Allergy status to other drugs, medicaments and biological substances; Z88.4 Allergy status to anesthetic agent
CPT/HCPCS: 0241U; 36415; 36600; 51702; 71045; 74019; 80048; 80053; 81001; 82803; 83605; 84484; 85025; 85610; 87040; 93005; 94640; 96361; 96365; 96367; 96375; 99285; A9270; J0696; J2405; J3430; J3490; J7030; J7120; 93010